=== PATIENT | female | born 1970 | race Caucasian/White ===

== ENCOUNTER 2017-08-27 13:00 | Outpatient (RCR) | payer OTHER, SELFPAY ==
--- NOTE | 2017-05-08 09:52 | HP.SP.ADRE_ITS ---
Previous/Current Goals - Goals 1-5 Previous Goal #1: aNtali will recall details of short information (2-5 sentences ) with 80% accuracy on 4 consecutive sessions. Goal 1 Status: Previously: Details of 2-5 length sentences was recalled with 20 % accuraacy when information was provided verbally to her. Currently: Natali has declined to continue to address this goal. Previous Goal #2: Natali will correctly identify kay/change and accurately handle kay on 4/5 trials on 4 consecutive sessions. Goal 2 Status: Previously, Natali was able to identify a five dollar bill out of 5 bills. She needed maximal cues to count a 5 dollar bill and 4 ones as she stopped at 7 when counting. she is not able to see the one dollar bills per the patient. When given the correct change she had difficulty in telling if it was correct or not. Currently: She was able to count ones and fives up to 20 dollars. She was able to correctly identify between the two 100% of the time. Previous Goal #3: Natali will demonstrate perseveration less than 10 times in a 10 minute conversation. Goal 3 Status: Previously: Natali perseverated on 15 times in a 10 minutes conversation. Currently, Natali only perseverated when she was trying to think something through.Such as 35, 35, 35, for 358 for her house number when she wasn't able to think of the 8. perseverations in general conversation today. Previous Goal #4: Natali will answer problem solving questions with 80% accuracy for safety awareness. Goal 4 Status: Previosly, 50% She usually had the second step but not the first ( call 911 in case of a fire but didn't say leave the house first). Recently, she problem solving [employer] within [employer] for a variety of options of per month club orders. She was not able to recall amounts and determine which is the best option for her amount of money to spend. Noted deficits continue for higher level problem solving. History - History Date of Eval: 10/04/16 Medical Diagnosis (from RX): PRES Previous speech therapy: Yes Other Relevant Medical History/Diagnoses/Surgery: Seizures Smoking Status: Never smoker Hx Smoking: Yes - no meds currently Hx Tobacco Use: No - Pain Is pain an issue with your current prescribed condition?: No - Personal Education History: Masters degree Occupation: Disability, previous was [employer] of [employer] Right Hearing Abillity: Normal Left Hearing Abillity: Normal Visual Assistive Devices: Glasses Patients Living Arrangements: With Significant Other Patient Allergies - Allergies Allergies allopurinol Allergy (Verified 10/07/16 10:33) Diarrhea lactose Adverse Reaction (Verified 10/07/16 10:33) Diarrhea CLQT - CLQT CLQT Administered: Yes CLQT: Cognitive Linguistic Quick Test (CLQT) is a criterion - referenced assessment designed for adults between the ages of 18 and 89 with known or suspected neurological dysfuntions. The CLQT is to assess strength and weaknesses in five cognitive domains. Severity ratings are within normal limits , mild, moderate, severe deficits. The subtests are as follows: Date: 05/08/17 - Attention Attention: Severe - Memory Memory: Moderate - Executive Functions Executive Functions: Severe - Language Language: Mild - Visuospatial Skills Visuospatial Skills: Severe - Composite Severity Rating Composite Severity Rating: Moderate - CLQT Comments Analysis Natali was able to give personal information except her house number. Symbol cancellation was very difficult due to vision deficits. Confrontational naming was 100%. She was able to recall 11 details of a short paragraph when previously she only was able to name 6. Symbol trails subtest was very difficult in that it took planning as well as visual discrimination. Overall her ability to plan is increasing but continues to lack in overall ability to think ahead to plan steps. Vision Natali is already in vision therapy, therefore, several of the tasks were difficult due to this. Her eyes do not work together and she sees two images imposed over each other per her . Plan - Plan Plan: Speech therapy is warranted to continue for moderate cognitive deficits. She has a language component to her deficits as well as problem sovling deficits. - Recommendations MBS: No Treatment Warranted: Yes - Frequency Duration: 1 Week - Prognosis Prognosis: Good - Goals that are Established: Determination:: Goals will be added/modified as deemed necessary and appropriate. Therapy will be discontinued when results of re-evaluation indicate therapy is no longer needed or lack of progress has been documented. - Goal #1-5 Goal #1: Natali will correctly identify kay/change and accurately handle kay on 4/5 trials on 4 consecutive sessions. Goal #2: Natali will answer problem solving questions with 80% accuracy for safety awareness, reasoning and judgement. Goal #3: Natali will follow steps to access phone to make a phone call, text, and take pictures/videos on 3/5 trials. Goal #4: Natali will answer problem solving questions with 80% accuracy for safety awareness.
--- NOTE | 2017-06-24 15:33 | HP.OTREVAL ---
Aiden Car, It has been my pleasure to treat ARIELLA ABDULLAHI over the last 41 visits for . Please see the progress note below for an update on the occupational therapy plan of care! Subjective: Pt. arrived to session. Notes that everything is going well and that she went to auction with this weekend. Notes she is struggling with STM. She notes it has been biggest struggle since accident and as writing and typing are coming along she would like to start making more memory and cue cards (ST to address for social as pects and OT for ADLs/IADls) for people names and OT for ADl/IADls cues. Notes increased difficulty with remebering to transfer laundry over to dryer etc. Notes the sorting and compeltion of laundry tasks is going well. Further explained year anniversary of getting 'sick' is on July 14 and she would like to work on tryign to type letter to to thank. Objective/Function: Reassessment completed on this date. Ariella is progressing with therapy at this time. Mo[facility] cognitive screen attempted on this date but due to low vision she was unable to see things clearly enough for completion. She was able to correctly identify camel and worked on writing word camel from LTM. Correctly sequenced and formed 4/5 letters with SBA. Increased difficulty with e. Worked on visuospatial awareness through drawing of clock. Molly was previously unable to number clock. She has progressed to correctly forming and labeling 12, 6, 3, and needs 2x cues to correctly label 9 as she verbalized 9 but wrote 3. She was able to self-correct with 2x cues. Less that .5 cm gap at end point of [place]. However, [place] still indicative of increased visospatial deficits. Vision therapy has been discontinued at this time. She is progressing with typing and low vision tasks with use of increased font. Ariella has increased ability to read on microsoft word document while working on typing on computer with size 72 and zoom at 150%. The paragraph symbols are used at times to help recognize spacing between words and to decreased perseveration between words when typing. LTM is helpping Ariella promote typing of short words and name. She needs cues and physical prompts for R hand placement. She is able to correctly and accuratly type Ariella Abdullahi with verbal direction, no cues, and no errors. Progress from previous ability. She has increased difficulty with correctly typing full [place] in order and needs assistance with sequencing letters. She was SUP for 15/26 letters but when getting to type 'P' needed 4x cues before compelting rest of [place]et and was TD to recall order of [place]et after 'P'. She is able to recognize letters when visual prompts are presents with SBA. Working on increasing accuracy with [place] to promote increased knowledge of keyboard and sequencing skills for typing tasks. Increased perseveration of words and tasks are typically present with increased frustration of tasks or increased fatigue. Typically 1x 2 min break helps Pt. self-correct and self correct with cues as needed. Pt. is increasing ability to complete IADls t/o home. She notes continues decreasd ability for STM to complete laundry tasks. She notes increased STM for time management and transferring from washer to dryer. WIll progress with auditory and visual prompts as Pt. is able to read large fonts. Plan Plan: Ariella to continue OT for 1x weekly for 8 weeks to continue to address maximizing ADLs and help reintegrate and participate in IADls. WIll continue to work on STM and low vision compensations to promote (I). Working on increased performance and ability to type as this is a visual perceptual and very meaningful task for Ariella to relearn and complete at this time. Start address STM to help faciliate further safety and (I) while at home. Anticipated Interventions Anticipated Interventions: Strengthening, Sensory Retraining, Neuro Reeducation, Visual/Perceptual Skills, Cognitive Skills, ADL Training, Caregiver Training, Home Program Other Interventions: Working on Low Vision compensations and increasing sequencing and STM needed to complete ADL/IADls to promote increased (i) within home to help increase QOL and return to PLOF. Please do not hesitate to contact me at [phone] by phone or if you have questions or concerns regarding this new plan of care! Sincerely, Clari Farias
--- NOTE | 2017-06-25 09:03 | HP.OTREVAL ---
Aiden Car, It has been my pleasure to treat ARIELLA ABDULLAHI over the last 41 visits for . Please see the progress note below for an update on the occupational therapy plan of care! Subjective: Pt. arrived to session. Notes that everything is going well and that she went to auction with this weekend. Notes she is struggling with STM. She notes it has been biggest struggle since accident and as writing and typing are coming along she would like to start making more memory and cue cards (ST to address for social aspects and OT for ADLs/IADls) for people names and OT for ADl/IADls cues. Notes increased difficulty with remebering to transfer laundry over to dryer etc. Notes the sorting and completion of laundry tasks is going well. Further explained year anniversary of getting 'sick' is on July 14 and she would like to work on trying to type letter to to thank him. Verbalized understanding that re-eval needed to take place today. Objective/Function: Reassessment completed on this date. Ariella has progressed and meant some goals. Ariella is progressing with therapy at this time. MoCA cognitive screen attempted on this date but due to low vision she was unable to see things accurated for completion. She was able to correctly idenify camel and worked on writing word camel from LTM. Correctly sequenced and formed 3/5 letters with SBA. Worked on visuospatial awareness through drawing of clock. Molly was previously unable to number clock. She has progressed to correctly forming and labeling 12, 6, 3, and needs 2x cues to correctly label 9 as she verbalized 9 but wrote 3. Able to self-correct with 2x cues. Less that .5 cm gap at end point of [place]. However, [place] still indicative of increased visospatial deficits. Vision therapy has been discontinued at this time. She is progressing with typing and low vision tasks with us of increased font. Ariella has icnreased ability to read on [employer] working on typing on computer with size 72 and zoom at 150%. The paragrap sybols are used at times to also help recognize spacing between words and to decreased perseveration between words when typing. LTM is helpping Ariella promote typing of short words and name. She needs cues and physical prompts for R hand placement. She is anle to correctly and accuratly type Ariella Abdullahi with verbal direction, no cues, and no errors. Progress from previous ability. She has increased difficulty with coreectly typing full [place] in order and needs assisatnce with remembering sequence of letters. She was SUP for 15/26 letters but when getting to P needed 4x cues before compelting rest of akphabet and was TD to recall order of [place]. She is able to recognize letters when visual prompts are presents with SBA. Working on increasing accuracy with [place]ap[place]et to promote increased knowledge of keybaord and sequencing skills for typing tasks. Increased perseveration of words and tasks are typically present with increased frustration of tasks or increased fatigue. Typically 1x 2 min break help Pt. self-correct and self correct with cues as needed. Pt. is increased ability to complete IADls t/o home. She notes continues decreasd ability for STM to complete laundry tasks. She notes increased STM for time management and transferring from washer to dryer. WIll progressing with auditory and visual prompts as Pt. is able to read large fonts. Plan Frequency: 1x/Week Duration: 8 weeks Plan: Ariella to continue OT for 1x weekly for 8 weeks to continue to address maximizing ADLs and help reintegrate and participate in IADls. WIll continue to work on STM and low vision compensations to promote (I). Working on increased performance and ability to type as this is a visual perceptual and very meaningful task for Ariella to relearn and complete at this time. Start address STM to help faciliate further safety and (I) while at home. Goals - Goals Goal:: Pt. to be (I) to print and sign first and last name with 1xcue 4/5 trials 80% of the time to promote increased ability to complete IALDs by d/c. Goal:: Ariella will be mod I to type three consecutive sentences from visual and verbal prompts as needed 4/5 trials to improve Pt. ability to communicate through emails and complete IADLs by d/c. Goal:: Ariella will be mod I to complete laundry with layout and memory aids as needed 4/5 trials 80% of the time with good safety awareness and decreased need for assistance to improve QOL by d/c. Goal:: Ariella and caregiver to implement low vision compensations into daily routine to promote safety awarness and decreased risk of further injury 4/5 [id number]% of the time to prote QOL and improve (I) by d/c. Goal:: Ariella to correctly type [place] with 1x cue to promote increase seqeuncing, VMI, and perceptual cues to promote increased (I) and ability to localte letters on keybaord to promote (i) with meaningful tasks by d/c . Goal:: Ariella to be mod I to read digital clock to promote increased ability to complete home time management ability to promote (i) with ADL/IADls 4/5 trials 80% of the time by d/c. Goal:: Ariella to be SBA to complete 5-6 step simple meals with good safety awareness 4/5 trials 80% of the time to promote (I) and QOL by time of d/c. Goal:: Ariella to be SBA to complete all IADLS with good safety awareness 4/5 trials 80% of the time to promote QOL and decrease need to for spv by time of d/c. Goal:: Ariella to be SBA to write 1-2x word sentences with no cues and good legibility to promote ability to create memory aid 4/5 trials 80% o the time to promote increased (i) and QOL by d/c. Anticipated Interventions Anticipated Interventions: Strengthening, Sensory Retraining, Neuro Reeducation, Visual/Perceptual Skills, Cognitive Skills, ADL Training, Caregiver Training, Home Program Other Interventions: Working on Low Vision compensations and increasing sequencing and STM needed to complete ADL/IADls to promote increased (i) within home to help increase QOL and return to PLOF. Please do not hesitate to contact me at [phone] by phone or if you have questions or concerns regarding this new plan of care! Sincerely, Clari Farias
--- NOTE | 2017-08-27 13:08 | OTREVAL_ITS ---
Aiden Car, It has been my pleasure to treat ARIELLA ABDULLAHI over the last 49 visits for . Please see the progress note below for an update on the occupational therapy plan of care! Subjective: Arrived a little late. Noted able to complete making pasta salad and did some baking with help this weekend. Objective/Function: Ariella has progressed from initial evaluation. Functional performance is improving but remains significantly limited and vision and visual processing appears to be improving but deficits remain. She is now (I) to write ?Ariella Sanford? in cursive on unlined basic printer paper. Her remains to need mod A for ?Remy?. She becomes emotional when learning process is changed or challenged. She has been working on providing directed feedback and completing chunking methods to further promote learning. She has been starting to complete low vision space and line divider for new printing tasks for increased low vision compensations and proprioceptive input. Starting to progress with address. Performance is variable. Previous session able to re cite address (I) when asked, today she needed 1x cue and had a few perseverations. She remains able to complete reciting address with (i) ? CGA. She has started with use of low vision compensations writing first three numbers of address with low vision compensations. She can write numbers 1-9 with min A. At times reversals are noted and she works on correcting. With increased number complications of two numbers she has increased difficulty, processing, and increased perseveration. Slowly progressing with writing tasks. She is working to increased ability to complete writing tasks with vision compensations, blocking, and learning techniques to promote increased ability to relearn writing tasks. The focus of most sessions has been on typing as Ariella was very eager to get back to typing. She is able to type name with ability to self-correct errors on regular keyboard and use of size 72 font with screen at 100% zoom. With 1x verbal cues she is able to type alphabet from c-r without error 1/ time. Errors noted for a, b, and x. Needs cues for hands placement but recognizing when fingers are off. She is progressing with typing tasks at this time. When trying to restart task increased number of errors are made which appears to be due to increase thinking of task and worrying about order etc. However, when previously tested on typing tasks she was unable to complete typing alphabet. Ariella is able to complete making pot of coffee, pure glass (i). She is progressing with baking and simple meal prep. Ariella noted that she is working on dishes and laundry. She is completing sorting and laundry tasks but having increased difficulty with remembering if clothes in basket are clean or dirty. She is progressing towards self-care goals at this time. Further clinic and home - based intervention needed to increase (I). She is cooking simple meals with SUP. She will continue OT for 1x weekly treatment for the next 12 weeks. Plan Frequency: 1x/Week Duration: 8 weeks Plan: continue POC for 1x weekly sessions for 12 weeks. WSill complete at least 1x home session if needed to promote increased (I) with ADls/IADLs. Goals - Goals Goal:: Pt. to be (I) to print and sign first and last name with 1xcue 4/5 trials 80% of the time to promote increased ability to complete IALDs by d/c. Goal:: Ariella will be mod I to type three consecutive sentences from visual and verbal prompts as needed 4/5 trials to improve Pt. ability to communicate through emails and complete IADLs by d/c. Goal:: Ariella will be mod I to complete laundry with layout and memory aids as needed 4/5 trials 80% of the time with good safety awareness and decreased need for assistance to improve QOL by d/c. Goal:: Ariella and caregiver to implement low vision compensations into daily routine to promote safety awarness and decreased risk of further injury 4/5 [id number]% of the time to prote QOL and improve (I) by d/c. Goal:: Ariella to correctly type [place] with 1x cue to promote increase seqeuncing, VMI, and perceptual cues to promote increased (I) and ability to localte letters on keybaord to promote (i) with meaningful tasks by d/c . Goal:: Ariella to be mod I to read digital clock to promote increased ability to complete home time management ability to promote (i) with ADL/IADls 4/5 trials 80% of the time by d/c. Goal:: Ariella to be SBA to complete 5-6 step simple meals with good safety awareness 4/5 trials 80% of the time to promote (I) and QOL by time of d/c. Goal:: Ariella to be SBA to complete all IADLS with good safety awareness 4/5 trials 80% of the time to promote QOL and decrease need to for spv by time of d/ c. Goal:: Ariella to be SBA to write 1-2x word sentences with no cues and good legibility to promote ability to create memory aid 4/5 trials 80% o the time to promote increased (i) and QOL by d/c. Anticipated Interventions Anticipated Interventions: Strengthening, Sensory Retraining, Neuro Reeducation , Visual/Perceptual Skills, Cognitive Skills, ADL Training, Caregiver Training, Home Program Other Interventions: Working on Low Vision compensations and increasing sequencing and STM needed to complete ADL/IADls to promote increased (i) within home to help increase QOL and return to PLOF. Please do not hesitate to contact me at [phone] by phone or Fax: if you have questions or concerns regarding this new plan of care! Sincerely, Clari Farias
--- NOTE | 2017-08-28 08:08 | HP.SP.ADRE ---
Previous/Current Goals - Goals 1-5 Previous Goal #1: Natali will correctly identify kay/change and accurately handle kay on 4/5 trials on 4 consecutive sessions. Goal 1 Status: Previously, She was able to count ones and fives up to 20 dollars. She was able to correctly identify between the two 100% of the time. Currently, Natali can identify between 1,5,10 and 20 dollar bills. She can count bills with 50% accuracy. She was able to count coins 3 times slowly. OT is addressing visual deficits. Goal continues. Previous Goal #2: Natali will answer problem solving questions with 80% accuracy for safety awareness, reasoning and judgement. Goal 2 Status: Previously, she problem solved cliff gifts within [place] ranges for a variety of options of per month club orders. She was not able to recall amounts and determine which is the best option for her amount of money to spend. Currently, she is able to problem solve simple and moderate problems verbally but lacks carry over into daily life. When presented with a problem she often is unable to tell how to progress to solve it. She can answer problems such as if you see a car accident, what do you do? with 80% accuracy. Complex problems remain difficult for Natali as she relies on others to provide her with solutions. Previous Goal #3: Natali will follow steps to access phone to make a phone call, text, and take pictures/videos on 3/5 trials. Goal 3 Status: Previously, Natali was able to take a picture with no cues. She also showed a video that she had taken at home. She needed maximal cues to open the text box, choose the picture and send the text. She can use Radha to text through speech to text. She has only brought her phone 1-2 times, therefore, goal has not been addressed often. Previous Goal #4: Natali will use recall strategies on 3/5 trials with moderate cues. Goal 4 Status: Natali reports using association and reptition as she can not read or write effectively. She reports that her has a calendar at home but he does all the scheduling. Natali does not effectively use her strategies. She is unable to write/type information due to visual deficits and unable to read well also due to these deficits. Natali has requested to continue this goal. 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 [employer] Right Hearing Abillity: Normal Left Hearing Abillity: Normal Visual Assistive Devices: Glasses Patients Living Arrangements: With Significant Other Patient Allergies - Allergies Allergies allopurinol Allergy (Verified 10/07/16 10:33) Diarrhea lactose Adverse Reaction (Verified 10/07/16 10:33) Diarrhea Objective Cog/Ling/Com - Test Administered Ghhrgkpxa-Begsfgetlk-Igjrnnnyxgvhq Assessment Administered: Yes Nhbttwjjf-Srwxdynekd-Omwkxtchzphtd Assessment: Cognitive Linguistic skills were evaluated using patient/family interview, skilled observation and informal evaluation through tasks completed by the patient. - Answer Yes/No Questions Simple: WFL Complex: Mild - Medication Completing medications independently: Severe Cognitive Linguistic Comments - Comments Medication Natali's has been completing her medication. They have requested that she be able to independently be able to complete medication tasks. CLQT - CLQT CLQT Administered: Yes CLQT: Cognitive Linguistic Quick Test (CLQT) is a criterion - referenced assessment designed for adults between the ages of 18 and 89 with known or suspected neurological dysfuntions. The CLQT is to assess strength and weaknesses in five cognitive domains. Severity ratings are within normal limits, mild, moderate, severe deficits. The subtests are as follows: Date: 08/28/17 - Attention Attention: Severe - Memory Memory: Moderate - Executive Functions Executive Functions: Severe - Language Language: Moderate - Visuospatial Skills Visuospatial Skills: Severe - Composite Severity Rating Composite Severity Rating: Moderate - CLQT Comments Analysis Natali has increased her raw score on memory from 112 to 124 but still places in the moderate range. Overall she is able to complete personal facts 100% when previously it was 7/8. Symbol cancellation had more correctly identified symbols but she also marked ones that were visually similar therefore she had the same poor score. Confrontational naming was 100% this time when previously it was 80%. For story retelling she was able to get the overall information but lacked some details. She was unable to do symbol trails due to visual deficits in telling size of shapes. Generative naming had 6 animals listed but she then repeated those animals 7 times. She was only able to tell one word that started with m. She got one more item for raw score on design memory ( the most visually complex was missed) which is an increase from 2 perviously. Mazes were not able to be completed but she was able to generate one design at the end. Overall her scores are similiar to previous testing composite score was 1.6 and currently it is 1.4. Vision Natali's visual deficits overall effect her ability to complete some subtests. Plan - Plan Plan: Speech therapy is recommended to continue for 12 more weeks to focus on functional tasks for Natali to be as independent as possible. - Recommendations MBS: No Treatment Warranted: Yes - Frequency Visits in this POC: 24 - Prognosis Prognosis: Fair - Goals that are Established: Determination:: Goals will be added/modified as deemed necessary and appropriate. Therapy will be discontinued when results of re-evaluation indicate therapy is no longer needed or lack of progress has been documented. - Goal #1-5 Goal #1: Natali will correctly identify kay/change and accurately handle kay on 4/5 trials on 4 consecutive sessions. Goal #2: Natali will complete medication tasks including but not limited to showing appropriate day to take medications, medication set up and recall of information about her medications with 90% with minimal cues. Goal #3: Natali will follow steps to access phone to make a phone call, text, and take pictures/videos on 3/5 trials. Goal #4: Natali will use recall strategies on 3/5 trials with moderate cues.
--- NOTE | 2017-08-29 08:36 | HP.OTREVAL ---
Aiden Car, It has been my pleasure to treat ARIELLA ABDULLAHI over the last 49 visits for . Please see the progress note below for an update on the occupational therapy plan of care! Subjective: Arrived a little late. Noted able to complete making pasta salad and did some baking with help this weekend. Objective/Function: Ariella has progressed from initial evaluation. Functional performance is improving but remains significantly limited and vision and visual processing appears to be improving but deficits remain. She is now (I) to write Ariella Sanford in cursive on unlined basic printer paper. Her remains to need mod A for Remy. She becomes emotional when learning process is changed or challenged. She has been working on providing directed feedback and completing chunking methods to further promote learning. She has been starting to complete low vision space and line divider for new printing tasks for increased low vision compensations and proprioceptive input. Starting to progress with address. Performance is variable. Previous session able to re cite address (I) when asked, today she needed 1x cue and had a few perseverations. She remains able to complete reciting address with (i) CGA. She has started with use of low vision compensations writing first three numbers of address with low vision compensations. She can write numbers 1-9 with min A. At times reversals are noted and she works on correcting. With increased number complications of two numbers she has increased difficulty, processing, and increased perseveration. Slowly progressing with writing tasks. She is working to increased ability to complete writing tasks with vision compensations, blocking, and learning techniques to promote increased ability to relearn writing tasks. The focus of most sessions has been on typing as Ariella was very eager to get back to typing. She is able to type name with ability to self-correct errors on regular keyboard and use of size 72 font with screen at 100% zoom. With 1x verbal cues she is able to type alphabet from c-r without error 1/1 time. Errors noted for a, b, and x. Needs cues for hands placement but recognizing when fingers are off. She is progressing with typing tasks at this time. When trying to restart task increased number of errors are made which appears to be due to increase thinking of task and worrying about order etc. However, when previously tested on typing tasks she was unable to complete typing alphabet. Ariella is able to complete making pot of coffee, pure glass (i). Attempted completion of MVPT to further determine how vision is progressing. She remains unable to complete at this time. She is progressing with baking and simple meal prep. Ariella noted that she is working on dishes and laundry. She is completing sorting and laundry tasks but having increased difficulty with remembering if clothes in basket are clean or dirty. She is progressing towards self-care goals at this time. Further clinic and home - based intervention needed to increase (I). She is cooking simple meals with SUP. She remains unsafe with stove top cooking tasks and safety continues to be concern for therapy when Pt. is hoem alone. She will continue OT for 1x weekly treatment for the next 12 weeks. Plan Frequency: 1x/Week Duration: 12 weeks Plan: continue POC for 1x weekly sessions for 12 weeks. Will complete at least 1x home session if needed to promote increased (I) with ADls/IADLs. She has progress and completing simple IADls but still having difficulty with activity such as laundry in telling what is clean vs. dirty. Ot has consistently educated and Ariella on low vision tools. Due to injury vision deficits, cognitive deficits, and safety remain most crucial issues that need to continue to be addressed and increase Molly (I) for IADls. Some low vision compensations have been put in place at home. She has recently started counseling due to injury to help with coping. She remains motivated to complete all therapy tasks but due to injury is seeking additional services to promote coping and adjustment to new abilities and life roles. Goals - Goals Goal:: Pt. to be (I) to print and sign first and last name with 1xcue 4/5 trials 80% of the time to promote increased ability to complete IALDs by d/c. Goal:: Ariella will be mod I to type three consecutive sentences from visual and verbal prompts as needed 4/5 trials to improve Pt. ability to communicate through emails and complete IADLs by d/c. Goal:: Ariella will be mod I to complete laundry with layout and memory aids as needed 4/5 trials 80% of the time with good safety awareness and decreased need for assistance to improve QOL by d/c. Goal:: Ariella and caregiver to implement low vision compensations into daily routine to promote safety awarness and decreased risk of further injury 4/5 % of the time to prote QOL and improve (I) by d/c. Goal:: Ariella to correctly type alaphabet with 1x cue to promote increase seqeuncing, VMI, and perceptual cues to promote increased (I) and ability to localte letters on keybaord to promote (i) with meaningful tasks by d/c . Goal:: Ariella to be mod I to read digital clock to promote increased ability to complete home time management ability to promote (i) with ADL/IADls 4/5 trials 80% of the time by d/c. Goal:: Ariella to be SBA to complete 5-6 step simple meals with good safety awareness 4/5 trials 80% of the time to promote (I) and QOL by time of d/c. Goal:: Ariella to be SBA to complete all IADLS with good safety awareness 4/5 trials 80% of the time to promote QOL and decrease need to for spv by time of d/c. Goal:: Ariella to be SBA to write 1-2x word sentences with no cues and good legibility to promote ability to create memory aid 4/5 trials 80% of the time to promote increased (i) and QOL by d/c. Goal:: Ariella to be mod I to write address with low vision compensations as needed 2/3 trials 75% of the time to promote safety, VMI, and ability to increase QOL by d/c. Anticipated Interventions Anticipated Interventions: Strengthening, Sensory Retraining, Neuro Reeducation, Visual/Perceptual Skills, Cognitive Skills, ADL Training, Caregiver Training, Home Program Other Interventions: Working on Low Vision compensations and increasing sequencing and STM needed to complete ADL/IADls to promote increased (i) within home to help increase QOL and return to PLOF. Please do not hesitate to contact me at [phone] by phone or if you have questions or concerns regarding this new plan of care! Sincerely, Clari Farias
--- NOTE | 2017-08-29 08:39 | OTREVAL_ITS ---
Aiden Car, It has been my pleasure to treat ARIELLA ABDULLAHI over the last 49 visits for . Please see the progress note below for an update on the occupational therapy plan of care! Subjective: Arrived a little late. Noted able to complete making pasta salad and did some baking with help this weekend. Objective/Function: Ariella has progressed from initial evaluation. Functional performance is improving but remains significantly limited and vision and visual processing appears to be improving but deficits remain. She is now (I) to write ?Ariella Sanford? in cursive on unlined basic printer paper. Her remains to need mod A for ?Remy?. She becomes emotional when learning process is changed or challenged. She has been working on providing directed feedback and completing chunking methods to further promote learning. She has been starting to complete low vision space and line divider for new printing tasks for increased low vision compensations and proprioceptive input. Starting to progress with address. Performance is variable. Previous session able to re cite address (I) when asked, today she needed 1x cue and had a few perseverations. She remains able to complete reciting address with (i) ? CGA. She has started with use of low vision compensations writing first three numbers of address with low vision compensations. She can write numbers 1-9 with min A. At times reversals are noted and she works on correcting. With increased number complications of two numbers she has increased difficulty, processing, and increased perseveration. Slowly progressing with writing tasks. She is working to increased ability to complete writing tasks with vision compensations, blocking, and learning techniques to promote increased ability to relearn writing tasks. The focus of most sessions has been on typing as Ariella was very eager to get back to typing. She is able to type name with ability to self-correct errors on regular keyboard and use of size 72 font with screen at 100% zoom. With 1x verbal cues she is able to type alphabet from c-r without error 1/ time. Errors noted for a, b, and x. Needs cues for hands placement but recognizing when fingers are off. She is progressing with typing tasks at this time. When trying to restart task increased number of errors are made which appears to be due to increase thinking of task and worrying about order etc. However, when previously tested on typing tasks she was unable to complete typing alphabet. Ariella is able to complete making pot of coffee, pure glass (i). Attempted completion of MVPT to further determine how vision is progressing. She remains unable to complete at this time. She is progressing with baking and simple meal prep. Ariella noted that she is working on dishes and laundry. She is completing sorting and laundry tasks but having increased difficulty with remembering if clothes in basket are clean or dirty. She is progressing towards self-care goals at this time. Further clinic and home - based intervention needed to increase (I). She is cooking simple meals with SUP. She remains unsafe with stove top cooking tasks and safety continues to be concern for therapy when Pt. is hoem alone. She will continue OT for 1x weekly treatment for the next 12 weeks. Plan Frequency: 1x/Week Duration: 12 weeks Plan: continue POC for 1x weekly sessions for 12 weeks. Will complete at least 1x home session if needed to promote increased (I) with ADls/IADLs. She has progress and completing simple IADls but still having difficulty with activity such as laundry in telling what is clean vs. dirty. Ot has consistently educated and Ariella on low vision tools. Due to injury vision deficits, cognitive deficits, and safety remain most crucial issues that need to continue to be addressed and increase Molly (I) for IADls. Some low vision compensations have been put in place at home. She has recently started counseling due to injury to help with coping. She remains motivated to complete all therapy tasks but due to injury is seeking additional services to promote coping and adjustment to new abilities and life roles. Goals - Goals Goal:: Pt. to be (I) to print and sign first and last name with 1xcue 4/5 trials 80% of the time to promote increased ability to complete IALDs by d/c. Goal:: Ariella will be mod I to type three consecutive sentences from visual and verbal prompts as needed 4/5 trials to improve Pt. ability to communicate through emails and complete IADLs by d/c. Goal:: Ariella will be mod I to complete laundry with layout and memory aids as needed 4/5 trials 80% of the time with good safety awareness and decreased need for assistance to improve QOL by d/c. Goal:: Ariella and caregiver to implement low vision compensations into daily routine to promote safety awarness and decreased risk of further injury 4/5 [id number]% of the time to prote QOL and improve (I) by d/c. Goal:: Ariella to correctly type alaphabet with 1x cue to promote increase seqeuncing, VMI, and perceptual cues to promote increased (I) and ability to localte letters on keybaord to promote (i) with meaningful tasks by d/c . Goal:: Ariella to be mod I to read digital clock to promote increased ability to complete home time management ability to promote (i) with ADL/IADls 4/5 trials 80% of the time by d/c. Goal:: Ariella to be SBA to complete 5-6 step simple meals with good safety awareness 4/5 trials 80% of the time to promote (I) and QOL by time of d/c. Goal:: Ariella to be SBA to complete all IADLS with good safety awareness 4/5 trials 80% of the time to promote QOL and decrease need to for spv by time of d/ c. Goal:: Ariella to be SBA to write 1-2x word sentences with no cues and good legibility to promote ability to create memory aid 4/5 trials 80% of the time to promote increased (i) and QOL by d/c. Goal:: Ariella to be mod I to write address with low vision compensations as needed 2/3 trials 75% of the time to promote safety, VMI, and ability to increase QOL by d/c. Anticipated Interventions Anticipated Interventions: Strengthening, Sensory Retraining, Neuro Reeducation , Visual/Perceptual Skills, Cognitive Skills, ADL Training, Caregiver Training, Home Program Other Interventions: Working on Low Vision compensations and increasing sequencing and STM needed to complete ADL/IADls to promote increased (i) within home to help increase QOL and return to PLOF. Please do not hesitate to contact me at [phone] by phone or Fax: if you have questions or concerns regarding this new plan of care! Sincerely, Clari Farias
== END 2017-08-27 19:00 | disposition home or self-care (01) ==
LOC: SP 13:00
PROVIDERS: Family Provider Family Medicine; PCP Family Medicine; Visit Provider Family Medicine
DX: I67.83 Posterior reversible encephalopathy syndrome (principal)
CPT/HCPCS: 92507; 97112; 97168; 97530

== ENCOUNTER 2018-04-08 20:25 | Emergency (ER) | payer OTHER, SELFPAY ==
[2018-04-08 20:27] VITALS: PULSE 109; RESP 16; TEMP 36.8; O2SAT 78; BMI 33.6
[2018-04-08 20:33] VITALS: O2SAT 95
--- NOTE | 2018-04-08 20:50 | CT_ITS ---
STUDY: CT BRAIN WITHOUT CONTRAST REASON FOR EXAM: Female, 47 years old. Headache, seizures RADIATION DOSAGE (If Supplied By Facility): CTDIvol = ( 44.99 ) mGy, DLP = ( 745.49 ) mGycm TECHNIQUE: Transaxial CT imaging of the brain was performed without administration of intravenous contrast material. Individualized dose optimization techniques were used for this CT. COMPARISON: 02/07/2017 FINDINGS: Normal soft tissue structures. Normal calvarium. Normal size ventricles and extra-axial spaces for the patient's age. Normal white matter tracts of the cerebral hemispheres. Normal basal ganglia and thalami. Normal brainstem. Normal cerebellum. There is no intracranial hemorrhage. There are no findings of an acute ischemic infarction. Normal visualized paranasal sinuses. CT/Brain/Head without Contrast IMPRESSION: Normal unenhanced CT scan of the brain. Electronically Signed: Cory Henning MD at 21:26 EST , Service support ,
[2018-04-08] MEDS: Morphine 4 MG/ML Syringe IV (20:56)
[2018-04-08] MEDS: DiphenhydrAMINE 50 MG/ML Syringe 25 MG IV (20:56)
[2018-04-08] MEDS: Metoclopramide 10 MG/2 ML Vial IV (20:56)
[2018-04-08 21:12] LABS: Absolute Lymphocyte Count 1.75 X10^3/ul (0.83-4.51); Absolute Neutrophil Count 14.4 X10^3/uL (2.0-7.7); Basophil# 0.04 X10^3/uL; Basophil% 0.2 % (0-1); Eosinophils% 0.6 % (0-5); Hematocrit 39.4 % (37-47); Hemoglobin 12.4 g/dl (12.0-15.0); Lymphocyte # 1.75 X10^3/ul (4.0); Lymphocyte % 10.7 % (19-41); Mean Corp Hgb Conc 31.5 g/gl (32-36); Mean Corpuscular Volume 95.2 fL (81-99); Mean Platelet Vol. 9.9 fl (6.2-12.0); Monocyte# 0.01 X10^3/uL; Monocyte% 0.1 % (0-10); Neutrophil # 14.44 X10^3/uL (2.7-7.7); Platelet Count 250 K/mm3 (150-450); RBC Distribution Width CV 14.6 % (11.6-14.6); RBC Distribution Width SD 49.8 fl (35.1-43.9); Red Blood Count 4.14 M/mm3 (4.2-5.4); White Blood Count 16.4 K/mm3 (4.4-11.0)
[2018-04-08 21:13] LABS: Anion Gap 7 (5-15); BUN 14 mg/dL (7-18); BUN/Creat Ratio 9.8 RATIO (10-20); Calcium,Total 8.2 mg/dL (8.5-10.1); Chloride 109 mmol/L (98-107); Creatinine, Serum 1.43 mg/dL (0.55-1.02); EST Glomerular Filtration Rate 41 mL/min (>60); Est Glom Filt Rate - Afr Amer 50 mL/min (>60); Estimated Creatinine Clearance 35.91 ml/min; Glucose 114 mg/dL (74-106); Potassium 4.3 mmol/L (3.5-5.1); Sodium Level 137 mmol/L (136-145)
[2018-04-08 21:14] LABS: POSITIVE COUNT NO; POSITIVE DIFFERENTIAL NO; POSITIVE MORPHOLOGY NO
[2018-04-08 22:11] VITALS: BP 161/91; PULSE 126; RESP 13; O2SAT 93
--- NOTE | 2018-04-08 22:15 | ED.RN ---
SBP >180, HEART RATE INCREASED TO 130'S. MD AWARE, MEDS ORDERED. BP RECHECKED, SBP 140'S, MED HELD, MD AWARE, WILL CONTINUE TO MONITOR.
[2018-04-08 22:17] VITALS: BP 147/88; PULSE 125; RESP 12; O2SAT 93
--- NOTE | 2018-04-08 22:30 | ED.RN ---
PT NOT RESPONDING TO VOICE OR TOUCH, OCCASIONAL WITHDRAWAL FROM PAINFUL STIMULI. MD AWARE AND AT BEDSIDE, NO NEW ORDERS, WILL CONTINUE TO MONITOR.
[2018-04-08 23:00] VITALS: BP 146/94; PULSE 125; RESP 14; O2SAT 94
[2018-04-08 23:26] LABS: AST(SGOT) 16 U/L (15-37); Alanine Aminotransfer ALT/SGPT 22 U/L (13-56); Albumin, Serum 3.9 g/dL (3.2-5.0); Alkaline Phosphatase 89 U/L (45-117); Bilirubin, Direct 0.11 mg/dL (0.00-0.30); Globulin 3.5 g/dL (2.2-4.2); Protein, Total 7.4 g/dL (6.4-8.2)
--- NOTE | 2018-04-08 23:31 | ED.RN ---
SPOUSE STATES PT HAS BEEN CONSUMING APPROX 1 BOTTLE OF WINE AND A FEW BEERS PER DAY UNTIL 3 DAYS AGO. AWARE.
[2018-04-08 23:47] LABS: Amphetamine Urine VISTA NEGATIVE (<1000 ng/mL); Barbiturate Urine VISTA NEGATIVE (< 200 ng/mL); Benzodiazepine Urine VISTA NEGATIVE (< 200 ng/mL); Cocaine Urine VISTA NEGATIVE (< 300 ng/mL); Ecstacy Urine VISTA NEGATIVE (< 500 ng/mL); Methadone Urine VISTA NEGATIVE (< 300 ng/mL); PCP Urine VISTA NEGATIVE (< 25 ng/mL); THC Urine VISTA NEGATIVE (< 50 ng/mL); Vista UDS pH Range 7
[2018-04-09 00:06] VITALS: BP 138/92; PULSE 112; RESP 18; O2SAT 97
--- NOTE | 2018-04-09 00:07 | ED.RN ---
OXYGEN TURNED DOWN TO 2L/MIN VIA NC
--- NOTE | 2018-04-09 00:25 | ED.DCSUM_ITS ---
- ER Visit Summary Date of Service: 04/09/18 Chief Complaint: Headache and visual field deficit History of Present Illness: The patient is a 47 F who presents with headache and decreased vision in the left visual field that began today. Patient has a history of posterior reversible encephalopathy syndrome and family states this is similar to prior episodes of that. Family states that the patient also gets confused with these episodes. Patient states she has headache over the top of her head. Patient describes it as throbbing. Patient admits to some nausea but denies any vomiting. Family states the patient does have some residual effects from prior episodes of posterior reversible encephalopathy syndrome. Patient states she did look down prior to the episode beginning today which is typical of prior episodes. EMS administered 4 mg of morphine and 4 mg of Zofran prior to arrival. Family also states the patient has a history of alcohol abuse and had been drinking up until 3 days ago. Physical Examination: Vital signs are stable except for mildly elevated blood pressure 161/91. Patient is afebrile. Patient does have a pulse oximeter reading of 78% on room air. Patient is 96% on oxygen here in the emergency department. Cranial nerves II through XII are grossly intact with the exception of decreased vision over the left lateral visual field. Family also states the patient has had problems with this part of her vision in the past. Patient was having difficulty following commands but was able to move all of her extremities and had good strength. Patient did not have any sensory deficits. Heart was regular and tachycardic. Lungs are clear and equal bilaterally. Abdomen is soft. Bowel sounds are normal. There is no tenderness. The remaining physical exam is within normal limits. Test Results: CBC shows a mild leukocytosis of 16.4. CT scan of the brain was obtained and does not show any acute intracranial abnormality. Basic metabolic profile showed a chronically elevated creatinine of 1.43. Urine tox was positive for opiates. Patient was given morphine by EMS prior to arrival as well as a dose of morphine here in the emergency. Serum alcohol level was 4. Emergency Department Course and Treatment: Patient was given morphine, Reglan, Benadryl here in the emergency department. Patient states her headache improved. Patient became more somnolent after this. Patient was observed in the emergency department became more awake and alert on reevaluation. Patient and family felt comfortable going home. Patient was instructed to avoid any further alcohol use. Patient was instructed to follow-up with her primary care physician and neurologist in 5-7 days. Patient and family understood and were agreeable with the plan. All questions were answered. Disposition: Discharge home Impression: 1. Headache 2. History of posterior reversible encephalopathy syndrome This note was generated with [employer] dictation software. It may contain incorrect words, spelling, and punctuation that were not noted in review of the chart prior to signing ED Disposition - Plan for ED Patient: Disposition: Home or Assisted Living Chief Complaint: Neuro S/Sx Diagnosis: Headache, PRES (posterior reversible encephalopathy syndrome) Instructions: ED Headache Migraine Referrals: Aiden Car MD [Primary Care Provider] -
[2018-04-09 00:55] VITALS: BP 124/72; PULSE 81; RESP 18; O2SAT 95
--- NOTE | 2018-04-09 00:56 | ED.RN ---
THIS NURSE REVIEWED D/C INSTRUCTIONS WITH PT AND . VERBALIZED UNDERSTANDING OF INSTRUCTIONS. IV D/C. IV CATHETER INTACT. PT TOLERATED WELL. PT ASSISTED IN GETTING DRESSED WITH THIS NURSE AND ASSISTANCE. PT ASSISTED INTO W/C WITH 2 STAFF ASSIST. PT ASSISTED INTO FAMILY VEHICLE WITH THIS NURSE AND ASSISTANCE. PT AND DENY FURTHER NEEDS OR QUESTIONS AT THIS TIME
== END 2018-04-09 00:57 | disposition home or self-care (01) ==
PROVIDERS: Emergency Provider Emergency Medicine; Family Provider Family Medicine; PCP Family Medicine
DX: R51 Headache (principal); I67.83 Posterior reversible encephalopathy syndrome; E66.9 Obesity, unspecified; F10.10 Alcohol abuse, uncomplicated; Y90.0 Blood alcohol level of less than 20 mg/100 ml; Z79.82 Long term (current) use of aspirin; Z79.899 Other long term (current) drug therapy
CPT/HCPCS: 70450; 80048; 80076; 80307; 80320; 85025; 96374; 96375; 99285; J7030; A4216; G0480; J2405

== ENCOUNTER 2018-04-22 17:20 | Inpatient (IN) | payer OTHER, SELFPAY ==
[2018-04-22] VITALS (7 sets, daily range): BP systolic 101–171; BP diastolic 61–98; PULSE 86–113; RESP 10–24; TEMP 36.8; O2SAT 74–99; BMI 30.2
--- NOTE | 2018-04-22 18:09 | CT_ITS ---
STUDY: CT BRAIN WITHOUT CONTRAST REASON FOR EXAM: Female, 47 years old. Altered mental status. RADIATION DOSAGE (If Supplied By Facility): CTDIvol = ( 44.99 ) mGy, DLP = ( 745.49 ) mGycm TECHNIQUE: Transaxial CT imaging of the brain was performed without administration of intravenous contrast material. Individualized dose optimization techniques were used for this CT. COMPARISON: April 08, 2018. FINDINGS: Normal soft tissue structures. Normal calvarium. Normal size ventricles and extra-axial spaces for the patient's age. Normal white matter tracts of the cerebral hemispheres. Normal basal ganglia and thalami. Normal brainstem. Normal cerebellum. There is no intracranial hemorrhage. There are no findings of an acute ischemic infarction. There is air-fluid level in the left sphenoid sinus. CT/Brain/Head without Contrast IMPRESSION: 1. No acute intracranial or calvarial abnormality. There is no interval change when compared to prior study. 2. Left sphenoid sinusitis. Electronically Signed: Gaurang Tom DO at 18:59 EST Tel [phone], Service support ,
[2018-04-22 18:39] LABS: Absolute Lymphocyte Count 2.17 X10^3/ul (0.83-4.51); Absolute Neutrophil Count 20.8 X10^3/uL (2.0-7.7); Basophil# 0.04 X10^3/uL; Basophil% 0.2 % (0-1); Eosinophil# 0.23 X10^3/uL; Hematocrit 41.2 % (37-47); Hemoglobin 13.6 g/dl (12.0-15.0); Lymphocyte # 2.17 X10^3/ul (4.0); Lymphocyte % 9.2 % (19-41); Mean Corpuscular Hgb 30.6 pg (27.0-32.0); Mean Corpuscular Volume 92.6 fL (81-99); Mean Platelet Vol. 9.6 fl (6.2-12.0); Monocyte# 0.14 X10^3/uL; Monocyte% 0.6 % (0-10); Neutrophil # 20.77 X10^3/uL (2.7-7.7); Neutrophil % 88.5 % (47-70); Platelet Count 318 K/mm3 (150-450); RBC Distribution Width CV 14.2 % (11.6-14.6); Red Blood Count 4.45 M/mm3 (4.2-5.4); White Blood Count 23.5 K/mm3 (4.4-11.0)
[2018-04-22 18:50] LABS: ALB/GLOB Ratio 1.1 RATIO (0.9-2.4); AST(SGOT) 23 U/L (15-37); Alanine Aminotransfer ALT/SGPT 32 U/L (13-56); Albumin, Serum 4.1 g/dL (3.2-5.0); Alkaline Phosphatase 91 U/L (45-117); Anion Gap 8 (5-15); BUN 10 mg/dL (7-18); BUN/Creat Ratio 7.8 RATIO (10-20); Calcium,Total 8.4 mg/dL (8.5-10.1); Chloride 103 mmol/L (98-107); Creatinine, Serum 1.28 mg/dL (0.55-1.02); EST Glomerular Filtration Rate 47 mL/min (>60); Est Glom Filt Rate - Afr Amer 57 mL/min (>60); Estimated Creatinine Clearance 40.12 ml/min; Globulin 3.7 g/dL (2.2-4.2); Glucose 120 mg/dL (74-106); Potassium 3.9 mmol/L (3.5-5.1); Protein, Total 7.8 g/dL (6.4-8.2); Sodium Level 134 mmol/L (136-145)
[2018-04-22 19:02] LABS: Differential Indicated SCAN CRITERIA MET; POSITIVE COUNT NO; POSITIVE DIFFERENTIAL YES; POSITIVE MORPHOLOGY NO
[2018-04-22 19:19] LABS: Anisocytosis RARE; Platelet Estimate ADEQUATE (ADEQ)
[2018-04-22 19:20] LABS: Macrocytosis RARE
[2018-04-22] MEDS: Morphine 4 MG/ML Syringe IV (20:06)
[2018-04-22] MEDS: Metoclopramide 10 MG/2 ML Vial IV (20:07)
--- NOTE | 2018-04-22 23:28 | PCM.HP.STD ---
Problem List (1) PRES (posterior reversible encephalopathy syndrome) Status: Chronic (2) Hypokalemia Status: Resolved (3) ARF (acute renal failure) Status: Acute (4) Gout Status: Chronic (5) HTN (hypertension) Status: Chronic (6) Altered mental status, unspecified Status: Acute (7) Sphenoid sinusitis Status: Acute History of Present Illness Date of Admission: 04/22/18 Chief Complaint: Spell of confusion and disorientation. The patient is a 47 year old F with history of PRES syndrome since June 2016, follows Dr. 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 This lasted for about few minutes then patient went into postictal state. As per the she gets seizure on looking down. But today, she closed her eyes and said she is not feeling good and sat down and after that she was confused, was laughing and talking to the person was not there inappropriately. Seems like she had hallucinations. When I saw the patient, she is not able to give any history mostly nonverbal. Looks confused and disoriented. [] Past Medical History Past Medical History (Chronic Problems): Chronic Problems PRES (posterior reversible encephalopathy syndrome) (Chronic) Gout (Chronic) HTN (hypertension) (Chronic) Allergies allopurinol Allergy (Verified 04/22/18 17:29) Diarrhea amoxicillin Adverse Reaction (Verified 04/22/18 17:29) Other lactose Adverse Reaction (Verified 04/22/18 17:29) Diarrhea Home Medications: Ambulatory Orders Medication Instructions Recorded Pantoprazole Sodium [Protonix] 20 mg PO BID 06/29/16 Febuxostat [Uloric] 40 mg PO DAILY 07/08/16 Aspirin 81 mg PO DAILY 09/20/16 Citalopram Hydrobromide [Celexa] 60 mg PO DAILY 09/20/16 Clonazepam [Klonopin] 0.25 mg PO BID PRN 09/20/16 Folic Acid 1 mg PO DAILY@0800 09/20/16 Lacosamide [Vimpat] 100 mg PO BID 09/20/16 Levetiracetam [Levetiracetam ER] 500 mg PO BID 09/20/16 [place]-3 Fatty Acids/Fish Oil [Fish 1 each PO DAILY 09/20/16 Oil 1,000 mg Capsule] Thiamine HCl [B-1] 100 mg PO DAILY 09/20/16 Zonisamide [Zonegran] 300 mg PO QHS 02/07/17 Surgical History: - - c sections Smoking Status: Never smoker - *Family History Maternal History Items: Diabetes Paternal History Items: Diabetes, - - cabg Review of Systems Unable to obtain accurate/complete ROS d/t: Patient is confused and disoriented. Eyes open but Nonverbal. VTE Information - Inpt Only VTE Present on Admission: No VTE Mechan Device Prophylaxis: None VTE Pharm Prophylaxis ordered?: Yes - Physical Exam General: Confused, Disoriented, - - Nonverbal, noncommunicative HEENT: Atraumatic, PERRLA, EOMI, Normocephalic, - - No sinus tenderness over maxillary or frontal sinuses. Oral: Dry Mucosa Neck: Supple, No JVD, Negative Carotid Bruits, - Lungs: Clear to auscultation, Normal air movement, No rhonchi, No wheeze, No rales, - Cardiovascular: Regular rate, No murmurs Abdomen: Bowel Sounds Present, Soft, Non Tender Extremities: No edema, Capillary Refill Less than 3 Seconds Skin: No rashes, No breakdown Musculoskeletal: No Tenderness to Palpation of Joints or Extremities Neurological: Cranial nerves II-XII grossly intact, - - Patient does not follow command. DTR 2/4. Noncommunicative. Psych/Mental Status: Normal Affect, Appropriate Vital Signs Temp Pulse Resp BP Pulse Ox 98.2 F 86 19 H 101/61 97 04/22/18 17:25 04/22/18 23:00 04/22/18 23:00 04/22/18 23:00 04/22/18 23:00 Oxygen Flow Rate (L/min) 2 Oxygen Delivery Method Nasal Cannula Weight: 160 lb Body Mass Index (BMI) 30.2 Finger Stick Blood Glucose 114 Laboratory Tests Past 24 Hrs 04/22/18 04/22/18 18:20 18:20 WBC 23.5 H RBC 4.45 Hgb 13.6 Hct 41.2 MCV 92.6 MCH 30.6 MCHC 33.0 RDW 14.2 RDW Differential 48.0 H Plt Count 318 MPV 9.6 Immature Gran % (Auto) 0.500 Neut % (Auto) 88.5 H Lymph % (Auto) 9.2 L [place] % (Auto) 0.6 Eos % (Auto) 1.0 Baso % (Auto) 0.2 Absolute Neuts (auto) 20.8 H Absolute Lymphs (auto) 2.17 Total Counted Not Reportable Differential Comment SEE COMMENT Diff Path Review May foll Platelet Estimate ADEQUATE Anisocytosis RARE Macrocytosis RARE Sodium 134 L Potassium 3.9 Chloride 103 Carbon Dioxide 23.0 Anion Gap 8 BUN 10 Creatinine 1.28 H Estim Creat Clear Calc 40.12 Est GFR (MDRD) Af Amer 57 L Est GFR (MDRD) Non-Af 47 L BUN/Creatinine Ratio 7.8 L Glucose 120 H Calcium 8.4 L Total Bilirubin 0.30 AST 23 ALT 32 Alkaline Phosphatase 91 Total Protein 7.8 Albumin 4.1 Globulin 3.7 Albumin/Globulin Ratio 1.1 Assessment/Plan All Active Problems Altered mental status, unspecified (Acute) Sphenoid sinusitis (Acute) Hypokalemia (Resolved) ARF (acute renal failure) (Acute) The patient is a 47 year old F with history of PRES syndrome since June 2016, follows Dr. 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 This lasted for about few minutes then patient went into postictal state. As per the she gets seizure on looking down. But today, she closed her eyes and said she is not feeling good and sat down and after that she was confused, was laughing and talking to the person was not there inappropriately. Seems like she had hallucinations. When I saw the patient, she is not able to give any history mostly nonverbal. Looks confused and disoriented. The patient is being admitted in PCU. 1. Altered mental status, etiology unclear, possible atypical seizure/alcohol withdrawal: As per the , she gets a spell of confusion and disorientation but this was different. Denies seizure-like movements. Neurology consult. IV fluid normal saline. Serum alcohol and U tox ordered. Continue her antiepileptic medications including Keppra, Vimpat, zonisamide and Klonopin. 2. Leukocytosis with left shift: Infectious or noninfectious unclear: CT head shows left sphenoid sinusitis but may be elevated from atypical seizure: IV ceftriaxone for sinusitis. 3. Chronic alcohol use: Patient did not had alcohol for last 3 weeks. Before that she was drinking 1 bottle of wine. Before the diagnosis of press syndrome she was drinking a gallon of vodka every 4 days. On CIWA protocol. Ativan as needed. Patient is on thiamine, folic acid. 4 Press syndrome: Exact etiology unclear. 5. CKD stage III: Her baseline creatinine about 1.2-1.5. BUN/creatinine 12/30. Other chronic comorbidities include gout, and hypertension: Home medication reconciliation done. Clinical Impression(s) from Imaging Studies Brain CT 04/22/18 18:09 IMPRESSION: 1. No acute intracranial or calvarial abnormality. There is no interval change when compared to prior study. 2. Left sphenoid sinusitis. Code Visit Inpatient E&M: 05455 Init Hosp L3
--- NOTE | 2018-04-22 23:36 | ED.VISSUMM ---
- ER Visit Summary Date of Service: 04/22/18 Chief Complaint: Seizure History of Present Illness: The patient is a 47 F who presents with seizure that occurred today. Patient has a history of posterior reversible encephalopathy syndrome and has a seizure when she looks down. Patient states she looked down today and felt like she was going to have a seizure. Patient sat down on the floor and then laid back. Patient did not have any tonic-clonic activity. Patient became confused after this. Patient is nonverbal and is a poor historian. Patient does not follow commands. denies any fevers or chills recently. states the patient was having some visual hallucinations. Physical Examination: Vital signs are stable except for mild tachycardia of 115. Patient is in no acute distress. Patient is nonverbal. Oral mucosa is pink and moist. Neck is supple. Trachea is midline. There is no JVD noted. Pupils are equal, round, reactive to light bilaterally. Heart was regular and tachycardic. Lungs are clear and equal bilaterally. Abdomen is soft and nontender. Patient is awake and alert but nonverbal. There are no focal motor or sensory deficits noted. Patient is moving all extremities. Patient does not respond to commands. Test Results: CT scan of the brain shows no acute abnormality. There is left sphenoid sinusitis. CBC shows a leukocytosis of 23.5. Creatinine was slightly elevated 1.28. This is chronic for the patient. Emergency Department Course and Treatment: Patient was given Reglan and morphine for her headache. Patient was given a dose of Rocephin here. Case was discussed with Dr. Babcock, hospitalist. He will admit the patient to his service. Disposition: Admit to hospital Impression: 1. Altered mental status 2. Left sphenoid sinusitis This note was generated with [employer] dictation software. It may contain incorrect words, spelling, and punctuation that were not noted in review of the chart prior to signing ED Disposition - Plan for ED Patient: Disposition: Acute Care Hospital [facility] Chief Complaint: Seizure Diagnosis: Altered mental status, unspecified, Sphenoid sinusitis Referrals: Aiden Car MD [Primary Care Provider] -
--- NOTE | 2018-04-22 23:41 | ED.DCSUM_ITS ---
- ER Visit Summary Date of Service: 04/22/18 Chief Complaint: Seizure History of Present Illness: The patient is a 47 F who presents with seizure that occurred today. Patient has a history of posterior reversible encephalopathy syndrome and has a seizure when she looks down. Patient states she looked down today and felt like she was going to have a seizure. Patient sat down on the floor and then laid back. Patient did not have any tonic-clonic activity. Patient became confused after this. Patient is nonverbal and is a poor historian. Patient does not follow commands. denies any fevers or chills recently. states the patient was having some visual hallucinations. Physical Examination: Vital signs are stable except for mild tachycardia of 115. Patient is in no acute distress. Patient is nonverbal. Oral mucosa is pink and moist. Neck is supple. Trachea is midline. There is no JVD noted. Pupils are equal, round, reactive to light bilaterally. Heart was regular and tachycardic. Lungs are clear and equal bilaterally. Abdomen is soft and nonte nder. Patient is awake and alert but nonverbal. There are no focal motor or sensory deficits noted. Patient is moving all extremities. Patient does not respond to commands. Test Results: CT scan of the brain shows no acute abnormality. There is left sphenoid sinusitis. CBC shows a leukocytosis of 23.5. Creatinine was slightly elevated 1.28. This is chronic for the patient. Emergency Department Course and Treatment: Patient was given Reglan and morphine for her headache. Patient was given a dose of Rocephin here. Case was discussed with Dr. Babcock, hospitalist. He will admit the patient to his service. Disposition: Admit to hospital Impression: 1. Altered mental status 2. Left sphenoid sinusitis This note was generated with [employer] dictation software. It may contain incorrect words, spelling, and punctuation that were not noted in review of the chart prior to signing ED Disposition - Plan for ED Patient: Disposition: Acute Care Hospital [facility] Chief Complaint: Seizure Diagnosis: Altered mental status, unspecified, Sphenoid sinusitis Referrals: Aiden Car MD [Primary Care Provider] -
[2018-04-22] MEDS: Ceftriaxone 1 GM/50 ML BAG IV (23:47)
[2018-04-23] VITALS (13 sets, daily range): BP systolic 122–150; BP diastolic 69–79; PULSE 66–86; RESP 16–18; TEMP 36.9–37.6; O2SAT 92–98; BMI 31.2
[2018-04-23 00:23] LABS: GGTP 68 U/L (5-55)
[2018-04-23] MEDS: Dextrose 5%/0.9% NaCl 1,000 ML 100 ML IV ×2 (00:45→14:31)
[2018-04-23] MEDS: Enoxaparin 40 MG/0.4 ML Syringe SC ×2 (00:46→09:08)
[2018-04-23] MEDS: 0.9% NaCl Peripheral Flush Adult/Peds IV ×3 (03:59→14:31)
[2018-04-23] MEDS: Haloperidol Lactate 5 MG/ML Vial 2 MG IM (04:23)
[2018-04-23] MEDS: proMETHazine 25 MG/ML Syringe IM (04:24)
--- NOTE | 2018-04-23 04:44 | NURSING ---
THE PATIENT SET OFF THE BED ALARM AND STAFF RESPONDED. SHE WAS VERY CONFUSED AND DISORIENTED. WHEN STAFF EXPLAINED TO HER WHERE SHE WAS AND WHY, THE PATIENT STILL DID NOT UNDERSTAND AND KEPT REPEATING WHERE AM I? AND WHAT HAPPENED?. THIS RN CALLED HER JADE SO SHE COULD SPEAK TO HIM. SHE SAID SHE WANTED TO SPEAK TO HER . WHILE ON THE PHONE WITH HER , THE PATIENT REMAINED VERY CONFUSED/DISORIENTED AND KEPT ASKING HIM WHO HE WAS. THE PATIENT THEN GOT VERY UPSET AND AGITATED, YELLING AT STAFF. PAGED.
--- NOTE | 2018-04-23 04:47 | NURSING ---
HALDOL AND PHENERGAN ADMINISTERED PER ORDERS FROM DR GOMEZ.
[2018-04-23 06:45] LABS: Absolute Neutrophil Count 14.6 X10^3/uL (2.0-7.7); Basophil# 0.01 X10^3/uL; Basophil% 0.1 % (0-1); Eosinophil# 0.01 X10^3/uL; Eosinophils% 0.1 % (0-5); Hematocrit 36.3 % (37-47); Hemoglobin 11.9 g/dl (12.0-15.0); Lymphocyte % 4.3 % (19-41); Mean Corp Hgb Conc 32.8 g/gl (32-36); Mean Corpuscular Hgb 29.8 pg (27.0-32.0); Mean Platelet Vol. 9.3 fl (6.2-12.0); Monocyte# 0.79 X10^3/uL; Monocyte% 4.9 % (0-10); Neutrophil # 14.56 X10^3/uL (2.7-7.7); Neutrophil % 90.4 % (47-70); Platelet Count 297 K/mm3 (150-450); RBC Distribution Width CV 14.1 % (11.6-14.6); RBC Distribution Width SD 46.8 fl (35.1-43.9); Red Blood Count 3.99 M/mm3 (4.2-5.4); White Blood Count 16.1 K/mm3 (4.4-11.0)
[2018-04-23 06:47] LABS: POSITIVE COUNT NO; POSITIVE DIFFERENTIAL NO; POSITIVE MORPHOLOGY NO
[2018-04-23 06:54] LABS: Anion Gap 11 (5-15); BUN 9 mg/dL (7-18); BUN/Creat Ratio 7.3 RATIO (10-20); Calcium,Total 8.3 mg/dL (8.5-10.1); Chloride 105 mmol/L (98-107); Creatinine, Serum 1.24 mg/dL (0.55-1.02); EST Glomerular Filtration Rate 49 mL/min (>60); Est Glom Filt Rate - Afr Amer 59 mL/min (>60); Estimated Creatinine Clearance 41.41 ml/min; Glucose 111 mg/dL (74-106); Potassium 3.9 mmol/L (3.5-5.1); Sodium Level 136 mmol/L (136-145)
--- NOTE | 2018-04-23 08:00 | RAD_ITS ---
STUDY: X-RAY CHEST REASON FOR EXAM: Female, 47 years old. Seizures. Leukocytosis. Confusion. TECHNIQUE: AP and lateral views of the chest. COMPARISON: Comparison is made with prior study dated February 07, 2017. FINDINGS: EKG electrodes are seen. Mild increased markings at the left lung base suggestive of a linear atelectasis. Limited respiratory effort. There is no demonstrated pleural abnormality. Normal size heart. Normal mediastinum and elle. Normal visualized pulmonary arteries. Normal visualized aortic arch and descending thoracic aorta. Normal visualized thoracic spine. Normal visualized ribs, clavicles, and shoulders. There is no demonstrated abnormality of the visualized soft tissue structures of the upper abdomen. RAD/Chest PA and Lateral IMPRESSION: Mild increased markings at the left lung base suggestive of atelectasis. Electronically Signed: Shawn Sheffield MD at 8:26 EST Tel [phone], Service support ,
[2018-04-23] MEDS: Thiamine Hydrochloride 100 MG Tablet PO (09:09)
[2018-04-23] MEDS: Aspirin 81 MG TAB.CHEW PO (09:09)
[2018-04-23] MEDS: Pantoprazole Sodium 20 MG Tablet PO ×2 (09:09→20:57)
[2018-04-23] MEDS: Febuxostat 40 MG TABLET PO (09:09)
[2018-04-23] MEDS: Folic Acid 1 MG Tablet PO (09:09)
[2018-04-23] MEDS: levETIRAcetam 500 MG Tablet PO ×2 (09:10→20:56)
[2018-04-23] MEDS: Lacosamide 100 MG Tablet PO ×2 (09:27→20:57)
--- NOTE | 2018-04-23 09:47 | PCM.CONS.GEN ---
Reason for Consult Date of Consultation: 04/23/18 Reason for Consultation: confusion History of Present Illness: The patient is a 47 year old F admitted with confusion, reports in june had pres induced by htn, subsequently had seizures. unclear cause of hypertension however she has had kidney failure, and alcohol withdrawal. unknown cause of kidney failure. now readmitted per Dr Bonilla has diagnosed scarring due to pres, and has spells, yesterday had a spell. apparenlty looked down, had flashing lights which she apparently usually has, as well as severe headache, causing her to come to the hospital, and reports she was laughing, giggling, hallucinating and talking to people who arent there. also incontinent of stool which is unusual for her. reports most recent mri at [facility] about 6-8 months ago showed resolution of PRES.apparently in the emu at [facility] for 5 days. denies use of alcohol but her blood alcohol level was slightly elevated. 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 reports cant tolerate higher doses of keppra or vimpat, so far no benefit from zonegran. not on other seizure meds. Per admit note: The patient is a 47 year old F with history of PRES syndrome since June 2016, follows Dr. 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 This lasted for about few minutes then patient went into postictal state. As per the she gets seizure on looking down. But today, she closed her eyes and said she is not feeling good and sat down and after that she was confused, was laughing and talking to the person was not there inappropriately. Seems like she had hallucinations. When I saw the patient, she is not able to give any history mostly nonverbal. Looks confused and disoriented. Past Medical History Past Medical History (Chronic Problems): Chronic Problems PRES (posterior reversible encephalopathy syndrome) (Chronic) Gout (Chronic) HTN (hypertension) (Chronic) Allergies allopurinol Allergy (Verified 04/22/18 17:29) Diarrhea amoxicillin Adverse Reaction (Verified 04/22/18 17:29) Other lactose Adverse Reaction (Verified 04/22/18 17:29) Diarrhea Home Medications: Ambulatory Orders Medication Instructions Recorded Pantoprazole Sodium [Protonix] 20 mg PO DAILY 06/29/16 Febuxostat [Uloric] 40 mg PO DAILY 07/08/16 Aspirin 81 mg PO DAILY 09/20/16 Citalopram Hydrobromide [Celexa] 60 mg PO DAILY 09/20/16 Clonazepam [Klonopin] 0.25 mg PO QHS 09/20/16 Folic Acid 1 mg PO DAILY@0800 09/20/16 Lacosamide [Vimpat] 100 mg PO BID 09/20/16 Levetiracetam [Levetiracetam ER] 500 mg PO BID 09/20/16 [place]-3 Fatty Acids/Fish Oil [Fish 1 each PO DAILY 09/20/16 Oil 1,000 mg Capsule] Thiamine HCl [B-1] 100 mg PO DAILY 09/20/16 Zonisamide [Zonegran] 300 mg PO QHS 02/07/17 Surgical History: - - c sections Smoking Status: Never smoker - *Family History Maternal History Items: Diabetes Paternal History Items: Diabetes, - - cabg Review of Systems Constitutional: Denies: Chills, Fever, Weight Change HEENT: Denies: Head Aches, Sinus Congestion, Sinus Drainage Cardiovascular: Denies: Chest Pain, Palpitations Respiratory: Denies: Cough, Shortness of breath at rest, Sputum production Gastrointestinal: Denies: Abdominal Pain, Nausea, Vomiting Genitourinary: Denies: Dysuria Musculoskeletal: Denies: Joint Pain, Joint Tenderness Skin: Denies: Rash, Wounds Neurological: Denies: Numbness, Tingling, Focal weakness Psychiatric: Denies: Anxiety, Depression, Homicidal Ideations, Suicidal Ideations Hematologic/ Lymphatic: Denies: Easy Bruising, Easy Bleeding Patient Problems: Active and Suspected Problems Altered mental status, unspecified (Acute) Sphenoid sinusitis (Acute) - Physical Exam General: Confused HEENT: PERRLA, EOMI Neurological: Cranial nerves II-XII grossly intact, Deep Tendon Reflexes 2+/4 and Symmetrical, Motor Exam 5/5 strength throughout, - - unable to follow simple commands or answer questions, speech appears fluent Vital Signs Temp Pulse Resp BP Pulse Ox 37.2 C 76 18 126/69 H 92 04/23/18 06:22 04/23/18 07:00 04/23/18 06:22 04/23/18 06:22 04/23/18 06:22 Oxygen Flow Rate (L/min) 2 Oxygen Delivery Method Nasal Cannula Weight: 75 kg Body Mass Index (BMI) 31.2 Finger Stick Blood Glucose 114 Intake and Output for Last 24 Hours 04/21/18 04/22/18 04/23/18 23:59 23:59 23:59 Intake Total 359 / 359 Balance 359 / 359 Laboratory Tests Past 24 Hrs 04/22/18 04/22/18 04/22/18 18:20 18:20 18:20 WBC 23.5 H RBC 4.45 Hgb 13.6 Hct 41.2 MCV 92.6 MCH 30.6 MCHC 33.0 RDW 14.2 RDW Differential 48.0 H Plt Count 318 MPV 9.6 Immature Gran % (Auto) 0.500 Neut % (Auto) 88.5 H Lymph % (Auto) 9.2 L [place] % (Auto) 0.6 Eos % (Auto) 1.0 Baso % (Auto) 0.2 Absolute Neuts (auto) 20.8 H Absolute Lymphs (auto) 2.17 Total Counted Not Reportable Differential Comment SEE COMMENT Diff Path Review May foll Platelet Estimate ADEQUATE Anisocytosis RARE Macrocytosis RARE Sodium 134 L Potassium 3.9 Chloride 103 Carbon Dioxide 23.0 Anion Gap 8 BUN 10 Creatinine 1.28 H Estim Creat Clear Calc 40.12 Est GFR (MDRD) Af Amer 57 L Est GFR (MDRD) Non-Af 47 L BUN/Creatinine Ratio 7.8 L Glucose 120 H Calcium 8.4 L Total Bilirubin 0.30 GGT 68 H AST 23 ALT 32 Alkaline Phosphatase 91 Total Protein 7.8 Albumin 4.1 Globulin 3.7 Albumin/Globulin Ratio 1.1 Ethyl Alcohol 04/22/18 04/23/18 04/23/18 18:20 06:20 06:20 WBC 16.1 H RBC 3.99 L Hgb 11.9 L Hct 36.3 L MCV 91.0 MCH 29.8 MCHC 32.8 RDW 14.1 RDW Differential 46.8 H Plt Count 297 MPV 9.3 Immature Gran % (Auto) 0.200 Neut % (Auto) 90.4 H Lymph % (Auto) 4.3 L [place] % (Auto) 4.9 Eos % (Auto) 0.1 Baso % (Auto) 0.1 Absolute Neuts (auto) 14.6 H Absolute Lymphs (auto) 0.70 L Total Counted Not Reportable Differential Comment Diff Path Review Platelet Estimate Anisocytosis Macrocytosis Sodium 136 Potassium 3.9 Chloride 105 Carbon Dioxide 20.0 L Anion Gap 11 BUN 9 Creatinine 1.24 H Estim Creat Clear Calc 41.41 Est GFR (MDRD) Af Amer 59 L Est GFR (MDRD) Non-Af 49 L BUN/Creatinine Ratio 7.3 L Glucose 111 H Calcium 8.3 L Total Bilirubin GGT AST ALT Alkaline Phosphatase Total Protein Albumin Globulin Albumin/Globulin Ratio Ethyl Alcohol 12.0 Current Home Med List Medication Instructions Recorded Confirmed Type Pantoprazole Sodium [Protonix] 20 mg PO DAILY 06/29/16 04/23/18 History Febuxostat [Uloric] 40 mg PO DAILY 07/08/16 04/23/18 History Aspirin 81 mg PO DAILY 09/20/16 04/23/18 History Citalopram Hydrobromide [Celexa] 60 mg PO DAILY 09/20/16 04/23/18 History Clonazepam [Klonopin] 0.25 mg PO QHS 09/20/16 04/23/18 History Folic Acid 1 mg PO DAILY@0800 09/20/16 04/23/18 History Lacosamide [Vimpat] 100 mg PO BID 09/20/16 04/23/18 History Levetiracetam [Levetiracetam ER] 500 mg PO BID 09/20/16 04/23/18 History [place]-3 Fatty Acids/Fish Oil [Fish 1 each PO DAILY 09/20/16 04/23/18 History Oil 1,000 mg Capsule] Thiamine HCl [B-1] 100 mg PO DAILY 09/20/16 04/23/18 History Zonisamide [Zonegran] 300 mg PO QHS 02/07/17 04/23/18 History Current Medications Generic Name Dose Route Start Last Admin Trade Name Freq PRN Reason Stop Dose Admin Aspirin 81 mg 04/23/18 08:00 04/23/18 09:09 Aspirin, Baby PO 81 mg DAILYCM AMANDEEP Administration Enoxaparin Sodium 40 mg 04/23/18 00:07 04/23/18 09:08 Lovenox SC 40 mg DAILY@1000 AMANDEEP Administration Folic Acid 1 mg 04/23/18 08:00 04/23/18 09:09 Folic Acid PO 1 mg DAILY@0800 AMANDEEP Administration Ceftriaxone Sodium 1 gm in 50 mls @ 100 mls/hr 04/23/18 22:00 Rocephin IV Q24H AMANDEEP Dextrose/Sodium Chloride 1,000 mls @ 100 mls/hr 04/23/18 00:07 04/23/18 00:45 Dextrose 5%/0.9% Nacl IV 100 mls/hr .Q10H AMANDEEP Administration Lacosamide 100 mg 04/23/18 10:00 04/23/18 09:27 Vimpat PO 100 mg BID AMANDEEP Administration Levetiracetam 500 mg 04/23/18 10:00 04/23/18 09:10 Keppra Tablet PO 500 mg BID AMANDEEP Administration Lorazepam 2 mg 04/22/18 23:40 Ativan IV Q2H PRN seizure Lorazepam 2 mg 04/23/18 00:07 Ativan IV Q2H PRN PRN CIWA score > 8 but <15 Protocol Lorazepam 2 mg 04/23/18 00:07 Ativan PO UD PRN CIWA score >/=15. Protocol Lorazepam 2 mg 04/23/18 00:07 Ativan IV UD PRN CIWA score >/=15. Protocol Magnesium Hydroxide 30 ml 04/23/18 00:07 Milk Of Magnesia PO DAILY PRN Constipation Non-Formulary Medication 300 mg 04/23/18 22:00 Zonisamide [Zonegran] PO QHS [facility] Ondansetron HCl 4 mg 04/23/18 00:07 Zofran IV Q8H PRN PRN NAUSEA Pantoprazole Sodium 20 mg 04/23/18 10:00 04/23/18 09:09 Protonix PO 20 mg BID [facility] Administration Senna/Docusate Sodium 2 tablet 04/23/18 00:07 Senokot-S, Lexi-Colace PO BID PRN PRN constipation Sodium Chloride 5 - 15 ml 04/23/18 03:25 04/23/18 06:59 IV 10 ml UD PRN Administration SALINE FLUSH Thiamine HCl 100 mg 04/23/18 10:00 04/23/18 09:09 Vitamin B1 PO 100 mg DAILY AMANDEEP Administration Assessment/Plan All Active Problems Altered mental status, unspecified (Acute) Sphenoid sinusitis (Acute) Hypokalemia (Resolved) ARF (acute renal failure) (Acute) seizure, history of pres, history of etoh use and withdrawal mri eeg to verify etoh use, reports last two weeks ago use ua/cs
--- NOTE | 2018-04-23 09:50 | CON.PCM_ITS ---
Reason for Consult Date of Consultation: 04/23/18 Reason for Consultation: confusion History of Present Illness: The patient is a 47 year old F admitted with confusion, reports in june had pres induced by htn, subsequently had seizures. unclear cause of hypertension however she has had kidney failure, and alcohol withdrawal. unknown cause of kidney failure. now readmitted per Dr Bonilla has diagnosed scarring due to pres, and has spells, yesterday had a spell. apparenlty looked down, had flashing lights which she apparently usually has, as well as severe headache, causing her to come to the hospital, and reports she was laughing, giggling, hallucinating and talking to people who arent there. also incontinent of stool which is unusual for her. reports most recent mri at [facility] about 6-8 months ago showed resolution of PRES.apparently in the emu at [facility] for 5 days. denies use of alcohol but her blood alcohol level was slightly elevated. 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 reports cant tolerate higher doses of keppra or vimpat, so far no benefit from zonegran. not on other seizure meds. Per admit note: The patient is a 47 year old F with history of PRES syndrome since June 2016, follows Dr. 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 This lasted for about few minutes then patient went into postictal state. As per the she gets seizure on looking down. But today, she closed her eyes and said she is not feeling good and sat down and after that she was confused, was laughing and talking to the person was not there inappropriately. Seems like she had hallucinations. When I saw the patient, she is not able to give any history mostly nonverbal. Looks confused and disoriented. Past Medical History Past Medical History (Chronic Problems): Chronic Problems PRES (posterior reversible encephalopathy syndrome) (Chronic) Gout (Chronic) HTN (hypertension) (Chronic) Allergies allopurinol Allergy (Verified 04/22/18 17:29) Diarrhea amoxicillin Adverse Reaction (Verified 04/22/18 17:29) Other lactose Adverse Reaction (Verified 04/22/18 17:29) Diarrhea Home Medications: Ambulatory Orders Medication Instructions Recorded Pantoprazole Sodium [Protonix] 20 mg PO DAILY 06/29/16 Febuxostat [Uloric] 40 mg PO DAILY 07/08/16 Aspirin 81 mg PO DAILY 09/20/16 Citalopram Hydrobromide [Celexa] 60 mg PO DAILY 09/20/16 Clonazepam [Klonopin] 0.25 mg PO QHS 09/20/16 Folic Acid 1 mg PO DAILY@0800 09/20/16 Lacosamide [Vimpat] 100 mg PO BID 09/20/16 Levetiracetam [Levetiracetam ER] 500 mg PO BID 09/20/16 Cecilia-3 Fatty Acids/Fish Oil [Fish 1 each PO DAILY 09/20/16 Oil 1,000 mg Capsule] Thiamine HCl [B-1] 100 mg PO DAILY 09/20/16 Zonisamide [Zonegran] 300 mg PO QHS 02/07/17 Surgical History: - - c sections Smoking Status: Never smoker - *Family History Maternal History Items: Diabetes Paternal History Items: Diabetes, - - cabg Review of Systems Constitutional: Denies: Chills, Fever, Weight Change HEENT: Denies: Head Aches, Sinus Congestion, Sinus Drainage Cardiovascular: Denies: Chest Pain, Palpitations Respiratory: Denies: Cough, Shortness of breath at rest, Sputum production Gastrointestinal: Denies: Abdominal Pain, Nausea, Vomiting Genitourinary: Denies: Dysuria Musculoskeletal: Denies: Joint Pain, Joint Tenderness Skin: Denies: Rash, Wounds Neurological: Denies: Numbness, Tingling, Focal weakness Psychiatric: Denies: Anxiety, Depression, Homicidal Ideations, Suicidal Ideations Hematologic/ Lymphatic: Denies: Easy Bruising, Easy Bleeding Patient Problems: Active and Suspected Problems Altered mental status, unspecified (Acute) Sphenoid sinusitis (Acute) - Physical Exam General: Confused HEENT: PERRLA, EOMI Neurological: Cranial nerves II-XII grossly intact, Deep Tendon Reflexes 2+/4 and Symmetrical, Motor Exam 5/5 strength throughout, - - unable to follow simple commands or answer questions, speech appears fluent Vital Signs Temp Pulse Resp BP Pulse Ox 37.2 C 76 18 126/69 H 92 04/23/18 06:22 04/23/18 07:00 04/23/18 06:22 04/23/18 06:22 04/23/18 06:22 Oxygen Flow Rate (L/min) 2 Oxygen Delivery Method Nasal Cannula Weight: 75 kg Body Mass Index (BMI) 31.2 Finger Stick Blood Glucose 114 Intake and Output for Last 24 Hours 04/21/18 04/22/18 04/23/18 23:59 23:59 23:59 Intake Total 359 / 359 Balance 359 / 359 Laboratory Tests Past 24 Hrs 04/22/18 04/22/18 04/22/18 18:20 18:20 18:20 WBC 23.5 H RBC 4.45 Hgb 13.6 Hct 41.2 MCV 92.6 MCH 30.6 MCHC 33.0 RDW 14.2 RDW Differential 48.0 H Plt Count 318 MPV 9.6 Immature Gran % (Auto) 0.500 Neut % (Auto) 88.5 H Lymph % (Auto) 9.2 L [place] % (Auto) 0.6 Eos % (Auto) 1.0 Baso % (Auto) 0.2 Absolute Neuts (auto) 20.8 H Absolute Lymphs (auto) 2.17 Total Counted Not Reportable Differential Comment SEE COMMENT Diff Path Review May foll Platelet Estimate ADEQUATE Anisocytosis RARE Macrocytosis RARE Sodium 134 L Potassium 3.9 Chloride 103 Carbon Dioxide 23.0 Anion Gap 8 BUN 10 Creatinine 1.28 H Estim Creat Clear Calc 40.12 Est GFR (MDRD) Af Amer 57 L Est GFR (MDRD) Non-Af 47 L BUN/Creatinine Ratio 7.8 L Glucose 120 H Calcium 8.4 L Total Bilirubin 0.30 GGT 68 H AST 23 ALT 32 Alkaline Phosphatase 91 Total Protein 7.8 Albumin 4.1 Globulin 3.7 Albumin/Globulin Ratio 1.1 Ethyl Alcohol 04/22/18 04/23/18 04/23/18 18:20 06:20 06:20 WBC 16.1 H RBC 3.99 L Hgb 11.9 L Hct 36.3 L MCV 91.0 MCH 29.8 MCHC 32.8 RDW 14.1 RDW Differential 46.8 H Plt Count 297 MPV 9.3 Immature Gran % (Auto) 0.200 Neut % (Auto) 90.4 H Lymph % (Auto) 4.3 L [place] % (Auto) 4.9 Eos % (Auto) 0.1 Baso % (Auto) 0.1 Absolute Neuts (auto) 14.6 H Absolute Lymphs (auto) 0.70 L Total Counted Not Reportable Differential Comment Diff Path Review Platelet Estimate Anisocytosis Macrocytosis Sodium 136 Potassium 3.9 Chloride 105 Carbon Dioxide 20.0 L Anion Gap 11 BUN 9 Creatinine 1.24 H Estim Creat Clear Calc 41.41 Est GFR (MDRD) Af Amer 59 L Est GFR (MDRD) Non-Af 49 L BUN/Creatinine Ratio 7.3 L Glucose 111 H Calcium 8.3 L Total Bilirubin GGT AST ALT Alkaline Phosphatase Total Protein Albumin Globulin Albumin/Globulin Ratio Ethyl Alcohol 12.0 Current Home Med List Medication Instructions Recorded Confirmed Type Pantoprazole Sodium [Protonix] 20 mg PO DAILY 06/29/16 04/23/18 History Febuxostat [Uloric] 40 mg PO DAILY 07/08/16 04/23/18 History Aspirin 81 mg PO DAILY 09/20/16 04/23/18 History Citalopram Hydrobromide [Celexa] 60 mg PO DAILY 09/20/16 04/23/18 History Clonazepam [Klonopin] 0.25 mg PO QHS 09/20/16 04/23/18 History Folic Acid 1 mg PO DAILY@0800 09/20/16 04/23/18 History Lacosamide [Vimpat] 100 mg PO BID 09/20/16 04/23/18 History Levetiracetam [Levetiracetam ER] 500 mg PO BID 09/20/16 04/23/18 History Cecilia-3 Fatty Acids/Fish Oil [Fish 1 each PO DAILY 09/20/16 04/23/18 History Oil 1,000 mg Capsule] Thiamine HCl [B-1] 100 mg PO DAILY 09/20/16 04/23/18 History Zonisamide [Zonegran] 300 mg PO QHS 02/07/17 04/23/18 History Current Medications Generic Name Dose Route Start Last Admin Trade Name Freq PRN Reason Stop Dose Admin Aspirin 81 mg 04/23/18 08:00 04/23/18 09:09 Aspirin, Baby PO 81 mg DAILYCM AMANDEEP Administration Enoxaparin Sodium 40 mg 04/23/18 00:07 04/23/18 09:08 Lovenox SC 40 mg DAILY@1000 AMANDEEP Administration Folic Acid 1 mg 04/23/18 08:00 04/23/18 09:09 Folic Acid PO 1 mg DAILY@0800 AMANDEEP Administration Ceftriaxone Sodium 1 gm in 50 mls @ 100 mls/hr 04/23/18 22:00 Rocephin IV Q24H AMANDEEP Dextrose/Sodium Chloride 1,000 mls @ 100 mls/hr 04/23/18 00:07 04/23/18 00:45 Dextrose 5%/0.9% Nacl IV 100 mls/hr .Q10H AMANDEEP Administration Lacosamide 100 mg 04/23/18 10:00 04/23/18 09:27 Vimpat PO 100 mg BID AMANDEEP Administration Levetiracetam 500 mg 04/23/18 10:00 04/23/18 09:10 Keppra Tablet PO 500 mg BID AMANDEEP Administration Lorazepam 2 mg 04/22/18 23:40 Ativan IV Q2H PRN seizure Lorazepam 2 mg 04/23/18 00:07 Ativan IV Q2H PRN PRN CIWA score > 8 but <15 Protocol Lorazepam 2 mg 04/23/18 00:07 Ativan PO UD PRN CIWA score >/=15. Protocol Lorazepam 2 mg 04/23/18 00:07 Ativan IV UD PRN CIWA score >/=15. Protocol Magnesium Hydroxide 30 ml 04/23/18 00:07 Milk Of Magnesia PO DAILY PRN Constipation Non-Formulary Medication 300 mg 04/23/18 22:00 Zonisamide [Zonegran] PO QHS [facility] Ondansetron HCl 4 mg 04/23/18 00:07 Zofran IV Q8H PRN PRN NAUSEA Pantoprazole Sodium 20 mg 04/23/18 10:00 04/23/18 09:09 Protonix PO 20 mg BID [facility] Administration Senna/Docusate Sodium 2 tablet 04/23/18 00:07 Senokot-S, Lexi-Colace PO BID PRN PRN constipation Sodium Chloride 5 - 15 ml 04/23/18 03:25 04/23/18 06:59 IV 10 ml UD PRN Administration SALINE FLUSH Thiamine HCl 100 mg 04/23/18 10:00 04/23/18 09:09 Vitamin B1 PO 100 mg DAILY AMANDEEP Administration Assessment/Plan All Active Problems Altered mental status, unspecified (Acute) Sphenoid sinusitis (Acute) Hypokalemia (Resolved) ARF (acute renal failure) (Acute) seizure, history of pres, history of etoh use and withdrawal mri eeg to verify etoh use, reports last two weeks ago use ua/cs
--- NOTE | 2018-04-23 10:41 | MRI_ITS ---
STUDY: MRI BRAIN WITHOUT CONTRAST REASON FOR EXAM: Female, 47 years old. Confusion. Patient has history of posterior reversible encephalopathy syndrome (PRES). TECHNIQUE: Standardized multiplanar fat and water weighted pulse sequences were obtained. Multiple images are limited by patient motion. COMPARISON: CT of the head dated April 22, 2018. FINDINGS: There is mild cerebral atrophy with widening of the extra-axial spaces and ventricular dilatation. Normal white matter tracts of the supratentorial brain. There is abnormal signal within bilateral medial temporal lobes and hippocampi.. This suggests the possibility of an acute herpes infection. Additionally there is abnormal signal within the posterior occipital lobes consistent with history of previous PRES. There is no evidence for recent intracranial ischemia or other cause of cytotoxic edema on diffusion weighted imaging (DWI). Normal bilateral basal ganglia. Normal thalami. There is no extra-axial fluid accumulation. Normal flow voids within the major intracranial circulation suggesting patency by spin echo criteria. Normal sella turcica, pituitary gland, infundibular stalk, optic chiasm and hypothalamus. Normal tectal plate and pineal gland. Normal midbrain, garima and medulla. Normal cerebellum. Normal basal cisterns. Normal bilateral temporal bones. Normal bilateral internal auditory canals. No demonstrated orbital abnormality, within the constraints of a routine brain study. Normal visualized paranasal sinuses. Normal calvarium and skull base. Normal visualized soft tissue structures. Normal visualized upper cervical spine. MRI/Brain without Contrast IMPRESSION: 1. Involutional changes of the brain, as described above. 2. Symmetrical abnormal signal within bilateral medial temporal lobes. Differential considerations include sequela of herpes infection. 3. Abnormal signal in the posterior occipital lobes may be the result of previous PRES. 4. No MR evidence for acute infarct. Electronically Signed: Felicia Moore MD at 0:01 EST , Service support ,
--- NOTE | 2018-04-23 12:54 | PCM.PN.HOSP ---
Patient Problems: Active and Suspected Problems Altered mental status, unspecified (Acute) Sphenoid sinusitis (Acute) Subjective: Patient seen and examined. She was admitted with a complaint of abnormal behavior and spells on the afternoon of admission. Her stated that he thought she had a seizure and also had confusion and inappropriate laughter and was some hallucinations apparently. She was admitted to be managed for acute metabolic encephalopathy of unknown etiology. She does have a history of MA ES syndrome since June 2016 which was thought to be due to scar tissue and optic brain region and has diminished peripheral vision in left eye. CT of the head done was negative. Neurology has been consulted. Patient seen and examined. She was very confused and was kept on saying was can someone please tell me what's going on? She wouldnt/couldnt answer any questions otherwise. Unable to do review of systems on account of confusion. Vitals/I&O's: Vital Signs Temp Pulse Resp BP Pulse Ox 99.7 F H 77 16 141/76 H 95 04/23/18 11:39 04/23/18 11:39 04/23/18 11:39 04/23/18 11:39 04/23/18 11:39 Oxygen Flow Rate (L/min) 2 Oxygen Delivery Method Room Air Weight: 165 lb 5.547 oz Body Mass Index (BMI) 31.2 Finger Stick Blood Glucose 114 Intake and Output for Last 24 Hours 04/21/18 04/22/18 04/23/18 23:59 23:59 23:59 Intake Total 1080 / 1080 Balance 1080 / 1080 General: Alert, No apparent distress, Confused HEENT: Atraumatic, PERRLA, EOMI, Normocephalic Oral: Moist Mucosa Neck: Supple, No JVD, Negative Carotid Bruits Lungs: Clear to auscultation, Normal air movement, No rhonchi, No wheeze, No rales Cardiovascular: Regular rate, Regular Rhythm, Normal S1, Normal S2, No murmurs Abdomen: Bowel Sounds Present, Soft, Non Tender, Non-Distended, No Hepato-splenomegaly Extremities: No clubbing, No cyanosis, No edema, Capillary Refill Less than 3 Seconds Skin: No rashes, No breakdown Musculoskeletal: No Tenderness to Palpation of Joints or Extremities Lymphatic: No Cervical, Supraclavicular, or Inguinal Adenopathy Neurological: Neuro grossly intact Psych/Mental Status: Anxious, - - confused Laboratory Results 04/22/18 18:20: WBC 23.5 H, RBC 4.45, Hgb 13.6, Hct 41.2, MCV 92.6, MCH 30.6, MCHC 33.0, RDW 14.2, RDW Differential 48.0 H, Plt Count 318, MPV 9.6, Immature Gran % (Auto) 0.500, Neut % (Auto) 88.5 H, Lymph % (Auto) 9.2 L, [place] % (Auto) 0.6, Eos % (Auto) 1.0, Baso % (Auto) 0.2, Absolute Neuts (auto) 20.8 H, Absolute Lymphs (auto) 2.17, Total Counted Not Reportable, Differential Comment SEE COMMENT, Diff Path Review May foll, Platelet Estimate ADEQUATE, Anisocytosis RARE, Macrocytosis RARE 04/22/18 18:20: Sodium 134 L, Potassium 3.9, Chloride 103, Carbon Dioxide 23.0, Anion Gap 8, BUN 10, Creatinine 1.28 H, Estim Creat Clear Calc 40.12, Est GFR (MDRD) Af Amer 57 L, Est GFR (MDRD) Non-Af 47 L, BUN/Creatinine Ratio 7.8 L, Glucose 120 H, Calcium 8.4 L, Total Bilirubin 0.30, AST 23, ALT 32, Alkaline Phosphatase 91, Total Protein 7.8, Albumin 4.1, Globulin 3.7, Albumin/Globulin Ratio 1.1 04/22/18 18:20: GGT 68 H 04/22/18 18:20: Ethyl Alcohol 12.0 04/23/18 06:20: WBC 16.1 H, RBC 3.99 L, Hgb 11.9 L, Hct 36.3 L, MCV 91.0, MCH 29.8, MCHC 32.8, RDW 14.1, RDW Differential 46.8 H, Plt Count 297, MPV 9.3, Immature Gran % (Auto) 0.200, Neut % (Auto) 90.4 H, Lymph % (Auto) 4.3 L, [place] % (Auto) 4.9, Eos % (Auto) 0.1, Baso % (Auto) 0.1, Absolute Neuts (auto) 14.6 H, Absolute Lymphs (auto) 0.70 L, Total Counted Not Reportable 04/23/18 06:20: Sodium 136, Potassium 3.9, Chloride 105, Carbon Dioxide 20.0 L, Anion Gap 11, BUN 9, Creatinine 1.24 H, Estim Creat Clear Calc 41.41, Est GFR (MDRD) Af Amer 59 L, Est GFR (MDRD) Non-Af 49 L, BUN/Creatinine Ratio 7.3 L, Glucose 111 H, Calcium 8.3 L Diagnostic Data Brain CT 04/22/18 18:09 IMPRESSION: 1. No acute intracranial or calvarial abnormality. There is no interval change when compared to prior study. 2. Left sphenoid sinusitis. Electronically Signed: Gaurang Tom DO at 18:59 EST Tel [phone], Service support , Chest X-Ray 04/23/18 08:00 IMPRESSION: Mild increased markings at the left lung base suggestive of atelectasis. Electronically Signed: Shawn Sheffield MD at 8:26 EST Tel [phone], Service support , Current Medications Aspirin (Aspirin, Baby) 81 mg PO DAILYCM REPLACED BY [facility] Last Admin: 04/23/18 09:09 Dose: 81 mg Enoxaparin Sodium (Lovenox) 40 mg SC DAILY@1000 REPLACED BY [facility] Last Admin: 04/23/18 09:08 Dose: 40 mg Folic Acid (Folic Acid) 1 mg PO DAILY@0800 REPLACED BY [facility] Last Admin: 04/23/18 09:09 Dose: 1 mg Ceftriaxone Sodium (Rocephin) 1 gm in 50 mls @ 100 mls/hr IV Q24H REPLACED BY [facility] Dextrose/Sodium Chloride (Dextrose 5%/0.9% Nacl) 1,000 mls @ 100 mls/hr IV .Q10H REPLACED BY [facility] Last Admin: 04/23/18 00:45 Dose: 100 mls/hr Lacosamide (Vimpat) 100 mg PO BID REPLACED BY [facility] Last Admin: 04/23/18 09:27 Dose: 100 mg Levetiracetam (Keppra Tablet) 500 mg PO BID REPLACED BY [facility] Last Admin: 04/23/18 09:10 Dose: 500 mg Lorazepam (Ativan) 2 mg IV Q2H PRN PRN Reason: seizure Lorazepam (Ativan) 2 mg IV Q2H PRN PRN; Protocol PRN Reason: CIWA score > 8 but <15 Lorazepam (Ativan) 2 mg PO UD PRN; Protocol PRN Reason: CIWA score >/=15. Lorazepam (Ativan) 2 mg IV UD PRN; Protocol PRN Reason: CIWA score >/=15. Magnesium Hydroxide (Milk Of Magnesia) 30 ml PO DAILY PRN PRN Reason: Constipation Non-Formulary Medication (Zonisamide [Zonegran]) 300 mg PO QHS REPLACED BY [facility] Ondansetron HCl (Zofran) 4 mg IV Q8H PRN PRN PRN Reason: NAUSEA Pantoprazole Sodium (Protonix) 20 mg PO BID REPLACED BY [facility] Last Admin: 04/23/18 09:09 Dose: 20 mg Senna/Docusate Sodium (Senokot-S, Lexi-Colace) 2 tablet PO BID PRN PRN PRN Reason: constipation Sodium Chloride () 5 - 15 ml IV UD PRN PRN Reason: SALINE FLUSH Last Admin: 04/23/18 06:59 Dose: 10 ml Thiamine HCl (Vitamin B1) 100 mg PO DAILY REPLACED BY [facility] Last Admin: 04/23/18 09:09 Dose: 100 mg Medical Necessity - Tobacco Use Smoking Status: Never smoker Assessment/Plan All Active Problems Altered mental status, unspecified (Acute) Sphenoid sinusitis (Acute) Hypokalemia (Resolved) ARF (acute renal failure) (Acute) 1. Acute metabolic encephalopathy, due to possible seizure patient remains confused and anxious. Unable to give any history. CT of the head done was negative for any acute intracranial process. Neurology consulted- MRI ordered Alcohol level was 12. Urine toxicology ordered and is pending. On Keppra, Vimpat, zonisamide. seizure precautions 2. Chronic alcohol abuse usually drinks a bottle of wine daily. Hadnt had a drink for ~ 3 weeks prior to admission. alcohol level was 12 on [facility] protocol with ativan on thiamine and folic acid 3. History of PRES syndrome: stable 4. CKD 3: Creatinine is 1.24 today. Baseline is around 1.1-1.2. 5. Seizure disorder: On Keppra 6. Leukocytosis: Likely reactive. No evidence of infection. Was started on IV ceftriaxone for left sphenoid sinusitis though it is likely to be chronic. Patient has no facial pain is evidence of sinusitis and has no fever. Was 23.5 on admission and has trended down to 16.1. Will DC antibiotics. 7. Hypertension: Fairly controlled for age. Not on any medication. Will monitor. 8. Gout: On febuxostat. DVT prophylaxis: Lovenox Code Visit Inpatient E&M: 94321 Subs Hosp L3
--- NOTE | 2018-04-23 12:59 | PN_ITS ---
Patient Problems: Active and Suspected Problems Altered mental status, unspecified (Acute) Sphenoid sinusitis (Acute) Subjective: Patient seen and examined. She was admitted with a complaint of abnormal behavior and spells on the afternoon of admission. Her stated that he thought she had a seizure and also had confusion and inappropriate laughter and was some hallucinations apparently. She was admitted to be managed for acute metabolic encephalopathy of unknown etiology. 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 CT of the head done was negative. Neurology has been consulted. Patient seen and examined. She was very confused and was kept on saying was can someone please tell me what's going on? She wouldnt/couldnt answer any questions otherwise. Unable to do review of systems on account of confusion. Vitals/I&O's: Vital Signs Temp Pulse Resp BP Pulse Ox 99.7 F H 77 16 141/76 H 95 04/23/18 11:39 04/23/18 11:39 04/23/18 11:39 04/23/18 11:39 04/23/18 11:39 Oxygen Flow Rate (L/min) 2 Oxygen Delivery Method Room Air Weight: 165 lb 5.547 oz Body Mass Index (BMI) 31.2 Finger Stick Blood Glucose 114 Intake and Output for Last 24 Hours 04/21/18 04/22/18 04/23/18 23:59 23:59 23:59 Intake Total 1080 / 1080 Balance 1080 / 1080 General: Alert, No apparent distress, Confused HEENT: Atraumatic, PERRLA, EOMI, Normocephalic Oral: Moist Mucosa Neck: Supple, No JVD, Negative Carotid Bruits Lungs: Clear to auscultation, Normal air movement, No rhonchi, No wheeze, No rales Cardiovascular: Regular rate, Regular Rhythm, Normal S1, Normal S2, No murmurs Abdomen: Bowel Sounds Present, Soft, Non Tender, Non-Distended, No Hepato- splenomegaly Extremities: No clubbing, No cyanosis, No edema, Capillary Refill Less than 3 Seconds Skin: No rashes, No breakdown Musculoskeletal: No Tenderness to Palpation of Joints or Extremities Lymphatic: No Cervical, Supraclavicular, or Inguinal Adenopathy Neurological: Neuro grossly intact Psych/Mental Status: Anxious, - - confused Laboratory Results 04/22/18 18:20: WBC 23.5 H, RBC 4.45, Hgb 13.6, Hct 41.2, MCV 92.6, MCH 30.6, MCHC 33.0, RDW 14.2, RDW Differential 48.0 H, Plt Count 318, MPV 9.6, Immature Gran % (Auto) 0.500, Neut % (Auto) 88.5 H, Lymph % (Auto) 9.2 L, [place] % (Auto) 0.6, Eos % (Auto) 1.0, Baso % (Auto) 0.2, Absolute Neuts (auto) 20.8 H, Absolute Lymphs (auto) 2.17, Total Counted Not Reportable, Differential Comment SEE COMMENT, Diff Path Review May foll, Platelet Estimate ADEQUATE, Anisocytosis RARE, Macrocytosis RARE 04/22/18 18:20: Sodium 134 L, Potassium 3.9, Chloride 103, Carbon Dioxide 23.0, Anion Gap 8, BUN 10, Creatinine 1.28 H, Estim Creat Clear Calc 40.12, Est GFR (MDRD) Af Amer 57 L, Est GFR (MDRD) Non-Af 47 L, BUN/Creatinine Ratio 7.8 L, Glucose 120 H, Calcium 8.4 L, Total Bilirubin 0.30, AST 23, ALT 32, Alkaline Phosphatase 91, Total Protein 7.8, Albumin 4.1, Globulin 3.7, Albumin/Globulin Ratio 1.1 04/22/18 18:20: GGT 68 H 04/22/18 18:20: Ethyl Alcohol 12.0 04/23/18 06:20: WBC 16.1 H, RBC 3.99 L, Hgb 11.9 L, Hct 36.3 L, MCV 91.0, MCH 29.8, MCHC 32.8, RDW 14.1, RDW Differential 46.8 H, Plt Count 297, MPV 9.3, Immature Gran % (Auto) 0.200, Neut % (Auto) 90.4 H, Lymph % (Auto) 4.3 L, [place] % (Auto) 4.9, Eos % (Auto) 0.1, Baso % (Auto) 0.1, Absolute Neuts (auto) 14.6 H, Absolute Lymphs (auto) 0.70 L, Total Counted Not Reportable 04/23/18 06:20: Sodium 136, Potassium 3.9, Chloride 105, Carbon Dioxide 20.0 L, Anion Gap 11, BUN 9, Creatinine 1.24 H, Estim Creat Clear Calc 41.41, Est GFR (MDRD) Af Amer 59 L, Est GFR (MDRD) Non-Af 49 L, BUN/Creatinine Ratio 7.3 L, Glucose 111 H, Calcium 8.3 L Diagnostic Data Brain CT 04/22/18 18:09 IMPRESSION: 1. No acute intracranial or calvarial abnormality. There is no interval change when compared to prior study. 2. Left sphenoid sinusitis. Electronically Signed: Gaurang Tom DO at 18:59 EST Tel [phone], Service support , Chest X-Ray 04/23/18 08:00 IMPRESSION: Mild increased markings at the left lung base suggestive of atelectasis. Electronically Signed: Shawn Sheffield MD at 8:26 EST Tel [phone], Service support , Current Medications Aspirin (Aspirin, Baby) 81 mg PO DAILYCM [facility] Last Admin: 04/23/18 09:09 Dose: 81 mg Enoxaparin Sodium (Lovenox) 40 mg SC DAILY@1000 [facility] Last Admin: 04/23/18 09:08 Dose: 40 mg Folic Acid (Folic Acid) 1 mg PO DAILY@0800 [facility] Last Admin: 04/23/18 09:09 Dose: 1 mg Ceftriaxone Sodium (Rocephin) 1 gm in 50 mls @ 100 mls/hr IV Q24H [facility] Dextrose/Sodium Chloride (Dextrose 5%/0.9% Nacl) 1,000 mls @ 100 mls/hr IV .Q10H [facility] Last Admin: 04/23/18 00:45 Dose: 100 mls/hr Lacosamide (Vimpat) 100 mg PO BID [facility] Last Admin: 04/23/18 09:27 Dose: 100 mg Levetiracetam (Keppra Tablet) 500 mg PO BID [facility] Last Admin: 04/23/18 09:10 Dose: 500 mg Lorazepam (Ativan) 2 mg IV Q2H PRN PRN Reason: seizure Lorazepam (Ativan) 2 mg IV Q2H PRN PRN; Protocol PRN Reason: CIWA score > 8 but <15 Lorazepam (Ativan) 2 mg PO UD PRN; Protocol PRN Reason: CIWA score >/=15. Lorazepam (Ativan) 2 mg IV UD PRN; Protocol PRN Reason: CIWA score >/=15. Magnesium Hydroxide (Milk Of Magnesia) 30 ml PO DAILY PRN PRN Reason: Constipation Non-Formulary Medication (Zonisamide [Zonegran]) 300 mg PO QHS [facility] Ondansetron HCl (Zofran) 4 mg IV Q8H PRN PRN PRN Reason: NAUSEA Pantoprazole Sodium (Protonix) 20 mg PO BID [facility] Last Admin: 04/23/18 09:09 Dose: 20 mg Senna/Docusate Sodium (Senokot-S, Lexi-Colace) 2 tablet PO BID PRN PRN PRN Reason: constipation Sodium Chloride () 5 - 15 ml IV UD PRN PRN Reason: SALINE FLUSH Last Admin: 04/23/18 06:59 Dose: 10 ml Thiamine HCl (Vitamin B1) 100 mg PO DAILY [facility] Last Admin: 04/23/18 09:09 Dose: 100 mg Medical Necessity - Tobacco Use Smoking Status: Never smoker Assessment/Plan All Active Problems Altered mental status, unspecified (Acute) Sphenoid sinusitis (Acute) Hypokalemia (Resolved) ARF (acute renal failure) (Acute) 1. Acute metabolic encephalopathy, due to possible seizure * patient remains confused and anxious. Unable to give any history. * CT of the head done was negative for any acute intracranial process. * Neurology consulted- MRI ordered * Alcohol level was 12. * Urine toxicology ordered and is pending. * On Keppra, Vimpat, zonisamide. * seizure precautions * 2. Chronic alcohol abuse * usually drinks a bottle of wine daily. Hadnt had a drink for ~ 3 weeks prior to admission. * alcohol level was 12 * on CIWA protocol with ativan * on thiamine and folic acid * 3. History of PRES syndrome: stable 4. CKD 3: Creatinine is 1.24 today. Baseline is around 1.1-1.2. 5. Seizure disorder: On Keppra 6. Leukocytosis: * Likely reactive. * No evidence of infection. Was started on IV ceftriaxone for left sphenoid sinusitis though it is likely to be chronic. Patient has no facial pain is evidence of sinusitis and has no fever. * Was 23.5 on admission and has trended down to 16.1. * Will DC antibiotics. * 7. Hypertension: Fairly controlled for age. Not on any medication. Will monitor. 8. Gout: On febuxostat. DVT prophylaxis: Lovenox Code Visit Inpatient E&M: 04706 Subs Hosp L3
--- NOTE | 2018-04-23 14:25 | CASEMGMT ---
This RN CM to room to complete CM assessment and pt is currently getting an EEG and per Yanely SENIOR, pt's left and will not be back until after 1600. Pt is still confused at this time per RN. Myles SENIOR CM
[2018-04-23 14:27] LABS: Pathologist Review Reviewed
[2018-04-23] MEDS: LORazepam 2 MG/ML Syringe IV (14:31)
[2018-04-23 17:50] LABS: Bacteria 0 SEEN /hpf (None Seen); Mucous, Urine 0 SEEN /hpf (<or=2+); Red Blood Cells-Urine 0 SEEN /hpf (0-5); Squamous Epithelial Cells - UA 0 SEEN /hpf (5-10); White Blood Cells 0 SEEN /hpf (0-5)
[2018-04-23 18:07] LABS: Color, Urine Yellow (Yellow); Glucose, Dipstick Normal (Normal); Ketone-Dipstick Negative (Negative); Leukocyte Esterase-Dipstick Negative /ul (Negative); Nitrite-Dipstick Negative (Negative); Occult Blood-Urine Negative /ul (Negative); Protein-Dipstick Negative (Negative); Urine Bilirubin Dipstick Negative (Negative); Urine Clarity Clear (Clear); Urine Urobilinogen Normal (Normal)
[2018-04-23 18:49] LABS: Amphetamine Urine VISTA NEGATIVE (<1000 ng/mL); Barbiturate Urine VISTA NEGATIVE (< 200 ng/mL); Benzodiazepine Urine VISTA NEGATIVE (< 200 ng/mL); Cocaine Urine VISTA NEGATIVE (< 300 ng/mL); Ecstacy Urine VISTA NEGATIVE (< 500 ng/mL); Methadone Urine VISTA NEGATIVE (< 300 ng/mL); PCP Urine VISTA NEGATIVE (< 25 ng/mL); THC Urine VISTA NEGATIVE (< 50 ng/mL); Vista UDS pH Range 6
[2018-04-23] MEDS: Ibuprofen 400 MG Tablet PO (20:57)
[2018-04-23] MEDS: ZONISAMIDE 100 MG CAPSULE 300 MG PO (20:59)
[2018-04-23] MEDS: Ceftriaxone 1 GM/50 ML BAG IV (21:02)
[2018-04-24] VITALS (13 sets, daily range): BP systolic 111–160; BP diastolic 64–86; PULSE 66–90; RESP 14–18; TEMP 36.6–37.3; O2SAT 95–99
[2018-04-24] MEDS: Dextrose 5%/0.9% NaCl 1,000 ML 100 ML IV ×2 (01:28→15:16)
[2018-04-24 06:50] LABS: Absolute Lymphocyte Count 0.97 X10^3/ul (0.83-4.51); Absolute Neutrophil Count 5.8 X10^3/uL (2.0-7.7); Basophil# 0.02 X10^3/uL; Basophil% 0.3 % (0-1); Eosinophil# 0.14 X10^3/uL; Eosinophils% 1.8 % (0-5); Hematocrit 33.7 % (37-47); Hemoglobin 10.9 g/dl (12.0-15.0); Lymphocyte # 0.97 X10^3/ul (4.0); Lymphocyte % 12.5 % (19-41); Mean Corp Hgb Conc 32.3 g/gl (32-36); Mean Corpuscular Hgb 29.6 pg (27.0-32.0); Mean Corpuscular Volume 91.6 fL (81-99); Mean Platelet Vol. 9.2 fl (6.2-12.0); Monocyte# 0.75 X10^3/uL; Monocyte% 9.7 % (0-10); Neutrophil # 5.83 X10^3/uL (2.7-7.7); Neutrophil % 75.4 % (47-70); Platelet Count 250 K/mm3 (150-450); RBC Distribution Width CV 14.2 % (11.6-14.6); RBC Distribution Width SD 46.3 fl (35.1-43.9); Red Blood Count 3.68 M/mm3 (4.2-5.4); White Blood Count 7.7 K/mm3 (4.4-11.0)
[2018-04-24 06:58] LABS: Anion Gap 8 (5-15); BUN 8 mg/dL (7-18); Calcium,Total 8.4 mg/dL (8.5-10.1); Chloride 114 mmol/L (98-107); Creatinine, Serum 1.34 mg/dL (0.55-1.02); EST Glomerular Filtration Rate 45 mL/min (>60); Est Glom Filt Rate - Afr Amer 54 mL/min (>60); Estimated Creatinine Clearance 38.32 ml/min; Glucose 115 mg/dL (74-106); Potassium 3.9 mmol/L (3.5-5.1); Sodium Level 143 mmol/L (136-145)
[2018-04-24 07:03] LABS: POSITIVE COUNT NO; POSITIVE DIFFERENTIAL NO; POSITIVE MORPHOLOGY NO
--- NOTE | 2018-04-24 08:22 | RAD_ITS ---
PROCEDURE: Fluoroscopic guided Lumbar Puncture. DATE: April 24, 2018. CLINICAL INDICATION: Confusion. Possible infection. PHYSICIAN: Shawn Sheffield M.D. MEDICATIONS: 1% lidocaine administered subcutaneously for local anesthesia. ACCESS SITE: Lower posterior back. NEEDLE: 22-gauge spinal needle. SPECIMEN: Approximately 5 mL clear]CSF fluid. FLUOROSCOPY TIME (if supplied): (3:05) minutes/seconds COMPLICATIONS: None immediate. The risks, benefits, and alternatives to the procedure were explained to the patient. The specific risks of bleeding, infection, and neurovascular injury were detailed and accepted. Witnessed informed consent was obtained. The patient was placed on the fluoroscopic table in the prone position. The level for needle entry was determined and marked. The overlying skin was cleaned and prepped in the usual sterile fashion. 2% lidocaine was administered subcutaneously for local anesthesia. Under fluoroscopic guidance a 22-gauge spinal needle was advanced. The thecal sac was entered at the L3- L4 vertebral level. The inner stylet was removed. There was spontaneous flow of clear CSF fluid. The patient was placed in a reversed Trendelenburg position. Approximately 5 mL of cerebrospinal fluid was collected using gravity. The specimen was collected and submitted to the laboratory for further evaluation. The needle was withdrawn,. Hemostasis was achieved and a sterile dressing placed. The patient tolerated the procedure well without any immediate complications. The patient was placed supine with head elevated and returned to the floor in stable condition. RAD/Fluoro Guided Lumbar Puncture IMPRESSION: Successful fluoroscopic-guided lumbar puncture. Electronically Signed: Shawn Sheffield MD at 13:03 EST , Service support ,
--- NOTE | 2018-04-24 09:43 | CASEMGMT ---
Pt is still confused this am. is not here at this time but is supposed to be arriving around 1000 because pt is scheduled for LP at that time. This RN CM will attempt to speak to on his arrival. Myles SENIOR CM
[2018-04-24 09:50] LABS: Partial Thromboplast Time 28.5 Seconds (24.1-36.2); Prothrombin Time (Protime)PT. 13.6 SECONDS (11.7-14.9)
[2018-04-24] MEDS: LORazepam 2 MG/ML Syringe IV ×2 (10:11→11:13)
--- NOTE | 2018-04-24 10:34 | PCM.PN.HOSP ---
Patient Problems: Active and Suspected Problems Altered mental status, unspecified (Acute) Sphenoid sinusitis (Acute) Subjective: Patient seen and examined. She still remains confused. All she kept on saying was I dont know whats going on. MRI done showed abnormal signal in bilateral medial temporal lobes and hippocampi suggesting possibility of acute herpes infection as well as abnormal signal within the posterior occipital lobes consistent with history of previous MO ES. Neurology on board. EEG done showed no evidence of seizure. She is to have a lumbar puncture done today. Labs and vitals reviewed. Vitals/I&O's: Vital Signs Temp Pulse Resp BP Pulse Ox 97.8 F 66 16 137/77 H 99 04/24/18 08:46 04/24/18 08:46 04/24/18 08:46 04/24/18 08:46 04/24/18 08:46 Oxygen Flow Rate (L/min) 2 Oxygen Delivery Method Room Air Weight: 165 lb 5.547 oz Body Mass Index (BMI) 31.2 Finger Stick Blood Glucose 114 Intake and Output for Last 24 Hours 04/22/18 04/23/18 04/24/18 23:59 23:59 23:59 Intake Total 1757 / 1757 1197 / 1197 Output Total 200 / 200 200 / 200 Balance 1557 / 1557 997 / 997 General: Alert, No apparent distress, Confused HEENT: Atraumatic, PERRLA, EOMI, Normocephalic Oral: Moist Mucosa Neck: Supple, No JVD, Negative Carotid Bruits Lungs: Clear to auscultation, Normal air movement, No rhonchi, No wheeze, No rales Cardiovascular: Regular rate, Regular Rhythm, Normal S1, Normal S2, No murmurs Abdomen: Bowel Sounds Present, Soft, Non Tender, Non-Distended, No Hepato-splenomegaly Extremities: No clubbing, No cyanosis, No edema, Capillary Refill Less than 3 Seconds Skin: No rashes, No breakdown Musculoskeletal: No Tenderness to Palpation of Joints or Extremities Lymphatic: No Cervical, Supraclavicular, or Inguinal Adenopathy Neurological: Neuro grossly intact Psych/Mental Status: Anxious, - - still confused Laboratory Results 04/22/18 18:20: Diff Path Review Reviewed 04/23/18 17:43: Urine Opiates Screen NEGATIVE, Urine Methadone Screen NEGATIVE, Ur Barbiturates Screen NEGATIVE, Ur Phencyclidine Scrn NEGATIVE, Ur Amphetamines Screen NEGATIVE, U Methamphetamin-MDMA NEGATIVE, U Benzodiazepines Scrn NEGATIVE, Urine Cocaine Screen NEGATIVE, U Cannabinoids Screen NEGATIVE, Ur Drug Screen Comment 04/23/18 17:43: Urine Color Yellow, Urine Clarity Clear, Urine pH 7.0, Ur Specific [place] 1.010, Urine Protein Negative, Urine Glucose (UA) Normal, Urine Ketones Negative, Urine Occult Blood Negative, Urine Nitrite Negative, Urine Bilirubin Negative, Urine Urobilinogen Normal, Ur Leukocyte Esterase Negative, Urine RBC 0 SEEN, Urine WBC 0 SEEN, Ur Squamous Epith Cells 0 SEEN, Urine Bacteria 0 SEEN, Urine Mucus 0 SEEN 04/24/18 06:25: WBC 7.7, RBC 3.68 L, Hgb 10.9 L, Hct 33.7 L, MCV 91.6, MCH 29.6, MCHC 32.3, RDW 14.2, RDW Differential 46.3 H, Plt Count 250, MPV 9.2, Immature Gran % (Auto) 0.300, Neut % (Auto) 75.4 H, Lymph % (Auto) 12.5 L, [place] % (Auto) 9.7, Eos % (Auto) 1.8, Baso % (Auto) 0.3, Absolute Neuts (auto) 5.8, Absolute Lymphs (auto) 0.97, Total Counted Not Reportable 04/24/18 06:25: Sodium 143, Potassium 3.9, Chloride 114 H, Carbon Dioxide 21.0, Anion Gap 8, BUN 8, Creatinine 1.34 H, Estim Creat Clear Calc 38.32, Est GFR (MDRD) Af Amer 54 L, Est GFR (MDRD) Non-Af 45 L, BUN/Creatinine Ratio 6.0 L, Glucose 115 H, Calcium 8.4 L 04/24/18 09:20: PT 13.6, INR 1.0, APTT 28.[address] 04/22/18 18:09 IMPRESSION: 1. No acute intracranial or calvarial abnormality. There is no interval change when compared to prior study. 2. Left sphenoid sinusitis. Electronically Signed: Gaurang Tom DO at 18:59 EST Tel [phone], Service support , Chest X-Ray 04/23/18 08:00 IMPRESSION: Mild increased markings at the left lung base suggestive of atelectasis. Electronically Signed: Shawn Sheffield MD at 8:26 EST Tel [phone], Service support , Brain MRI 04/23/18 10:41 IMPRESSION: 1. Involutional changes of the brain, as described above. 2. Symmetrical abnormal signal within bilateral medial temporal lobes. Differential considerations include sequela of herpes infection. 3. Abnormal signal in the posterior occipital lobes may be the result of previous PRES. 4. No MR evidence for acute infarct. Electronically Signed: Felicia Moore MD at 0:01 EST , Service support , Current Medications Acetaminophen (Tylenol) 650 mg PO Q4H PRN PRN PRN Reason: mild pain/fever Aspirin (Aspirin, Baby) 81 mg PO DAILYCM [facility] Last Admin: 04/23/18 09:09 Dose: 81 mg Enoxaparin Sodium (Lovenox) 40 mg SC DAILY@1000 [facility] Last Admin: 04/23/18 09:08 Dose: 40 mg Folic Acid (Folic Acid) 1 mg PO DAILY@0800 [facility] Last Admin: 04/23/18 09:09 Dose: 1 mg Haloperidol Lactate (Haldol) 1 mg IV Q4H PRN PRN PRN Reason: AGITATION Hydroxyzine Pamoate (Vistaril Pamoate Capsule) 25 mg PO 4X/DAY PRN PRN PRN Reason: agitation/alcohol withdrawal Ceftriaxone Sodium (Rocephin) 1 gm in 50 mls @ 100 mls/hr IV Q24H [facility] Last Admin: 04/23/18 21:02 Dose: 100 mls/hr Dextrose/Sodium Chloride (Dextrose 5%/0.9% Nacl) 1,000 mls @ 100 mls/hr IV .Q10H [facility] Last Admin: 04/24/18 01:28 Dose: 100 mls/hr Acyclovir Sodium 480 mg/ (Dextrose) 259.6 mls @ 259.6 mls/hr IV Q8 [facility] Ibuprofen (Motrin) 400 mg PO Q6H PRN PRN PRN Reason: MILD PAIN (1-3/10) Last Admin: 04/23/18 20:57 Dose: 400 mg Lacosamide (Vimpat) 100 mg PO BID [facility] Last Admin: 04/23/18 20:57 Dose: 100 mg Levetiracetam (Keppra Tablet) 500 mg PO BID [facility] Last Admin: 04/23/18 20:56 Dose: 500 mg Lorazepam (Ativan) 2 mg IV Q2H PRN PRN Reason: seizure Last Admin: 04/23/18 14:31 Dose: 2 mg Lorazepam (Ativan) 2 mg IV Q2H PRN PRN; Protocol PRN Reason: CIWA score > 8 but <15 Lorazepam (Ativan) 2 mg PO UD PRN; Protocol PRN Reason: CIWA score >/=15. Lorazepam (Ativan) 2 mg IV UD PRN; Protocol PRN Reason: CIWA score >/=15. Magnesium Hydroxide (Milk Of Magnesia) 30 ml PO DAILY PRN PRN Reason: Constipation Ondansetron HCl (Zofran) 4 mg IV Q8H PRN PRN PRN Reason: NAUSEA Pantoprazole Sodium (Protonix) 20 mg PO BID [facility] Last Admin: 04/23/18 20:57 Dose: 20 mg Promethazine HCl (Phenergan) 12.5 mg IV Q4H PRN PRN PRN Reason: AGITATION Senna/Docusate Sodium (Senokot-S, Lexi-Colace) 2 tablet PO BID PRN PRN PRN Reason: constipation Sodium Chloride () 5 - 15 ml IV UD PRN PRN Reason: SALINE FLUSH Last Admin: 04/23/18 14:31 Dose: 10 ml Thiamine HCl (Vitamin B1) 100 mg PO DAILY [facility] Last Admin: 04/23/18 09:09 Dose: 100 mg Zonisamide (Zonisamide) 300 mg PO QHS [facility] Last Admin: 04/23/18 20:59 Dose: 300 mg Medical Necessity - Tobacco Use Smoking Status: Never smoker Assessment/Plan All Active Problems Altered mental status, unspecified (Acute) Sphenoid sinusitis (Acute) Hypokalemia (Resolved) ARF (acute renal failure) (Acute) 1. Acute metabolic encephalopathy, due to probable seizure and possible Herpes infection patient still confused and anxious. CT of the head done was negative for any acute intracranial process. MRI showed symmetrical abnormal signal within bilateral medial temporal lobes and abnormal signal in the posterior occipital lobe likely a result of previous MO ES EEG done and showed no seizures. Official report not in EMR LP ordered. Discussed with neurology, will start IV acyclovir 10 mg/kg every 8 hours for possible Herpes infection until LP rules it out. Urine toxicology was negative On Keppra, Vimpat, zonisamide. Per discussion with neurology, will give loading dose of Dilantin seizure precautions 2. ?Herpes viral infection: as under 1. 2. Chronic alcohol abuse usually drinks a bottle of wine daily. alcohol level was 12 on CIWA protocol with ativan on thiamine and folic acid 3. History of PRES syndrome: stable 4. CKD 3: Creatinine is 1.34 today. Baseline is around 1.1-1.2. 5. Seizure disorder: On Keppra 6. Leukocytosis: Likely reactive. resolved will monitor 7. Hypertension: Fairly controlled for age. Not on any medication. Will monitor. 8. Gout: On febuxostat. DVT prophylaxis: Lovenox Code Visit Inpatient E&M: 68088 Subs Hosp L3
--- NOTE | 2018-04-24 10:35 | PCM.PN.NEU ---
Patient Problems: Active and Suspected Problems Altered mental status, unspecified (Acute) Sphenoid sinusitis (Acute) Subjective: Patient seen briefly on her way to lumbar puncture. Discussed test results with . Brief examination is performed. Objective: Today she is able to tell me her name and follow simple commands. She is still not able to tell me where she is. Today when I asked her to show me her thumb she instead shows me some fingers which is improved from yesterday when she was not able to do anything. - Physical Exam General: Alert Vital Signs Temp Pulse Resp BP Pulse Ox 36.6 C 66 16 137/77 H 99 04/24/18 08:46 04/24/18 08:46 04/24/18 08:46 04/24/18 08:46 04/24/18 08:46 Oxygen Flow Rate (L/min) 2 Oxygen Delivery Method Room Air Weight: 75 kg Body Mass Index (BMI) 31.2 Finger Stick Blood Glucose 114 Intake and Output for Last 24 Hours 04/22/18 04/23/18 04/24/18 23:59 23:59 23:59 Intake Total 1757 / 1757 1197 / 1197 Output Total 200 / 200 200 / 200 Balance 1557 / 1557 997 / 997 Laboratory Tests Past 24 Hrs 04/22/18 04/23/18 04/23/18 18:20 17:43 17:43 WBC RBC Hgb Hct MCV MCH MCHC RDW RDW Differential Plt Count MPV Immature Gran % (Auto) Neut % (Auto) Lymph % (Auto) [place] % (Auto) Eos % (Auto) Baso % (Auto) Absolute Neuts (auto) Absolute Lymphs (auto) Total Counted Diff Path Review Reviewed PT INR APTT Sodium Potassium Chloride Carbon Dioxide Anion Gap BUN Creatinine Estim Creat Clear Calc Est GFR (MDRD) Af Amer Est GFR (MDRD) Non-Af BUN/Creatinine Ratio Glucose Calcium Urine Color Yellow Urine Clarity Clear Urine pH 7.0 Ur Specific [place] 1.010 Urine Protein Negative Urine Glucose (UA) Normal Urine Ketones Negative Urine Occult Blood Negative Urine Nitrite Negative Urine Bilirubin Negative Urine Urobilinogen Normal Ur Leukocyte Esterase Negative Urine RBC 0 SEEN Urine WBC 0 SEEN Ur Squamous Epith Cells 0 SEEN Urine Bacteria 0 SEEN Urine Mucus 0 SEEN Urine Opiates Screen NEGATIVE Urine Methadone Screen NEGATIVE Ur Barbiturates Screen NEGATIVE Ur Phencyclidine Scrn NEGATIVE Ur Amphetamines Screen NEGATIVE U Methamphetamin-MDMA NEGATIVE U Benzodiazepines Scrn NEGATIVE Urine Cocaine Screen NEGATIVE U Cannabinoids Screen NEGATIVE Ur Drug Screen Comment 04/24/18 04/24/18 04/24/18 06:25 06:25 09:20 WBC 7.7 RBC 3.68 L Hgb 10.9 L Hct 33.7 L MCV 91.6 MCH 29.6 MCHC 32.3 RDW 14.2 RDW Differential 46.3 H Plt Count 250 MPV 9.2 Immature Gran % (Auto) 0.300 Neut % (Auto) 75.4 H Lymph % (Auto) 12.5 L [place] % (Auto) 9.7 Eos % (Auto) 1.8 Baso % (Auto) 0.3 Absolute Neuts (auto) 5.8 Absolute Lymphs (auto) 0.97 Total Counted Not Reportable Diff Path Review PT 13.6 INR 1.0 APTT 28.5 Sodium 143 Potassium 3.9 Chloride 114 H Carbon Dioxide 21.0 Anion Gap 8 BUN 8 Creatinine 1.34 H Estim Creat Clear Calc 38.32 Est GFR (MDRD) Af Amer 54 L Est GFR (MDRD) Non-Af 45 L BUN/Creatinine Ratio 6.0 L Glucose 115 H Calcium 8.4 L Urine Color Urine Clarity Urine pH Ur Specific [place] Urine Protein Urine Glucose (UA) Urine Ketones Urine Occult Blood Urine Nitrite Urine Bilirubin Urine Urobilinogen Ur Leukocyte Esterase Urine RBC Urine WBC Ur Squamous Epith Cells Urine Bacteria Urine Mucus Urine Opiates Screen Urine Methadone Screen Ur Barbiturates Screen Ur Phencyclidine Scrn Ur Amphetamines Screen U Methamphetamin-MDMA U Benzodiazepines Scrn Urine Cocaine Screen U Cannabinoids Screen Ur Drug Screen Comment Review the MRI. She has bilateral vague increased signal intensity in her mesial temporal lobes. The abnormalities in her occipital lobes previously seen consistent with press syndrome are essentially resolved. There is one very small area of increased signal on flair in her right occipital pole. EEG just shows mild slowing. There is motion artifact throughout the recording however the underlying rhythm does not demonstrate any epileptiform abnormalities. Medical Necessity - Tobacco Use Smoking Status: Never smoker Assessment/Plan All Active Problems Altered mental status, unspecified (Acute) Sphenoid sinusitis (Acute) Hypokalemia (Resolved) ARF (acute renal failure) (Acute) seizure, history of pres, history of etoh use and withdrawal She is somewhat improved today cognitively but still remains severely encephalopathic. Her MRI shows changes consistent with status epilepticus which I think has resolved at this point. Her elevated white count which has improved as well as the clinical scenario is all consistent, regardless I think it is reasonable to place her on acyclovir, obtain a lumbar puncture and discontinue the acyclovir when LP results are known. I will add 1 dose of IV Dilantin and adjustment of her anticonvulsants needs to be considered. It does not appear that Zonegran has been helping. She cannot tolerate higher doses of Keppra or Vimpat. There is likely ongoing alcohol use which is a confounding factor though I do not think she is experiencing acute withdrawal now.
--- NOTE | 2018-04-24 10:40 | PN.NEURO_ITS ---
Patient Problems: Active and Suspected Problems Altered mental status, unspecified (Acute) Sphenoid sinusitis (Acute) Subjective: Patient seen briefly on her way to lumbar puncture. Discussed test results with . Brief examination is performed. Objective: Today she is able to tell me her name and follow simple commands. She is still not able to tell me where she is. Today when I asked her to show me her thumb she instead shows me some fingers which is improved from yesterday when she was not able to do anything. - Physical Exam General: Alert Vital Signs Temp Pulse Resp BP Pulse Ox 36.6 C 66 16 137/77 H 99 04/24/18 08:46 04/24/18 08:46 04/24/18 08:46 04/24/18 08:46 04/24/18 08:46 Oxygen Flow Rate (L/min) 2 Oxygen Delivery Method Room Air Weight: 75 kg Body Mass Index (BMI) 31.2 Finger Stick Blood Glucose 114 Intake and Output for Last 24 Hours 04/22/18 04/23/18 04/24/18 23:59 23:59 23:59 Intake Total 1757 / 1757 1197 / 1197 Output Total 200 / 200 200 / 200 Balance 1557 / 1557 997 / 997 Laboratory Tests Past 24 Hrs 04/22/18 04/23/18 04/23/18 18:20 17:43 17:43 WBC RBC Hgb Hct MCV MCH MCHC RDW RDW Differential Plt Count MPV Immature Gran % (Auto) Neut % (Auto) Lymph % (Auto) [place] % (Auto) Eos % (Auto) Baso % (Auto) Absolute Neuts (auto) Absolute Lymphs (auto) Total Counted Diff Path Review Reviewed PT INR APTT Sodium Potassium Chloride Carbon Dioxide Anion Gap BUN Creatinine Estim Creat Clear Calc Est GFR (MDRD) Af Amer Est GFR (MDRD) Non-Af BUN/Creatinine Ratio Glucose Calcium Urine Color Yellow Urine Clarity Clear Urine pH 7.0 Ur Specific [place] 1.010 Urine Protein Negative Urine Glucose (UA) Normal Urine Ketones Negative Urine Occult Blood Negative Urine Nitrite Negative Urine Bilirubin Negative Urine Urobilinogen Normal Ur Leukocyte Esterase Negative Urine RBC 0 SEEN Urine WBC 0 SEEN Ur Squamous Epith Cells 0 SEEN Urine Bacteria 0 SEEN Urine Mucus 0 SEEN Urine Opiates Screen NEGATIVE Urine Methadone Screen NEGATIVE Ur Barbiturates Screen NEGATIVE Ur Phencyclidine Scrn NEGATIVE Ur Amphetamines Screen NEGATIVE U Methamphetamin-MDMA NEGATIVE U Benzodiazepines Scrn NEGATIVE Urine Cocaine Screen NEGATIVE U Cannabinoids Screen NEGATIVE Ur Drug Screen Comment 04/24/18 04/24/18 04/24/18 06:25 06:25 09:20 WBC 7.7 RBC 3.68 L Hgb 10.9 L Hct 33.7 L MCV 91.6 MCH 29.6 MCHC 32.3 RDW 14.2 RDW Differential 46.3 H Plt Count 250 MPV 9.2 Immature Gran % (Auto) 0.300 Neut % (Auto) 75.4 H Lymph % (Auto) 12.5 L [place] % (Auto) 9.7 Eos % (Auto) 1.8 Baso % (Auto) 0.3 Absolute Neuts (auto) 5.8 Absolute Lymphs (auto) 0.97 Total Counted Not Reportable Diff Path Review PT 13.6 INR 1.0 APTT 28.5 Sodium 143 Potassium 3.9 Chloride 114 H Carbon Dioxide 21.0 Anion Gap 8 BUN 8 Creatinine 1.34 H Estim Creat Clear Calc 38.32 Est GFR (MDRD) Af Amer 54 L Est GFR (MDRD) Non-Af 45 L BUN/Creatinine Ratio 6.0 L Glucose 115 H Calcium 8.4 L Urine Color Urine Clarity Urine pH Ur Specific [place] Urine Protein Urine Glucose (UA) Urine Ketones Urine Occult Blood Urine Nitrite Urine Bilirubin Urine Urobilinogen Ur Leukocyte Esterase Urine RBC Urine WBC Ur Squamous Epith Cells Urine Bacteria Urine Mucus Urine Opiates Screen Urine Methadone Screen Ur Barbiturates Screen Ur Phencyclidine Scrn Ur Amphetamines Screen U Methamphetamin-MDMA U Benzodiazepines Scrn Urine Cocaine Screen U Cannabinoids Screen Ur Drug Screen Comment Review the MRI. She has bilateral vague increased signal intensity in her mesial temporal lobes. The abnormalities in her occipital lobes previously seen consistent with press syndrome are essentially resolved. There is one very small area of increased signal on flair in her right occipital pole. EEG just shows mild slowing. There is motion artifact throughout the recording however the underlying rhythm does not demonstrate any epileptiform abnormalities. Medical Necessity - Tobacco Use Smoking Status: Never smoker Assessment/Plan All Active Problems Altered mental status, unspecified (Acute) Sphenoid sinusitis (Acute) Hypokalemia (Resolved) ARF (acute renal failure) (Acute) seizure, history of pres, history of etoh use and withdrawal * She is somewhat improved today cognitively but still remains severely encephalopathic. * Her MRI shows changes consistent with status epilepticus which I think has resolved at this point. Her elevated white count which has improved as well as the clinical scenario is all consistent, regardless I think it is reasonable to place her on acyclovir, obtain a lumbar puncture and discontinue the acyclovir when LP results are known. * I will add 1 dose of IV Dilantin and adjustment of her anticonvulsants needs to be considered. It does not appear that Zonegran has been helping. She cannot tolerate higher doses of Keppra or Vimpat. * There is likely ongoing alcohol use which is a confounding factor though I do not think she is experiencing acute withdrawal now.
--- NOTE | 2018-04-24 10:41 | PN_ITS ---
Patient Problems: Active and Suspected Problems Altered mental status, unspecified (Acute) Sphenoid sinusitis (Acute) Subjective: Patient seen and examined. She still remains confused. All she kept on saying was I dont know whats going on. MRI done showed abnormal signal in bilateral medial temporal lobes and hippocampi suggesting possibility of acute herpes infection as well as abnormal signal within the posterior occipital lobes consistent with history of previous LA ES. Neurology on board. EEG done showed no evidence of seizure. She is to have a lumbar puncture done today. Labs and vitals reviewed. Vitals/I&O's: Vital Signs Temp Pulse Resp BP Pulse Ox 97.8 F 66 16 137/77 H 99 04/24/18 08:46 04/24/18 08:46 04/24/18 08:46 04/24/18 08:46 04/24/18 08:46 Oxygen Flow Rate (L/min) 2 Oxygen Delivery Method Room Air Weight: 165 lb 5.547 oz Body Mass Index (BMI) 31.2 Finger Stick Blood Glucose 114 Intake and Output for Last 24 Hours 04/22/18 04/23/18 04/24/18 23:59 23:59 23:59 Intake Total 1757 / 1757 1197 / 1197 Output Total 200 / 200 200 / 200 Balance 1557 / 1557 997 / 997 General: Alert, No apparent distress, Confused HEENT: Atraumatic, PERRLA, EOMI, Normocephalic Oral: Moist Mucosa Neck: Supple, No JVD, Negative Carotid Bruits Lungs: Clear to auscultation, Normal air movement, No rhonchi, No wheeze, No rales Cardiovascular: Regular rate, Regular Rhythm, Normal S1, Normal S2, No murmurs Abdomen: Bowel Sounds Present, Soft, Non Tender, Non-Distended, No Hepato- splenomegaly Extremities: No clubbing, No cyanosis, No edema, Capillary Refill Less than 3 Seconds Skin: No rashes, No breakdown Musculoskeletal: No Tenderness to Palpation of Joints or Extremities Lymphatic: No Cervical, Supraclavicular, or Inguinal Adenopathy Neurological: Neuro grossly intact Psych/Mental Status: Anxious, - - still confused Laboratory Results 04/22/18 18:20: Diff Path Review Reviewed 04/23/18 17:43: Urine Opiates Screen NEGATIVE, Urine Methadone Screen NEGATIVE, Ur Barbiturates Screen NEGATIVE, Ur Phencyclidine Scrn NEGATIVE, Ur Amphetamines Screen NEGATIVE, U Methamphetamin-MDMA NEGATIVE, U Benzodiazepines Scrn NEGATIVE, Urine Cocaine Screen NEGATIVE, U Cannabinoids Screen NEGATIVE, Ur Drug Screen Comment 04/23/18 17:43: Urine Color Yellow, Urine Clarity Clear, Urine pH 7.0, Ur Specific [place] 1.010, Urine Protein Negative, Urine Glucose (UA) Normal, Urine Ketones Negative, Urine Occult Blood Negative, Urine Nitrite Negative, Urine Bilirubin Negative, Urine Urobilinogen Normal, Ur Leukocyte Esterase Negative, Urine RBC 0 SEEN, Urine WBC 0 SEEN, Ur Squamous Epith Cells 0 SEEN, Urine Bacteria 0 SEEN, Urine Mucus 0 SEEN 04/24/18 06:25: WBC 7.7, RBC 3.68 L, Hgb 10.9 L, Hct 33.7 L, MCV 91.6, MCH 29.6, MCHC 32.3, RDW 14.2, RDW Differential 46.3 H, Plt Count 250, MPV 9.2, Immature Gran % (Auto) 0.300, Neut % (Auto) 75.4 H, Lymph % (Auto) 12.5 L, [place] % (Auto) 9.7, Eos % (Auto) 1.8, Baso % (Auto) 0.3, Absolute Neuts (auto) 5.8, Absolute Lymphs (auto) 0.97, Total Counted Not Reportable 04/24/18 06:25: Sodium 143, Potassium 3.9, Chloride 114 H, Carbon Dioxide 21.0, Anion Gap 8, BUN 8, Creatinine 1.34 H, Estim Creat Clear Calc 38.32, Est GFR (MDRD) Af Amer 54 L, Est GFR (MDRD) Non-Af 45 L, BUN/Creatinine Ratio 6.0 L, Glucose 115 H, Calcium 8.4 L 04/24/18 09:20: PT 13.6, INR 1.0, APTT 28.[address] 04/22/18 18:09 IMPRESSION: 1. No acute intracranial or calvarial abnormality. There is no interval change when compared to prior study. 2. Left sphenoid sinusitis. Electronically Signed: Gaurang Tom DO at 18:59 EST Tel [phone], Service support , Chest X-Ray 04/23/18 08:00 IMPRESSION: Mild increased markings at the left lung base suggestive of atelectasis. Electronically Signed: Shawn Sheffield MD at 8:26 EST Tel [phone], Service support , Brain MRI 04/23/18 10:41 IMPRESSION: 1. Involutional changes of the brain, as described above. 2. Symmetrical abnormal signal within bilateral medial temporal lobes. Differential considerations include sequela of herpes infection. 3. Abnormal signal in the posterior occipital lobes may be the result of previous PRES. 4. No MR evidence for acute infarct. Electronically Signed: Felicia Moore MD at 0:01 EST , Service support , Current Medications Acetaminophen (Tylenol) 650 mg PO Q4H PRN PRN PRN Reason: mild pain/fever Aspirin (Aspirin, Baby) 81 mg PO DAILYCM [facility] Last Admin: 04/23/18 09:09 Dose: 81 mg Enoxaparin Sodium (Lovenox) 40 mg SC DAILY@1000 [facility] Last Admin: 04/23/18 09:08 Dose: 40 mg Folic Acid (Folic Acid) 1 mg PO DAILY@0800 [facility] Last Admin: 04/23/18 09:09 Dose: 1 mg Haloperidol Lactate (Haldol) 1 mg IV Q4H PRN PRN PRN Reason: AGITATION Hydroxyzine Pamoate (Vistaril Pamoate Capsule) 25 mg PO 4X/DAY PRN PRN PRN Reason: agitation/alcohol withdrawal Ceftriaxone Sodium (Rocephin) 1 gm in 50 mls @ 100 mls/hr IV Q24H [facility] Last Admin: 04/23/18 21:02 Dose: 100 mls/hr Dextrose/Sodium Chloride (Dextrose 5%/0.9% Nacl) 1,000 mls @ 100 mls/hr IV .Q10H [facility] Last Admin: 04/24/18 01:28 Dose: 100 mls/hr Acyclovir Sodium 480 mg/ (Dextrose) 259.6 mls @ 259.6 mls/hr IV Q8 [facility] Ibuprofen (Motrin) 400 mg PO Q6H PRN PRN PRN Reason: MILD PAIN (1-3/10) Last Admin: 04/23/18 20:57 Dose: 400 mg Lacosamide (Vimpat) 100 mg PO BID [facility] Last Admin: 04/23/18 20:57 Dose: 100 mg Levetiracetam (Keppra Tablet) 500 mg PO BID [facility] Last Admin: 04/23/18 20:56 Dose: 500 mg Lorazepam (Ativan) 2 mg IV Q2H PRN PRN Reason: seizure Last Admin: 04/23/18 14:31 Dose: 2 mg Lorazepam (Ativan) 2 mg IV Q2H PRN PRN; Protocol PRN Reason: CIWA score > 8 but <15 Lorazepam (Ativan) 2 mg PO UD PRN; Protocol PRN Reason: CIWA score >/=15. Lorazepam (Ativan) 2 mg IV UD PRN; Protocol PRN Reason: CIWA score >/=15. Magnesium Hydroxide (Milk Of Magnesia) 30 ml PO DAILY PRN PRN Reason: Constipation Ondansetron HCl (Zofran) 4 mg IV Q8H PRN PRN PRN Reason: NAUSEA Pantoprazole Sodium (Protonix) 20 mg PO BID [facility] Last Admin: 04/23/18 20:57 Dose: 20 mg Promethazine HCl (Phenergan) 12.5 mg IV Q4H PRN PRN PRN Reason: AGITATION Senna/Docusate Sodium (Senokot-S, Lexi-Colace) 2 tablet PO BID PRN PRN PRN Reason: constipation Sodium Chloride () 5 - 15 ml IV UD PRN PRN Reason: SALINE FLUSH Last Admin: 04/23/18 14:31 Dose: 10 ml Thiamine HCl (Vitamin B1) 100 mg PO DAILY [facility] Last Admin: 04/23/18 09:09 Dose: 100 mg Zonisamide (Zonisamide) 300 mg PO QHS [facility] Last Admin: 04/23/18 20:59 Dose: 300 mg Medical Necessity - Tobacco Use Smoking Status: Never smoker Assessment/Plan All Active Problems Altered mental status, unspecified (Acute) Sphenoid sinusitis (Acute) Hypokalemia (Resolved) ARF (acute renal failure) (Acute) 1. Acute metabolic encephalopathy, due to probable seizure and possible Herpes infection * patient still confused and anxious. * CT of the head done was negative for any acute intracranial process. * MRI showed symmetrical abnormal signal within bilateral medial temporal lobes and abnormal signal in the posterior occipital lobe likely a result of previous LA ES * EEG done and showed no seizures. Official report not in EMR * LP ordered. * Discussed with neurology, will start IV acyclovir 10 mg/kg every 8 hours for possible Herpes infection until LP rules it out. * Urine toxicology was negative * On Keppra, Vimpat, zonisamide. Per discussion with neurology, will give loading dose of Dilantin * seizure precautions * 2. ?Herpes viral infection: as under 1. 2. Chronic alcohol abuse * usually drinks a bottle of wine daily. * alcohol level was 12 * on CIWA protocol with ativan * on thiamine and folic acid * 3. History of PRES syndrome: stable 4. CKD 3: Creatinine is 1.34 today. Baseline is around 1.1-1.2. 5. Seizure disorder: On Keppra 6. Leukocytosis: * Likely reactive. * resolved * will monitor * 7. Hypertension: Fairly controlled for age. Not on any medication. Will monitor. 8. Gout: On febuxostat. DVT prophylaxis: Lovenox Code Visit Inpatient E&M: 64169 Subs Hosp L3
--- NOTE | 2018-04-24 11:03 | EEG_ITS ---
- Electroencephalogram This is an 18 channel echoencephalogram performed utilizing the International 10-20 electrode placement protocol as well as EKG reference leads and photic stimulation on this 47-year-old female with a history of seizures, pres syndrome, and alcohol withdrawal. Background activity is slow at 5-6 Hz symmetrically in the posterior leads. There is muscle artifact throughout the recording which does obscure significant portions of the recording however the under lying rhythm appears to be slow with no lateralizing Repliform changes. H yperventilation was not performed. EKG is normal sinus rhythm throughout the recording. There appears to be driving response to photic stimuli in the posterior leads symmetrically. Impression: There is no evidence of epileptiform discharges. This is an abnormal electroencephalogram due to the presence of diffuse slowing which is nonspecific. There is muscle artifact throughout the recording which obscures a majority of the recording however.
--- NOTE | 2018-04-24 11:24 | CYSPIN_PTH ---
PATIENT: ARIELLA BASURTO LOC: PCU U#:[id number] AGE/SX: 47/F ROOM: [facility] RE04/22/[address]: Dr. Isis Cleveland, DO : 1970 BED: 1 DIS: 05/01/2018 SPEC #: [id number] RECD: 04/24/18 13:00 STATUS: PARVIN AZAEL #: [id number] CORNEL: 04/24/18 11:[address]: Judy Amador DEPT: CYTOLOGY RECD BY: Titus Wilkes ENTERED: 04/25/18 07:45 SP TYPE: CYSPIN FL OTHR DR: MD Dr. Kishor Manzano MD Dr. William Lago, MD Tissues: Cerebrospinal Fluid Procedures: Pap Stain (control) Special Stain Group II Cytospin Fluid HEADER OPERATION: Lumbar puncture PRE-OP DIAGNOSIS: Confusion; possible infection TISSUE SUBMITTED: Cerebrospinal fluid for cytology DIAGNOSIS CYTOLOGY Cerebrospinal fluid for cytology (cytospin): Negative for malignant cells. AM:luis 04/28/18 CYTOLOGY STUDY Slides are reviewed. CYTOLOGY GROSS Received is 1 ml of clear colorless fluid labeled with the patient's name and and designated per the requisition as CSF. Submitted for cytology preparation. / 04/25/18 TC:5 CPT: 78306
--- NOTE | 2018-04-24 11:32 | NURSING ---
PT TOLERATED LP FAIRLY WITH GREAT ASSISTANCE OF THE AND RAD TECHS X2. REPORT CALLED TO PARRISH REYNOLDS. AWARE ADDITIONAL ATIVAN PRN GIVEN. 5 ML SPECIMEN COLLECTED AND SENT TO LAB. RODOLFO SENIOR AND AWARE BEDREST WITH HOB NO MORE THAN 30 DEGREES FOR THE AFTERNOON WITH BATHROOM PRIVILEGES.
[2018-04-24 11:38] LABS: Cytology, Body Fluid / CSF SEE PATHOLOGY REPORT
--- NOTE | 2018-04-24 11:48 | CASEMGMT ---
PARRISH FONG assessment: Face to Face with patient for initial transition planning/care coordination assessment. PARRISH FONG introduced self and role at [facility], pt voices understanding and consents to assessment at this time. Pt is lying in bed in no distress at this time but is confused and unable to answer any questions appropriately at this time. Pt is only alert to self at this time. Pt's is at bedside and answers all questions for pt at this time. Care providers, pharmacy, and demographics verified at this time. PCP: Josep Specialists: VANESSA Orellana neuro; Pt is also currently getting OT at [facility] Preferred Pharmacy: [facility] Insurance: [employer] Prescription Benefit: [employer] Living Will/HPOA: Pt does not have LW/HPOA and declines info at this time. LNOK: Edward Alberto, Living Arrangements: Pt lives in 2 story home with and states no concerns at home at this time. states pt is normally independent with ADL's. Transportation: states that he drives pt and states no transportation concerns at this time. does state that pt does drive a golf cart around their home/land without concern. DME/HHC: states no DME at home at this time and denies need for any at this time. states no hx HHC or SNF in the past. Pt is current with OP OT at [facility]. states no concerns with pt going home at time of discharge. Pt is currently on disability. Per , pt does not smoke but did drink daily quitting on 04/05/18. He states that pt drank a bottle of wine or 10-12 beers daily. states no further questions/concerns/needs at this time. CM to follow for any further discharge planning/needs. Advised pt/ to ask for CM if any further questions/concerns/needs arise, voices understanding. Plan: TBD [place] PARRISH FONG
[2018-04-24 11:55] LABS: Body Fluid Mononuclear WBC # 0.026 10^3/uL; Body Fluid Mononuclear WBC % 96.3 %; Body Fluid Polynuclear WBC # 0.001 10^3/uL; Body Fluid Polynuclear WBC % 3.7 %; Total Cell Count CSF 0.036 10^3/uL (0.000-0.000); White Count, CSF 0.027 10^3/uL (0.000-0.000)
[2018-04-24] MEDS: Folic Acid 1 MG Tablet PO (11:59)
[2018-04-24] MEDS: levETIRAcetam 500 MG Tablet PO ×2 (12:00→22:18)
[2018-04-24] MEDS: Pantoprazole Sodium 20 MG Tablet PO ×2 (12:00→22:18)
[2018-04-24] MEDS: Febuxostat 40 MG TABLET PO (12:01)
[2018-04-24] MEDS: Thiamine Hydrochloride 100 MG Tablet PO (12:02)
[2018-04-24] MEDS: Topiramate 25 MG Tablet PO ×2 (12:11→22:18)
[2018-04-24 12:24] LABS: Glucose Spinal Fluid 64 mg/dL (40-75)
[2018-04-24 13:24] LABS: Lymphocytes,CSF 41 % (40 - 80); Monocytes,CSF 54 % (15 - 45); Neutrophils,CSF 5 % (0 - 6)
[2018-04-24 13:25] LABS: Appearance CSF (character) CLEAR (Clear); Auto B Fluid Analyzer BKGD Ct COUNTS W/IN LIMITS (W/IN LIMITS); CSF Color COLORLESS (Colorless); RBC Count, Spinal Fluid 265 /mm-3 (None seen); Tested Tube # 2
[2018-04-24 13:26] LABS: Body Fluid QC Type(s) BF1Q
[2018-04-24] MEDS: Aspirin 81 MG TAB.CHEW PO (15:11)
[2018-04-24] MEDS: Enoxaparin 40 MG/0.4 ML Syringe SC (18:44)
[2018-04-24] MEDS: Lacosamide 100 MG Tablet PO (22:18)
[2018-04-24] MEDS: Haloperidol Lactate 5 MG/ML Vial 1 MG IV (23:22)
[2018-04-24] MEDS: 0.9% NaCl Peripheral Flush Adult/Peds IV (23:23)
[2018-04-25] VITALS (11 sets, daily range): BP systolic 128–143; BP diastolic 67–80; PULSE 69–78; RESP 14–18; TEMP 36.6–36.8; O2SAT 94–100
[2018-04-25] MEDS: Dextrose 5%/0.9% NaCl 1,000 ML 100 ML IV ×2 (02:51→14:35)
[2018-04-25 06:32] LABS: Absolute Neutrophil Count 5.4 X10^3/uL (2.0-7.7); Basophil# 0.05 X10^3/uL; Basophil% 0.6 % (0-1); Eosinophil# 0.28 X10^3/uL; Eosinophils% 3.5 % (0-5); Hematocrit 33.5 % (37-47); Lymphocyte % 18.5 % (19-41); Mean Corp Hgb Conc 32.8 g/gl (32-36); Mean Corpuscular Hgb 29.8 pg (27.0-32.0); Mean Corpuscular Volume 90.8 fL (81-99); Mean Platelet Vol. 9.3 fl (6.2-12.0); Monocyte# 0.83 X10^3/uL; Monocyte% 10.2 % (0-10); Neutrophil # 5.42 X10^3/uL (2.7-7.7); Platelet Count 267 K/mm3 (150-450); RBC Distribution Width CV 14.3 % (11.6-14.6); RBC Distribution Width SD 46.9 fl (35.1-43.9); Red Blood Count 3.69 M/mm3 (4.2-5.4); White Blood Count 8.1 K/mm3 (4.4-11.0)
[2018-04-25 06:35] LABS: POSITIVE COUNT NO; POSITIVE DIFFERENTIAL NO; POSITIVE MORPHOLOGY NO
[2018-04-25 06:52] LABS: Anion Gap 10 (5-15); BUN 6 mg/dL (7-18); BUN/Creat Ratio 4.9 RATIO (10-20); Calcium,Total 8.2 mg/dL (8.5-10.1); Chloride 112 mmol/L (98-107); Creatinine, Serum 1.22 mg/dL (0.55-1.02); EST Glomerular Filtration Rate 50 mL/min (>60); Est Glom Filt Rate - Afr Amer 60 mL/min (>60); Estimated Creatinine Clearance 42.09 ml/min; Glucose 117 mg/dL (74-106); Potassium 3.1 mmol/L (3.5-5.1); Sodium Level 141 mmol/L (136-145)
[2018-04-25] MEDS: Febuxostat 40 MG TABLET PO (08:58)
[2018-04-25] MEDS: Pantoprazole Sodium 20 MG Tablet PO ×2 (08:58→20:22)
[2018-04-25] MEDS: levETIRAcetam 500 MG Tablet PO ×2 (08:58→20:22)
[2018-04-25] MEDS: Thiamine Hydrochloride 100 MG Tablet PO (08:58)
[2018-04-25] MEDS: Folic Acid 1 MG Tablet PO (08:58)
[2018-04-25] MEDS: Aspirin 81 MG TAB.CHEW PO (08:58)
[2018-04-25] MEDS: Topiramate 25 MG Tablet PO ×2 (08:58→20:22)
[2018-04-25] MEDS: Enoxaparin 40 MG/0.4 ML Syringe SC (08:58)
[2018-04-25] MEDS: Lacosamide 100 MG Tablet PO ×2 (09:21→21:11)
[2018-04-25 10:23] LABS: Pathologist Review Reviewed
--- NOTE | 2018-04-25 11:33 | PCM.PN.HOSP ---
Patient Problems: Active and Suspected Problems Altered mental status, unspecified (Acute) Sphenoid sinusitis (Acute) Subjective: Patient seen and examined. She remains confused. She still not really answering questions and just talks randomly. Unable to do review of systems on account of confusion. Vitals/I&O's: Vital Signs Temp Pulse Resp BP Pulse Ox 98.2 F 77 18 139/78 H 99 04/25/18 09:06 04/25/18 09:06 04/25/18 09:06 04/25/18 09:06 04/25/18 09:06 Oxygen Flow Rate (L/min) 2 Oxygen Delivery Method Room Air Weight: 165 lb 5.547 oz Body Mass Index (BMI) 31.2 Finger Stick Blood Glucose 114 Intake and Output for Last 24 Hours 04/23/18 04/24/18 04/25/18 23:59 23:59 23:59 Intake Total 1757 / 1757 4423 / 4423 784 / 784 Output Total 200 / 200 1500 / 1500 Balance 1557 / 1557 2923 / 2923 784 / 784 General: Alert, Oriented x3, Cooperative, No apparent distress HEENT: Atraumatic, PERRLA, EOMI, Normocephalic Oral: Moist Mucosa, No Gingival or Mucosal Lesions/ Ulcerations Neck: Supple, No JVD, Negative Carotid Bruits, Trachea Midline, Thyroid Normal Size and Texture Lungs: Clear to auscultation, Normal air movement, No rhonchi, No wheeze, No rales Cardiovascular: Regular rate, Regular Rhythm, Normal S1, Normal S2, PMI Normal Abdomen: Bowel Sounds Present, Soft, Non Tender, Non-Distended, No Hepato-splenomegaly Extremities: No clubbing, No cyanosis, No edema Skin: No rashes, No breakdown Lymphatic: No Cervical, Supraclavicular, or Inguinal Adenopathy Neurological: Cranial nerves II-XII grossly intact, Motor Exam 5/5 strength throughout Psych/Mental Status: Normal Affect, Appropriate, Alert and oriented to time, place, person, mood and affect Microbiology Past 72 Hours 04/24/18 11:20 Csf, Spinal Fluid Gram Stain - Final 04/24/18 11:20 Csf, Spinal Fluid CSF Culture - Preliminary No growth in 24 hours. Final to follow. Laboratory Results 04/24/18 11:20: CSF Glucose 64, CSF Total Protein 52.0 H 04/24/18 11:20: CSF VZV DNA (PCR) Pending, HSV I DNA PCR Pending, HSV II DNA PCR Pending 04/24/18 11:20: Miscellaneous Cytology Pending 04/24/18 11:20: Fld Polynuclear WBCs # 0.001, Fld Polynuclear WBCs % 3.7, Fluid Mononuclear WBCs 0.026, Fld Mononuclear WBCs % 96.3, CSF Appearance CLEAR, CSF Color COLORLESS, CSF WBC 0.027 H, CSF RBC 265 H, CSF Cell Count Tube # 2, CSF Total Cell Counted 0.036 H, CSF Neutrophils 5, CSF Lymphocytes 41, CSF Monocytes 54 H, CSF Comment Reviewed 04/25/18 06:00: WBC 8.1, RBC 3.69 L, Hgb 11.0 L, Hct 33.5 L, MCV 90.8, MCH 29.8, MCHC 32.8, RDW 14.3, RDW Differential 46.9 H, Plt Count 267, MPV 9.3, Immature Gran % (Auto) 0.200, Neut % (Auto) 67.0, Lymph % (Auto) 18.5 L, [place] % (Auto) 10.2 H, Eos % (Auto) 3.5, Baso % (Auto) 0.6, Absolute Neuts (auto) 5.4, Absolute Lymphs (auto) 1.50, Total Counted Not Reportable 04/25/18 06:00: Sodium 141, Potassium 3.1 L, Chloride 112 H, Carbon Dioxide 19.0 L, Anion Gap 10, BUN 6 L, Creatinine 1.22 H, Estim Creat Clear Calc 42.09, Est GFR (MDRD) Af Amer 60, Est GFR (MDRD) Non-Af 50 L, BUN/Creatinine Ratio 4.9 L, Glucose 117 H, Calcium 8.2 L Current Medications Acetaminophen (Tylenol) 650 mg PO Q4H PRN PRN PRN Reason: mild pain/fever [facility] Last Admin: 04/25/18 08:58 Dose: 81 mg Enoxaparin Sodium (Lovenox) 40 mg SC DAILY@1000 [facility] Last Admin: 04/25/18 08:58 Dose: 40 mg Folic Acid (Folic Acid) 1 mg PO DAILY@0800 [facility] Last Admin: 04/25/18 08:58 Dose: 1 mg Haloperidol Lactate (Haldol) 1 mg IV Q4H PRN PRN PRN Reason: AGITATION Last Admin: 04/24/18 23:22 Dose: 1 mg Hydroxyzine Pamoate (Vistaril Pamoate Capsule) 25 mg PO 4X/DAY PRN PRN PRN Reason: agitation/alcohol withdrawal Dextrose/Sodium Chloride (Dextrose 5%/0.9% Nacl) 1,000 mls @ 100 mls/hr IV .Q10H [facility] Last Admin: 04/25/18 02:51 Dose: 100 mls/hr Acyclovir Sodium 480 mg/ (Dextrose) 259.6 mls @ 259.6 mls/hr IV Q8 [facility] Last Admin: 04/25/18 05:05 Dose: 259.6 mls/hr Ibuprofen (Motrin) 400 mg PO Q6H PRN PRN PRN Reason: MILD PAIN (1-3/10) Last Admin: 04/23/18 20:57 Dose: 400 mg Lacosamide (Vimpat) 100 mg PO BID [facility] Last Admin: 04/25/18 09:21 Dose: 100 mg Levetiracetam (Keppra Tablet) 500 mg PO BID [facility] Last Admin: 04/25/18 08:58 Dose: 500 mg Lorazepam (Ativan) 2 mg IV Q2H PRN PRN Reason: seizure Last Admin: 04/23/18 14:31 Dose: 2 mg Lorazepam (Ativan) 2 mg IV Q2H PRN PRN; Protocol PRN Reason: CIWA score > 8 but <15 Lorazepam (Ativan) 2 mg PO UD PRN; Protocol PRN Reason: CIWA score >/=15. Lorazepam (Ativan) 2 mg IV UD PRN; Protocol PRN Reason: CIWA score >/=15. Magnesium Hydroxide (Milk Of Magnesia) 30 ml PO DAILY PRN PRN Reason: Constipation Ondansetron HCl (Zofran) 4 mg IV Q8H PRN PRN PRN Reason: NAUSEA Pantoprazole Sodium (Protonix) 20 mg PO BID [facility] Last Admin: 04/25/18 08:58 Dose: 20 mg Promethazine HCl (Phenergan) 12.5 mg IV Q4H PRN PRN PRN Reason: AGITATION Senna/Docusate Sodium (Senokot-S, Lexi-Colace) 2 tablet PO BID PRN PRN PRN Reason: constipation Sodium Chloride () 5 - 15 ml IV UD PRN PRN Reason: SALINE FLUSH Last Admin: 04/24/18 23:23 Dose: 10 ml Thiamine HCl (Vitamin B1) 100 mg PO DAILY [facility] Last Admin: 04/25/18 08:58 Dose: 100 mg Topiramate (Topamax) 25 mg PO BID [facility] Last Admin: 04/25/18 08:58 Dose: 25 mg Medical Necessity - Tobacco Use Smoking Status: Never smoker Assessment/Plan All Active Problems Altered mental status, unspecified (Acute) Sphenoid sinusitis (Acute) Hypokalemia (Resolved) ARF (acute renal failure) (Acute) 1. Acute metabolic encephalopathy, due to HSV encephalitis and probable seizuredue to probable seizure and probable HSV encephalitis patient still confused and anxious. CT of the head done was negative for any acute intracranial process. MRI showed symmetrical abnormal signal within bilateral medial temporal lobes and abnormal signal in the posterior occipital lobe likely a result of previous [place] ES EEG done and showed no seizures. LP showed wbc of 0.027,a nd total cell count of 0.036. Lymphocytes was 41 and monocytes elevated at 54, wth total protein of 52. CSF HSV culture pending. LP not very indicative of HSV encephalitis due to normal lymphocyte levels on IV acyclovir On Keppra, Vimpat, zonisamide. seizure precautions if patient doesnt show significant improvement with HSV encephalitis, another differential could be anti NMDA encephalitis. will continue to monitor 2. ?HSV encephalitis: as under 1. 3. Chronic alcohol abuse usually drinks a bottle of wine daily. on CIWA protocol with ativan 4, Hypokalemia: K is 3.1. will replace and monitor 5. History of PRES syndrome: stable 6. CKD 3: Creatinine is 1.34 today. Baseline is around 1.1-1.2. 7. Seizure disorder: On Keppra 8. Leukocytosis: resolved will monitor 9. Hypertension: Fairly controlled for age. Not on any medication. BP has been in 130s and 140s systolic. To follow up with PCP for medication to be started if ambulatory BP remains elevated. 10. Gout: On febuxostat. DVT prophylaxis: Lovenox Code Visit Inpatient E&M: 26311 Subs Hosp L3
--- NOTE | 2018-04-25 11:40 | PN_ITS ---
Patient Problems: Active and Suspected Problems Altered mental status, unspecified (Acute) Sphenoid sinusitis (Acute) Subjective: Patient seen and examined. She remains confused. She still not really answering questions and just talks randomly. Unable to do review of systems on account of confusion. Vitals/I&O's: Vital Signs Temp Pulse Resp BP Pulse Ox 98.2 F 77 18 139/78 H 99 04/25/18 09:06 04/25/18 09:06 04/25/18 09:06 04/25/18 09:06 04/25/18 09:06 Oxygen Flow Rate (L/min) 2 Oxygen Delivery Method Room Air Weight: 165 lb 5.547 oz Body Mass Index (BMI) 31.2 Finger Stick Blood Glucose 114 Intake and Output for Last 24 Hours 04/23/18 04/24/18 04/25/18 23:59 23:59 23:59 Intake Total 1757 / 1757 4423 / 4423 784 / 784 Output Total 200 / 200 1500 / 1500 Balance 1557 / 1557 2923 / 2923 784 / 784 General: Alert, Oriented x3, Cooperative, No apparent distress HEENT: Atraumatic, PERRLA, EOMI, Normocephalic Oral: Moist Mucosa, No Gingival or Mucosal Lesions/ Ulcerations Neck: Supple, No JVD, Negative Carotid Bruits, Trachea Midline, Thyroid Normal Size and Texture Lungs: Clear to auscultation, Normal air movement, No rhonchi, No wheeze, No rales Cardiovascular: Regular rate, Regular Rhythm, Normal S1, Normal S2, PMI Normal Abdomen: Bowel Sounds Present, Soft, Non Tender, Non-Distended, No Hepato- splenomegaly Extremities: No clubbing, No cyanosis, No edema Skin: No rashes, No breakdown Lymphatic: No Cervical, Supraclavicular, or Inguinal Adenopathy Neurological: Cranial nerves II-XII grossly intact, Motor Exam 5/5 strength throughout Psych/Mental Status: Normal Affect, Appropriate, Alert and oriented to time, place, person, mood and affect Microbiology Past 72 Hours 04/24/18 11:20 Csf, Spinal Fluid Gram Stain - Final 04/24/18 11:20 Csf, Spinal Fluid CSF Culture - Preliminary No growth in 24 hours. Final to follow. Laboratory Results 04/24/18 11:20: CSF Glucose 64, CSF Total Protein 52.0 H 04/24/18 11:20: CSF VZV DNA (PCR) Pending, HSV I DNA PCR Pending, HSV II DNA PCR Pending 04/24/18 11:20: Miscellaneous Cytology Pending 04/24/18 11:20: Fld Polynuclear WBCs # 0.001, Fld Polynuclear WBCs % 3.7, Fluid Mononuclear WBCs 0.026, Fld Mononuclear WBCs % 96.3, CSF Appearance CLEAR, CSF Color COLORLESS, CSF WBC 0.027 H, CSF RBC 265 H, CSF Cell Count Tube # 2, CSF Total Cell Counted 0.036 H, CSF Neutrophils 5, CSF Lymphocytes 41, CSF Monocytes 54 H, CSF Comment Reviewed 04/25/18 06:00: WBC 8.1, RBC 3.69 L, Hgb 11.0 L, Hct 33.5 L, MCV 90.8, MCH 29.8, MCHC 32.8, RDW 14.3, RDW Differential 46.9 H, Plt Count 267, MPV 9.3, Immature Gran % (Auto) 0.200, Neut % (Auto) 67.0, Lymph % (Auto) 18.5 L, [place] % (Auto) 10.2 H, Eos % (Auto) 3.5, Baso % (Auto) 0.6, Absolute Neuts (auto) 5.4, Absolute Lymphs (auto) 1.50, Total Counted Not Reportable 04/25/18 06:00: Sodium 141, Potassium 3.1 L, Chloride 112 H, Carbon Dioxide 19.0 L, Anion Gap 10, BUN 6 L, Creatinine 1.22 H, Estim Creat Clear Calc 42.09, Est GFR (MDRD) Af Amer 60, Est GFR (MDRD) Non-Af 50 L, BUN/Creatinine Ratio 4.9 L, Glucose 117 H, Calcium 8.2 L Current Medications Acetaminophen (Tylenol) 650 mg PO Q4H PRN PRN PRN Reason: mild pain/fever [facility], [facility]) [facility] Last Admin: 04/25/18 08:58 Dose: 81 mg Enoxaparin Sodium (Lovenox) 40 mg SC DAILY@1000 [facility] Last Admin: 04/25/18 08:58 Dose: 40 mg Folic Acid (Folic Acid) 1 mg PO DAILY@0800 [facility] Last Admin: 04/25/18 08:58 Dose: 1 mg Haloperidol Lactate (Haldol) 1 mg IV Q4H PRN PRN PRN Reason: AGITATION Last Admin: 04/24/18 23:22 Dose: 1 mg Hydroxyzine Pamoate (Vistaril Pamoate Capsule) 25 mg PO 4X/DAY PRN PRN PRN Reason: agitation/alcohol withdrawal Dextrose/Sodium Chloride (Dextrose 5%/0.9% Nacl) 1,000 mls @ 100 mls/hr IV .Q10H [facility] Last Admin: 04/25/18 02:51 Dose: 100 mls/hr Acyclovir Sodium 480 mg/ (Dextrose) 259.6 mls @ 259.6 mls/hr IV Q8 [facility] Last Admin: 04/25/18 05:05 Dose: 259.6 mls/hr Ibuprofen (Motrin) 400 mg PO Q6H PRN PRN PRN Reason: MILD PAIN (1-3/10) Last Admin: 04/23/18 20:57 Dose: 400 mg Lacosamide (Vimpat) 100 mg PO BID [facility] Last Admin: 04/25/18 09:21 Dose: 100 mg Levetiracetam (Keppra Tablet) 500 mg PO BID [facility] Last Admin: 04/25/18 08:58 Dose: 500 mg Lorazepam (Ativan) 2 mg IV Q2H PRN PRN Reason: seizure Last Admin: 04/23/18 14:31 Dose: 2 mg Lorazepam (Ativan) 2 mg IV Q2H PRN PRN; Protocol PRN Reason: CIWA score > 8 but <15 Lorazepam (Ativan) 2 mg PO UD PRN; Protocol PRN Reason: CIWA score >/=15. Lorazepam (Ativan) 2 mg IV UD PRN; Protocol PRN Reason: CIWA score >/=15. Magnesium Hydroxide (Milk Of Magnesia) 30 ml PO DAILY PRN PRN Reason: Constipation Ondansetron HCl (Zofran) 4 mg IV Q8H PRN PRN PRN Reason: NAUSEA Pantoprazole Sodium (Protonix) 20 mg PO BID [facility] Last Admin: 04/25/18 08:58 Dose: 20 mg Promethazine HCl (Phenergan) 12.5 mg IV Q4H PRN PRN PRN Reason: AGITATION Senna/Docusate Sodium (Senokot-S, Lexi-Colace) 2 tablet PO BID PRN PRN PRN Reason: constipation Sodium Chloride () 5 - 15 ml IV UD PRN PRN Reason: SALINE FLUSH Last Admin: 04/24/18 23:23 Dose: 10 ml Thiamine HCl (Vitamin B1) 100 mg PO DAILY [facility] Last Admin: 04/25/18 08:58 Dose: 100 mg Topiramate (Topamax) 25 mg PO BID [facility] Last Admin: 04/25/18 08:58 Dose: 25 mg Medical Necessity - Tobacco Use Smoking Status: Never smoker Assessment/Plan All Active Problems Altered mental status, unspecified (Acute) Sphenoid sinusitis (Acute) Hypokalemia (Resolved) ARF (acute renal failure) (Acute) 1. Acute metabolic encephalopathy, due to HSV encephalitis and probable seizuredue to probable seizure and probable HSV encephalitis * patient still confused and anxious. * CT of the head done was negative for any acute intracranial process. * MRI showed symmetrical abnormal signal within bilateral medial temporal lobes and abnormal signal in the posterior occipital lobe likely a result of previous [place] ES * EEG done and showed no seizures. * LP showed wbc of 0.027,a nd total cell count of 0.036. Lymphocytes was 41 and monocytes elevated at 54, wth total protein of 52. CSF HSV culture pending. LP not very indicative of HSV encephalitis due to normal lymphocyte levels * on IV acyclovir * On Keppra, Vimpat, zonisamide. * seizure precautions * if patient doesnt show significant improvement with HSV encephalitis, another differential could be anti NMDA encephalitis. * will continue to monitor * 2. ?HSV encephalitis: as under 1. 3. Chronic alcohol abuse * usually drinks a bottle of wine daily. * on CIWA protocol with ativan * 4, Hypokalemia: K is 3.1. will replace and monitor * 5. History of PRES syndrome: stable 6. CKD 3: Creatinine is 1.34 today. Baseline is around 1.1-1.2. 7. Seizure disorder: On Keppra 8. Leukocytosis: * resolved * will monitor * 9. Hypertension: * Fairly controlled for age. * Not on any medication. * BP has been in 130s and 140s systolic. * To follow up with PCP for medication to be started if ambulatory BP remains elevated. 10. Gout: On febuxostat. DVT prophylaxis: Lovenox Code Visit Inpatient E&M: 89474 Subs Hosp L3
[2018-04-25] MEDS: hydrOXYzine PAM 25 MG Capsule PO (19:54)
--- NOTE | 2018-04-25 19:54 | NURSING ---
PT KEEPS GETTING OUT OF BED. PT OX1. PT PLACED BACK IN BED AND THEN ATTEMPTS TO GET BACK OUT. VISTARIL GIVEN
[2018-04-25] MEDS: Haloperidol Lactate 5 MG/ML Vial 1 MG IV (20:21)
--- NOTE | 2018-04-25 20:27 | NURSING ---
PT SETTING OFF BED EXIT. PT KEEPS GETTING OUT OF BED WITHOUT ASST. PT INSTRUCTED TO CALL FOR HELP. HALDOL GIVEN. PT REORIENTED BACK TO HOSPITAL. PT THEN TALKING TO THE TV SAYING I KNOW HER.
[2018-04-26] VITALS (10 sets, daily range): BP systolic 142–160; BP diastolic 79–88; PULSE 63–89; RESP 16; TEMP 36.7–37.4; O2SAT 98–100
[2018-04-26] MEDS: Dextrose 5%/0.9% NaCl 1,000 ML 100 ML IV ×2 (02:32→14:02)
[2018-04-26] MEDS: levETIRAcetam 500 MG Tablet PO ×2 (09:22→21:05)
[2018-04-26] MEDS: Folic Acid 1 MG Tablet PO (09:22)
[2018-04-26] MEDS: Aspirin 81 MG TAB.CHEW PO (09:22)
[2018-04-26] MEDS: Enoxaparin 40 MG/0.4 ML Syringe SC (09:23)
[2018-04-26] MEDS: Topiramate 25 MG Tablet PO (09:23)
[2018-04-26] MEDS: Pantoprazole Sodium 20 MG Tablet PO ×2 (09:23→21:05)
[2018-04-26] MEDS: Thiamine Hydrochloride 100 MG Tablet PO (09:24)
[2018-04-26] MEDS: Febuxostat 40 MG TABLET PO (09:24)
[2018-04-26] MEDS: Lacosamide 100 MG Tablet PO ×2 (09:26→21:05)
--- NOTE | 2018-04-26 15:26 | PN_ITS ---
Patient Problems: Active and Suspected Problems Altered mental status, unspecified (Acute) Sphenoid sinusitis (Acute) Subjective: Patient was seen and examined. Still confused. Denies chest pain, dizziness, palpitations. is at the bedside. Objective: Physical exam: General: Alert, Oriented x3, Cooperative, No apparent distress HEENT: Atraumatic, PERRLA, EOMI, Normocephalic Oral: Moist Mucosa, No Gingival or Mucosal Lesions/ Ulcerations Neck: Supple, No JVD, Negative Carotid Bruits, Trachea Midline, Thyroid Normal Size and Texture Lungs: Clear to auscultation, Normal air movement, No rhonchi, No wheeze, No rales Cardiovascular: Regular rate, Regular Rhythm, Normal S1, Normal S2, PMI Normal Abdomen: Bowel Sounds Present, Soft, Non Tender, Non-Distended, No Hepato- splenomegaly Extremities: No clubbing, No cyanosis, No edema Skin: No rashes, No breakdown Lymphatic: No Cervical, Supraclavicular, or Inguinal Adenopathy Neurological: Cranial nerves II-XII grossly intact, Motor Exam 5/5 strength throughout Psych/Mental Status: Normal Affect, Appropriate, Alert and oriented to time, place, person, mood and affect Vitals/I&O's: Vital Signs Temp Pulse Resp BP Pulse Ox 98.1 F 89 16 142/85 H 100 04/26/18 09:09 04/26/18 11:02 04/26/18 09:09 04/26/18 09:09 04/26/18 09:09 Oxygen Flow Rate (L/min) 2 Oxygen Delivery Method Room Air Weight: 75 kg Body Mass Index (BMI) 31.2 Finger Stick Blood Glucose 114 Intake and Output for Last 24 Hours 04/24/18 04/25/18 04/26/18 23:59 23:59 23:59 Intake Total 4423 / 4423 3258 / 3258 2055 / 2056 Output Total 1500 / 1500 1350 / 1350 Balance 2923 / 2923 3258 / 3258 706 / 706 Microbiology Past 72 Hours 04/24/18 11:20 Csf, Spinal Fluid Gram Stain - Final 04/24/18 11:20 Csf, Spinal Fluid CSF Culture - Preliminary No growth in 48 hours. 04/23/18 17:43 Urine, Catheterized Urine Culture - Final Culture exhibits no growth. Current Medications Acetaminophen (Tylenol) 650 mg PO Q4H PRN PRN PRN Reason: mild pain/fever Aspirin (Aspirin, Baby) 81 [facility] Last Admin: 04/26/18 09:22 Dose: 81 mg Enoxaparin Sodium (Lovenox) 40 mg SC DAILY@1000 [facility] Last Admin: 04/26/18 09:23 Dose: 40 mg Folic Acid (Folic Acid) 1 mg PO DAILY@0800 [facility] Last Admin: 04/26/18 09:22 Dose: 1 mg Haloperidol Lactate (Haldol) 1 mg IV Q4H PRN PRN PRN Reason: AGITATION Last Admin: 04/25/18 20:21 Dose: 1 mg Hydroxyzine Pamoate (Vistaril Pamoate Capsule) 25 mg PO 4X/DAY PRN PRN PRN Reason: agitation/alcohol withdrawal Last Admin: 04/25/18 19:54 Dose: 25 mg Dextrose/Sodium Chloride (Dextrose 5%/0.9% Nacl) 1,000 mls @ 100 mls/hr IV .Q10H [facility] Last Admin: 04/26/18 14:02 Dose: 100 mls/hr Acyclovir Sodium 480 mg/ (Dextrose) 259.6 mls @ 259.6 mls/hr IV Q8 [facility] Last Admin: 04/26/18 14:02 Dose: 259.6 mls/hr Ibuprofen (Motrin) 400 mg PO Q6H PRN PRN PRN Reason: MILD PAIN (1-3/10) Last Admin: 04/23/18 20:57 Dose: 400 mg Lacosamide (Vimpat) 100 mg PO BID [facility] Last Admin: 04/26/18 09:26 Dose: 100 mg Levetiracetam (Keppra Tablet) 500 mg PO BID [facility] Last Admin: 04/26/18 09:22 Dose: 500 mg Lorazepam (Ativan) 2 mg IV Q2H PRN PRN Reason: seizure Last Admin: 04/23/18 14:31 Dose: 2 mg Lorazepam (Ativan) 2 mg IV Q2H PRN PRN; Protocol PRN Reason: CIWA score > 8 but <15 Lorazepam (Ativan) 2 mg PO UD PRN; Protocol PRN Reason: CIWA score >/=15. Lorazepam (Ativan) 2 mg IV UD PRN; Protocol PRN Reason: CIWA score >/=15. Magnesium Hydroxide (Milk Of Magnesia) 30 ml PO DAILY PRN PRN Reason: Constipation Ondansetron HCl (Zofran) 4 mg IV Q8H PRN PRN PRN Reason: NAUSEA Pantoprazole Sodium (Protonix) 20 mg PO BID [facility] Last Admin: 04/26/18 09:23 Dose: 20 mg Promethazine HCl (Phenergan) 12.5 mg IV Q4H PRN PRN PRN Reason: AGITATION Senna/Docusate Sodium (Senokot-S, Lexi-Colace) 2 tablet PO BID PRN PRN PRN Reason: constipation Sodium Chloride () 5 - 15 ml IV UD PRN PRN Reason: SALINE FLUSH Last Admin: 04/24/18 23:23 Dose: 10 ml Thiamine HCl (Vitamin B1) 100 mg PO DAILY [facility] Last Admin: 04/26/18 09:24 Dose: 100 mg Topiramate (Topamax) 50 mg PO BID [facility] Medical Necessity - Tobacco Use Smoking Status: Never smoker Assessment/Plan All Active Problems Altered mental status, unspecified (Acute) Sphenoid sinusitis (Acute) Hypokalemia (Resolved) ARF (acute renal failure) (Acute) 1. 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 MRI showed no new abnormalities, previous sequelae of press syndrome seen. EEG showed no seizures. LP was done, showed RBC count of 0.027, total cell count of 0.036, lympho-cytosis as well as monocytosis with total protein of 52. CSF culture is negative. HSV PCR is pending Remains on IV acyclovir, Keppra, Vimpat, started on Topamax yesterday Discussed with neurologist, increase Topamax to 50 mg p.o. twice daily We will continue to monitor patient. 2. Suspected HSV encephalitis, treatment as above 3. Chronic alcohol abuse, on CIWA monitoring 4. Hypokalemia, replaced, labs in am 5. H/o PRES syndrome 6. CKD stage 3, remains about the same 7. Seizure disorder, on Keppra, Vimpat and Topamax 8. Hypertension, fluctuating, 9. DVT PPx- Lovenox SC Code Visit Inpatient E&M: 06163 Subs Hosp L2
[2018-04-26] MEDS: Topiramate 25 MG Tablet 50 MG PO (21:06)
[2018-04-27] VITALS (8 sets, daily range): BP systolic 123–147; BP diastolic 78–86; PULSE 55–78; RESP 16; TEMP 36.5–37; O2SAT 97–100
[2018-04-27] MEDS: Dextrose 5%/0.9% NaCl 1,000 ML 100 ML IV (02:53)
[2018-04-27 06:35] LABS: Absolute Lymphocyte Count 1.49 X10^3/ul (0.83-4.51); Absolute Neutrophil Count 4.1 X10^3/uL (2.0-7.7); Basophil# 0.04 X10^3/uL; Basophil% 0.6 % (0-1); Eosinophils% 8.8 % (0-5); Hematocrit 34.8 % (37-47); Hemoglobin 11.6 g/dl (12.0-15.0); Lymphocyte # 1.49 X10^3/ul (4.0); Mean Corp Hgb Conc 33.3 g/gl (32-36); Mean Corpuscular Hgb 30.9 pg (27.0-32.0); Mean Corpuscular Volume 92.6 fL (81-99); Mean Platelet Vol. 9.9 fl (6.2-12.0); Monocyte# 0.59 X10^3/uL; Monocyte% 8.7 % (0-10); Neutrophil # 4.05 X10^3/uL (2.7-7.7); Neutrophil % 59.8 % (47-70); Platelet Count 276 K/mm3 (150-450); RBC Distribution Width CV 14.4 % (11.6-14.6); RBC Distribution Width SD 46.6 fl (35.1-43.9); Red Blood Count 3.76 M/mm3 (4.2-5.4); White Blood Count 6.8 K/mm3 (4.4-11.0)
[2018-04-27 06:36] LABS: POSITIVE COUNT NO; POSITIVE DIFFERENTIAL NO; POSITIVE MORPHOLOGY NO
[2018-04-27 06:51] LABS: Anion Gap 11 (5-15); BUN 7 mg/dL (7-18); BUN/Creat Ratio 5.3 RATIO (10-20); Calcium,Total 8.2 mg/dL (8.5-10.1); Chloride 117 mmol/L (98-107); Creatinine, Serum 1.32 mg/dL (0.55-1.02); EST Glomerular Filtration Rate 45 mL/min (>60); Est Glom Filt Rate - Afr Amer 55 mL/min (>60); Glucose 107 mg/dL (74-106); Potassium 3.3 mmol/L (3.5-5.1); Sodium Level 145 mmol/L (136-145)
[2018-04-27 07:56] LABS: Magnesium 1.8 mg/dL (1.6-2.6)
[2018-04-27] MEDS: Folic Acid 1 MG Tablet PO (08:27)
[2018-04-27] MEDS: Aspirin 81 MG TAB.CHEW PO (08:27)
[2018-04-27] MEDS: levETIRAcetam 500 MG Tablet PO ×2 (09:55→21:52)
[2018-04-27] MEDS: Lacosamide 100 MG Tablet PO ×2 (09:55→21:59)
[2018-04-27] MEDS: Enoxaparin 40 MG/0.4 ML Syringe SC (09:55)
[2018-04-27] MEDS: Pantoprazole Sodium 20 MG Tablet PO ×2 (09:55→21:53)
[2018-04-27] MEDS: Thiamine Hydrochloride 100 MG Tablet PO (09:55)
[2018-04-27] MEDS: Topiramate 25 MG Tablet 50 MG PO ×2 (09:55→21:52)
[2018-04-27] MEDS: Febuxostat 40 MG TABLET PO (09:55)
--- NOTE | 2018-04-27 13:07 | PCM.PN.HOSP ---
Patient Problems: Active and Suspected Problems Altered mental status, unspecified (Acute) Sphenoid sinusitis (Acute) Subjective: Patient was seen and examined. Denies any new complains. Remains confused, oriented to self only. No acute events overnight. not at bedside. Objective: Physical exam: General: Alert, Oriented x3, Cooperative, No apparent distress HEENT: Atraumatic, PERRLA, EOMI, Normocephalic Oral: Moist Mucosa, No Gingival or Mucosal Lesions/ Ulcerations Neck: Supple, No JVD, Negative Carotid Bruits, Trachea Midline, Thyroid Normal Size and Texture Lungs: Clear to auscultation, Normal air movement, No rhonchi, No wheeze, No rales Cardiovascular: Regular rate, Regular Rhythm, Normal S1, Normal S2, PMI Normal Abdomen: Bowel Sounds Present, Soft, Non Tender, Non-Distended, No Hepato-splenomegaly Extremities: No clubbing, No cyanosis, No edema Skin: No rashes, No breakdown Lymphatic: No Cervical, Supraclavicular, or Inguinal Adenopathy Neurological: Cranial nerves II-XII grossly intact, Motor Exam 5/5 strength throughout Psych/Mental Status: Normal Affect, Appropriate, Alert and oriented to time, place, person, mood and affect Vitals/I&O's: Vital Signs Temp Pulse Resp BP Pulse Ox 97.7 F L 65 16 123/83 H 100 04/27/18 08:41 04/27/18 11:01 04/27/18 08:41 04/27/18 08:41 04/27/18 08:41 Oxygen Flow Rate (L/min) 2 Oxygen Delivery Method Room Air Weight: 75 kg Body Mass Index (BMI) 31.2 Finger Stick Blood Glucose 114 Intake and Output for Last 24 Hours 04/25/18 04/26/18 04/27/18 23:59 23:59 23:59 Intake Total 3258 / 3258 3903 / 3903 1650 / 1650 Output Total 1750 / 1750 Balance 3258 / 3258 2153 / 2153 1650 / 1650 Microbiology Past 72 Hours 04/24/18 11:20 Csf, Spinal Fluid Gram Stain - Final 04/24/18 11:20 Csf, Spinal Fluid CSF Culture - Final No growth in 72 hours. 04/23/18 17:43 Urine, Catheterized Urine Culture - Final Culture exhibits no growth. Laboratory Results 04/27/18 05:46: WBC 6.8, RBC 3.76 L, Hgb 11.6 L, Hct 34.8 L, MCV 92.6, MCH 30.9, MCHC 33.3, RDW 14.4, RDW Differential 46.6 H, Plt Count 276, MPV 9.9, Immature Gran % (Auto) 0.100, Neut % (Auto) 59.8, Lymph % (Auto) 22.0, [place] % (Auto) 8.7, Eos % (Auto) 8.8 H, Baso % (Auto) 0.6, Absolute Neuts (auto) 4.1, Absolute Lymphs (auto) 1.49, Total Counted Not Reportable 04/27/18 05:46: Sodium 145, Potassium 3.3 L, Chloride 117 H, Carbon Dioxide 17.0 L, Anion Gap 11, BUN 7, Creatinine 1.32 H, Estim Creat Clear Calc 38.90, Est GFR (MDRD) Af Amer 55 L, Est GFR (MDRD) Non-Af 45 L, BUN/Creatinine Ratio 5.3 L, Glucose 107 H, Calcium 8.2 L 04/27/18 05:46: Magnesium 1.8 Current Medications Acetaminophen (Tylenol) 650 mg PO Q4H PRN PRN PRN Reason: mild pain/fever Aspirin (Aspirin, Baby) 81 mg PO DAILYCM [facility] Last Admin: 04/27/18 08:27 Dose: 81 mg Enoxaparin Sodium (Lovenox) 40 mg SC DAILY@1000 [facility] Last Admin: 04/27/18 09:55 Dose: 40 mg Folic Acid (Folic Acid) 1 mg PO DAILY@0800 [facility] Last Admin: 04/27/18 08:27 Dose: 1 mg Haloperidol Lactate (Haldol) 1 mg IV Q4H PRN PRN PRN Reason: AGITATION Last Admin: 04/25/18 20:21 Dose: 1 mg Hydroxyzine Pamoate (Vistaril Pamoate Capsule) 25 mg PO 4X/DAY PRN PRN PRN Reason: agitation/alcohol withdrawal Last Admin: 04/25/18 19:54 Dose: 25 mg Acyclovir Sodium 480 mg/ (Dextrose) 259.6 mls @ 259.6 mls/hr IV Q8 [facility] Last Admin: 04/27/18 05:25 Dose: 259.6 mls/hr Magnesium Sulfate 2 gm/ Sodium (Chloride) 104 mls @ 52 mls/hr IV X1 ONE Stop: 04/27/18 13:08 Last Admin: 04/27/18 12:41 Dose: 52 mls/hr Ibuprofen (Motrin) 400 mg PO Q6H PRN PRN PRN Reason: MILD PAIN (1-3/10) Last Admin: 04/23/18 20:57 Dose: 400 mg Lacosamide (Vimpat) 100 mg PO BID [facility] Last Admin: 04/27/18 09:55 Dose: 100 mg Levetiracetam (Keppra Tablet) 500 mg PO BID [facility] Last Admin: 04/27/18 09:55 Dose: 500 mg Lorazepam (Ativan) 2 mg IV Q2H PRN PRN Reason: seizure Last Admin: 04/23/18 14:31 Dose: 2 mg Lorazepam (Ativan) 2 mg IV Q2H PRN PRN; Protocol PRN Reason: CIWA score > 8 but <15 Lorazepam (Ativan) 2 mg PO UD PRN; Protocol PRN Reason: CIWA score >/=15. Lorazepam (Ativan) 2 mg IV UD PRN; Protocol PRN Reason: CIWA score >/=15. Magnesium Hydroxide (Milk Of Magnesia) 30 ml PO DAILY PRN PRN Reason: Constipation Ondansetron HCl (Zofran) 4 mg IV Q8H PRN PRN PRN Reason: NAUSEA Pantoprazole Sodium (Protonix) 20 mg PO BID [facility] Last Admin: 04/27/18 09:55 Dose: 20 mg Potassium Chloride (K-Dur) [facility] Promethazine HCl (Phenergan) 12.5 mg IV Q4H PRN PRN PRN Reason: AGITATION Senna/Docusate Sodium (Senokot-S, Lexi-Colace) 2 tablet PO BID PRN PRN PRN Reason: constipation Sodium Chloride () 5 - 15 ml IV UD PRN PRN Reason: SALINE FLUSH Last Admin: 04/24/18 23:23 Dose: 10 ml Thiamine HCl (Vitamin B1) 100 mg PO DAILY [facility] Last Admin: 04/27/18 09:55 Dose: 100 mg Topiramate (Topamax) 50 mg PO BID [facility] Last Admin: 04/27/18 09:55 Dose: 50 mg Medical Necessity - Tobacco Use Smoking Status: Never smoker Assessment/Plan All Active Problems Altered mental status, unspecified (Acute) Sphenoid sinusitis (Acute) Hypokalemia (Resolved) ARF (acute renal failure) (Acute) 1. 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 MRI showed no new abnormalities, previous sequelae of press syndrome seen. EEG showed no seizures. LP was done, showed WBC count of 0.027, total cell count of 0.036, lympho-cytosis as well as monocytosis with total protein of 52. CSF culture is negative. HSV PCR is pending on IV acyclovir, Keppra, Vimpat, and Topamax. 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 Chronic alcohol abuse, on CIWA monitoring 4. Hypokalemia, hypomagnesemia replaced, labs in am 5. H/o PRES syndrome 6. CKD stage 3, remains about the same 7. Seizure disorder, on Keppra, Vimpat and Topamax 8. Hypertension, fluctuating, 9. DVT PPx- Lovenox SC Code Visit Inpatient E&M: 62460 Subs Hosp L2
--- NOTE | 2018-04-27 13:10 | PN_ITS ---
Patient Problems: Active and Suspected Problems Altered mental status, unspecified (Acute) Sphenoid sinusitis (Acute) Subjective: Patient was seen and examined. Denies any new complains. Remains confused, oriented to self only. No acute events overnight. not at bedside. Objective: Physical exam: General: Alert, Oriented x3, Cooperative, No apparent distress HEENT: Atraumatic, PERRLA, EOMI, Normocephalic Oral: Moist Mucosa, No Gingival or Mucosal Lesions/ Ulcerations Neck: Supple, No JVD, Negative Carotid Bruits, Trachea Midline, Thyroid Normal Size and Texture Lungs: Clear to auscultation, Normal air movement, No rhonchi, No wheeze, No rales Cardiovascular: Regular rate, Regular Rhythm, Normal S1, Normal S2, PMI Normal Abdomen: Bowel Sounds Present, Soft, Non Tender, Non-Distended, No Hepato- splenomegaly Extremities: No clubbing, No cyanosis, No edema Skin: No rashes, No breakdown Lymphatic: No Cervical, Supraclavicular, or Inguinal Adenopathy Neurological: Cranial nerves II-XII grossly intact, Motor Exam 5/5 strength throughout Psych/Mental Status: Normal Affect, Appropriate, Alert and oriented to time, place, person, mood and affect Vitals/I&O's: Vital Signs Temp Pulse Resp BP Pulse Ox 97.7 F L 65 16 123/83 H 100 04/27/18 08:41 04/27/18 11:01 04/27/18 08:41 04/27/18 08:41 04/27/18 08:41 Oxygen Flow Rate (L/min) 2 Oxygen Delivery Method Room Air Weight: 75 kg Body Mass Index (BMI) 31.2 Finger Stick Blood Glucose 114 Intake and Output for Last 24 Hours 04/25/18 04/26/18 04/27/18 23:59 23:59 23:59 Intake Total 3258 / 3258 3903 / 3903 1650 / 1650 Output Total 1750 / 1750 Balance 3258 / 3258 2153 / 2153 1650 / 1650 Microbiology Past 72 Hours 04/24/18 11:20 Csf, Spinal Fluid Gram Stain - Final 04/24/18 11:20 Csf, Spinal Fluid CSF Culture - Final No growth in 72 hours. 04/23/18 17:43 Urine, Catheterized Urine Culture - Final Culture exhibits no growth. Laboratory Results 04/27/18 05:46: WBC 6.8, RBC 3.76 L, Hgb 11.6 L, Hct 34.8 L, MCV 92.6, MCH 30.9, MCHC 33.3, RDW 14.4, RDW Differential 46.6 H, Plt Count 276, MPV 9.9, Immature Gran % (Auto) 0.100, Neut % (Auto) 59.8, Lymph % (Auto) 22.0, [place] % (Auto) 8.7, Eos % (Auto) 8.8 H, Baso % (Auto) 0.6, Absolute Neuts (auto) 4.1, Absolute Lymphs (auto) 1.49, Total Counted Not Reportable 04/27/18 05:46: Sodium 145, Potassium 3.3 L, Chloride 117 H, Carbon Dioxide 17.0 L, Anion Gap 11, BUN 7, Creatinine 1.32 H, Estim Creat Clear Calc 38.90, Est GFR (MDRD) Af Amer 55 L, Est GFR (MDRD) Non-Af 45 L, BUN/Creatinine Ratio 5.3 L, Glucose 107 H, Calcium 8.2 L 04/27/18 05:46: Magnesium 1.8 Current Medications Acetaminophen (Tylenol) 650 mg PO Q4H PRN PRN PRN Reason: mild pain/fever Aspirin (Aspirin, Baby) 81 mg PO DAILYCM [facility] Last Admin: 04/27/18 08:27 Dose: 81 mg Enoxaparin Sodium (Lovenox) 40 mg SC DAILY@1000 [facility] Last Admin: 04/27/18 09:55 Dose: 40 mg Folic Acid (Folic Acid) 1 mg PO DAILY@0800 [facility] Last Admin: 04/27/18 08:27 Dose: 1 mg Haloperidol Lactate (Haldol) 1 mg IV Q4H PRN PRN PRN Reason: AGITATION Last Admin: 04/25/18 20:21 Dose: 1 mg Hydroxyzine Pamoate (Vistaril Pamoate Capsule) 25 mg PO 4X/DAY PRN PRN PRN Reason: agitation/alcohol withdrawal Last Admin: 04/25/18 19:54 Dose: 25 mg Acyclovir Sodium 480 mg/ (Dextrose) 259.6 mls @ 259.6 mls/hr IV Q8 [facility] Last Admin: 04/27/18 05:25 Dose: 259.6 mls/hr Magnesium Sulfate 2 gm/ Sodium (Chloride) 104 mls @ 52 mls/hr IV X1 ONE Stop: 04/27/18 13:08 Last Admin: 04/27/18 12:41 Dose: 52 mls/hr Ibuprofen (Motrin) 400 mg PO Q6H PRN PRN PRN Reason: MILD PAIN (1-3/10) Last Admin: 04/23/18 20:57 Dose: 400 mg Lacosamide (Vimpat) 100 mg PO BID [facility] Last Admin: 04/27/18 09:55 Dose: 100 mg Levetiracetam (Keppra Tablet) 500 mg PO BID [facility] Last Admin: 04/27/18 09:55 Dose: 500 mg Lorazepam (Ativan) 2 mg IV Q2H PRN PRN Reason: seizure Last Admin: 04/23/18 14:31 Dose: 2 mg Lorazepam (Ativan) 2 mg IV Q2H PRN PRN; Protocol PRN Reason: CIWA score > 8 but <15 Lorazepam (Ativan) 2 mg PO UD PRN; Protocol PRN Reason: CIWA score >/=15. Lorazepam (Ativan) 2 mg IV UD PRN; Protocol PRN Reason: CIWA score >/=15. Magnesium Hydroxide (Milk Of Magnesia) 30 ml PO DAILY PRN PRN Reason: Constipation Ondansetron HCl (Zofran) 4 mg IV Q8H PRN PRN PRN Reason: NAUSEA Pantoprazole Sodium (Protonix) 20 mg PO BID [facility] Last Admin: 04/27/18 09:55 Dose: 20 mg Potassium Chloride (K-Dur) [facility] Promethazine HCl (Phenergan) 12.5 mg IV Q4H PRN PRN PRN Reason: AGITATION Senna/Docusate Sodium (Senokot-S, Lexi-Colace) 2 tablet PO BID PRN PRN PRN Reason: constipation Sodium Chloride () 5 - 15 ml IV UD PRN PRN Reason: SALINE FLUSH Last Admin: 04/24/18 23:23 Dose: 10 ml Thiamine HCl (Vitamin B1) 100 mg PO DAILY [facility] Last Admin: 04/27/18 09:55 Dose: 100 mg Topiramate (Topamax) 50 mg PO BID [facility] Last Admin: 04/27/18 09:55 Dose: 50 mg Medical Necessity - Tobacco Use Smoking Status: Never smoker Assessment/Plan All Active Problems Altered mental status, unspecified (Acute) Sphenoid sinusitis (Acute) Hypokalemia (Resolved) ARF (acute renal failure) (Acute) 1. 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 MRI showed no new abnormalities, previous sequelae of press syndrome seen. EEG showed no seizures. LP was done, showed WBC count of 0.027, total cell count of 0.036, lympho-cytosis as well as monocytosis with total protein of 52. CSF culture is negative. HSV PCR is pending on IV acyclovir, Keppra, Vimpat, and Topamax. 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 Chronic alcohol abuse, on CIWA monitoring 4. Hypokalemia, hypomagnesemia replaced, labs in am 5. H/o PRES syndrome 6. CKD stage 3, remains about the same 7. Seizure disorder, on Keppra, Vimpat and Topamax 8. Hypertension, fluctuating, 9. DVT PPx- Lovenox SC Code Visit Inpatient E&M: 81669 Subs Hosp L2
--- NOTE | 2018-04-27 13:23 | PN.NEURO_ITS ---
Patient Problems: Active and Suspected Problems Altered mental status, unspecified (Acute) Sphenoid sinusitis (Acute) Subjective: awake alert, denies pain. notes incremental improvement - Physical Exam General: Alert, Cooperative, No apparent distress HEENT: JOSSE MAYS Neurological: Cranial nerves II-XII grossly intact, Deep Tendon Reflexes 2+/4 and Symmetrical, Motor Exam 5/5 strength throughout, Sensory exam intact to light touch and pain, - - follows one step commands, unable to follow two step commands unable to tell me where she is Vital Signs Temp Pulse Resp BP Pulse Ox 36.5 C L 65 16 123/83 H 100 04/27/18 08:41 04/27/18 11:01 04/27/18 08:41 04/27/18 08:41 04/27/18 08:41 Oxygen Flow Rate (L/min) 2 Oxygen Delivery Method Room Air Weight: 75 kg Body Mass Index (BMI) 31.2 Finger Stick Blood Glucose 114 Intake and Output for Last 24 Hours 04/25/18 04/26/18 04/27/18 23:59 23:59 23:59 Intake Total 3258 / 3258 3903 / 3903 1650 / 1650 Output Total 1750 / 1750 Balance 3258 / 3258 2153 / 2153 1650 / 1650 Microbiology Past 72 Hours 04/24/18 11:20 Gram Stain - Final Csf, Spinal Fluid CSF Culture - Final No growth in 72 hours. 04/23/18 17:43 Urine Culture - Final Urine, Catheterized Culture exhibits no growth. Laboratory Tests Past 24 Hrs 04/27/18 04/27/18 04/27/18 05:46 05:46 05:46 WBC 6.8 RBC 3.76 L Hgb 11.6 L Hct 34.8 L MCV 92.6 MCH 30.9 MCHC 33.3 RDW 14.4 RDW Differential 46.6 H Plt Count 276 MPV 9.9 Immature Gran % (Auto) 0.100 Neut % (Auto) 59.8 Lymph % (Auto) 22.0 [place] % (Auto) 8.7 Eos % (Auto) 8.8 H Baso % (Auto) 0.6 Absolute Neuts (auto) 4.1 Absolute Lymphs (auto) 1.49 Total Counted Not Reportable Sodium 145 Potassium 3.3 L Chloride 117 H Carbon Dioxide 17.0 L Anion Gap 11 BUN 7 Creatinine 1.32 H Estim Creat Clear Calc 38.90 Est GFR (MDRD) Af Amer 55 L Est GFR (MDRD) Non-Af 45 L BUN/Creatinine Ratio 5.3 L Glucose 107 H Calcium 8.2 L Magnesium 1.8 Medical Necessity - Tobacco Use Smoking Status: Never smoker Assessment/Plan All Active Problems Altered mental status, unspecified (Acute) Sphenoid sinusitis (Acute) Hypokalemia (Resolved) ARF (acute renal failure) (Acute) seizure, history of pres, history of etoh use and withdrawal * She is somewhat improved today * Her MRI shows changes consistent with status epilepticus which I think has resolved at this point. Her elevated white count which has improved as well as the clinical scenario is all consistent, regardless I think it is reasonable to place her on acyclovir, obtain a lumbar puncture and discontinue the acyclovir when LP results are known. * I will add 1 dose of IV Dilantin and adjustment of her anticonvulsants needs to be considered. It does not appear that Zonegran has been helping. She cannot tolerate higher doses of Keppra or Vimpat. topamax 50mg bid well tolerated. * There is likely ongoing alcohol use which is a confounding factor though I do not think she is experiencing acute withdrawal now.
[2018-04-27] MEDS: Acetaminophen 325 MG Tablet 650 MG PO (18:05)
[2018-04-28] VITALS (12 sets, daily range): BP systolic 115–140; BP diastolic 57–86; PULSE 58–94; RESP 16–20; TEMP 36.5–37.3; O2SAT 96–99
[2018-04-28] MEDS: Ibuprofen 400 MG Tablet PO (06:21)
[2018-04-28] MEDS: levETIRAcetam 500 MG Tablet PO ×2 (07:58→21:24)
[2018-04-28] MEDS: Aspirin 81 MG TAB.CHEW PO (07:58)
[2018-04-28] MEDS: Folic Acid 1 MG Tablet PO (07:58)
[2018-04-28] MEDS: Enoxaparin 40 MG/0.4 ML Syringe SC (07:58)
[2018-04-28] MEDS: Pantoprazole Sodium 20 MG Tablet PO ×2 (07:59→21:24)
[2018-04-28] MEDS: Topiramate 25 MG Tablet 50 MG PO ×2 (07:59→21:24)
[2018-04-28] MEDS: Febuxostat 40 MG TABLET PO (07:59)
[2018-04-28] MEDS: Thiamine Hydrochloride 100 MG Tablet PO (08:00)
[2018-04-28] MEDS: 0.9% NaCl Peripheral Flush Adult/Peds IV (08:02)
[2018-04-28] MEDS: Acetaminophen 325 MG Tablet 650 MG PO ×2 (08:09→17:22)
[2018-04-28] MEDS: Lacosamide 100 MG Tablet PO ×2 (08:09→21:29)
[2018-04-28 10:51] LABS: Anion Gap 8 (5-15); BUN 10 mg/dL (7-18); BUN/Creat Ratio 7.4 RATIO (10-20); Calcium,Total 8.7 mg/dL (8.5-10.1); Chloride 114 mmol/L (98-107); Creatinine, Serum 1.36 mg/dL (0.55-1.02); EST Glomerular Filtration Rate 44 mL/min (>60); Est Glom Filt Rate - Afr Amer 53 mL/min (>60); Estimated Creatinine Clearance 37.76 ml/min; Glucose 87 mg/dL (74-106); Magnesium 2.2 mg/dL (1.6-2.6); Potassium 4.2 mmol/L (3.5-5.1); Sodium Level 141 mmol/L (136-145)
--- NOTE | 2018-04-28 12:26 | PCM.PN.HOSP ---
Patient Problems: Active and Suspected Problems Altered mental status, unspecified (Acute) Sphenoid sinusitis (Acute) Subjective: Patient was seen and examined. Remains confused, knows name, place, but not year or month. Denies chest pain, SOB. Been walking in laps in the nursing floor. Objective: Physical exam: General: Alert, Oriented x3, Cooperative, No apparent distress HEENT: Atraumatic, PERRLA, EOMI, Normocephalic Oral: Moist Mucosa, No Gingival or Mucosal Lesions/ Ulcerations Neck: Supple, No JVD, Negative Carotid Bruits, Trachea Midline, Thyroid Normal Size and Texture Lungs: Clear to auscultation, Normal air movement, No rhonchi, No wheeze, No rales Cardiovascular: Regular rate, Regular Rhythm, Normal S1, Normal S2, PMI Normal Abdomen: Bowel Sounds Present, Soft, Non Tender, Non-Distended, No Hepato-splenomegaly Extremities: No clubbing, No cyanosis, No edema Skin: No rashes, No breakdown Lymphatic: No Cervical, Supraclavicular, or Inguinal Adenopathy Neurological: Cranial nerves II-XII grossly intact, Motor Exam 5/5 strength throughout Psych/Mental Status: Normal Affect, Appropriate, Alert and oriented to time, place, person, mood and affect Vitals/I&O's: Vital Signs Temp Pulse Resp BP Pulse Ox 97.7 F L 71 18 131/75 H 96 04/28/18 07:55 04/28/18 07:55 04/28/18 07:55 04/28/18 07:55 04/28/18 07:55 Oxygen Flow Rate (L/min) 2 Oxygen Delivery Method Room Air Weight: 75 kg Body Mass Index (BMI) 31.2 Finger Stick Blood Glucose 114 Intake and Output for Last 24 Hours 04/26/18 04/27/18 04/28/18 23:59 23:59 23:59 Intake Total 3903 / 3903 2548 / 2548 300 / 300 Output Total 1750 / 1750 Balance 2153 / 2153 2548 / 2548 300 / 300 Microbiology Past 72 Hours 04/24/18 11:20 Csf, Spinal Fluid Gram Stain - Final 04/24/18 11:20 Csf, Spinal Fluid CSF Culture - Final No growth in 72 hours. 04/23/18 17:43 Urine, Catheterized Urine Culture - Final Culture exhibits no growth. Laboratory Results 04/28/18 10:10: Sodium 141, Potassium 4.2, Chloride 114 H, Carbon Dioxide 19.0 L, Anion Gap 8, BUN 10, Creatinine 1.36 H, Estim Creat Clear Calc 37.76, Est GFR (MDRD) Af Amer 53 L, Est GFR (MDRD) Non-Af 44 L, BUN/Creatinine Ratio 7.4 L, Glucose 87, Calcium 8.7, Magnesium 2.2 Current Medications Acetaminophen (Tylenol) 650 mg PO Q4H PRN PRN PRN Reason: mild pain/fever Last Admin: 04/28/18 08:09 Dose: 650 mg Aspirin (Aspirin, Baby) 81 mg PO DAILYCM [facility] Last Admin: 04/28/18 07:58 Dose: 81 mg Enoxaparin Sodium (Lovenox) 40 mg SC DAILY@1000 [facility] Last Admin: 04/28/18 07:58 Dose: 40 mg Folic Acid (Folic Acid) 1 mg PO DAILY@0800 [facility] Last Admin: 04/28/18 07:58 Dose: 1 mg Haloperidol Lactate (Haldol) 1 mg IV Q4H PRN PRN PRN Reason: AGITATION Last Admin: 04/25/18 20:21 Dose: 1 mg Hydroxyzine Pamoate (Vistaril Pamoate Capsule) 25 mg PO 4X/DAY PRN PRN PRN Reason: agitation/alcohol withdrawal Last Admin: 04/25/18 19:54 Dose: 25 mg Acyclovir Sodium 480 mg/ (Dextrose) 259.6 mls @ 259.6 mls/hr IV Q8 [facility] Last Admin: 04/28/18 06:16 Dose: 259.6 mls/hr Ibuprofen (Motrin) 400 mg PO Q6H PRN PRN PRN Reason: MILD PAIN (1-3/10) Last Admin: 04/28/18 06:21 Dose: 400 mg Lacosamide (Vimpat) 100 mg PO BID [facility] Last Admin: 04/28/18 08:09 Dose: 100 mg Levetiracetam (Keppra Tablet) 500 mg PO BID [facility] Last Admin: 04/28/18 07:58 Dose: 500 mg Lorazepam (Ativan) 2 mg IV Q2H PRN PRN Reason: seizure Last Admin: 04/23/18 14:31 Dose: 2 mg Lorazepam (Ativan) 2 mg IV Q2H PRN PRN; Protocol PRN Reason: CIWA score > 8 but <15 Lorazepam (Ativan) 2 mg PO UD PRN; Protocol PRN Reason: CIWA score >/=15. Lorazepam (Ativan) 2 mg IV UD PRN; Protocol PRN Reason: CIWA score >/=15. Magnesium Hydroxide (Milk Of Magnesia) 30 ml PO DAILY PRN PRN Reason: Constipation Ondansetron HCl (Zofran) 4 mg IV Q8H PRN PRN PRN Reason: NAUSEA Pantoprazole Sodium (Protonix) 20 mg PO BID [facility] Last Admin: 04/28/18 07:59 Dose: 20 mg Potassium Chloride (K-Dur) 20 meq PO DAILYCM [facility] Last Admin: 04/28/18 08:08 Dose: 20 meq Promethazine HCl (Phenergan) 12.5 mg IV Q4H PRN PRN PRN Reason: AGITATION Senna/Docusate Sodium (Senokot-S, Lexi-Colace) 2 tablet PO BID PRN PRN PRN Reason: constipation Sodium Chloride () 5 - 15 ml IV UD PRN PRN Reason: SALINE FLUSH Last Admin: 04/28/18 08:02 Dose: 10 ml Thiamine HCl (Vitamin B1) 100 mg PO DAILY [facility] Last Admin: 04/28/18 08:00 Dose: 100 mg Topiramate (Topamax) 50 mg PO BID [facility] Last Admin: 04/28/18 07:59 Dose: 50 mg Medical Necessity - Tobacco Use Smoking Status: Never smoker Assessment/Plan All Active Problems Altered mental status, unspecified (Acute) Sphenoid sinusitis (Acute) Hypokalemia (Resolved) ARF (acute renal failure) (Acute) 1. Acute metabolic encephalopathy, due to HSV encephalitis and probable seizure disorder, remains intermittently confused, CT of the head was negative for any acute intracranial process. MRI showed no new abnormalities, previous sequelae of press syndrome seen. EEG showed no seizures. LP was done, showed WBC count of 0.027, total cell count of 0.036, lympho-cytosis as well as monocytosis with total protein of 52. CSF culture is negative. HSV PCR is pending on IV acyclovir, Keppra, Vimpat, and Topamax. 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 Chronic alcohol abuse, on CIWA monitoring 4. Hypokalemia, hypomagnesemia, replaced 5. H/o PRES syndrome 6. CKD stage 3, remains about the same 7. Seizure disorder, on Keppra, Vimpat and Topamax 8. Hypertension, fluctuating, 9. DVT PPx- Lovenox SC Code Visit Inpatient E&M: 87611 Subs Hosp L2
--- NOTE | 2018-04-28 12:34 | PN_ITS ---
Patient Problems: Active and Suspected Problems Altered mental status, unspecified (Acute) Sphenoid sinusitis (Acute) Subjective: Patient was seen and examined. Remains confused, knows name, place, but not year or month. Denies chest pain, SOB. Been walking in laps in the nursing floor. Objective: Physical exam: General: Alert, Oriented x3, Cooperative, No apparent distress HEENT: Atraumatic, PERRLA, EOMI, Normocephalic Oral: Moist Mucosa, No Gingival or Mucosal Lesions/ Ulcerations Neck: Supple, No JVD, Negative Carotid Bruits, Trachea Midline, Thyroid Normal Size and Texture Lungs: Clear to auscultation, Normal air movement, No rhonchi, No wheeze, No rales Cardiovascular: Regular rate, Regular Rhythm, Normal S1, Normal S2, PMI Normal Abdomen: Bowel Sounds Present, Soft, Non Tender, Non-Distended, No Hepato- splenomegaly Extremities: No clubbing, No cyanosis, No edema Skin: No rashes, No breakdown Lymphatic: No Cervical, Supraclavicular, or Inguinal Adenopathy Neurological: Cranial nerves II-XII grossly intact, Motor Exam 5/5 strength throughout Psych/Mental Status: Normal Affect, Appropriate, Alert and oriented to time, place, person, mood and affect Vitals/I&O's: Vital Signs Temp Pulse Resp BP Pulse Ox 97.7 F L 71 18 131/75 H 96 04/28/18 07:55 04/28/18 07:55 04/28/18 07:55 04/28/18 07:55 04/28/18 07:55 Oxygen Flow Rate (L/min) 2 Oxygen Delivery Method Room Air Weight: 75 kg Body Mass Index (BMI) 31.2 Finger Stick Blood Glucose 114 Intake and Output for Last 24 Hours 04/26/18 04/27/18 04/28/18 23:59 23:59 23:59 Intake Total 3903 / 3903 2548 / 2548 300 / 300 Output Total 1750 / 1750 Balance 2153 / 2153 2548 / 2548 300 / 300 Microbiology Past 72 Hours 04/24/18 11:20 Csf, Spinal Fluid Gram Stain - Final 04/24/18 11:20 Csf, Spinal Fluid CSF Culture - Final No growth in 72 hours. 04/23/18 17:43 Urine, Catheterized Urine Culture - Final Culture exhibits no growth. Laboratory Results 04/28/18 10:10: Sodium 141, Potassium 4.2, Chloride 114 H, Carbon Dioxide 19.0 L , Anion Gap 8, BUN 10, Creatinine 1.36 H, Estim Creat Clear Calc 37.76, Est GFR (MDRD) Af Amer 53 L, Est GFR (MDRD) Non-Af 44 L, BUN/Creatinine Ratio 7.4 L, Glucose 87, Calcium 8.7, Magnesium 2.2 Current Medications Acetaminophen (Tylenol) 650 mg PO Q4H PRN PRN PRN Reason: mild pain/fever Last Admin: 04/28/18 08:09 Dose: 650 mg Aspirin (Aspirin, Baby) 81 mg PO DAILYCM [facility] Last Admin: 04/28/18 07:58 Dose: 81 mg Enoxaparin Sodium (Lovenox) 40 mg SC DAILY@1000 [facility] Last Admin: 04/28/18 07:58 Dose: 40 mg Folic Acid (Folic Acid) 1 mg PO DAILY@0800 [facility] Last Admin: 04/28/18 07:58 Dose: 1 mg Haloperidol Lactate (Haldol) 1 mg IV Q4H PRN PRN PRN Reason: AGITATION Last Admin: 04/25/18 20:21 Dose: 1 mg Hydroxyzine Pamoate (Vistaril Pamoate Capsule) 25 mg PO 4X/DAY PRN PRN PRN Reason: agitation/alcohol withdrawal Last Admin: 04/25/18 19:54 Dose: 25 mg Acyclovir Sodium 480 mg/ (Dextrose) 259.6 mls @ 259.6 mls/hr IV Q8 [facility] Last Admin: 04/28/18 06:16 Dose: 259.6 mls/hr Ibuprofen (Motrin) 400 mg PO Q6H PRN PRN PRN Reason: MILD PAIN (1-3/10) Last Admin: 04/28/18 06:21 Dose: 400 mg Lacosamide (Vimpat) 100 mg PO BID [facility] Last Admin: 04/28/18 08:09 Dose: 100 mg Levetiracetam (Keppra Tablet) 500 mg PO BID [facility] Last Admin: 04/28/18 07:58 Dose: 500 mg Lorazepam (Ativan) 2 mg IV Q2H PRN PRN Reason: seizure Last Admin: 04/23/18 14:31 Dose: 2 mg Lorazepam (Ativan) 2 mg IV Q2H PRN PRN; Protocol PRN Reason: CIWA score > 8 but <15 Lorazepam (Ativan) 2 mg PO UD PRN; Protocol PRN Reason: CIWA score >/=15. Lorazepam (Ativan) 2 mg IV UD PRN; Protocol PRN Reason: CIWA score >/=15. Magnesium Hydroxide (Milk Of Magnesia) 30 ml PO DAILY PRN PRN Reason: Constipation Ondansetron HCl (Zofran) 4 mg IV Q8H PRN PRN PRN Reason: NAUSEA Pantoprazole Sodium (Protonix) 20 mg PO BID [facility] Last Admin: 04/28/18 07:59 Dose: 20 mg Potassium Chloride (K-Dur) 20 meq PO DAILYCM [facility] Last Admin: 04/28/18 08:08 Dose: 20 meq Promethazine HCl (Phenergan) 12.5 mg IV Q4H PRN PRN PRN Reason: AGITATION Senna/Docusate Sodium (Senokot-S, Lexi-Colace) 2 tablet PO BID PRN PRN PRN Reason: constipation Sodium Chloride () 5 - 15 ml IV UD PRN PRN Reason: SALINE FLUSH Last Admin: 04/28/18 08:02 Dose: 10 ml Thiamine HCl (Vitamin B1) 100 mg PO DAILY [facility] Last Admin: 04/28/18 08:00 Dose: 100 mg Topiramate (Topamax) 50 mg PO BID [facility] Last Admin: 04/28/18 07:59 Dose: 50 mg Medical Necessity - Tobacco Use Smoking Status: Never smoker Assessment/Plan All Active Problems Altered mental status, unspecified (Acute) Sphenoid sinusitis (Acute) Hypokalemia (Resolved) ARF (acute renal failure) (Acute) 1. Acute metabolic encephalopathy, due to HSV encephalitis and probable seizure disorder, remains intermittently confused, CT of the head was negative for any acute intracranial process. MRI showed no new abnormalities, previous sequelae of press syndrome seen. EEG showed no seizures. LP was done, showed WBC count of 0.027, total cell count of 0.036, lympho-cytosis as well as monocytosis with total protein of 52. CSF culture is negative. HSV PCR is pending on IV acyclovir, Keppra, Vimpat, and Topamax. 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 Chronic alcohol abuse, on CIWA monitoring 4. Hypokalemia, hypomagnesemia, replaced 5. H/o PRES syndrome 6. CKD stage 3, remains about the same 7. Seizure disorder, on Keppra, Vimpat and Topamax 8. Hypertension, fluctuating, 9. DVT PPx- Lovenox SC Code Visit Inpatient E&M: 54480 Subs Hosp L2
[2018-04-29] VITALS (8 sets, daily range): BP systolic 109–121; BP diastolic 64–84; PULSE 63–107; RESP 12–18; TEMP 36.6–36.8; O2SAT 96–99
[2018-04-29 06:34] LABS: Anion Gap 10 (5-15); BUN 12 mg/dL (7-18); BUN/Creat Ratio 8.2 RATIO (10-20); Calcium,Total 8.8 mg/dL (8.5-10.1); Chloride 113 mmol/L (98-107); Creatinine, Serum 1.46 mg/dL (0.55-1.02); EST Glomerular Filtration Rate 40 mL/min (>60); Est Glom Filt Rate - Afr Amer 49 mL/min (>60); Estimated Creatinine Clearance 35.17 ml/min; Glucose 136 mg/dL (74-106); Potassium 3.6 mmol/L (3.5-5.1); Sodium Level 141 mmol/L (136-145)
[2018-04-29] MEDS: Aspirin 81 MG TAB.CHEW PO (08:17)
[2018-04-29] MEDS: levETIRAcetam 500 MG Tablet PO (08:18)
[2018-04-29] MEDS: Enoxaparin 40 MG/0.4 ML Syringe SC (08:18)
[2018-04-29] MEDS: Topiramate 25 MG Tablet 50 MG PO ×2 (08:18→21:04)
[2018-04-29] MEDS: Folic Acid 1 MG Tablet PO (08:18)
[2018-04-29] MEDS: Pantoprazole Sodium 20 MG Tablet PO ×2 (08:18→21:03)
[2018-04-29] MEDS: Febuxostat 40 MG TABLET PO (08:19)
[2018-04-29] MEDS: Thiamine Hydrochloride 100 MG Tablet PO (08:22)
[2018-04-29] MEDS: Lacosamide 100 MG Tablet PO ×2 (09:13→21:04)
--- NOTE | 2018-04-29 09:45 | CASEMGMT ---
TANISHA spoke with Kimberly in rehab. She said patient must have need for intensive therapy otherwise rehab will not be approved by insurance. SW looked at patient's PT/OT and she walked 1,200 feet with PT and 400' with OT. Insurance will not approve rehab or SNF for patient. She requires penitentiary level of care which is not covered by insurance. Lissette DO [employer]
--- NOTE | 2018-04-29 11:21 | PN.NEURO_ITS ---
Patient Problems: Active and Suspected Problems Altered mental status, unspecified (Acute) Sphenoid sinusitis (Acute) Subjective: Patient examined at bedside, present in the room. No overnight issues. Discussed with nursing staff 47 yr F with PMH HTN, H/O PRES and seizures, CKD, ETOH abuse admitted with AMS, worsening confusion, ENRIQUEZ and visual hallucinations. MRI brain reported to show Symmetrical abnormal signal within bilateral medial temporal lobes. Differential considerations include sequela of herpes infection. Abnormal signal in the posterior occipital lobes may be the result of previous PRES. Per patient had PRES in June 2016, since then has been having spells where she would look down and see floaters in the eyes, may stiffen, bit no GTCS,tongue bite or post ictal state. She has been having some baseline cognitive issues and memory issues since she was diagnosed with PRES. Per at baseline she drinks excess alcohol, may drink about 8 beers daily, or drink whole bottle of wine, would go to the bar and get hefty alcohol related bills, but has stopped drinking since April 05 [address]90. Patient sees Dr. Bonilla from [facility], has been on Keppra, Vimpat and Zonegran from Dr. Bonilla, could not tolerate increase in Keppra and Vimpat due to underlying CKD per and where she would get very agitated and hence the dose of Keppra was decreased to 500 mg PO BID from 750 mg BID and Vimpat was decreased to 100 mg BID from [address] Bonilla in the past per . Since admission she was seen by Dr. Ritchie and Zonegran was changed to Topamax since per she continued to have spells on Zonegran, she was also loaded with Dilantin following this admission. EEG showed general ized slowing this admission. Per , Dr. Bonilla had her admitted in the EMU in the past but it did not show any seizure activity then but I do not have any records with me at present. LP done during this admission showed CSF WBCs- 27, RBCs-265, protein 52, glucose 64 CSF HSV PCR and VZV PCR pending, patient on Acyclovir since admission, Creatinine 1-46. - Physical Exam General: - - awake, confused HEENT: Normocephalic Neck: Supple Lungs: Normal air movement Cardiovascular: Normal S1, Normal S2 Abdomen: Bowel Sounds Present Extremities: No cyanosis Neurological: - - awake, confused, AoA x 2, CN 2-12 grossly intact, power 5/5 all 4 extremities, no sensory loss, no cerebellar signs, Reflexes + B/L B/S/T/K/A, gait deferred, No NR. Vital Signs Temp Pulse Resp BP Pulse Ox 97.9 F 78 12 116/71 96 04/29/18 09:00 04/29/18 09:00 04/29/18 09:00 04/29/18 09:00 04/29/18 09:00 Oxygen Flow Rate (L/min) 2 Oxygen Delivery Method Room Air Weight: 75 kg Body Mass Index (BMI) 31.2 Finger Stick Blood Glucose 114 Intake and Output for Last 24 Hours 04/27/18 04/28/18 04/29/18 23:59 23:59 23:59 Intake Total 2548 / 2548 1332 / 1332 Balance 2548 / 2548 1332 / 1332 Microbiology Past 72 Hours 04/24/18 11:20 Gram Stain - Final Csf, Spinal Fluid CSF Culture - Final No growth in 72 hours. 04/23/18 17:43 Urine Culture - Final Urine, Catheterized Culture exhibits no growth. Laboratory Tests Past 24 Hrs 04/29/18 05:45 Sodium 141 Potassium 3.6 Chloride 113 H Carbon Dioxide 18.0 L Anion Gap 10 BUN 12 Creatinine 1.46 H Estim Creat Clear Calc 35.17 Est GFR (MDRD) Af Amer 49 L Est GFR (MDRD) Non-Af 40 L BUN/Creatinine Ratio 8.2 L Glucose 136 H Calcium 8.8 Medical Necessity - Tobacco Use Smoking Status: Never smoker Assessment/Plan All Active Problems Altered mental status, unspecified (Acute) Sphenoid sinusitis (Acute) Hypokalemia (Resolved) ARF (acute renal failure) (Acute) 47 yr F with PMH HTN, H/O PRES and seizures, CKD, ETOH abuse admitted with AMS, worsening confusion, ENRIQUEZ and visual hallucinations Impression R/O HSV encephalitis R/O Korsakoff's psychosis-ETOH abuse H/O seizures Plan -MRI brain reviewed- hyperintense lesion bilateral medial temporal lobes -On Acyclovir -Await CSF HSV PCR results -ID consult -Nephrology consult -Per Keppra is not helping, had agitation when Keppra dose was increased to 750 mg BID in the past, also has worsening renal function, discussed with , will wean off Keppra to 250 mg PO BID for 2 days, then stop. -Will start Dilantin 100 mg PO TID. S/E discussed in detail. LFTs- AST/ALT- , and per she has stopped drinking alcohol since April 05, 2018 -Thiamine 100 mg PO once daily -On Topamax 50 mg PO BID and Vimpat 100 mg PO BID. -Check paraneoplastic antibodies, anti NMDA receptor antibodies, anti Ma antibodies and AMPA receptor antibodies and vitamin B1 level. -Seizure precautions -Patient does not drive -Patient counseled not to drink alcohol, may benefit from addiction consult. -Fall precautions -GI/DVT prophylaxis -Follow up with her Neurologist Dr. Bonilla as outpatient. -Please call with questions if any -Thank you for allowing us to participate in patient's care and management
[2018-04-29 12:21] LABS: Vitamin B12 405 pg/mL (211-911)
--- NOTE | 2018-04-29 14:50 | PN_ITS ---
Patient Problems: Active and Suspected Problems Altered mental status, unspecified (Acute) Sphenoid sinusitis (Acute) Subjective: The patient is a 47-year-old female with a past medical history of hypertension, PRES syndrome in 2017(due to uncontrolled HTN), seizure disorder ( Dr. Bonilla at [facility] has diagnosed her with scarring due to PRESS), chronic renal failure stage III, gout and ETOH abuse who presented to the ED at [facility] on 04/22/2018 with complaint of abnormal behavior breakthrough seizure? She was confused, incontinent and hallucinating. verified that she had not had any ETOH since 04/05/18. She was afebrile. Significant lab in the ED included white blood cell count of 23.5 with left shift, sodium of 134 and creatinine of 1.28 with a BUN of 10. CT brain showed no acute findings when compared to a prior study. There was left sphenoid sinusitis with an air-fluid level. She was admitted to a monitored bed on PCU and consultation was ordered with Dr. Ritchie. Dr. Ritchie recommended EEG, MRI and UA. The EEG showed diffuse slowing but no epileptiform discharges. MRI of the brain showed involutional changes with symmetrical abnormal signal within bilateral medial temporal lobes which can be seen with a herpes infection. There was abnormal signal in the posterior occipital lobes that is likely result of previous PRES. There was no evidence of acute infarct. Lumbar puncture on 04/24/2018 showed 27 WBCs and 265 RBCs. Total protein was mildly elevated at 52 and glucose was within normal limits. She was started on Acyclovir IV. VZV DNA and cytology are pending. HSV DNA is also pending. Culture of the CSF had no growth at 72 hours. Afebrile since admission. Vital signs stable. All events of the past 24 hours of been reviewed. White blood cell count has been within normal limits since 04/24/2018 with no treatment. Creatinine has increased to 1.46 from 1.28 at admission. There is a + FH of alcoholism. She has never been to rehab. Has never had any counselling for anxiety or depression. Admits to feeling depressed. Prior to PRES she was employed in a high level job and quite successful. Now she is on disability and sits home by herself all day while her is at work.......she gets bored and she drinks. She was drinking daily up until April 05 when she promised her that she would stop drinking. She was unaware of the working diagnosis and even forgot that she had an LP. Unaware she is on Acyclovir for possible Herpes encephalitis. She is complaining of a ENRIQUEZ behind her eyes. No purulent nasal DC. Denies sore throat and has no cough. No N/V/abd pain. Objective: PHYSICAL EXAM: GENERAL: alert, oriented X 3, Cooperative, NAD, forgetful, does not know what the working diagnosis is or why she is still here in the hospital. Did not know that she is on Acyclovir ORAL: moist mucosa, no mucosal lesions NECK: No JVD, supple, trachea midline, no nuchal rigidity, no cervical or supraclavicular adenopathy LUNGS: CTA, symmetric chest expansion HEART: RRR, Normal S1 and S2, no rub, no gallop ABDOMEN: soft, NT, ND, BS present, no guarding with palpation EXTREMITIES: no edema, no cyanosis, no calf tenderness SKIN: No rashes, no breakdown NEUROLOGIC: no focal neurologic deficits PSYCH: appropriate, normal affect, pleasant - Physical Exam Vital Signs Temp Pulse Resp BP Pulse Ox 97.9 F 78 12 116/71 96 04/29/18 09:00 04/29/18 11:02 04/29/18 09:00 04/29/18 09:00 04/29/18 09:00 Oxygen Flow Rate (L/min) 2 Oxygen Delivery Method Room Air Weight: 165 lb 5.547 oz Body Mass Index (BMI) 31.2 Finger Stick Blood Glucose 114 Intake and Output for Last 24 Hours 04/27/18 04/28/18 04/29/18 23:59 23:59 23:59 Intake Total 2548 / 2548 1332 / 1332 480 / 480 Balance 2548 / 2548 1332 / 1332 480 / 480 Microbiology Past 72 Hours 04/24/18 11:20 Gram Stain - Final Csf, Spinal Fluid CSF Culture - Final No growth in 72 hours. Laboratory Tests Past 24 Hrs 04/29/18 04/29/18 04/29/18 05:45 05:46 12:55 Sodium 141 Potassium 3.6 Chloride 113 H Carbon Dioxide 18.0 L Anion Gap 10 BUN 12 Creatinine 1.46 H Estim Creat Clear Calc 35.17 Est GFR (MDRD) Af Amer 49 L Est GFR (MDRD) Non-Af 40 L BUN/Creatinine Ratio 8.2 L Glucose 136 H Calcium 8.8 Whole Bld Vitamin B1 Pending Vitamin B12 405 Medical Necessity - Tobacco Use Smoking Status: Never smoker Assessment/Plan All Active Problems Altered mental status, unspecified (Acute) Sphenoid sinusitis (Acute) Hypokalemia (Resolved) ARF (acute renal failure) (Acute) Impressions 1. Acute encephalopathy-possibly secondary to herpes encephalitis +/- seizure disorder 2. suspected Herpes encephalitis - on Acyclovir since 04/24 due to abnormal MRI and abnormal LP 3. Hx of PRES in 2017 with persistent mental staus changes - now on disability and with seizure disorder liekly due to scarring from PRES - follows with neuro at [facility] 4. HTN 5. hx of alcoholism - there is also a strong FH 6. suspected depression - due to dramatic change in her life since having PRES in 2017 7. Hypokalemia 8. Hypomagnesemia 9. Chronic renal failure stage III - creat is increasing 10. Metabolic acidosis-possibly secondary to chronic renal failure D/W Dr. Pink who requests we consult ID for possible Herpes encephalitis and also Nephrology for the increase in the Creat. Because of the Renal failure he is going to wean off the Keppra and start Dilantin. Consult Dr. Duarte and Dr. Martin. Consult behavioral Health and also [facility].......I think she would benefit from OP tx for alcohol dependence and for depression........180 when we get closer to DC? Continue the Acyclovir until seen by Dr. Duarte. Try a decongestant for sinus pain for sphenoid sinusitis - Atrovent Nasal spray Check an ESR and a CRP in the AM Recheck lab in the AM DC the NSAID US of the kidneys - per Dr. Martin Hydrate gently Code Visit Inpatient E&M: 79916 Subs Hosp L3
[2018-04-29] MEDS: Phenytoin Na 100 MG Capsule PO (18:07)
--- NOTE | 2018-04-29 18:11 | PCM.CONS.R ---
Consultation - Renal 04/29/18 PCP/ Referring MD: Requesting physician: Dr Cleveland Primary care physician: Aiden Car MD Reason for Consultation:: Acute on CKD stage 3 - History of Present Illness History of Present Illness: 47 yo F with PMH for HTN, PRES diagnosed in June 2016, seizure disorder, CKD stage3, ETOH abuse last drink about 6 months ago, admitted with AMS, worsening confusion, ENRIQUEZ and visual hallucinations. MRI brain reported symmetrical abnormal signal within bilateral medial temporal lobes. She was started on acyclovir for possible herpes encephalitis. Abnormal signal in the posterior occipital lobes may be the result of previous PRES. Her states she has been experiencing flashing lights with fogginess of her thought process following a seizure episode. Pt complains of expressive aphasia. She has been having some baseline cognitive issues and memory issues since she was diagnosed with PRES. She expressed frustration from these issues. She has a history of uncontrolled hypertension in the past. According to her , she was on a BP medication back in June 2016 that caused worsening renal function and was seen by a professor of sociology back then. He is unclear on the name of the medication. Creatinine was 1.22 increased to 1.46 today. She had mild renal dysfunction back in January 2018 ordered by her PCP from [facility]. She has been trying to increase her fluid intake. She has headaches with chronic sinus symptoms. She has frontal and temporal headaches. She has been on sudafed in the past and ibuprofen prn. She had personality changes where she becomes agitated, angry at times noted by her spouse. Denied fever, chills, neck pain. - Allergies Allergies: Allergies allopurinol Allergy (Verified 04/22/18 17:29) Diarrhea amoxicillin Adverse Reaction (Verified 04/22/18 17:29) Other lactose Adverse Reaction (Verified 04/22/18 17:29) Diarrhea - Current Medications Current Medications: Current Medications Acetaminophen (Tylenol) 650 mg PO Q4H PRN PRN PRN Reason: mild pain/fever Last Admin: 04/28/18 17:22 Dose: 650 mg Aspirin (Aspirin, Baby) 81 mg PO DAILYCM [facility] Last Admin: 04/29/18 08:17 Dose: 81 mg Enoxaparin Sodium (Lovenox) 40 mg SC DAILY@1000 [facility] Last Admin: 04/29/18 08:18 Dose: 40 mg Folic Acid (Folic Acid) 1 mg PO DAILY@0800 [facility] Last Admin: 04/29/18 08:18 Dose: 1 mg Haloperidol Lactate (Haldol) 1 mg IV Q4H PRN PRN PRN Reason: AGITATION Last Admin: 04/25/18 20:21 Dose: 1 mg Hydroxyzine Pamoate (Vistaril Pamoate Capsule) 25 mg PO 4X/DAY PRN PRN PRN Reason: agitation/alcohol withdrawal Last Admin: 04/25/18 19:54 Dose: 25 mg Acyclovir Sodium 480 mg/ (Dextrose) 259.6 mls @ 259.6 mls/hr IV Q8 [facility] Last Admin: 04/29/18 15:02 Dose: 259.6 mls/hr Sodium Chloride () 1,000 mls @ 75 mls/hr IV .[id number] [facility] Ipratropium [place] (Atrovent Nasal [place] (G)) 2 spray NASAL TID [facility] Lacosamide (Vimpat) 100 mg PO BID [facility] Last Admin: 04/29/18 09:13 Dose: 100 mg Levetiracetam (Keppra Tablet) 250 mg PO BID [facility] Stop: 05/01/18 10:01 Magnesium Hydroxide (Milk Of Magnesia) 30 ml PO DAILY PRN PRN Reason: Constipation Ondansetron HCl (Zofran) 4 mg IV Q8H PRN PRN PRN Reason: NAUSEA Pantoprazole Sodium (Protonix) 20 mg PO BID [facility] Last Admin: 04/29/18 08:18 Dose: 20 mg Phenytoin Sodium (Dilantin) 100 mg PO TIDCM [facility] Last Admin: 04/29/18 18:07 Dose: 100 mg Potassium Ch[facility] ([facility]) [facility] Last Admin: 04/29/18 08:18 Dose: 20 meq Promethazine HCl (Phenergan) 12.5 mg IV Q4H PRN PRN PRN Reason: AGITATION Senna/Docusate Sodium (Senokot-S, Lexi-Colace) 2 tablet PO BID PRN PRN PRN Reason: constipation Sodium Chloride () 5 - 15 ml IV UD PRN PRN Reason: SALINE FLUSH Last Admin: 04/28/18 08:02 Dose: 10 ml Thiamine HCl (Vitamin B1) 100 mg PO DAILY [facility] Last Admin: 04/29/18 08:22 Dose: 100 mg Topiramate (Topamax) 50 mg PO BID [facility] Last Admin: 04/29/18 08:18 Dose: 50 mg - Past Medical History Past Medical History (Chronic Problems): Chronic Problems PRES (posterior reversible encephalopathy syndrome) (Chronic) Gout (Chronic) HTN (hypertension) (Chronic) - Past Surgical History Surgical History: - - c sections - Social History Marital Status: Smoking Status: Never smoker - Family History Maternal History Items: Diabetes Paternal History Items: Diabetes, - - cabg Review of Systems Constitutional: Denies: Anorexia, Chills, Fever, Weakness, Fatigue Eyes: Denies: Blurred vision, Vision Change HEENT: Reports: Head Aches - frontal, temporal Cardiovascular: Denies: Chest Pain, Edema Patient Problems: Active and Suspected Problems Altered mental status, unspecified (Acute) Sphenoid sinusitis (Acute) - Physical Exam General: Alert, Oriented x3, Cooperative, No apparent distress HEENT: PERRLA, EOMI Oral: Dry Mucosa Neck: Supple Lungs: Clear to auscultation Cardiovascular: Regular rate Abdomen: Bowel Sounds Present, Soft, Non Tender, Non-Distended Extremities: No edema Skin: No rashes Neurological: Cranial nerves II-XII grossly intact Psych/Mental Status: Normal Affect, Appropriate, Alert and oriented to time, place, person, mood and affect Vital Signs Temp Pulse Resp BP Pulse Ox 98.3 F 107 H 14 121/84 H 97 04/29/18 15:00 04/29/18 15:00 04/29/18 15:00 04/29/18 15:00 04/29/18 15:00 Oxygen Flow Rate (L/min) 2 Oxygen Delivery Method Room Air Weight: 75 kg Body Mass Index (BMI) 31.2 Finger Stick Blood Glucose 114 Intake and Output for Last 24 Hours 04/27/18 04/28/18 04/29/18 23:59 23:59 23:59 Intake Total 2548 / 2548 1332 / 1332 1550 / 1550 Balance 2548 / 2548 1332 / 1332 1550 / 1550 Microbiology Past 72 Hours 04/24/18 11:20 Gram Stain - Final Csf, Spinal Fluid CSF Culture - Final No growth in 72 hours. Laboratory Tests Past 24 Hrs 04/24/18 04/29/18 04/29/18 11:20 05:45 05:46 Sodium 141 Potassium 3.6 Chloride 113 H Carbon Dioxide 18.0 L Anion Gap 10 BUN 12 Creatinine 1.46 H Estim Creat Clear Calc 35.17 Est GFR (MDRD) Af Amer 49 L Est GFR (MDRD) Non-Af 40 L BUN/Creatinine Ratio 8.2 L Glucose 136 H Calcium 8.8 Whole Bld Vitamin B1 Vitamin B12 405 Miscellaneous Cytology SEE PATHOLOGY REPORT 04/29/18 12:55 Sodium Potassium Chloride Carbon Dioxide Anion Gap BUN Creatinine Estim Creat Clear Calc Est GFR (MDRD) Af Amer Est GFR (MDRD) Non-Af BUN/Creatinine Ratio Glucose Calcium Whole Bld Vitamin B1 Pending Vitamin B12 Miscellaneous Cytology Clinical Impression(s) from Imaging Studies Brain CT 04/22/18 18:09 IMPRESSION: 1. No acute intracranial or calvarial abnormality. There is no interval change when compared to prior study. 2. Left sphenoid sinusitis. Electronically Signed: Gaurang Tom DO at 18:59 EST Tel [phone], Service support , Chest X-Ray 04/23/18 08:00 IMPRESSION: Mild increased markings at the left lung base suggestive of atelectasis. Electronically Signed: Shawn Sheffield MD at 8:26 EST Tel [phone], Service support , Brain MRI 04/23/18 10:41 IMPRESSION: 1. Involutional changes of the brain, as described above. 2. Symmetrical abnormal signal within bilateral medial temporal lobes. Differential considerations include sequela of herpes infection. 3. Abnormal signal in the posterior occipital lobes may be the result of previous PRES. 4. No MR evidence for acute infarct. Electronically Signed: Felicia Moore MD at 0:01 EST , Service support , Lumbar Puncture Fluoroscopy 04/24/18 08:22 IMPRESSION: Successful fluoroscopic-guided lumbar puncture. Electronically Signed: Shawn Sheffield MD at 13:03 EST , Service support , Assessment/Plan All Active Problems Altered mental status, unspecified (Acute) Sphenoid sinusitis (Acute) Hypokalemia (Resolved) ARF (acute renal failure) (Acute) 1. Acute on CKD stage 3 with creatinine 1.22 to 1.46 during current hospitalization. Will hold on NSAIDs, start gentle hydration. Watch for crystal induced nephropathy from acyclovir. Maintain hydration. Check renal US. UA without protein or blood suspect nephrosclerosis. Avoid NSAIDS. Check renal US. 2. Hx HTN stable BP off medications. Hx adverse rxn from antihypertensive in 2017. Will obtain [facility] records. 3. PRES, AMS with possible herpetic encephalopathy, possible seizures on antisz meds managed by neurology. Currently on acyclovir. May need to renal dose acyclovir or discontinue if renal fxn worsens. ID consulted 4. Sphenoid sinusitis, frontal and temporal headaches. Started on topamax 5. Hx alcohol use, states quit 6 months ago. 6. hx gout 7. Hypokalemia replaced. DW hospitalist
--- NOTE | 2018-04-29 18:19 | CON.PCM_ITS ---
Consultation - Renal 04/29/18 PCP/ Referring MD: Requesting physician: Dr Cleveland Primary care physician: Aiden Car MD Reason for Consultation:: Acute on CKD stage 3 - History of Present Illness History of Present Illness: 47 yo F with PMH for HTN, PRES diagnosed in June 2016, seizure disorder, CKD stage3, ETOH abuse last drink about 6 months ago, admitted with AMS, worsening confusion, ENRIQUEZ and visual hallucinations. MRI brain reported symmetrical abnormal signal within bilateral medial temporal lobes. She was started on acyclovir for possible herpes encephalitis. Abnormal signal in the posterior occipital lobes may be the result of previous PRES. Her states she has been experiencing flashing lights with fogginess of her thought process following a seizure episode. Pt complains of expressive aphasia. She has been having some baseline cognitive issues and memory issues since she was diagnosed with PRES. She expressed frustration from these issues. She has a history of uncontrolled hypertension in the past. According to her , she was on a BP medication back in June 2016 that caused worsening renal function and was seen by a software engineer sales back then. He is unclear on the name of the medication. Creatinine was 1.22 increased to 1.46 today. She had mild renal dysfunction back in January 2018 ordered by her PCP from [facility]. She has been trying to increase her fluid intake. She has headaches with chronic sinus symptoms. She has frontal and temporal headaches. She has been on sudafed in the past and ibuprofen prn. She had personality changes where she becomes a gitated, angry at times noted by her spouse. Denied fever, chills, neck pain. - Allergies Allergies: Allergies allopurinol Allergy (Verified 04/22/18 17:29) Diarrhea amoxicillin Adverse Reaction (Verified 04/22/18 17:29) Other lactose Adverse Reaction (Verified 04/22/18 17:29) Diarrhea - Current Medications Current Medications: Current Medications Acetaminophen (Tylenol) 650 mg PO Q4H PRN PRN PRN Reason: mild pain/fever Last Admin: 04/28/18 17:22 Dose: 650 mg Aspirin (Aspirin, Baby) 81 mg PO DAILYCM [facility] Last Admin: 04/29/18 08:17 Dose: 81 mg Enoxaparin Sodium (Lovenox) 40 mg SC DAILY@1000 [facility] Last Admin: 04/29/18 08:18 Dose: 40 mg Folic Acid (Folic Acid) 1 mg PO DAILY@0800 [facility] Last Admin: 04/29/18 08:18 Dose: 1 mg Haloperidol Lactate (Haldol) 1 mg IV Q4H PRN PRN PRN Reason: AGITATION Last Admin: 04/25/18 20:21 Dose: 1 mg Hydroxyzine Pamoate (Vistaril Pamoate Capsule) 25 mg PO 4X/DAY PRN PRN PRN Reason: agitation/alcohol withdrawal Last Admin: 04/25/18 19:54 Dose: 25 mg Acyclovir Sodium 480 mg/ (Dextrose) 259.6 mls @ 259.6 mls/hr IV Q8 [facility] Last Admin: 04/29/18 15:02 Dose: 259.6 mls/hr Sodium Chloride () 1,000 mls @ 75 mls/hr IV .[id number] [facility] Ipratropium [place] (Atrovent Nasal [place] (G)) 2 spray NASAL TID [facility] Lacosamide (Vimpat) 100 mg PO BID [facility] Last Admin: 04/29/18 09:13 Dose: 100 mg Levetiracetam (Keppra Tablet) 250 mg PO BID [facility] Stop: 05/01/18 10:01 Magnesium Hydroxide (Milk Of Magnesia) 30 ml PO DAILY PRN PRN Reason: Constipation Ondansetron HCl (Zofran) 4 mg IV Q8H PRN PRN PRN Reason: NAUSEA Pantoprazole Sodium (Protonix) 20 mg PO BID [facility] Last Admin: 04/29/18 08:18 Dose: 20 mg Phenytoin Sodium (Dilantin) 100 mg PO TIDCM [facility] Last Admin: 04/29/18 18:07 Dose: 100 mg Potassium Chloride (K-Dur) [facility] Last Admin: 04/29/18 08:18 Dose: 20 meq Promethazine HCl (Phenergan) 12.5 mg IV Q4H PRN PRN PRN Reason: AGITATION Senna/Docusate Sodium (Senokot-S, Lexi-Colace) 2 tablet PO BID PRN PRN PRN Reason: constipation Sodium Chloride () 5 - 15 ml IV UD PRN PRN Reason: SALINE FLUSH Last Admin: 04/28/18 08:02 Dose: 10 ml Thiamine HCl (Vitamin B1) 100 mg PO DAILY [facility] Last Admin: 04/29/18 08:22 Dose: 100 mg Topiramate (Topamax) 50 mg PO BID [facility] Last Admin: 04/29/18 08:18 Dose: 50 mg - Past Medical History Past Medical History (Chronic Problems): Chronic Problems PRES (posterior reversible encephalopathy syndrome) (Chronic) Gout (Chronic) HTN (hypertension) (Chronic) - Past Surgical History Surgical History: - - c sections - Social History Marital Status: Smoking Status: Never smoker - Family History Maternal History Items: Diabetes Paternal History Items: Diabetes, - - cabg Review of Systems Constitutional: Denies: Anorexia, Chills, Fever, Weakness, Fatigue Eyes: Denies: Blurred vision, Vision Change HEENT: Reports: Head Aches - frontal, temporal Cardiovascular: Denies: Chest Pain, Edema Patient Problems: Active and Suspected Problems Altered mental status, unspecified (Acute) Sphenoid sinusitis (Acute) - Physical Exam General: Alert, Oriented x3, Cooperative, No apparent distress HEENT: PERRLA, EOMI Oral: Dry Mucosa Neck: Supple Lungs: Clear to auscultation Cardiovascular: Regular rate Abdomen: Bowel Sounds Present, Soft, Non Tender, Non-Distended Extremities: No edema Skin: No rashes Neurological: Cranial nerves II-XII grossly intact Psych/Mental Status: Normal Affect, Appropriate, Alert and oriented to time, place, person, mood and affect Vital Signs Temp Pulse Resp BP Pulse Ox 98.3 F 107 H 14 121/84 H 97 04/29/18 15:00 04/29/18 15:00 04/29/18 15:00 04/29/18 15:00 04/29/18 15:00 Oxygen Flow Rate (L/min) 2 Oxygen Delivery Method Room Air Weight: 75 kg Body Mass Index (BMI) 31.2 Finger Stick Blood Glucose 114 Intake and Output for Last 24 Hours 04/27/18 04/28/18 04/29/18 23:59 23:59 23:59 Intake Total 2548 / 2548 1332 / 1332 1550 / 1550 Balance 2548 / 2548 1332 / 1332 1550 / 1550 Microbiology Past 72 Hours 04/24/18 11:20 Gram Stain - Final Csf, Spinal Fluid CSF Culture - Final No growth in 72 hours. Laboratory Tests Past 24 Hrs 04/24/18 04/29/18 04/29/18 11:20 05:45 05:46 Sodium 141 Potassium 3.6 Chloride 113 H Carbon Dioxide 18.0 L Anion Gap 10 BUN 12 Creatinine 1.46 H Estim Creat Clear Calc 35.17 Est GFR (MDRD) Af Amer 49 L Est GFR (MDRD) Non-Af 40 L BUN/Creatinine Ratio 8.2 L Glucose 136 H Calcium 8.8 Whole Bld Vitamin B1 Vitamin B12 405 Miscellaneous Cytology SEE PATHOLOGY REPORT 04/29/18 12:55 Sodium Potassium Chloride Carbon Dioxide Anion Gap BUN Creatinine Estim Creat Clear Calc Est GFR (MDRD) Af Amer Est GFR (MDRD) Non-Af BUN/Creatinine Ratio Glucose Calcium Whole Bld Vitamin B1 Pending Vitamin B12 Miscellaneous Cytology Clinical Impression(s) from Imaging Studies Brain CT 04/22/18 18:09 IMPRESSION: 1. No acute intracranial or calvarial abnormality. There is no interval change when compared to prior study. 2. Left sphenoid sinusitis. Electronically Signed: Gaurang Tom DO at 18:59 EST Tel [phone], Service support , Chest X-Ray 04/23/18 08:00 IMPRESSION: Mild increased markings at the left lung base suggestive of atelectasis. Electronically Signed: Shawn Sheffield MD at 8:26 EST Tel [phone], Service support , Brain MRI 04/23/18 10:41 IMPRESSION: 1. Involutional changes of the brain, as described above. 2. Symmetrical abnormal signal within bilateral medial temporal lobes. Differential considerations include sequela of herpes infection. 3. Abnormal signal in the posterior occipital lobes may be the result of previous PRES. 4. No MR evidence for acute infarct. Electronically Signed: Felicia Moore MD at 0:01 EST , Service support , Lumbar Puncture Fluoroscopy 04/24/18 08:22 IMPRESSION: Successful fluoroscopic-guided lumbar puncture. Electronically Signed: Shawn Sheffield MD at 13:03 EST , Service support , Assessment/Plan All Active Problems Altered mental status, unspecified (Acute) Sphenoid sinusitis (Acute) Hypokalemia (Resolved) ARF (acute renal failure) (Acute) 1. Acute on CKD stage 3 with creatinine 1.22 to 1.46 during current hospitalization. Will hold on NSAIDs, start gentle hydration. Watch for crystal induced nephropathy from acyclovir. Maintain hydration. Check renal US. UA without protein or blood suspect nephrosclerosis. Avoid NSAIDS. Check renal US. 2. Hx HTN stable BP off medications. Hx adverse rxn from antihypertensive in 2017. Will obtain [facility] records. 3. PRES, AMS with possible herpetic encephalopathy, possible seizures on antisz meds managed by neurology. Currently on acyclovir. May need to renal dose acyclovir or discontinue if renal fxn worsens. ID consulted 4. Sphenoid sinusitis, frontal and temporal headaches. Started on topamax 5. Hx alcohol use, states quit 6 months ago. 6. hx gout 7. Hypokalemia replaced. DW hospitalist
[2018-04-29] MEDS: 0.9% Normal Saline 1,000 ML 75 ML IV (18:30)
[2018-04-29] MEDS: Ipratropium Bromide 0.06% NASAL SPRAY 2 SPRAY NASAL (21:01)
[2018-04-29] MEDS: Acetaminophen 325 MG Tablet 650 MG PO (21:02)
[2018-04-29] MEDS: Ondansetron 4 MG/2 ML Vial IV (21:03)
[2018-04-29] MEDS: levETIRAcetam 250 MG Tablet PO (21:06)
[2018-04-30] VITALS (7 sets, daily range): BP systolic 95–130; BP diastolic 60–81; PULSE 69–90; RESP 16–18; TEMP 36.6–36.8; O2SAT 99–100
[2018-04-30] MEDS: Ipratropium Bromide 0.06% NASAL SPRAY 2 SPRAY NASAL ×2 (05:00→22:27)
--- NOTE | 2018-04-30 05:55 | US_ITS ---
STUDY: RENAL ULTRASOUND - COMPLETE REASON FOR EXAM: Female, 47 years old. Chronic kidney disease. TECHNIQUE: Ultrasound evaluation of the kidneys was performed with real-time and static joshi-scale imaging. COMPARISON: None. FINDINGS: RIGHT KIDNEY: Normal location of the right kidney, which is normal in size. The right kidney measures 9.7 cm x 4.6 cm x 4.3 cm. There is a normal cortex of the right kidney. The renal cortex measures 1.1 cm. There is no right renal mass or cyst. There are no right renal calculi. There is no right hydronephrosis. DISTAL RIGHT URETER: There is non-visualization of the distal right ureter. There is no demonstrated right ureterovesical junction calculus. There is a visualized right ureteral jet. LEFT KIDNEY: Normal location of the left kidney, which is normal in size. The left kidney measures 9.4 cm x 4.8 x 4.9 cm. There is a normal cortex of the left kidney. The renal cortex measures 1.6 cm. There is no left renal mass or cyst. There are no left renal calculi. There is no left hydronephrosis. DISTAL LEFT URETER: There is non-visualization of the distal left ureter. There is no demonstrated left ureterovesical junction calculus. There is a visualized left ureteral jet. BLADDER: The distended urinary bladder has a volume of 48.5 ml. There is a normal wall thickness of the distended urinary bladder. There is no demonstrated mass within the urinary bladder. There are no demonstrated bladder calculi. US/Kidney and Bladder IMPRESSION: Normal ultrasound of the kidneys and urinary bladder. Electronically Signed: Shawn Sheffield MD at 12:15 EST , Service support ,
--- NOTE | 2018-04-30 06:22 | NURSING ---
HSV I & II RESULTS DISCUSSED W/LAB. PER LILA HUANG'S SYSTEM SHOWS PRELIMINARY RESULTS ARE NEGATIVE.
[2018-04-30 06:32] LABS: Anion Gap 12 (5-15); BUN 17 mg/dL (7-18); CRP < 2.90 mg/L (0.0-3.0); Calcium,Total 8.5 mg/dL (8.5-10.1); Chloride 112 mmol/L (98-107); Creatinine, Serum 1.55 mg/dL (0.55-1.02); EST Glomerular Filtration Rate 38 mL/min (>60); Est Glom Filt Rate - Afr Amer 46 mL/min (>60); Estimated Creatinine Clearance 33.13 ml/min; Glucose 118 mg/dL (74-106); Magnesium 2.4 mg/dL (1.6-2.6); Phosphorus 3.6 mg/dL (2.5-4.9); Potassium 3.7 mmol/L (3.5-5.1); Sodium Level 143 mmol/L (136-145)
[2018-04-30 06:41] LABS: Erythrocyte Sedimentation Rate 15 mm/hr (0-20)
--- NOTE | 2018-04-30 06:59 | PCM.PROGNOTE ---
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 Afebrile since admission Vital signs are stable. Pulse ox is 97-99% on room air. All lab was personally reviewed. Creatinine is increased to 1.55 today with a BUN of 17. She continues to have a mild metabolic acidosis with a serum bicarb of 19. CRP is less than 2.9 and the ESR is 15. HSV serology is still pending. CSF VZV DNA is still pending. Consult has been ordered with Dr. Duarte for today regarding possibility of herpes encephalitis and continued need for acyclovir. Discussed discharge plan with the director social service and the patient was able to ambulate 1200 feet with physical therapy and 400 feet with occupational therapy. She does not meet need for SNF for rehab. She requires intermediate care. Will be seen by behavioral health today regarding depression and alcohol dependence. No seizure activity noted. No complaints today. remains confused and disoriented........does not know why she is here at the hospital enough we discussed this at length yesterday. I do not think she is hallucinating any longer and she is pleasant and cooperative. Objective: GENERAL: alert, disoriented, Cooperative, NAD, forgetful, can not tell me why she is in the hospital ORAL: moist mucosa, no mucosal lesions NECK: No JVD, supple, trachea midline, no nuchal rigidity, no cervical or supraclavicular adenopathy LUNGS: CTA, symmetric chest expansion HEART: RRR, Normal S1 and S2, no rub, no gallop ABDOMEN: soft, NT, ND, BS present, no guarding with palpation EXTREMITIES: no edema, no cyanosis, no calf tenderness SKIN: No rashes, no breakdown NEUROLOGIC: no focal neurologic deficits PSYCH: appropriate, normal affect, pleasant - Physical Exam Vital Signs Temp Pulse Resp BP Pulse Ox 98 F 82 18 95/60 99 04/30/18 02:54 04/30/18 03:00 04/30/18 02:54 04/30/18 02:54 04/30/18 02:54 Oxygen Flow Rate (L/min) 2 Oxygen Delivery Method Room Air Weight: 165 lb 5.547 oz Body Mass Index (BMI) 31.2 Finger Stick Blood Glucose 114 Intake and Output for Last 24 Hours 04/28/18 04/29/18 04/30/18 23:59 23:59 23:59 Intake Total 1332 / 1332 1550 / 1550 1095 / 1095 Balance 1332 / 1332 1550 / 1550 1095 / 1095 Microbiology Past 72 Hours 04/24/18 11:20 Gram Stain - Final Csf, Spinal Fluid CSF Culture - Final No growth in 72 hours. Laboratory Tests Past 24 Hrs 04/24/18 04/29/18 04/29/18 11:20 05:46 12:55 ESR Sodium Potassium Chloride Carbon Dioxide Anion Gap BUN Creatinine Estim Creat Clear Calc Est GFR (MDRD) Af Amer Est GFR (MDRD) Non-Af BUN/Creatinine Ratio Glucose Calcium Phosphorus Magnesium C-React Prot Ext Range Whole Bld Vitamin B1 Pending Vitamin B12 405 Miscellaneous Cytology SEE PATHOLOGY REPORT 04/30/18 04/30/18 05:35 05:35 ESR 15 Sodium 143 Potassium 3.7 Chloride 112 H Carbon Dioxide 19.0 L Anion Gap 12 BUN 17 Creatinine 1.55 H Estim Creat Clear Calc 33.13 Est GFR (MDRD) Af Amer 46 L Est GFR (MDRD) Non-Af 38 L BUN/Creatinine Ratio 11.0 Glucose 118 H Calcium 8.5 Phosphorus 3.6 Magnesium 2.4 C-React Prot Ext Range < 2.90 Whole Bld Vitamin B1 Vitamin B12 Miscellaneous Cytology Medical Necessity - Tobacco Use Smoking Status: Never smoker Assessment/Plan All Active Problems Altered mental status, unspecified (Acute) Sphenoid sinusitis (Acute) Hypokalemia (Resolved) ARF (acute renal failure) (Acute) Impressions 1. Acute encephalopathy-possibly secondary to herpes encephalitis +/- seizure disorder 2. 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 She has improved since admission. She was seen by Dr. Duarte today and he recommends continuing the acyclovir until the serology is back. Dose was decreased today due to the increasing creat 3. Hx of PRES in 2017 with persistent mental staus changes - now on disability and with seizure disorder likely due to scarring from PRES - follows with neuro at [facility] 4. HTN 5. hx of alcoholism - there is also a strong FH 6. suspected depression - due to dramatic change in her life since having PRES in 2017 7. Hypokalemia 8. Hypomagnesemia 9. Chronic renal failure stage III - creat is increasing. US of the kidneys and bladder is normal 10. Metabolic acidosis-possibly secondary to chronic renal failure Continue the Acyclovir Discussed with Dr. Martin and also with Dr. Duarte CSF cytology is negative for malignant cells No seizures UA unremarkable today IV increased to 100 cc/hr Recheck the lab in the AM Code Visit Inpatient E&M: [id number] Subs Hosp L2
--- NOTE | 2018-04-30 07:03 | PN_ITS ---
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 Afebrile since admission Vital signs are stable. Pulse ox is 97-99% on room air. All lab was personally reviewed. Creatinine is increased to 1.55 today with a BUN of 17. She continues to have a mild metabolic acidosis with a serum bicarb of 19. CRP is less than 2.9 and the ESR is 15. HSV serology is still pending. CSF VZV DNA is still pending. Consult has been ordered with Dr. Duarte for today regarding possibility of herpes encephalitis and continued need for acyclovir. Discussed discharge plan with the social worker psychiatric and the patient was able to ambulate 1200 feet with physical therapy and 400 feet with occupational therapy. She does not meet need for SNF for rehab. She requires senior living care. Will be seen by behavioral health today regarding depression and alcohol dependence. No seizure activity noted. No complaints today. remains confused and disoriented........does not know why she is here at the hospital enough we discussed this at length yesterday. I do not think she is hallucinating any longer and she is pleasant and cooperative. Objective: GENERAL: alert, disoriented, Cooperative, NAD, forgetful, can not tell me why she is in the hospital ORAL: moist mucosa, no mucosal lesions NECK: No JVD, supple, trachea midline, no nuchal rigidity, no cervical or supraclavicular adenopathy LUNGS: CTA, symmetric chest expansion HEART: RRR, Normal S1 and S2, no rub, no gallop ABDOMEN: soft, NT, ND, BS present, no guarding with palpation EXTREMITIES: no edema, no cyanosis, no calf tenderness SKIN: No rashes, no breakdown NEUROLOGIC: no focal neurologic deficits PSYCH: appropriate, normal affect, pleasant - Physical Exam Vital Signs Temp Pulse Resp BP Pulse Ox 98 F 82 18 95/60 99 04/30/18 02:54 04/30/18 03:00 04/30/18 02:54 04/30/18 02:54 04/30/18 02:54 Oxygen Flow Rate (L/min) 2 Oxygen Delivery Method Room Air Weight: 165 lb 5.547 oz Body Mass Index (BMI) 31.2 Finger Stick Blood Glucose 114 Intake and Output for Last 24 Hours 04/28/18 04/29/18 04/30/18 23:59 23:59 23:59 Intake Total 1332 / 1332 1550 / 1550 1095 / 1095 Balance 1332 / 1332 1550 / 1550 1095 / 1095 Microbiology Past 72 Hours 04/24/18 11:20 Gram Stain - Final Csf, Spinal Fluid CSF Culture - Final No growth in 72 hours. Laboratory Tests Past 24 Hrs 04/24/18 04/29/18 04/29/18 11:20 05:46 12:55 ESR Sodium Potassium Chloride Carbon Dioxide Anion Gap BUN Creatinine Estim Creat Clear Calc Est GFR (MDRD) Af Amer Est GFR (MDRD) Non-Af BUN/Creatinine Ratio Glucose Calcium Phosphorus Magnesium C-React Prot Ext Range Whole Bld Vitamin B1 Pending Vitamin B12 405 Miscellaneous Cytology SEE PATHOLOGY REPORT 04/30/18 04/30/18 05:35 05:35 ESR 15 Sodium 143 Potassium 3.7 Chloride 112 H Carbon Dioxide 19.0 L Anion Gap 12 BUN 17 Creatinine 1.55 H Estim Creat Clear Calc 33.13 Est GFR (MDRD) Af Amer 46 L Est GFR (MDRD) Non-Af 38 L BUN/Creatinine Ratio 11.0 Glucose 118 H Calcium 8.5 Phosphorus 3.6 Magnesium 2.4 C-React Prot Ext Range < 2.90 Whole Bld Vitamin B1 Vitamin B12 Miscellaneous Cytology Medical Necessity - Tobacco Use Smoking Status: Never smoker Assessment/Plan All Active Problems Altered mental status, unspecified (Acute) Sphenoid sinusitis (Acute) Hypokalemia (Resolved) ARF (acute renal failure) (Acute) Impressions 1. Acute encephalopathy-possibly secondary to herpes encephalitis +/- seizure disorder 2. 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 She has improved since admission. She was seen by Dr. Duarte today and he recommends continuing the acyclovir until the serology is back. Dose was decreased today due to the increasing creat 3. Hx of PRES in 2017 with persistent mental staus changes - now on disability and with seizure disorder likely due to scarring from PRES - follows with neuro at [facility] 4. HTN 5. hx of alcoholism - there is also a strong FH 6. suspected depression - due to dramatic change in her life since having PRES in 2017 7. Hypokalemia 8. Hypomagnesemia 9. Chronic renal failure stage III - creat is increasing. US of the kidneys and bladder is normal 10. Metabolic acidosis-possibly secondary to chronic renal failure Continue the Acyclovir Discussed with Dr. Martin and also with Dr. Duarte CSF cytology is negative for malignant cells No seizures UA unremarkable today IV increased to 100 cc/hr Recheck the lab in the AM Code Visit Inpatient E&M: [id number] Subs Hosp L2
--- NOTE | 2018-04-30 07:16 | PCM.PN.REN ---
Patient Problems: Active and Suspected Problems Altered mental status, unspecified (Acute) Sphenoid sinusitis (Acute) Subjective: reviewed old records from [facility] and [facility]. Has been on lisinopril switched to losartan due to ACEI cough and was on HCTZ in 2017 for hypertension. All antihypertensive meds discontinued now. Creatinine increased to 1.55 today. Creatinine has been at 1.6 in January 2018 at [facility]. Pt spouse at bedside. States stopped drinking Apr 06 2018, not 6 months ago as pt stated earlier. Confusion state chronic, back to baseline mental status. IV fluids on hold. Discussed with nursing to resume. Poor oral intake. - Physical Exam General: Alert, Confused, Disoriented Oral: Dry Mucosa Vital Signs Temp Pulse Resp BP Pulse Ox 98 F 82 18 95/60 99 04/30/18 02:54 04/30/18 03:00 04/30/18 02:54 04/30/18 02:54 04/30/18 02:54 Oxygen Flow Rate (L/min) 2 Oxygen Delivery Method Room Air Weight: 75 kg Body Mass Index (BMI) 31.2 Finger Stick Blood Glucose 114 Intake and Output for Last 24 Hours 04/28/18 04/29/18 04/30/18 23:59 23:59 23:59 Intake Total 1332 / 1332 1550 / 1550 1095 / 1095 Balance 1332 / 1332 1550 / 1550 1095 / 1095 Microbiology Past 72 Hours 04/24/18 11:20 Gram Stain - Final Csf, Spinal Fluid CSF Culture - Final No growth in 72 hours. Laboratory Tests Past 24 Hrs 04/24/18 04/29/18 04/29/18 11:20 05:46 12:55 ESR Sodium Potassium Chloride Carbon Dioxide Anion Gap BUN Creatinine Estim Creat Clear Calc Est GFR (MDRD) Af Amer Est GFR (MDRD) Non-Af BUN/Creatinine Ratio Glucose Calcium Phosphorus Magnesium C-React Prot Ext Range Whole Bld Vitamin B1 Pending Vitamin B12 405 Miscellaneous Cytology SEE PATHOLOGY REPORT 04/30/18 04/30/18 05:35 05:35 ESR 15 Sodium 143 Potassium 3.7 Chloride 112 H Carbon Dioxide 19.0 L Anion Gap 12 BUN 17 Creatinine 1.55 H Estim Creat Clear Calc 33.13 Est GFR (MDRD) Af Amer 46 L Est GFR (MDRD) Non-Af 38 L BUN/Creatinine Ratio 11.0 Glucose 118 H Calcium 8.5 Phosphorus 3.6 Magnesium 2.4 C-React Prot Ext Range < 2.90 Whole Bld Vitamin B1 Vitamin B12 Miscellaneous Cytology Medical Necessity - Tobacco Use Smoking Status: Never smoker Assessment/Plan All Active Problems Altered mental status, unspecified (Acute) Sphenoid sinusitis (Acute) Hypokalemia (Resolved) ARF (acute renal failure) (Acute) 1. Acute on CKD stage 3 with creatinine rising to 1.55 today. Increase iv fluid rate. Decrease acyclovir. NSAID discontinued. Await renal US. Repeat UA to evaluate for crystal induced nephropathy 2. Hx HTN low BP off medications. Hx adverse rxn from antihypertensive in 2017 with lisinopril, losartan, hctz upon review of old records. Fluid resuscitate as needed 3. PRES, AMS with possible herpetic encephalopathy, possible seizures on antisz meds managed by neurology. Currently on acyclovir. May need to discontinue. renal dose acyclovir for now. ID consulted 4. Sphenoid sinusitis, frontal and temporal headaches. Started on topamax 5. Hx alcohol use, states quit Apr 06 2018 per pt spouse. Hx DT's with tachycardia, hypertension. 6. hx gout check uric acid level 7. Hypokalemia replaced. DW hospitalist
--- NOTE | 2018-04-30 07:19 | PN.RENAL_ITS ---
Patient Problems: Active and Suspected Problems Altered mental status, unspecified (Acute) Sphenoid sinusitis (Acute) Subjective: reviewed old records from [facility] and [facility]. Has been on lisinopril switched to losartan due to ACEI cough and was on HCTZ in 2017 for hypertension. All antihypertensive meds discontinued now. Creatinine increased to 1.55 today. Creatinine has been at 1.6 in January 2018 at [facility]. Pt spouse at bedside. States stopped drinking Apr 06 2018, not 6 months ago as pt stated earlier. Confusion state chronic, back to baseline mental status. IV fluids on hold. Discussed with nursing to resume. Poor oral intake. - Physical Exam General: Alert, Confused, Disoriented Oral: Dry Mucosa Vital Signs Temp Pulse Resp BP Pulse Ox 98 F 82 18 95/60 99 04/30/18 02:54 04/30/18 03:00 04/30/18 02:54 04/30/18 02:54 04/30/18 02:54 Oxygen Flow Rate (L/min) 2 Oxygen Delivery Method Room Air Weight: 75 kg Body Mass Index (BMI) 31.2 Finger Stick Blood Glucose 114 Intake and Output for Last 24 Hours 04/28/18 04/29/18 04/30/18 23:59 23:59 23:59 Intake Total 1332 / 1332 1550 / 1550 1095 / 1095 Balance 1332 / 1332 1550 / 1550 1095 / 1095 Microbiology Past 72 Hours 04/24/18 11:20 Gram Stain - Final Csf, Spinal Fluid CSF Culture - Final No growth in 72 hours. Laboratory Tests Past 24 Hrs 04/24/18 04/29/18 04/29/18 11:20 05:46 12:55 ESR Sodium Potassium Chloride Carbon Dioxide Anion Gap BUN Creatinine Estim Creat Clear Calc Est GFR (MDRD) Af Amer Est GFR (MDRD) Non-Af BUN/Creatinine Ratio Glucose Calcium Phosphorus Magnesium C-React Prot Ext Range Whole Bld Vitamin B1 Pending Vitamin B12 405 Miscellaneous Cytology SEE PATHOLOGY REPORT 04/30/18 04/30/18 05:35 05:35 ESR 15 Sodium 143 Potassium 3.7 Chloride 112 H Carbon Dioxide 19.0 L Anion Gap 12 BUN 17 Creatinine 1.55 H Estim Creat Clear Calc 33.13 Est GFR (MDRD) Af Amer 46 L Est GFR (MDRD) Non-Af 38 L BUN/Creatinine Ratio 11.0 Glucose 118 H Calcium 8.5 Phosphorus 3.6 Magnesium 2.4 C-React Prot Ext Range < 2.90 Whole Bld Vitamin B1 Vitamin B12 Miscellaneous Cytology Medical Necessity - Tobacco Use Smoking Status: Never smoker Assessment/Plan All Active Problems Altered mental status, unspecified (Acute) Sphenoid sinusitis (Acute) Hypokalemia (Resolved) ARF (acute renal failure) (Acute) 1. Acute on CKD stage 3 with creatinine rising to 1.55 today. Increase iv fluid rate. Decrease acyclovir. NSAID discontinued. Await renal US. Repeat UA to evaluate for crystal induced nephropathy 2. Hx HTN low BP off medications. Hx adverse rxn from antihypertensive in 2017 with lisinopril, losartan, hctz upon review of old records. Fluid resuscitate as needed 3. PRES, AMS with possible herpetic encephalopathy, possible seizures on antisz meds managed by neurology. Currently on acyclovir. May need to discontinue. renal dose acyclovir for now. ID consulted 4. Sphenoid sinusitis, frontal and temporal headaches. Started on topamax 5. Hx alcohol use, states quit Apr 06 2018 per pt spouse. Hx DT's with tachycardia, hypertension. 6. hx gout check uric acid level 7. Hypokalemia replaced. DW hospitalist
--- NOTE | 2018-04-30 08:02 | CASEMGMT ---
Call to [facility] per Dr. Cleveland's referral and message left for both at this time. Myles SENIOR CM
[2018-04-30] MEDS: 0.9% Normal Saline 1,000 ML 100 ML IV ×2 (09:48→18:20)
[2018-04-30] MEDS: Aspirin 81 MG TAB.CHEW PO (09:48)
[2018-04-30] MEDS: Folic Acid 1 MG Tablet PO (09:48)
[2018-04-30] MEDS: Phenytoin Na 100 MG Capsule PO ×3 (09:48→16:12)
[2018-04-30] MEDS: levETIRAcetam 250 MG Tablet PO ×2 (09:49→22:27)
[2018-04-30] MEDS: Enoxaparin 40 MG/0.4 ML Syringe SC (09:49)
[2018-04-30] MEDS: Topiramate 25 MG Tablet 50 MG PO ×2 (09:49→22:27)
[2018-04-30] MEDS: Pantoprazole Sodium 20 MG Tablet PO ×2 (09:49→22:27)
[2018-04-30] MEDS: Lacosamide 100 MG Tablet PO ×2 (09:50→22:36)
[2018-04-30] MEDS: Febuxostat 40 MG TABLET PO (09:50)
[2018-04-30] MEDS: Thiamine Hydrochloride 100 MG Tablet PO (09:50)
--- NOTE | 2018-04-30 11:06 | BH.NOTE ---
: Inpatient Note - Notes Behavioral Health Inpatient Note: 04/30/18 11:06 Referral to [facility] due to depression and hx of trauma impacting daily functioning. Met with pt and her . provided a majority of information regarding pt's history as currently pt reports being confused and foggy. She does not recall the events leading to her admission or a majority of events previous to admission. When asked about her daily routine pt became tearful stating I don't know. Alert to person and place however could not recall the date or year. reports that previous to admission and memory issues he had encouraged pt to seek counseling for depression however she refused. Due to pt's current mental state it was difficult to gain much insight into the effects of depressive symptoms. Discussed case with [facility] social media sr strategy manager Kirti. Will call if pt's mental status improves.
--- NOTE | 2018-04-30 12:52 | NEWVISION ---
I met with this patient per request by Kirti, Billing And Quality Technician. I provided patient with local alcoholics anonymous meetings as well as local resources for inpatient and outpatient services. Patient was not interested in hospital facilitating referral at this time. I let the patient know to contact me if she would like more information or if she has any questions.
--- NOTE | 2018-04-30 14:09 | CON.PCM_ITS ---
Problem List (1) Altered mental status, unspecified Status: Acute Reason for Consult: abnormal csf Consulted by: Dr. Cleveland History of Present Illness: The patient is a 47 year old F with h/o PRES and seizure who presented with a sudden onset of another spell while at the grocery store, associated with staring down at the floor, conversation with people who weren't there. Stopped drinking earlier in the month with prior heavy daily use. No fever, no oral ulcers, no h/o cold sores/herpes/shingles. Had some associated headache, ongoing confusion. Came to ED, LP done, started on acyclovir. Per , mental status has been steadily/slowly improving. Full ROS performed and neg except as noted above. - Medical History Past Medical History (Chronic Problems): Chronic Problems PRES (posterior reversible encephalopathy syndrome) (Chronic) Gout (Chronic) HTN (hypertension) (Chronic) Allergies/Adverse Reactions: Allergies allopurinol Allergy (Verified 04/22/18 17:29) Diarrhea amoxicillin Adverse Reaction (Verified 04/22/18 17:29) Other lactose Adverse Reaction (Verified 04/22/18 17:29) Diarrhea Home Medications: Ambulatory Orders Medication Instructions Recorded Pantoprazole Sodium [Protonix] 20 mg PO DAILY 06/29/16 Febuxostat [Uloric] 40 mg PO DAILY 07/08/16 Aspirin 81 mg PO DAILY 09/20/16 Citalopram Hydrobromide [Celexa] 60 mg PO DAILY 09/20/16 Clonazepam [Klonopin] 0.25 mg PO QHS 09/20/16 Folic Acid 1 mg PO DAILY@0800 09/20/16 Lacosamide [Vimpat] 100 mg PO BID 09/20/16 Levetiracetam [Levetiracetam ER] 500 mg PO BID 09/20/16 [place]-3 Fatty Acids/Fish Oil [Fish 1 each PO DAILY 09/20/16 Oil 1,000 mg Capsule] Thiamine HCl [B-1] 100 mg PO DAILY 09/20/16 Zonisamide [Zonegran] 300 mg PO QHS 02/07/17 - Social History Tobacco Use: non-smoker Vital Signs Temp Pulse Resp BP Pulse Ox 98.0 F 77 16 126/81 H 100 04/30/18 10:00 04/30/18 11:00 04/30/18 10:00 04/30/18 10:00 04/30/18 10:00 Oxygen Flow Rate (L/min) 2 Oxygen Delivery Method Room Air Weight: 75 kg Body Mass Index (BMI) 31.2 Finger Stick Blood Glucose 114 Laboratory Tests Past 24 Hrs 04/24/18 04/29/18 04/30/18 11:20 12:55 05:35 ESR Sodium 143 Potassium 3.7 Chloride 112 H Carbon Dioxide 19.0 L Anion Gap 12 BUN 17 Creatinine 1.55 H Estim Creat Clear Calc 33.13 Est GFR (MDRD) Af Amer 46 L Est GFR (MDRD) Non-Af 38 L BUN/Creatinine Ratio 11.0 Glucose 118 H Calcium 8.5 Phosphorus 3.6 Magnesium 2.4 C-React Prot Ext Range < 2.90 Miscellaneous Cytology SEE PATHOLOGY REPORT Miscellaneous Test Pending 04/30/18 05:35 ESR 15 Sodium Potassium Chloride Carbon Dioxide Anion Gap BUN Creatinine Estim Creat Clear Calc Est GFR (MDRD) Af Amer Est GFR (MDRD) Non-Af BUN/Creatinine Ratio Glucose Calcium Phosphorus Magnesium C-React Prot Ext Range Miscellaneous Cytology Miscellaneous Test - Other Studies Radiology: [] Other Studies: [] Route of nutrition/ use of supplements: [] Nutritional Intake: [] IV Site: [] Shelby Catheter: [] - Assessment/Plan Antibiotics: [] Assessment/Plan: [] Active and Suspected Problems Altered mental status, unspecified (Acute) Sphenoid sinusitis (Acute) aseptic meningitis - csf with 27 wbc. MRI with bitemporal enhancement co ncerning for hsv. HSV and VZV pcr pending. Continue acyclovir; dose was reduced due to RYAN on CKD. Typically try to give at q8h if GFR is over 25. Mental status improving. Neuro and renal following. D/w primary team, will follow, thank you.
[2018-04-30 14:36] LABS: Bacteria 0 SEEN /hpf (None Seen); Mucous, Urine 0 SEEN /hpf (<or=2+); White Blood Cells 0 SEEN /hpf (0-5)
[2018-04-30 14:37] LABS: Color, Urine Straw (Yellow); Glucose, Dipstick Normal (Normal); Ketone-Dipstick Negative (Negative); Leukocyte Esterase-Dipstick Negative /ul (Negative); Nitrite-Dipstick Negative (Negative); Occult Blood-Urine 25 /ul (Negative); Protein-Dipstick Negative (Negative); Specific Gravity, Urine 1.005 (1.002-1.030); Urine Bilirubin Dipstick Negative (Negative); Urine Clarity Clear (Clear); Urine Urobilinogen Normal (Normal)
[2018-04-30 14:44] LABS: Red Blood Cells-Urine 0-5 SEEN /hpf (0-5); Squamous Epithelial Cells - UA 0-5 SEEN /hpf (5-10)
[2018-04-30 20:07] LABS: HSV 1 By PCR Negative (Negative)
[2018-05-01 03:20] VITALS: BP 112/66; PULSE 72; RESP 16; TEMP 37.1; O2SAT 98
[2018-05-01] MEDS: 0.9% Normal Saline 1,000 ML 100 ML IV (04:54)
[2018-05-01 06:50] LABS: Albumin, Serum 3.6 g/dL (3.2-5.0); BUN 12 mg/dL (7-18); BUN/Creat Ratio 8.7 RATIO (10-20); Calcium,Total 8.4 mg/dL (8.5-10.1); Chloride 116 mmol/L (98-107); Creatinine, Serum 1.38 mg/dL (0.55-1.02); EST Glomerular Filtration Rate 43 mL/min (>60); Est Glom Filt Rate - Afr Amer 52 mL/min (>60); Estimated Creatinine Clearance 37.21 ml/min; Glucose 88 mg/dL (74-106); Phosphorus 3.5 mg/dL (2.5-4.9); Potassium 4.5 mmol/L (3.5-5.1); Sodium Level 143 mmol/L (136-145)
[2018-05-01 09:05] VITALS: BP 109/69; PULSE 74; RESP 16; TEMP 36.7; O2SAT 98
[2018-05-01] MEDS: Febuxostat 40 MG TABLET PO (09:15)
[2018-05-01] MEDS: Thiamine Hydrochloride 100 MG Tablet PO (09:21)
[2018-05-01] MEDS: levETIRAcetam 250 MG Tablet PO (09:21)
[2018-05-01] MEDS: Lacosamide 100 MG Tablet PO (09:21)
[2018-05-01] MEDS: Phenytoin Na 100 MG Capsule PO ×2 (09:21→11:32)
[2018-05-01] MEDS: Folic Acid 1 MG Tablet PO (09:21)
[2018-05-01] MEDS: Aspirin 81 MG TAB.CHEW PO (09:21)
[2018-05-01] MEDS: Topiramate 25 MG Tablet 50 MG PO (09:21)
[2018-05-01] MEDS: Pantoprazole Sodium 20 MG Tablet PO (09:21)
[2018-05-01] MEDS: Enoxaparin 40 MG/0.4 ML Syringe SC (09:22)
[2018-05-01 10:14] LABS: HSV 2 By PCR Negative (Negative)
--- NOTE | 2018-05-01 10:52 | PCM.PN.ID ---
Patient Problems: Active and Suspected Problems Altered mental status, unspecified (Acute) Sphenoid sinusitis (Acute) Subjective: Feeling better, more alert, no fever. - Physical Exam General: Alert, - - oriented x2 Neck: Supple Lungs: Clear to auscultation, Normal air movement Cardiovascular: Regular rate, Regular Rhythm Abdomen: Soft, Non Tender, Non-Distended Skin: No rashes Vital Signs Temp Pulse Resp BP Pulse Ox 98.1 F 74 16 109/69 98 05/01/18 09:05 05/01/18 09:05 05/01/18 09:05 05/01/18 09:05 05/01/18 09:05 Oxygen Flow Rate (L/min) 2 Oxygen Delivery Method Room Air Weight: 75 kg Body Mass Index (BMI) 31.2 Finger Stick Blood Glucose 114 Intake and Output for Last 24 Hours 04/29/18 04/30/18 05/01/18 23:59 23:59 23:59 Intake Total 1550 / 1550 4404 / 4404 515 / 515 Output Total 2500 / 2500 Balance 1550 / 1550 1904 / 1904 515 / 515 Laboratory Tests Past 24 Hrs 04/24/18 04/30/18 05/01/18 11:20 11:30 05:50 Sodium 143 Potassium 4.5 Chloride 116 H Carbon Dioxide 20.0 L BUN 12 Creatinine 1.38 H Estim Creat Clear Calc 37.21 Est GFR (MDRD) Af Amer 52 L Est GFR (MDRD) Non-Af 43 L BUN/Creatinine Ratio 8.7 L Glucose 88 Calcium 8.4 L Phosphorus 3.5 Albumin 3.6 Urine Color Straw Urine Clarity Clear Urine pH 7.0 Ur Specific [place] 1.005 Urine Protein Negative Urine Glucose (UA) Normal Urine Ketones Negative Urine Occult Blood 25 H Urine Nitrite Negative Urine Bilirubin Negative Urine Urobilinogen Normal Ur Leukocyte Esterase Negative Urine RBC 0-5 SEEN Urine WBC 0 SEEN Ur Squamous Epith Cells 0-5 SEEN Urine Bacteria 0 SEEN Urine Mucus 0 SEEN CSF VZV DNA (PCR) HSV I DNA PCR Negative HSV II DNA PCR Negative Medical Necessity - Tobacco Use Smoking Status: Never smoker Route of nutrition/ use of supplements: [] Nutritional Intake: [] IV Site: [] Shelby Catheter: [] - Assessment/Plan Antibiotics: [] Assessment/Plan: [] Active and Suspected Problems Altered mental status, unspecified (Acute) Sphenoid sinusitis (Acute) aseptic meningitis - csf with 27 wbc. MRI with bitemporal enhancement concerning for hsv. HSV and VZV pcr pending. Continue acyclovir; Cr improved, so increase dose to q8h. Currently day 8 of antiviral therapy. Ok for her to go home on po valtrex 1gm bid for 4 more days. will follow
--- NOTE | 2018-05-01 13:26 | CASEMGMT ---
Per Marie RN, pt is more oriented today. This RN CM to room to speak with pt/ and answers all questions for this RN CM at this time. states no concerns with taking pt home at this time. states 'After her PRES, she was sent home way worse than this.' states no need for any resources at this time. aware that Dr. Cleveland will be in to discuss discharge/etc., voices understanding. Message left with Miguel at behavioral health that pt is more oriented and to be discharged today. Myles RN CM
--- NOTE | 2018-05-01 13:37 | PCM.DC ---
- Discharge Diagnoses Current Active Problems: Current Active and Chronic Problems Altered mental status, unspecified (Acute) Sphenoid sinusitis (Acute) You will use the following diet at home:: Other - Diet as tolerated Your food should be the consistency of: Regular Your liquids should be the consistency of: Regular/Thin Discharge Activity: May Not Drive, - - Gradually return to normal activity May resume sexual activity in: No Restrictions Call your doctor if you observe: Fever of 101 or Higher, Shortness of breath, Fainting spells, Chest pain, Calf discomfort, Uncontrolled pain, - - hallucinations Additional Instructions: 1. I think you had a viral infection infecting the brain and the covering of the brain calling the meninges. It is not due to herpes Simplex virus or Varicella Zoster Virus. There are so many viruses out there that we are unable to test for everything. You received a anti-viral medication in the hospital called acyclovir. This was started on April 24. You will be discharged on a different antiviral agent called Valtrex and you will take this twice a day until gone. 2. I think it would be an excellent idea to follow-up with counseling after he recovered from the acute illness to address depression and alcohol dependence. I would suggest following up at [facility]. Your life has been permanently changed due to the PRES syndrom in 2017 and the developement of a seizure disorder. You can not do the things you used to be able to do easily without thinking about it. You must relearn how to do some of the activities you enjoy and learn hhow to accept the disbilities you have now and move forward and enjoy the happy life you can still have. A therapist can help you wth this. 3. The seizure medications have changed in the hospital. I think it would be a good idea to follow up with Dr. Thakur in 4-6 weeks so that if you ever get readmitted to [facility] in the future we will have continuity with a neurologist at [place] who knows your history and can communicate with Dr. Dickens when you are in the hospital in [place]. 4. you will follow up with Dr. Martin in the office in 1 week to recheck the Kidney function.5. 5. Dr. Car will need to draw a phenytoin. (Dilantin) level in 1 week.......to check the level of the Dilantin Pending Tests on Discharge: Paraneoplastic Panel...sent to [place] Allergies/Adverse Reactions: Allergies allopurinol Allergy (Verified 04/22/18 17:29) Diarrhea amoxicillin Adverse Reaction (Verified 04/22/18 17:29) Other lactose Adverse Reaction (Verified 04/22/18 17:29) Diarrhea Medications to take at Discharge Pantoprazole Sodium [Protonix] 20 mg PO DAILY 06/29/16 Febuxostat [Uloric] 40 mg PO DAILY 07/08/16 Aspirin 81 mg PO DAILY 09/20/16 Citalopram Hydrobromide [Celexa] 60 mg PO DAILY 09/20/16 Clonazepam [Klonopin] 0.25 mg PO QHS 09/20/16 Folic Acid 1 mg PO DAILY@0800 09/20/16 Lacosamide [Vimpat] 100 mg PO BID 09/20/16 [place]-3 Fatty Acids/Fish Oil [Fish Oil 1,000 mg Capsule] 1 each PO DAILY 09/20/16 Thiamine HCl [B-1] 100 mg PO DAILY 09/20/16 Zonisamide [Zonegran] 300 mg PO QHS 02/07/17 Phenytoin Na [Dilantin] 100 mg PO TIDCM #90 capsule 05/01/18 Topiramate [Topamax] 50 mg PO BID #60 tablet 05/01/18 Valacyclovir HCl [Valtrex] 1,000 mg PO BID #9 tablet 05/01/18 The following prescriptions were given: Topiramate [Topamax] 50 mg PO BID #60 tablet Valacyclovir HCl [Valtrex] 1,000 mg PO BID #9 tablet Phenytoin Na [Dilantin] 100 mg PO TIDCM #90 capsule Primary Care Physician: Aiden Car MD [Primary Care Provider] - Please follow up with your Primary Care Physician in: 1 week Test Results: Test results from this visit will be discussed in further detail at your follow-up appointment, if applicable. Please Follow Up With: Mavis Martin DO When: 1 week Please Follow Up With: Dr. Dickens - [facility] When: has an appt in June scheduled Proposed Discharge Date: 05/01/18
--- NOTE | 2018-05-01 13:42 | DCINST_ITS ---
- Discharge Diagnoses Current Active Problems: Current Active and Chronic Problems Altered mental status, unspecified (Acute) Sphenoid sinusitis (Acute) You will use the following diet at home:: Other - Diet as tolerated Your food should be the consistency of: Regular Your liquids should be the consistency of: Regular/Thin Discharge Activity: May Not Drive, - - Gradually return to normal activity May resume sexual activity in: No Restrictions Call your doctor if you observe: Fever of 101 or Higher, Shortness of breath, Fainting spells, Chest pain, Calf discomfort, Uncontrolled pain, - - hallucinations Additional Instructions: 1. I think you had a viral infection infecting the brain and the covering of the brain calling the meninges. It is not due to herpes Simplex virus or Varicella Zoster Virus. There are so many viruses out there that we are unable to test for everything. You received a anti-viral medication in the hospital called acyclovir. This was started on April 24. You will be discharged on a different antiviral agent called Valtrex and you will take this twice a day until gone. 2. I think it would be an excellent idea to follow-up with counseling after he recovered from the acute illness to address depression and alcohol dependence. I would suggest following up at [facility]. Your life has been permanently changed due to the PRES syndrom in 2017 and the developement of a seizure disorder. You can not do the things you used to be able to do easily without thinking about it. You must relearn how to do some of the activities you enjoy and learn hhow to accept the disbilities you have now and move forward and enjoy the happy life you can still have. A therapist can help you wth this. 3. The seizure medications have changed in the hospital. I think it would be a good idea to follow up with Dr. Thakur in 4-6 weeks so that if you ever get readmitted to [facility] in the future we will have continuity with a neurologist at [place] who knows your history and can communicate with Dr. Dickens when you are in the hospital in [place]. 4. you will follow up with Dr. Martin in the office in 1 week to recheck the Kidney function.5. 5. Dr. Car will need to draw a phenytoin. (Dilantin) level in 1 week.......to check the level of the Dilantin Pending Tests on Discharge: Paraneoplastic Panel...sent to [place] Allergies/Adverse Reactions: Allergies allopurinol Allergy (Verified 04/22/18 17:29) Diarrhea amoxicillin Adverse Reaction (Verified 04/22/18 17:29) Other lactose Adverse Reaction (Verified 04/22/18 17:29) Diarrhea Medications to take at Discharge Pantoprazole Sodium [Protonix] 20 mg PO DAILY 06/29/16 Febuxostat [Uloric] 40 mg PO DAILY 07/08/16 Aspirin 81 mg PO DAILY 09/20/16 Citalopram Hydrobromide [Celexa] 60 mg PO DAILY 09/20/16 Clonazepam [Klonopin] 0.25 mg PO QHS 09/20/16 Folic Acid 1 mg PO DAILY@0800 09/20/16 Lacosamide [Vimpat] 100 mg PO BID 09/20/16 [place]-3 Fatty Acids/Fish Oil [Fish Oil 1,000 mg Capsule] 1 each PO DAILY 09/20/16 Thiamine HCl [B-1] 100 mg PO DAILY 09/20/16 Zonisamide [Zonegran] 300 mg PO QHS 02/07/17 Phenytoin Na [Dilantin] 100 mg PO TIDCM #90 capsule 05/01/18 Topiramate [Topamax] 50 mg PO BID #60 tablet 05/01/18 Valacyclovir HCl [Valtrex] 1,000 mg PO BID #9 tablet 05/01/18 The following prescriptions were given: Topiramate [Topamax] 50 mg PO BID #60 tablet Valacyclovir HCl [Valtrex] 1,000 mg PO BID #9 tablet Phenytoin Na [Dilantin] 100 mg PO TIDCM #90 capsule Primary Care Physician: Aiden Car MD [Primary Care Provider] - Please follow up with your Primary Care Physician in: 1 week Test Results: Test results from this visit will be discussed in further detail at your follow- up appointment, if applicable. Please Follow Up With: Mavis Martin DO When: 1 week Please Follow Up With: Dr. Dickens - [facility] When: has an appt in June scheduled Proposed Discharge Date: 05/01/18
[2018-05-01] MEDS: Ipratropium Bromide 0.06% NASAL SPRAY 2 SPRAY NASAL (13:49)
--- NOTE | 2018-05-01 13:49 | PCM.PN.BLA ---
Progress Note BP stable, renal fxn improving. No complaints other than her memory deficits. clinically stable. Follow up in office with me in 1-2 wks. Discussed with hospitalist.
--- NOTE | 2018-05-01 14:11 | DS.PCM_ITS ---
Discharge Date and Diagnosis Date of Admission: 04/22/18 Date of Discharge: 05/01/18 - Primary Discharge Diagnosis Active and Suspected Problems Delirium (Acute) Aseptic meningitis (Acute) ARF (acute renal failure) (Acute) Metabolic acidosis (Acute) due to acute on CRF Hypokalemia Hypomagnesemia - Secondary Discharge Diagnosis Chronic Problems Seizure disorder (Chronic) Chronic renal failure, stage 3 (moderate) (Chronic) Sphenoid sinusitis (Chronic) PRES (posterior reversible encephalopathy syndrome) (Chronic) - 2017 Gout (Chronic) HTN (hypertension) (Chronic) Alcohol dependence Hospital Course and Treatment Imaging Results: Clinical Impression(s) from Imaging Studies Brain CT 04/22/18 18:09 IMPRESSION: 1. No acute intracranial or calvarial abnormality. There is no interval change when compared to prior study. 2. Left sphenoid sinusitis. Electronically Signed: Gaurang Tom DO at 18:59 EST Tel [phone], Service support , Chest X-Ray 04/23/18 08:00 IMPRESSION: Mild increased markings at the left lung base suggestive of atelectasis. Electronically Signed: Shawn Sheffield MD at 8:26 EST Tel [phone], Service support , Brain MRI 04/23/18 10:41 IMPRESSION: 1. Involutional changes of the brain, as described above. 2. Symmetrical abnormal signal within bilateral medial temporal lobes. Differential considerations include sequela of herpes infection. 3. Abnormal signal in the posterior occipital lobes may be the result of previous PRES. 4. No MR evidence for acute infarct. Electronically Signed: Felicia Moore MD at 0:01 EST , Service support , Lumbar Puncture Fluoroscopy 04/24/18 08:22 IMPRESSION: Successful fluoroscopic-guided lumbar puncture. Electronically Signed: Shawn Sheffield MD at 13:03 EST , Service support , Renal Ultrasound 04/30/18 05:55 IMPRESSION: Normal ultrasound of the kidneys and urinary bladder. Electronically Signed: Shawn Sheffield MD at 12:15 EST , Service support , Laboratory Results - last 24 hr 04/29/18 12:55 Whole Bld Vitamin B1 223.8 H Microbiology 04/24/18 11:20 Csf, Spinal Fluid Gram Stain - Final 04/24/18 11:20 Csf, Spinal Fluid CSF Culture - Final No growth in 72 hours. 04/23/18 17:43 Urine, Catheterized Urine Culture - Final Culture exhibits no growth. Dr. Pink-neurology Dr. Alex Duarte-infectious disease Operations: None Procedures: Electroencephalogram - Impression: There is no evidence of e pileptiform discharges. This is an abnormal electroencephalogram due to the presence of diffuse slowing which is nonspecific. There is muscle artifact throughout the recording which obscures a majority of the recording however., - - Lumbar puncture Summary of Care Provided: The patient is a 47-year-old female with a past medical history of h ypertension, PRES syndrome in 2017(due to uncontrolled HTN), seizure disorder ( Dr. Dickens at [facility] has diagnosed her with scarring due to PRES), chronic renal failure stage III, gout and ETOH abuse who presented to the ED at [facility] on 04/22/2018 with complaint of abnormal behavior breakthrough seizure? She was confused, incontinent and hallucinating. verified that she had not had any ETOH since 04/05/18. She was afebrile. Significant lab in the ED included white blood cell count of 23.5 with left shift, sodium of 134 and creatinine of 1.28 with a BUN of 10. CT brain showed no acute findings when compared to a prior study. There was left sphenoid sinusitis with an air-fluid level. She was admitted to a monitored bed on PCU and consultation was ordered with Dr. Ritchie. Dr. Ritchie recommended EEG, MRI and UA. The EEG showed diffuse slowing but no epileptiform discharges. MRI of the brain showed involutional changes with symmetrical abnormal signal within bilateral medial temporal lobes which was concerning for possible herpes encephalitis infection. There was abnormal signal in the posterior occipital lobes that is likely the result of previous PRES. There was no evidence of acute infarct. Lumbar puncture on 04/24/2018 showed 27 WBCs and 265 RBCs. Total protein was mildly elevated at 52 and glucose was within normal limits. She was started on Acyclovir IV. VZV DNA was negative and cytology revealed no malignant cells. HSV DNA was negative for HSV 1 and HSV 2. Culture of the CSF had no growth at 72 hours. A paraneoplastic panel was sent by Dr. Pink but, the results were not back at the time of DC. Consult was obtained with Dr. Duarte from [place] and he concurred with Acyclovir administration. He recommeded Valtrex 1 GM BID for 4 days post DC to complete 12 days of treatment for aseptic meningitis. Creat increased from 1.28 at admission to 1.55 on 04/[address] Mavis Martin from nephrology was consulted and felt the pt was dehydrated. A renal US was obtained and revealed normal kidneys and a normal urinary bladder. Intravenous fluids were started and the creatinine improved to 1.38 on the date of discharge. She has a mild metabolic acidosis and the serum bicarb has ranged from 18-20 during her admission. This is likely secondary to chronic renal failure stage III. Mental status improved with Acyclovir however she was still not back to baseline at [place]. Hallucinations resolved and she was calm and not agitated but she remained confused. She is going to follow up with Dr. Dickens at [facility] for management of seizures. The pt and her would also like to follow up with Dr. Pink at [facility] so that he stays abreast of her condition in the event that she is ever readmitted to [facility]......for continuity. She will follow up with Dr. Car in 12 week and he can review the results of the paraneoplastic panel with her as it should be back by then. she will follow up with Dr. Martin for CRF stage 3. We suggested she follow up at 180 when she is back at baseline for counselling for alcohol abuse and also get counselling to learn how to cope with her new disabilities so that she can move forward. GENERAL: alert, disoriented, Cooperative, NAD, forgetful, can not tell me why she is in the hospital ORAL: moist mucosa, no mucosal lesions NECK: No JVD, supple, trachea midline, no nuchal rigidity, no cervical or supraclavicular adenopathy LUNGS: CTA, symmetric chest expansion HEART: RRR, Normal S1 and S2, no rub, no gallop ABDOMEN: soft, NT, ND, BS present, no guarding with palpation EXTREMITIES: no edema, no cyanosis, no calf tenderness SKIN: No rashes, no breakdown NEUROLOGIC: no focal neurologic deficits PSYCH: appropriate, normal affect, pleasant This note was generated with [employer] dictation software. It may contain incorrect words, spelling, and punctuation that were not noted in checking the note before signing. - Physical Exam Vital Signs Temp Pulse Resp BP Pulse Ox 98.1 F 74 16 109/69 98 05/01/18 09:05 05/01/18 09:05 05/01/18 09:05 05/01/18 09:05 05/01/18 09:05 Oxygen Flow Rate (L/min) 2 Oxygen Delivery Method Room Air Weight: 165 lb 5.547 oz Body Mass Index (BMI) 31.2 Finger Stick Blood Glucose 114 Intake and Output for Last 24 Hours 04/29/18 04/30/18 05/01/18 23:59 23:59 23:59 Intake Total 1550 / 1550 4404 / 4404 1939 / 1939 Output Total 2500 / 2500 400 / 400 Balance 1550 / 1550 1904 / 1904 1539 / 1539 Laboratory Tests Past 24 Hrs 04/24/18 04/30/18 05/01/18 11:20 11:30 05:50 Sodium 143 Potassium 4.5 Chloride 116 H Carbon Dioxide 20.0 L BUN 12 Creatinine 1.38 H Estim Creat Clear Calc 37.21 Est GFR (MDRD) Af Amer 52 L Est GFR (MDRD) Non-Af 43 L BUN/Creatinine Ratio 8.7 L Glucose 88 Calcium 8.4 L Phosphorus 3.5 Albumin 3.6 Urine Color Straw Urine Clarity Clear Urine pH 7.0 Ur Specific [place] 1.005 Urine Protein Negative Urine Glucose (UA) Normal Urine Ketones Negative Urine Occult Blood 25 H Urine Nitrite Negative Urine Bilirubin Negative Urine Urobilinogen Normal Ur Leukocyte Esterase Negative Urine RBC 0-5 SEEN Urine WBC 0 SEEN Ur Squamous Epith Cells 0-5 SEEN Urine Bacteria 0 SEEN Urine Mucus 0 SEEN CSF VZV DNA (PCR) HSV I DNA PCR Negative HSV II DNA PCR Negative Discharge Activity: May Not Drive, - - Gradually return to normal activity May resume sexual activity in: No Restrictions Call your doctor if you observe: Fever of 101 or Higher, Shortness of breath, Fainting spells, Chest pain, Calf discomfort, Uncontrolled pain, - - hallucinations Home Medications: Medications to take at Discharge Pantoprazole Sodium [Protonix] 20 mg PO DAILY 06/29/16 Febuxostat [Uloric] 40 mg PO DAILY 07/08/16 Aspirin 81 mg PO DAILY 09/20/16 Citalopram Hydrobromide [Celexa] 60 mg PO DAILY 09/20/16 Clonazepam [Klonopin] 0.25 mg PO QHS 09/20/16 Folic Acid 1 mg PO DAILY@0800 09/20/16 Lacosamide [Vimpat] 100 mg PO BID 09/20/16 [place]-3 Fatty Acids/Fish Oil [Fish Oil 1,000 mg Capsule] 1 each PO DAILY 09/20/16 Thiamine HCl [B-1] 100 mg PO DAILY 09/20/16 Zonisamide [Zonegran] 300 mg PO QHS 02/07/17 Phenytoin Na [Dilantin] 100 mg PO TIDCM #90 capsule 05/01/18 Topiramate [Topamax] 50 mg PO BID #60 tablet 05/01/18 Valacyclovir HCl [Valtrex] 1,000 mg PO BID #9 tablet 05/01/18 Following Prescrptions Were Given to Patient: Topiramate [Topamax] 50 mg PO BID #60 tablet Valacyclovir HCl [Valtrex] 1,000 mg PO BID #9 tablet Phenytoin Na [Dilantin] 100 mg PO TIDCM #90 capsule Primary Care Physician: Aiden Car MD [Primary Care Provider] - Please follow up with your Primary Care Physician in: 1 week Please Follow Up With: Mavis Martin DO When: 1 week Please Follow Up With: Dr. Dickens - [facility] When: has an appt in June scheduled Disposition: Home Minutes spent on discharge:: 40 Patient Condition:: Stable Medical Necessity - Tobacco Use Smoking Status: Never smoker Tobacco Use: Non-smoker Meaningful Use Info Meaningful Use Diagnoses (Choose all that apply): None applicable Code Visit Inpatient E&M: 11654 Disch Hosp
--- NOTE | 2018-05-01 14:26 | PCM.PN.NEU ---
Patient Problems: Active and Suspected Problems Metabolic acidosis (Acute) Delirium (Acute) Aseptic meningitis (Acute) ARF (acute renal failure) (Acute) Subjective: No issues overnight. Care discussed with the hospitalist taking care of the patient. Per ID Dr. Duarte, patient probably has aseptic meningitis. Patient is being discharged home today with oral valacyclovir to complete the course. Paraneoplastic panel has been sent and the results are pending. - Physical Exam General: - - awake, confused, AoAx 2 HEENT: Normocephalic Neck: Supple Lungs: Normal air movement Cardiovascular: Normal S1, Normal S2 Abdomen: Bowel Sounds Present Extremities: No cyanosis Neurological: - - awake, confused, AoA x 2, CN 2-12 grossly intact, power 5/5 all 4 extremities, no sensory loss, no cerebellar signs, Reflexes + B/L B/S/T/K/A, gait deferred, No NR. Psych/Mental Status: Normal Affect Vital Signs Temp Pulse Resp BP Pulse Ox 98.1 F 74 16 109/69 98 05/01/18 09:05 05/01/18 09:05 05/01/18 09:05 05/01/18 09:05 05/01/18 09:05 Oxygen Flow Rate (L/min) 2 Oxygen Delivery Method Room Air Weight: 75 kg Body Mass Index (BMI) 31.2 Finger Stick Blood Glucose 114 Intake and Output for Last 24 Hours 04/29/18 04/30/18 05/01/18 23:59 23:59 23:59 Intake Total 1550 / 1550 4404 / 4404 1939 / 1939 Output Total 2500 / 2500 400 / 400 Balance 1550 / 1550 1904 / 1904 1539 / 1539 Laboratory Tests Past 24 Hrs 04/24/18 04/30/18 05/01/18 11:20 11:30 05:50 Sodium 143 Potassium 4.5 Chloride 116 H Carbon Dioxide 20.0 L BUN 12 Creatinine 1.38 H Estim Creat Clear Calc 37.21 Est GFR (MDRD) Af Amer 52 L Est GFR (MDRD) Non-Af 43 L BUN/Creatinine Ratio 8.7 L Glucose 88 Calcium 8.4 L Phosphorus 3.5 Albumin 3.6 Urine Color Straw Urine Clarity Clear Urine pH 7.0 Ur Specific [place] 1.005 Urine Protein Negative Urine Glucose (UA) Normal Urine Ketones Negative Urine Occult Blood 25 H Urine Nitrite Negative Urine Bilirubin Negative Urine Urobilinogen Normal Ur Leukocyte Esterase Negative Urine RBC 0-5 SEEN Urine WBC 0 SEEN Ur Squamous Epith Cells 0-5 SEEN Urine Bacteria 0 SEEN Urine Mucus 0 SEEN CSF VZV DNA (PCR) HSV I DNA PCR Negative HSV II DNA PCR Negative Medical Necessity - Tobacco Use Smoking Status: Never smoker Assessment/Plan All Active Problems Metabolic acidosis (Acute) Hypomagnesemia (Resolved) Delirium (Acute) Aseptic meningitis (Acute) Hypokalemia (Resolved) ARF (acute renal failure) (Acute) 47 yr F with PMH HTN, H/O PRES and seizures, CKD, ETOH abuse admitted with AMS, worsening confusion, ENRIQUEZ and visual hallucinations Impression Possible Aseptic meningitis per ID R/O Korsakoff's psychosis-ETOH abuse H/O seizures Plan -MRI brain reviewed- hyperintense lesion bilateral medial temporal lobes -On Acyclovir. Being discharged on Valtrex -CSF HSV PCR results-negative -ID consult and Nephrology consult reviewed. -Keppra weaned off as per it was not helping and had agitation when Keppra dose was increased to 750 mg p.o. twice daily in the past associated with worsening renal function. -Dilantin 100 mg PO TID. S/E discussed in detail. LFTs- AST/ALT-, and per she has stopped drinking alcohol since April 05, 2018. Tolerating medication well -Thiamine 100 mg PO once daily -On Topamax 50 mg PO BID and Vimpat 100 mg PO BID. -Await paraneoplastic antibodies, anti NMDA receptor antibodies, anti Ma antibodies and AMPA receptor antibodies and vitamin B1 level. -Seizure precautions -Patient does not drive -Patient counseled not to drink alcohol, may benefit from addiction consult. -Fall precautions -GI/DVT prophylaxis -Follow up with her Neurologist Dr. Bonilla as outpatient. -Please call with questions if any -Thank you for allowing us to participate in patient's care and management
[2018-05-01 15:20] VITALS: BP 139/77; PULSE 70; RESP 16; TEMP 36.6; O2SAT 100
[2018-05-03 13:06] LABS: Vitamin B1, Thiamine 223.8 nmol/L (66.5-200.0)
--- OUTSIDE RECORDS SUMMARY | 2018-06-24 23:19 | XMS RPT_ITS ---
:1970 Author Organization OHIP Care Team Providers Name Role Phone [facility] Primary Care Unavailable Sadiq, Kishor Admitting Unavailable Da Ritchie Consulting Unavailable Paintsil, Allen Attending Unavailable RAMA GARSIA Attending Unavailable RAMA GARSIA Referring Unavailable [facility] Unavailable RAMA GARSIA Consulting Unavailable Sadiq, Kishor Admitting Unavailable Koram, Judy Leigha Attending Unavailable [facility] Unavailable Da Ritchie Consulting Unavailable Eusebiaam, Judy Leigha Consulting Unavailable Sadiq, Kishor Admitting Unavailable Koram, Judy Leigha Attending Unavailable [facility] Unavailable Ritchie, Da Consulting Unavailable Koram, Judy Leigha Consulting Unavailable Sadiq, Kishor Admitting Unavailable Paintsil, Allen Attending Unavailable [place], Aiden Primary Care Unavailable Ritchie, Da Consulting Unavailable Paintsil, Allen Consulting Unavailable Sadiq, Kishor Admitting Unavailable Koram, Judy Leigha Attending Unavailable Josep, Aiden Primary Care Unavailable Ritchie, Da Consulting Unavailable Koralexander, Judy Leigha Consulting Unavailable Aiden Daugherty Attending Unavailable JosepAiden Referring Unavailable Josep, Aiden Primary Care Unavailable Sadiq, Kishor Admitting Unavailable Sadiq, Kishor Attending Unavailable [place], Aiden Primary Care Unavailable Ritchie, Da Consulting Unavailable Sadiq, Kishor Consulting Unavailable Josep, Aiden Primary Care Unavailable Raul Felipe Attending Unavailable Ck Eid Admitting Unavailable Ck Eid Attending Unavailable JosepAiden mandel Primary Care Unavailable JosepAiden Primary Care Unavailable Kota, Isabel A Admitting Unavailable Kota, Isabel A Attending Unavailable SUNDAY HOGUE II Attending Unavailable PUNIA, JOHNNY Attending Unavailable PUNIA, JOHNNY Referring Unavailable AIDEN DAUGHERTY Attending Unavailable MOHSEN JORDAN Attending Unavailable AIDEN DAUGHERTY Referring Unavailable KANG JASON (PA-C) Attending Unavailable PUNIA, JOHNNY Referring Unavailable KANG JASON (PA-C) Referring Unavailable PUNIA, JOHNNY Attending Unavailable PUNIA, JOHNNY Referring Unavailable IMELDA GARCIAS ([facility]) Referring Unavailable AMANDA GODFREY Referring Unavailable Fantasma CORDERO (PA-C) Attending Unavailable Fantasma CORDERO (PA-C) Referring Unavailable Fantasma CORDERO (PA-C) Referring Unavailable Fantasma CORDERO (PA-C) Referring Unavailable PUNIA, JOHNNY Referring Unavailable Dr. Aiden Kelsey Attending Unavailable Dr. 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 / Repository I67.83(ICD-10) 02/11/2017 Active Epilepsy, NA Active [place] unspecified, Clinic Main intractable, without [place] status epilepticus / Repository G40.919(ICD-10) 03/19/2018 Active Other abnormal and NA Active [place] inconclusive Clinic Main findings on [place] diagnostic imaging Repository of breast / R92.8(ICD-10) 02/24/2018 Active Essential (primary) NA Active [place] hypertension / Clinic Main I10(ICD-10) [place] Repository 02/24/2018 Active Other mcfp NA Active [place] (current) drug Clinic Main therapy / [place] Z79.899(ICD-10) Repository 02/24/2018 Active Other specified NA Active [place] abnormal findings of Clinic Main blood chemistry / [place] R79.89(ICD-10) Repository 02/07/2018 Active Unknown / NA Active [place] UNK(Unknown) Clinic Main [place] Repository 01/29/2018 Active Encounter for NA Active [place] examination for Clinic Main normal comparison [place] and control in Repository clinical research program / Z00.6(ICD-10) 01/29/2018 Active Epilepsy, PUNIA, JOHNNY Active [place] unspecified, not Clinic Main intractable, without [place] status epilepticus / Repository G40.909(ICD-10) 06/04/2017 Active 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 REPOSITORY TYPE CODE TESTS RESULT OUT OF RANGE REFERENCE UNITS LAB L100.1000 4.4-11.0 K/mm3 Normal WBC 6.8 LAB L100.1200 4.2-5.4 M/mm3 Low RBC 3.76 LAB L100.1300 12.0-15.0 g/dl Low HGB 11.6 LAB L100.1400 37-47 % Low HCT 34.8 LAB L100.1500 81-99 fL Normal MCV 92.6 LAB L100.1600 27.0-32.0 pg Normal MCH 30.9 LAB L100.1700 32-36 g/gl Normal MCHC 33.3 LAB L100.1810 11.6-14.6 % Normal RDW CV 14.4 LAB L100.1820 35.1-43.9 fl High RDW SD 46.6 LAB L100.1900 150-450 K/mm3 Normal PLT 276 LAB L100.2000 6.2-12.0 fl Normal MPV 9.9 LAB L100.2100 47-70 % Normal NEUT% 59.8 LAB L100.2200 19-41 % Normal LY% 22.0 LAB L100.2300 0-10 % Normal MONO% 8.7 LAB L100.2400 0-5 % High EO% 8.8 LAB L100.2500 0-1 % Normal BASO% 0.6 LAB L100.2550 0.0-0.9 % Normal IM GRAN % 0.100 Result Comment: IG% - Immature Granulocytes (promyelocytes, myelocytes and metamyelocytes) > 1% indicates that a LEFT SHIFT is Present. LAB L100.2620 2.0-7.7 X10 3/uL Normal Absolute Neut 4.1 LAB L100.2720 0.83-4.51 X10 3/ul Normal Absolute Lymph 1.49 Performed By: #### L100.0100 #### [facility] [address] [place], [place], [address] BASIC METABOLIC Collected: 04/27/2018 Status: F Source: [facility] PROFILE ([facility]) 5:[address] [facility] REPOSITORY TYPE CODE TESTS RESULT OUT OF RANGE REFERENCE UNITS LAB L501.0100 74-106 mg/dL High GLU 107 Result Comment: Fasting Glucose result from 100 to 125 mg/dL suggests IMPAIRED HOMEOSTASIS per A.D.A. criteria. Please note revised GLUCOSE reference range effective 2017. LAB L501.1000 7-18 mg/dL Normal BUN 7 LAB L501.1100 0.55-1.02 mg/dL High CREAT,SERUM 1.32 Result Comment: The validity of the calculated GFR AND GFRAA in patients over 70 years has not been determined. Clinical correlation is essential. LAB L501.1110 >60 mL/min Low EST GFR 45 Result Comment: Non- GFR Calc LAB L501.1115 >60 mL/min Low EST GFR - AA 55 Result Comment: GFR Calc LAB L501.1255 ml/min Normal Estimated CRCL 38.90 LAB L501.1300 10-20 RATIO Low BUN/CRE 5.3 LAB L501.2200 8.5-10 mg/dL Low .1 CA 8.2 LAB L501.5300 136-14 mmol/L Normal 5 NA 145 LAB L501.5600 3.5-5. mmol/L Low 1 K 3.3 LAB L501.5900 98-107 mmol/L High CL 117 LAB L501.6100 21.0-3 mmol/L Low 2.0 CO2 17.0 LAB L501.6200 5-15 Normal GAP 11 Performed By: #### L500.2500 #### [facility] [address] [place], [address] MAGNESIUM Collected: 04/27/2018 Status: F Source: [place] 5:[address] [facility] REPOSITORY Order Comment: Comments: as add on test TYPE CODE TESTS RESULT OUT OF RANGE REFERENCE UNITS LAB L501.5200 1.6-2.6 mg/dL Normal MG 1.8 Performed By: #### L501.5200 #### [facility] [address] [place], [address] CBC W/DIFF, AUTOMATED Collected: 04/25/2018 Status: F Source: [place] 6:[address] [facility] REPOSITORY TYPE CODE TESTS RESULT OUT OF RANGE REFERENCE UNITS LAB L100.1000 4.4-11.0 K/mm3 Normal WBC 8.1 LAB L100.1200 4.2-5.4 M/mm3 Low RBC 3.69 LAB L100.1300 12.0-15.0 g/dl Low HGB 11.0 LAB L100.1400 37-47 % Low HCT 33.5 LAB L100.1500 81-99 fL Normal MCV 90.8 LAB L100.1600 27.0-32.0 pg Normal MCH 29.8 LAB L100.1700 32-36 g/gl Normal MCHC 32.8 LAB L100.1810 11.6-14.6 % Normal RDW CV 14.3 LAB L100.1820 35.1-43.9 fl High RDW SD 46.9 LAB L100.1900 150-450 K/mm3 Normal PLT 267 LAB L100.2000 6.2-12.0 fl Normal MPV 9.3 LAB L100.2100 47-70 % Normal NEUT% 67.0 LAB L100.2200 19-41 % Low LY% 18.5 LAB L100.2300 0-10 % High MONO% 10.2 LAB L100.2400 0-5 % Normal EO% 3.5 LAB L100.2500 0-1 % Normal BASO% 0.6 LAB L100.2550 0.0-0.9 % Normal IM GRAN % 0.200 Result Comment: IG% - Immature Granulocytes (promyelocytes, myelocytes and metamyelocytes) > 1% indicates that a LEFT SHIFT is Present. LAB L100.2620 2.0-7.7 X10 3/uL Normal Absolute Neut 5.4 LAB L100.2720 0.83-4.51 X10 3/ul Normal Absolute Lymph 1.50 Performed By: #### L100.0100 #### [facility] [address] [place], [address] BASIC METABOLIC Collected: 04/25/2018 Status: F Source: [facility] PROFILE ([facility]) 6:[address] [facility] REPOSITORY TYPE CODE TESTS RESULT OUT OF RANGE REFERENCE UNITS LAB L501.0100 74-106 mg/dL High GLU 117 Result Comment: Fasting Glucose result from 100 to 125 mg/dL suggests IMPAIRED HOMEOSTASIS per A.D.A. criteria. Please note revised GLUCOSE reference range effective 2017. LAB L501.1000 7-18 mg/dL Low BUN 6 LAB L501.1100 0.55-1.02 mg/dL High CREAT,SERUM 1.22 Result Comment: The validity of the calculated GFR AND GFRAA in patients over 70 years has not been determined. Clinical correlation is essential. LAB L501.1110 >60 mL/min Low EST GFR 50 Result Comment: Non- GFR Calc LAB L501.1115 >60 mL/min Normal EST GFR - AA 60 Result Comment: GFR Calc LAB L501.1255 ml/min Normal Estimated CRCL 42.09 LAB L501.1300 10-20 RATIO Low BUN/CRE 4.9 LAB L501.2200 8.5-10 mg/dL Low .1 CA 8.2 LAB L501.5300 136-14 mmol/L Normal 5 NA 141 LAB L501.5600 3.5-5. mmol/L Low 1 K 3.1 LAB L501.5900 98-107 mmol/L High CL 112 LAB L501.6100 21.0-3 mmol/L Low 2.0 CO2 19.0 LAB L501.6200 5-15 Normal GAP 10 Performed By: #### L500.2500 #### [facility] [address] [place], [address] SPINAL FLUID CELL Collected: 04/24/2018 Status: C Source: [facility] COUNT+DIFF 11:[address] [facility] REPOSITORY TYPE CODE TESTS RESULT OUT OF RANGE REFERENCE UNITS LAB L200.2695 0.000-0.000 10 3/uL High TC CSF 0.036 Result Comment: This is the Total Number of Nucleated Cell Types in the Body Fluid. LAB L200.2750 0.000-0.000 10 3/uL High WBC,CSF 0.027 LAB L200.3000 Normal PATH REV Reviewed Result Comment: Negative for malignant cells. Chance Reeder D.O. 04/25/18 AMENDED REPORT 04/25/18 1023 PATH REV previously reported as: May follow LAB L200.3510 % BF Normal PMN WBC% 3.7 LAB L200.3515 % BF MN Normal WBC% 96.3 LAB L200.3520 10 3/uL BF MN Normal WBC# 0.026 LAB L200.3525 10 3/uL BF Normal PMN WBC# 0.001 LAB L200.2790 0 - 6 % 5 Normal NEUTROPHIL,CSF LAB L200.2800 40 - 80 % 41 Normal LYMPH,CSF LAB L200.2840 15 - 45 % 54 High MONO,CSF LAB L200.2500 2 Normal TESTED TUBE # LAB L200.2600 Colorless CSF Normal Color COLORLESS LAB L200.2650 Clear Normal APPEARANCE CSF CLEAR LAB L200.2700 None seen /mm-3 High RBC,CSF 265 Performed By: #### L200.0100 #### [facility] [address] [place], [address] Observed: 04/24/2018 Status: F Source: [place] CULTURE, CSF 11:[address] [facility] REPOSITORY Gram Stain Centrifuged Specimen? Culture performed on centrifuged specimen Gram Stain 3+ Red Blood Cells 2+ White Blood Cells No organisms seen CSF Culture No growth in 72 hours. Performed By: #### M100.0700 #### [facility] [address], [address] GLUCOSE SPINAL FLUID Collected: 04/24/2018 Status: F Source: [place] 11:[address] [facility] REPOSITORY TYPE CODE TESTS RESULT OUT OF RANGE REFERENCE UNITS LAB L501.0400 40-75 mg/dL Normal GLU SPINAL 64 FLD Performed By: #### L501.0400, L501.1600 #### [facility] [address] [place], [address] PROTEIN SPINAL FLUID Collected: 04/24/2018 Status: F Source: [place] 11:[address] [facility] REPOSITORY TYPE CODE TESTS RESULT OUT OF REFERENCE UNITS RANGE LAB L501.1600 15.0-45.0 mg/dL High PROTEIN CSF 52.0 Performed By: #### L501.0400, L501.1600 #### [facility] [address] [place], [address] ELECTROENCEPHALOGRAM Observed: 04/24/2018 Status: F Source: [place] 11:[address] [facility] REPOSITORY [facility] Pulmonary Services/Neurology [address] [place] [address] MR#: [id number] Acct: [id number] Name: REJI ALBERTOARIELLA Cecily Rep #: [id number] : 1970 47 From: Da Ritchie MD Referring Dr: Judy Amador MD Status: ADM IN Ordering Dr: Date: Location: [place] [id number] Sex: F C - Electroencephalogram This is an 18 channel echoencephalogram performed utilizing the International 10-20 electrode placement protocol as well as EKG reference leads and photic stimulation on this 47-year-old female with a history of seizures, pres syndrome, and alcohol withdrawal. Background activity is slow at 5-6 Hz symmetrically in the posterior leads. There is muscle artifact throughout the recording which does obscure significant portions of the recording however the under lying rhythm appears to be slow with no lateralizing Repliform changes. Hyperventilation was not performed. EKG is normal sinus rhythm throughout the recording. There appears to be driving response to photic stimuli in the posterior leads symmetrically. Impression: There is no evidence of epileptiform discharges. This is an abnormal electroencephalogram due to the presence of diffuse slowing which is nonspecific. There is muscle artifact throughout the recording which obscures a majority of the recording however. 04/24/181103 <Electronically signed by Da Ritchie MD> Date Da Ritchie MD CC: Judy Amador MD; Da Ritchie MD; Aiden Daugherty MD Date Dictated: 04/24/181101 Date Transcribed: 04/24/181101 Community Health Nurse: NF Signed PROTHROMBIN TIME W/INR Collected: 04/24/2018 Status: F Source: [place] 9:[address] [facility] REPOSITORY TYPE CODE TESTS RESULT OUT OF RANGE REFERENCE UNITS LAB L300.4150 11.7-14.9 SECONDS Normal PROTIME 13.6 LAB L300.4200 Normal INR 1.0 Performed By: #### L300.3900, L300.4310 #### [facility] [address] [place], [place], [address] PARTIAL THROMBOPLAST Collected: 04/24/2018 Status: F Source: [place] TIME 9:[address] [facility] REPOSITORY TYPE CODE TESTS RESULT OUT OF RANGE REFERENCE UNITS LAB L300.4310 24.1-36.2 Seconds Normal PTT 28.5 Performed By: #### L300.3900, L300.4310 #### [facility] [address] [place], [address] FLUORO GUIDED LUMBAR Observed: 04/24/2018 Status: F Source: [place] PUNCTURE 8:[address] [facility] REPOSITORY [facility] Imaging Services [address] [place] [address] Fluoro Guided Lumbar Puncture MR#: [id number] Acct: [id number] Name: ARIELLA BASURTO Rep #: [id number] : 1970 F 47 From: Shawn Sheffield MD PCP: Aiden Daugherty MD Status: ADM IN Study: Fluoro Guided Lumbar Puncture Date of Exam: 04/24/18 Exam# [id number] Ordering Dr: Judy Amador MD PROCEDURE: Fluoroscopic guided Lumbar Puncture. DATE: April 24, 2018. CLINICAL INDICATION: Confusion. Possible infection. PHYSICIAN: Shawn Sheffield M.D. MEDICATIONS: 1% lidocaine administered subcutaneously for local anesthesia. ACCESS SITE: Lower posterior back. NEEDLE: 22-gauge spinal needle. SPECIMEN: Approximately 5 mL clear]CSF fluid. FLUOROSCOPY TIME (if supplied): (3:05) minutes/seconds COMPLICATIONS: None immediate. The risks, benefits, and alternatives to the procedure were explained to the patient. The specific risks of bleeding, infection, and neurovascular injury were detailed and accepted. Witnessed informed consent was obtained. The patient was placed on the fluoroscopic table in the prone position. The level for needle entry was determined and marked. The overlying skin was cleaned and prepped in the usual sterile fashion. 2% lidocaine was administered subcutaneously for local anesthesia. Under fluoroscopic guidance a 22-gauge spinal needle was advanced. The thecal sac was entered at the L3- L4 vertebral level. The inner stylet was removed. There was spontaneous flow of clear CSF fluid. The patient was placed in a reversed Trendelenburg position. Approximately 5 mL of cerebrospinal fluid was collected using gravity. The specimen was collected and submitted to the laboratory for further evaluation. The needle was withdrawn,. Hemostasis was achieved and a sterile dressing placed. The patient tolerated the procedure well without any immediate complications. The patient was placed supine with head elevated and returned to the floor in stable condition. RAD/Fluoro Guided Lumbar Puncture IMPRESSION: Successful fluoroscopic-guided lumbar puncture. Electronically Signed: Shawn Sheffield MD at 13:03 EST , Service support , CC: Judy Amador MD; Aiden Daugherty MD Community Health Nurse: Signed BASIC METABOLIC Collected: 04/24/2018 Status: F Source: [facility] PROFILE ([facility]) 6:[address] [facility] REPOSITORY TYPE CODE TESTS RESULT OUT OF RANGE REFERENCE UNITS LAB L501.0100 74-106 mg/dL High GLU 115 Result Comment: Fasting Glucose result from 100 to 125 mg/dL suggests IMPAIRED HOMEOSTASIS per A.D.A. criteria. Please note revised GLUCOSE reference range effective 2017. LAB L501.1000 7-18 mg/dL Normal BUN 8 LAB L501.1100 0.55-1.02 mg/dL High CREAT,SERUM 1.34 Result Comment: The validity of the calculated GFR AND GFRAA in patients over 70 years has not been determined. Clinical correlation is essential. LAB L501.1110 >60 mL/min Low EST GFR 45 Result Comment: Non- GFR Calc LAB L501.1115 >60 mL/min Low EST GFR - AA 54 Result Comment: GFR Calc LAB L501.1255 ml/min Normal Estimated CRCL 38.32 LAB L501.1300 10-20 RATIO Low BUN/CRE 6.0 LAB L501.2200 8.5-10 mg/dL Low .1 CA 8.4 LAB L501.5300 136-14 mmol/L Normal 5 NA 143 LAB L501.5600 3.5-5. mmol/L Normal 1 K 3.9 LAB L501.5900 98-107 mmol/L High CL 114 LAB L501.6100 21.0-3 mmol/L Normal 2.0 CO2 21.0 LAB L501.6200 5-15 Normal GAP 8 Performed By: #### L500.2500 #### [facility] [address] [place], [address] CBC W/DIFF, AUTOMATED Collected: 04/24/2018 Status: F Source: [place] 6:[address] [facility] REPOSITORY TYPE CODE TESTS RESULT OUT OF RANGE REFERENCE UNITS LAB L100.1000 4.4-11.0 K/mm3 Normal WBC 7.7 LAB L100.1200 4.2-5.4 M/mm3 Low RBC 3.68 LAB L100.1300 12.0-15.0 g/dl Low HGB 10.9 LAB L100.1400 37-47 % Low HCT 33.7 LAB L100.1500 81-99 fL Normal MCV 91.6 LAB L100.1600 27.0-32.0 pg Normal MCH 29.6 LAB L100.1700 32-36 g/gl Normal MCHC 32.3 LAB L100.1810 11.6-14.6 % Normal RDW CV 14.2 LAB L100.1820 35.1-43.9 fl High RDW SD 46.3 LAB L100.1900 150-450 K/mm3 Normal PLT 250 LAB L100.2000 6.2-12.0 fl Normal MPV 9.2 LAB L100.2100 47-70 % High NEUT% 75.4 LAB L100.2200 19-41 % Low LY% 12.5 LAB L100.2300 0-10 % Normal MONO% 9.7 LAB L100.2400 0-5 % Normal EO% 1.8 LAB L100.2500 0-1 % Normal BASO% 0.3 LAB L100.2550 0.0-0.9 % Normal IM GRAN % 0.300 Result Comment: IG% - Immature Granulocytes (promyelocytes, myelocytes and metamyelocytes) > 1% indicates that a LEFT SHIFT is Present. LAB L100.2620 2.0-7.7 X10 3/uL Normal Absolute Neut 5.8 LAB L100.2720 0.83-4.51 X10 3/ul Normal Absolute Lymph 0.97 Performed By: #### L100.0100 #### [facility] [address] [facility] [place], [address] URINE DRUG SCREEN Collected: 04/23/2018 Status: F Source: [place] ([employer]) 5:[address] [facility] REPOSITORY Order Comment: List of Drugs Taken or Suspected? ? TYPE CODE TESTS RESULT OUT OF RANGE REFERENCE UNITS LAB L505.0075 TO BE Normal CONFIRMED Result Comment: CONFIRMATORY TESTING FOR ALL POSITIVE URINE DRUG SCREEN RESULTS WILL ONLY BE SENT OUT UPON PHYSICIAN ORDER. [facility] Urine Drug Screen methods provide only preliminary analytical test results. A more specific alternate chemical method must be used in order to obtain a confirmed analytical result. Gas chromatography/mass spectrometery (GC/MS) is the preferred confirmatory method. Clinical consideration and professional judgement should be applied to any drug of abuse test result, particularly when preliminary positive results are used. URINE TCA TESTING MUST BE ORDERED SEPARATELY. USE TEST MNEMONIC: [facility] LAB L505.5005 VISTA UDS PH 6 Normal LAB L505.5015 <1000 ng/mL AMPHETAMINES Normal NEGATIVE LAB L505.5025 < 200 ng/mL BARBITIURATES Normal NEGATIVE LAB L505.5035 < 200 ng/mL BENZODIAZIPINE Normal NEGATIVE LAB L505.5045 < 300 ng/mL COCAINE Normal NEGATIVE LAB L505.5055 < 500 ng/mL ECSTACY Normal NEGATIVE LAB L505.5065 < 300 ng/mL METHADONE Normal NEGATIVE LAB L505.5075 < 300 ng/mL OPIATES Normal NEGATIVE LAB L505.5085 < 25 ng/mL PCP Normal NEGATIVE LAB L505.5095 < 50 ng/mL THC Normal NEGATIVE Performed By: #### L505.5000 #### [facility] [address] [place], [address] URINALYSIS, COMPLETE Collected: 04/23/2018 Status: F Source: [place] 5:[address] [facility] REPOSITORY Order Comment: How was Urine Obtained? DIESEL MECHANIC APPRENTICE TO SPECIFY TYPE CODE TESTS RESULT OUT OF RANGE REFERENCE UNITS LAB L400.3000 Yellow COLOR Normal Yellow LAB L400.3050 Clear Normal CLARITY Clear LAB L400.3200 Normal mg/dl Normal GLUCOSE, UR Normal LAB L400.3300 Negative mg/dL Normal BILIRUBIN URINE Negative LAB L400.3400 Negative mg/dl Normal KETONE UR Negative LAB L400.3465 1.002-1.030 Normal SP.GR. DIPSTX 1.010 LAB L400.3550 5.0 - 8.0 pH UR Normal 7.0 LAB L400.3600 Negative mg/dl PROT Normal DIPSTX Negative LAB L400.3700 Normal mg/dl Normal UROBILI Normal LAB L400.3750 Negative Normal NITRITE UR Negative LAB L400.3780 Negative /ul Normal OCCULT BLOOD-UR Negative LAB L400.3800 Negative /ul LEUK Normal ESTERASE Negative LAB L400.4050 0-5 /hpf WBC 0 Normal SEEN LAB L400.4100 0-5 /hpf 0 Normal RBC-UA SEEN LAB L400.4150 5-10 /hpf SQUAM 0 Normal EPI SEEN LAB L400.4300 None Seen /hpf 0 Normal BACTERIA SEEN LAB L400.4350 <or=2+ /hpf 0 Normal MUCUS, URINE SEEN Performed By: #### L400.0001 #### [facility] [address] [place], [address] Observed: 04/23/2018 Status: F Source: [place] CULTURE, URINE 5:[address] [facility] REPOSITORY Urine Culture Culture exhibits no growth. Performed By: #### M100.0650 #### [facility] [address] [place], [address] CONSULTATION Observed: 04/23/2018 Status: F Source: [place] 11:[address] [facility] REPOSITORY [facility] Medical Records Department [address] [facility] [place] [address] Consultation 04/23/18 0947 MR#: [id number] Acct: [id number] Name: ARIELLA BASURTO Rep #: [id number] : 1970 47 From: Da Ritchie MD PCP: Aiden Daugherty MD Status: ADM IN Y Location: [place] [address] Reason for Consult Date of Consultation: 04/23/18 Reason for Consultation: confusion History of Present Illness: The patient is a 47 year old F admitted with confusion, reports in june had pres induced by htn, subsequently had seizures. unclear cause of hypertension however she has had kidney failure, and alcohol withdrawal. unknown cause of kidney failure. now readmitted per Dr Bonilla has diagnosed scarring due to pres, and has spells, yesterday had a spell. apparenlty looked down, had flashing lights which she apparently usually has, as well as severe headache, causing her to come to the hospital, and reports she was laughing, giggling, hallucinating and talking to people who arent there. also incontinent of stool which is unusual for her. reports most recent mri at [facility] main about 6-8 months ago showed resolution of PRES.apparently in the emu at [facility] for 5 days. denies use of alcohol but her blood alcohol level was slightly elevated. 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 reports cant tolerate higher doses of keppra or vimpat, so far no benefit from zonegran. not on other seizure meds. Per admit note: The patient is a 47 year old F with history of PRES syndrome since June 2016, follows Dr. 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 This lasted for about few minutes then patient went into postictal state. As per the she gets seizure on looking down. But today, she closed her eyes and said she is not feeling good and sat down and after that she was confused, was laughing and talking to the person was not there inappropriately. Seems like she had hallucinations. When I saw the patient, she is not able to give any history mostly nonverbal. Looks confused and disoriented. Past Medical History Past Medical History (Chronic Problems): Chronic Problems PRES (posterior reversible encephalopathy syndrome) (Chronic) Gout (Chronic) HTN (hypertension) (Chronic) Allergies allopurinol Allergy (Verified 04/22/18 17:29) Diarrhea amoxicillin Adverse Reaction (Verified 04/22/18 17:29) Other lactose Adverse Reaction (Verified 04/22/18 17:29) Diarrhea Home Medications: Ambulatory Orders Medication Instructions Recorded Surgical History: - - c sections Smoking Status: Never smoker - *Family History Maternal History Items: Diabetes Paternal History Items: Diabetes, - - cabg Review of Systems Constitutional: Denies: Chills, Fever, Weight Change HEENT: Denies: Head Aches, Sinus Congestion, Sinus Drainage Cardiovascular: Denies: Chest Pain, Palpitations Respiratory: Denies: Cough, Shortness of breath at rest, Sputum production Gastrointestinal: Denies: Abdominal Pain, Nausea, Vomiting Genitourinary: Denies: Dysuria Musculoskeletal: Denies: Joint Pain, Joint Tenderness Skin: Denies: Rash, Wounds Neurological: Denies: Numbness, Tingling, Focal weakness Psychiatric: Denies: Anxiety, Depression, Homicidal Ideations, Suicidal Ideations Hematologic/ Lymphatic: Denies: Easy Bruising, Easy Bleeding Patient Problems: Active and Suspected Problems Altered mental status, unspecified (Acute) Sphenoid sinusitis (Acute) - Physical Exam General: Confused HEENT: PERRLA, EOMI Neurological: Cranial nerves II-XII grossly intact, Deep Tendon Reflexes 2+/4 and Symmetrical, Motor Exam 5/5 strength throughout, - - unable to follow simple commands or answer questions, speech appears fluent Vital Signs Temp Pulse Resp BP Pulse Ox 37.2 C 76 18 126/69 H 92 04/23/18 06:22 04/23/18 07:00 04/23/18 06:22 04/23/18 06:22 04/23/18 06:22 Oxygen Flow Rate (L/min) 2 Oxygen Delivery Method Nasal Cannula Weight: 75 kg Body Mass Index (BMI) 31.2 Finger Stick Blood Glucose 114 Intake and Output for Last 24 Hours Intake Total 359 / 359 Balance 359 / 359 Laboratory Tests Past 24 Hrs WBC 23.5 H RBC 4.45 Hgb 13.6 Hct 41.2 MCV 92.6 MCH 30.6 WBC 16.1 H RBC 3.99 L Current Home Med List Medication Instructions Recorded Confirmed Type Current Medications Generic Name Dose Route Start Last Admin Trade Name Freq PRN Reason Stop Dose Admin Aspirin 81 mg 04/23/18 08:00 04/23/18 09:09 Assessment/Plan All Active Problems Altered mental status, unspecified (Acute) Sphenoid sinusitis (Acute) Hypokalemia (Resolved) ARF (acute renal failure) (Acute) seizure, history of pres, history of etoh use and withdrawal mri eeg to verify etoh use, reports last two weeks ago use ua/cs 04/23/18 1156 <Electronically signed by Da Ritchie MD> Date Da Ritchie MD Cosigner Signature (if applicable): Date CC: Da Ritchie MD; Aiden Daugherty MD Signed BRAIN WITHOUT Observed: 04/23/2018 Status: F Source: [place] CONTRAST 10:[address] [facility] REPOSITORY [facility] Imaging Services [address] [place] [address] Brain without Contrast MR#: [id number] Acct: [id number] Name: ARIELLA BASURTO Rep #: [id number] : 1970 F 47 From: Felicia Moore MD PCP: Aiden Daugherty MD Status: ADM IN Study: Brain without Contrast Date of Exam: 04/23/18 Exam# [id number] Ordering Dr: Da Ritchie MD STUDY: MRI BRAIN WITHOUT CONTRAST REASON FOR EXAM: Female, 47 years old. Confusion. Patient has history of posterior reversible encephalopathy syndrome (PRES). TECHNIQUE: Standardized multiplanar fat and water weighted pulse sequences were obtained. Multiple images are limited by patient motion. COMPARISON: CT of the head dated April 22, 2018. FINDINGS: There is mild cerebral atrophy with widening of the extra- axial spaces and ventricular dilatation. Normal white matter tracts of the supratentorial brain. There is abnormal signal within bilateral medial temporal lobes and hippocampi.. This suggests the possibility of an acute herpes infection. Additionally there is abnormal signal within the posterior occipital lobes consistent with history of previous PRES. There is no evidence for recent intracranial ischemia or other cause of cytotoxic edema on diffusion weighted imaging (DWI). Normal bilateral basal ganglia. Normal thalami. There is no extra-axial fluid accumulation. Normal flow voids within the major intracranial circulation suggesting patency by spin echo criteria. Normal sella turcica, pituitary gland, infundibular stalk, optic chiasm and hypothalamus. Normal tectal plate and pineal gland. Normal midbrain, garima and medulla. Normal cerebellum. Normal basal cisterns. Normal bilateral temporal bones. Normal bilateral internal auditory canals. No demonstrated orbital abnormality, within the constraints of a routine brain study. Normal visualized paranasal sinuses. Normal calvarium and skull base. Normal visualized soft tissue structures. Normal visualized upper cervical spine. MRI/Brain without Contrast IMPRESSION: 1. Involutional changes of the brain, as described above. 2. Symmetrical abnormal signal within bilateral medial temporal lobes. Differential considerations include sequela of herpes infection. 3. Abnormal signal in the posterior occipital lobes may be the result of previous PRES. 4. No MR evidence for acute infarct. Electronically Signed: Felicia Moore MD at 0:01 EST , Service support , CC: Da Ritchie MD; Aiden Daugherty MD Community Health Nurse: Signed CBC W/DIFF, AUTOMATED Collected: 04/23/2018 Status: F Source: [place] 6:[address] [facility] REPOSITORY TYPE CODE TESTS RESULT OUT OF RANGE REFERENCE UNITS LAB L100.1000 4.4-11.0 K/mm3 High WBC 16.1 LAB L100.1200 4.2-5.4 M/mm3 Low RBC 3.99 LAB L100.1300 12.0-15.0 g/dl Low HGB 11.9 LAB L100.1400 37-47 % Low HCT 36.3 LAB L100.1500 81-99 fL Normal MCV 91.0 LAB L100.1600 27.0-32.0 pg Normal MCH 29.8 LAB L100.1700 32-36 g/gl Normal MCHC 32.8 LAB L100.1810 11.6-14.6 % Normal RDW CV 14.1 LAB L100.1820 35.1-43.9 fl High RDW SD 46.8 LAB L100.1900 150-450 K/mm3 Normal PLT 297 LAB L100.2000 6.2-12.0 fl Normal MPV 9.3 LAB L100.2100 47-70 % High NEUT% 90.4 LAB L100.2200 19-41 % Low LY% 4.3 LAB L100.2300 0-10 % Normal MONO% 4.9 LAB L100.2400 0-5 % Normal EO% 0.1 LAB L100.2500 0-1 % Normal BASO% 0.1 LAB L100.2550 0.0-0.9 % Normal IM GRAN % 0.200 Result Comment: IG% - Immature Granulocytes (promyelocytes, myelocytes and metamyelocytes) > 1% indicates that a LEFT SHIFT is Present. LAB L100.2620 2.0-7.7 X10 3/uL High Absolute Neut 14.6 LAB L100.2720 0.83-4.51 X10 3/ul Low Absolute Lymph 0.70 Performed By: #### L100.0100 #### [facility] [address] [place], [address] BASIC METABOLIC Collected: 04/23/2018 Status: F Source: [place] PROFILE (BMP) 6:[address] [facility] REPOSITORY TYPE CODE TESTS RESULT OUT OF RANGE REFERENCE UNITS LAB L501.0100 74-106 mg/dL High GLU 111 Result Comment: Fasting Glucose result from 100 to 125 mg/dL suggests IMPAIRED HOMEOSTASIS per A.D.A. criteria. Please note revised GLUCOSE reference range effective 2017. LAB L501.1000 7-18 mg/dL Normal BUN 9 LAB L501.1100 0.55-1.02 mg/dL High CREAT,SERUM 1.24 Result Comment: The validity of the calculated GFR AND GFRAA in patients over 70 years has not been determined. Clinical correlation is essential. LAB L501.1110 >60 mL/min Low EST GFR 49 Result Comment: Non- GFR Calc LAB L501.1115 >60 mL/min Low EST GFR - AA 59 Result Comment: GFR Calc LAB L501.1255 ml/min Normal Estimated CRCL 41.41 LAB L501.1300 10-20 RATIO Low BUN/CRE 7.3 LAB L501.2200 8.5-10 mg/dL Low .1 CA 8.3 LAB L501.5300 136-14 mmol/L Normal 5 NA 136 LAB L501.5600 3.5-5. mmol/L Normal 1 K 3.9 LAB L501.5900 98-107 mmol/L Normal CL 105 LAB L501.6100 21.0-3 mmol/L Low 2.0 CO2 20.0 LAB L501.6200 5-15 Normal GAP 11 Performed By: #### L500.2500 #### [facility] [address] [place], [address] HISTORY AND PHYSICAL Observed: 04/23/2018 Status: F Source: [place] EXAM 12:[address] [facility] REPOSITORY [facility] Medical Records Department [address] [place] [address] History and Physical 04/22/18 2328 MR#: [id number] Acct: [id number] Name: ARIELLA BASURTO Rep #: [id number] : 1970 47 From: Kishor Babcock MD PCP: Aiden Daugherty MD Status: ADM IN Y Location: [place] [address] Problem List (1) PRES (posterior reversible encephalopathy syndrome) Status: Chronic (2) Hypokalemia Status: Resolved (3) ARF (acute renal failure) Status: Acute (4) Gout Status: Chronic (5) HTN (hypertension) Status: Chronic (6) Altered mental status, unspecified Status: Acute (7) Sphenoid sinusitis Status: Acute History of Present Illness Date of Admission: 04/22/18 Chief Complaint: Spell of confusion and disorientation. The patient is a 47 year old F with history of PRES syndrome since June 2016, follows Dr. 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 This lasted for about few minutes then patient went into postictal state. As per the she gets seizure on looking down. But today, she closed her eyes and said she is not feeling good and sat down and after that she was confused, was laughing and talking to the person was not there inappropriately. Seems like she had hallucinations. When I saw the patient, she is not able to give any history mostly nonverbal. Looks confused and disoriented. [] Past Medical History Past Medical History (Chronic Problems): Chronic Problems PRES (posterior reversible encephalopathy syndrome) (Chronic) Gout (Chronic) HTN (hypertension) (Chronic) Allergies allopurinol Allergy (Verified 04/22/18 17:29) Diarrhea amoxicillin Adverse Reaction (Verified 04/22/18 17:29) Other lactose Adverse Reaction (Verified 04/22/18 17:29) Diarrhea Home Medications: Ambulatory Orders Medication Instructions Recorded Surgical History: - - c sections Smoking Status: Never smoker - *Family History Maternal History Items: Diabetes Paternal History Items: Diabetes, - - cabg Review of Systems Unable to obtain accurate/complete ROS d/t: Patient is confused and disoriented. Eyes open but Nonverbal. VTE Information - Inpt Only VTE Present on Admission: No VTE Mechan Device Prophylaxis: None VTE Pharm Prophylaxis ordered?: Yes - Physical Exam General: Confused, Disoriented, - - Nonverbal, noncommunicative HEENT: Atraumatic, PERRLA, EOMI, Normocephalic, - - No sinus tenderness over maxillary or frontal sinuses. Oral: Dry Mucosa Neck: Supple, No JVD, Negative Carotid Bruits, - Lungs: Clear to auscultation, Normal air movement, No rhonchi, No wheeze, No rales, - Cardiovascular: Regular rate, No murmurs Abdomen: Bowel Sounds Present, Soft, Non Tender Extremities: No edema, Capillary Refill Less than 3 Seconds Skin: No rashes, No breakdown Musculoskeletal: No Tenderness to Palpation of Joints or Extremities Neurological: Cranial nerves II-XII grossly intact, - - Patient does not follow command. DTR 2/. Noncommunicative. Psych/Mental Status: Normal Affect, Appropriate Vital Signs Temp Pulse Resp BP Pulse Ox 98.2 F 86 19 H 101/61 97 04/22/18 17:25 04/22/18 23:00 04/22/18 23:00 04/22/18 23:00 04/22/18 23:00 Oxygen Flow Rate (L/min) 2 Oxygen Delivery Method Nasal Cannula Weight: 160 lb Body Mass Index (BMI) 30.2 Finger Stick Blood Glucose 114 Laboratory Tests Past 24 Hrs WBC 23.5 H Assessment/Plan All Active Problems Altered mental status, unspecified (Acute) Sphenoid sinusitis (Acute) Hypokalemia (Resolved) ARF (acute renal failure) (Acute) The patient is a 47 year old F with history of PRES syndrome since June 2016, follows Dr. 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 This lasted for about few minutes then patient went into postictal state. As per the she gets seizure on looking down. But today, she closed her eyes and said she is not feeling good and sat down and after that she was confused, was laughing and talking to the person was not there inappropriately. Seems like she had hallucinations. When I saw the patient, she is not able to give any history mostly nonverbal. Looks confused and disoriented. The patient is being admitted in PCU. 1. Altered mental status, etiology unclear, possible atypical seizure/alcohol withdrawal: As per the , she gets a spell of confusion and disorientation but this was different. Denies seizure-like movements. Neurology consult. IV fluid normal saline. Serum alcohol and U tox ordered. Continue her antiepileptic medications including Keppra, Vimpat, zonisamide and Klonopin. 2. Leukocytosis with left shift: Infectious or noninfectious unclear: CT head shows left sphenoid sinusitis but may be elevated from atypical seizure: IV ceftriaxone for sinusitis. 3. Chronic alcohol use: Patient did not had alcohol for last 3 weeks. Before that she was drinking 1 bottle of wine. Before the diagnosis of press syndrome she was drinking a gallon of vodka every 4 days. On CIWA protocol. Ativan as needed. Patient is on thiamine, folic acid. 4 Press syndrome: Exact etiology unclear. 5. CKD stage III: Her baseline creatinine about 1.2-1.5. BUN/creatinine Other chronic comorbidities include gout, and hypertension: Home medication reconciliation done. Clinical Impression(s) from Imaging Studies Brain CT 04/22/18 18:09 IMPRESSION: 1. No acute intracranial or calvarial abnormality. There is no interval change when compared to prior study. 2. Left sphenoid sinusitis. Code Visit Inpatient E AND M: [id number] Init Hosp L3 04/23/18 0026 <Electronically signed by Kishor Babcock MD> Date Kishor Babcock MD Cosigner Signature: Date (if applicable) CC: Kishor Babcock MD; Aiden Daugherty MD Signed CHEST PA AND LATERAL Observed: 04/23/2018 Status: F Source: [place] 12:[address] [facility] REPOSITORY [facility] Imaging Services [address] [place] [address] Chest PA and Lateral MR#: [id number] Acct: [id number] Name: ARIELLA BASURTO Rep #: [id number] : 1970 F 47 From: Shawn Sheffield MD PCP: Aiden Daugherty MD Status: ADM IN Study: Chest PA and Lateral Date of Exam: 04/23/18 Exam# [id number] Ordering Dr: Kishor Babcock MD STUDY: X-RAY CHEST REASON FOR EXAM: Female, 47 years old. Seizures. Leukocytosis. Confusion. TECHNIQUE: AP and lateral views of the chest. COMPARISON: Comparison is made with prior study dated February 07, 2017. FINDINGS: EKG electrodes are seen. Mild increased markings at the left lung base suggestive of a linear atelectasis. Limited respiratory effort. There is no demonstrated pleural abnormality. Normal size heart. Normal mediastinum and elle. Normal visualized pulmonary arteries. Normal visualized aortic arch and descending thoracic aorta. Normal visualized thoracic spine. Normal visualized ribs, clavicles, and shoulders. There is no demonstrated abnormality of the visualized soft tissue structures of the upper abdomen. RAD/Chest PA and Lateral IMPRESSION: Mild increased markings at the left lung base suggestive of atelectasis. Electronically Signed: Shawn Sheffield MD at 8:26 EST Tel [phone], Service support , CC: Kishor Babcock MD; Aiden Daugherty MD Community Health Nurse: Signed EMERGENCY DEPARTMENT Observed: 04/22/2018 Status: F Source: [place] SUMMARY 11:[address] [facility] REPOSITORY [facility] Medical Records Department [address] [place] [address] Emergency Department Summary 04/22/18 2336 MR#: [id number] Acct: [id number] Name: ARIELLA BASURTO Rep #: [id number] : 1970 47 From: Raul Felipe DO PCP: Aiden Daugherty MD Status: REG ER - ER Visit Summary Date of Service: 04/22/18 Chief Complaint: Seizure History of Present Illness: The patient is a 47 F who presents with seizure that occurred today. Patient has a history of posterior reversible encephalopathy syndrome and has a seizure when she looks down. Patient states she looked down today and felt like she was going to have a seizure. Patient sat down on the floor and then laid back. Patient did not have any tonic-clonic activity. Patient became confused after this. Patient is nonverbal and is a poor historian. Patient does not follow commands. denies any fevers or chills recently. states the patient was having some visual hallucinations. Physical Examination: Vital signs are stable except for mild tachycardia of 115. Patient is in no acute distress. Patient is nonverbal. Oral mucosa is pink and moist. Neck is supple. Trachea is midline. There is no JVD noted. Pupils are equal, round, reactive to light bilaterally. Heart was regular and tachycardic. Lungs are clear and equal bilaterally. Abdomen is soft and nontender. Patient is awake and alert but nonverbal. There are no focal motor or sensory deficits noted. Patient is moving all extremities. Patient does not respond to commands. Test Results: CT scan of the brain shows no acute abnormality. There is left sphenoid sinusitis. CBC shows a leukocytosis of 23.5. Creatinine was slightly elevated 1.28. This is chronic for the patient. Emergency Department Course and Treatment: Patient was given Reglan and morphine for her headache. Patient was given a dose of Rocephin here. Case was discussed with Dr. Babcock, hospitalist. He will admit the patient to his service. Disposition: Admit to hospital Impression: 1. Altered mental status 2. Left sphenoid sinusitis This note was generated with [employer] dictation software. It may contain incorrect words, spelling, and punctuation that were not noted in review of the chart prior to signing ED Disposition - Plan for ED Patient: Disposition: Acute Care Hospital [facility] Chief Complaint: Seizure Diagnosis: Altered mental status, unspecified, Sphenoid sinusitis Referrals: Aiden Daugherty MD [Primary Care Provider] - What to do if you have Problems For any increased pain, shortness of breath, bleeding, nausea or vomiting, chest pain, or any unexpected problems, contact your Primary Care Provider. Call [facility] ([phone]) or report to the closest Emergency Room. Call 911 if necessary. 04/22/18 3847 <Electronically signed by Raul Schwiger DO> Date Raul Felipe DO Cosigner Signature (If Indicated): Date CC: Aiden Daugherty MD COMPREHENSIVE METABOLIC Collected: 04/22/2018 Status: F Source: [place] 6:[address] [facility] REPOSITORY TYPE CODE TESTS RESULT OUT OF RANGE REFERENCE UNITS LAB L501.0100 74-106 mg/dL High GLU 120 Result Comment: Fasting Glucose result from 100 to 125 mg/dL suggests IMPAIRED HOMEOSTASIS per A.D.A. criteria. Please note revised GLUCOSE reference range effective 2017. LAB L501.1000 7-18 mg/dL Normal BUN 10 LAB L501.1100 0.55-1.02 mg/dL High CREAT,SERUM 1.28 Result Comment: The validity of the calculated GFR AND GFRAA in patients over 70 years has not been determined. Clinical correlation is essential. LAB L501.1110 >60 mL/min Low EST GFR 47 Result Comment: Non- GFR Calc LAB L501.1115 >60 mL/min Low EST GFR - AA 57 Result Comment: GFR Calc LAB L501.1255 ml/min Normal Estimated CRCL 40.12 LAB L501.1300 10-20 RATIO Low BUN/CRE 7.8 LAB L501.1500 6.4-8. g/dL Normal 2 T PROT 7.8 LAB L501.1800 3.2-5. g/dL Normal 0 ALB 4.1 LAB L501.1950 2.2-4. g/dL Normal 2 GLOB 3.7 LAB L501.2000 0.9-2. RATIO Normal 4 A/G 1.1 LAB L501.2200 8.5-10 mg/dL Low .1 CA 8.4 LAB L501.4100 15-37 U/L Normal AST 23 LAB L501.4305 45-117 U/L Normal ALK P 91 LAB L501.4405 13-56 U/L Normal ALT 32 LAB L501.4600 0.20-1 mg/dL Normal .00 T BILI 0.30 LAB L501.5300 136-14 mmol/L Low 5 NA 134 LAB L501.5600 3.5-5. mmol/L Normal 1 K 3.9 LAB L501.5900 98-107 mmol/L Normal CL 103 LAB L501.6100 21.0-3 mmol/L Normal 2.0 CO2 23.0 LAB L501.6200 5-15 Normal GAP 8 Performed By: #### L500.4050 #### [facility] [address] [place], [address] CBC W/DIFF, AUTOMATED Collected: 04/22/2018 Status: C Source: [place] 6:[address] [facility] REPOSITORY TYPE CODE TESTS RESULT OUT OF RANGE REFERENCE UNITS LAB L100.1000 4.4-11.0 K/mm3 High WBC 23.5 LAB L100.1200 4.2-5.4 M/mm3 Normal RBC 4.45 LAB L100.1300 12.0-15.0 g/dl Normal HGB 13.6 LAB L100.1400 37-47 % Normal HCT 41.2 LAB L100.1500 81-99 fL Normal MCV 92.6 LAB L100.1600 27.0-32.0 pg Normal MCH 30.6 LAB L100.1700 32-36 g/gl Normal MCHC 33.0 LAB L100.1810 11.6-14.6 % Normal RDW CV 14.2 LAB L100.1820 35.1-43.9 fl High RDW SD 48.0 LAB L100.1900 150-450 K/mm3 Normal PLT 318 LAB L100.2000 6.2-12.0 fl Normal MPV 9.6 LAB L100.2100 47-70 % High NEUT% 88.5 LAB L100.2200 19-41 % Low LY% 9.2 LAB L100.2300 0-10 % Normal MONO% 0.6 LAB L100.2400 0-5 % Normal EO% 1.0 LAB L100.2500 0-1 % Normal BASO% 0.2 LAB L100.2550 0.0-0.9 % Normal IM GRAN % 0.500 Result Comment: IG% - Immature Granulocytes (promyelocytes, myelocytes and metamyelocytes) > 1% indicates that a LEFT SHIFT is Present. LAB L100.2620 2.0-7.7 X10 3/uL High Absolute Neut 20.8 LAB L100.2720 0.83-4.51 X10 3/ul Normal Absolute Lymph 2.17 LAB L100.4500 Normal SMEAR COMMENT SEE COMMENT Result Comment: NEUTROPHILIA NOTED LAB L100.5500 ADEQ PLT EST Normal ADEQUATE LAB L100.7300 ANISO RARE Normal LAB L100.7800 RARE Normal MACROCYTE LAB L100.9900 PATH REV Normal Reviewed Result Comment: Neutrophilic leukocytosis. Clinical correlation suggested. Chance Reeder D.O. 04/23/18 AMENDED REPORT 04/23/18 1427 PATH REV previously reported as: July otis Performed By: #### L100.0100 #### [facility] [address] [place], [address] GGTP Collected: 04/22/2018 Status: F Source: [place] 6:[address] [facility] REPOSITORY TYPE CODE TESTS RESULT OUT OF RANGE REFERENCE UNITS LAB L501.5100 5-55 U/L High GGTP 68 Performed By: #### L501.5100 #### [facility] [address] [place], [address] ALCOHOL, BLOOD Collected: 04/22/2018 Status: F Source: [place] (MEDICAL)-SERUM 6:[address] [facility] REPOSITORY TYPE CODE TESTS RESULT OUT OF RANGE REFERENCE UNITS LAB L501.9100 mg/dL Normal SERUM 12.0 ETOH Result Comment: The serum:whole blood ethanol ratio is approximately 1.14 and varies slightly with hematocrit. Medical Alcohol reference interval and critical value in non-tolerant individuals; 50 - 100 Impairment 100 Intoxication 100 - 250 Severe Poisoning 250 - 400 Deep/possible fatal coma Performed By: #### L501.9100 #### [facility] [address] [place], [address] BRAIN/HEAD WITHOUT Observed: 04/22/2018 Status: F Source: [place] CONTRAST 6:[address] [facility] REPOSITORY [facility] Imaging Services [address] [place] [address] Brain/Head without Contrast MR#: [id number] Acct: [id number] Name: ARIELLA BASURTO Rep #: [id number] : 1970 F 47 From: Gaurang Tom DO PCP: Aiden Daugherty MD Status: DARIO BOGGS Study: Brain/Head without Contrast Date of Exam: 04/22/18 Exam# [id number] Ordering Dr: Raul Felipe DO STUDY: CT BRAIN WITHOUT CONTRAST REASON FOR EXAM: Female, 47 years old. Altered mental status. RADIATION DOSAGE (If Supplied By Facility): CTDIvol = ( 44.99 ) mGy, DLP = ( 745.49 ) mGycm TECHNIQUE: Transaxial CT imaging of the brain was performed without administration of intravenous contrast material. Individualized dose optimization techniques were used for this CT. COMPARISON: April 08, 2018. FINDINGS: Normal soft tissue structures. Normal calvarium. Normal size ventricles and extra-axial spaces for the patient's age. Normal white matter tracts of the cerebral hemispheres. Normal basal ganglia and thalami. Normal brainstem. Normal cerebellum. There is no intracranial hemorrhage. There are no findings of an acute ischemic infarction. There is air-fluid level in the left sphenoid sinus. CT/Brain/Head without Contrast IMPRESSION: 1. No acute intracranial or calvarial abnormality. There is no interval change when compared to prior study. 2. Left sphenoid sinusitis. Electronically Signed: Gaurang Tom DO at 18:59 EST Tel [phone], Service support , CC: Raul Felipe DO; Aiden Daugherty MD Community Health Nurse: Signed OBSOLETE Observed: 04/22/2018 Status: COMPLETED Source: [place] 12:00 AM [facility] REPOSITORY Refill (FAMPWS) REJI ALBERTOARIELLA ([id number]) 1970 F Date Time Provider Department 04/22/18 AIDEN DAUGHERTY During your visit today, we recorded the following information about you: Isabel Castro LPN 04/22/2018 10:57 AM Signed KAREN: 02/24/18 NOV: 08/26/18 w/PCP Last Refill: 06/05/17 #90 1 refill. Isabel Daugherty MD 04/22/2018 3:32 PM Signed oarrs done. Ok to fill Salina Arnold LPN 04/22/2018 4:23 PM Signed Could you please print this out. Mail away pharmacy will only accept control script via fax. Aiden Daugherty MD 04/22/2018 5:01 PM Signed done Salina Arnold LPN 04/22/2018 5:33 PM Signed Printed scrip faxed to [facility] Allergies As of Date: 04/22/2018 Noted Allergy Reaction ALLOPURINOL (BULK) 04/04/2016 2 - Rash Date Reviewed: 02/24/2018 Reviewed by: Mery Rios Emt I/99 - Fully Assessed Reason for Visit: Refill Request [94] Visit Diagnosis:Breakthrough seizure (HCC) [G40.919] Order(s):clonazePAM (KLONOPIN) 0.5 mg tabletTake 0.5 tablets by mouth twice daily as needed for up to 180 days.Disp: 90 tabletRfl: 1 Prescriptions as of 04/22/2018 Sig: CLONAZEPAM 0.5 MG TABLET Take 0.5 tablets by mouth twi* CITALOPRAM 20 MG TABLET Take 1 tablet by mouth once d* CITALOPRAM 40 MG TABLET Take 1 tablet by mouth once d* LACOSAMIDE 100 MG TABLET Take 1 tablet by mouth twice * FOLIC ACID 1 MG TABLET Take 1 tablet by mouth once d* FEBUXOSTAT 40 MG TABLET Take 1 tablet by mouth once d* PANTOPRAZOLE 20 MG TABLET,DEL* Take 1 tablet by mouth once d* ZONISAMIDE 100 MG CAPSULE Take 3 capsules by mouth beronica* THIAMINE HCL (VITAMIN B1) 100* Take 1 tablet by mouth once d* LEVETIRACETAM ER 500 MG TABLE* Take 1 tablet by mouth twice * METOPROLOL SUCCINATE ER 25 MG* Take 1 tablet by mouth once d* BENZONATATE 100 MG CAPSULE Take 1 capsule by mouth three* POTASSIUM ACETATE-FOR TPN IBUPROFEN 200 MG TABLET Take 400-600 mg by mouth ever* FISH OIL ORAL Take by mouth. 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] INVALID FOR* Anxiety and depression [F41.9, F32.9] INVALID FOR* PRES (posterior reversible encephalopathy syndr*INVALID FOR* Breakthrough seizure (HCC) [G40.919] INVALID FOR* Chronic UTI [N39.0] INVALID FOR* Ischemic brain injury [I67.82] INVALID FOR* Myopia, bilateral [H52.13] INVALID FOR* Regular astigmatism, bilateral [H52.223] INVALID FOR* Presbyopia [H52.4] INVALID FOR* Symptomatic partial epilepsy with intractable c*INVALID FOR* Chronic renal insufficiency, stage 3 (moderate)*INVALID FOR* Prescriptions ordered this encounter Disp Refills Start End CLONAZEPAM 0.5 MG TABLET 90 t* 1 04/22/2018 04/22/2018 Class: Call Rx Route: ORAL Sig: Take 0.5 tablets by mouth twice daily as needed for up to 180 days. CLONAZEPAM 0.5 MG TABLET 90 t* 1 04/22/2018 10/19/2018 Class: Print RX Route: ORAL Sig: Take 0.5 tablets by mouth twice daily as needed for up to 180 days. Medications Discontinued During This Encounter clonazePAM (KLONOPIN) 0.5 mg tablet 90 t* 1 06/05/2017 04/22/2018 Class: Print RX Route: ORAL Sig: Take 0.5 tablets by mouth twice daily as needed for up to 180 days. Disc: Reason for discontinue is not on file. clonazePAM (KLONOPIN) 0.5 mg tablet 90 t* 1 04/22/2018 04/22/2018 Class: Call Rx Route: ORAL Sig: Take 0.5 tablets by mouth twice daily as needed for up to 180 days. Disc: Reason for discontinue is not on file. Encounter Status:Closed by SALINA ARNOLD LPN on 04/22/18 LACOSAMIDE Collected: 04/10/2018 Status: F Source: [place] 10:40 AM [facility] REPOSITORY TYPE CODE TESTS RESULT OUT OF REFERENCE UNITS RANGE LAB LACOST 2.2-19.8 ug/mL Lacosamide Test 6.9 Result Comment: Expected concentration of patients receiving 200-400 mg/day is 2.2-19.8 ug/mL for Lacosamide. This test was developed and its performance characteristics determined by [facility] [place] ([facility]). It has not been cleared or approved by the FDA. -[facility] is regulated under CLIA as qualified to perform high-complexity testing. This test is used for clinical purposes. It should not be regarded as investigational or for research. LAB DESLAC <2.6 ug/mL Desmethyllacosamide 0.7 Result Comment: Expected concentration of patients receiving 200-400 mg/day is up to 2.5 ug/mL for Desmethyllacosamide. This test was developed and its performance characteristics determined by [facility] [place] ([facility]). It has not been cleared or approved by the FDA. -[facility] is regulated under CLIA as qualified to perform high-complexity testing. This test is used for clinical purposes. It should not be regarded as investigational or for research. Performed By: #### PAULA CORREIA ZONIS #### [facility] [address] [place] [id number] LEVETIRACETAM Collected: 04/10/2018 Status: F Source: [place] 10:40 AM [facility] REPOSITORY TYPE CODE TESTS RESULT OUT OF REFERENCE UNITS RANGE LAB LEVETI 12.0-46.0 ug/mL Levetiracetam 16.2 Result Comment: This test is not suitable for patients receiving treatment with the drug brivaracetam (Briviact). The drug causes an interference that may lead to falsely elevated levetiracetam results. Reference ranges and high/low indicator flags are provided as general guidelines only. The treating physician must determine appropriate target levels/dosing based on the specific clinical situation. This test was developed and its performance characteristics determined by [facility] [place] ([facility]). It has not been cleared or approved by the FDA. -[facility] is regulated under CLIA as qualified to perform high-complexity testing. This test is used for clinical purposes. It should not be regarded as investigational or for research. Performed By: #### PAULA CORREIA ZONIS #### [facility] [address] [place] [id number] ZONISAMIDE Collected: 04/10/2018 Status: F Source: [place] 10:40 [place] REPOSITORY TYPE CODE TESTS RESULT OUT OF REFERENCE UNITS RANGE LAB ZON 10.0-40.0 ug/mL Zonisamide 13.1 Result Comment: This test was developed and its performance characteristics determined by [facility] [place] ([facility]). It has not been cleared or approved by the FDA. [facility] is regulated under CLIA as qualified to perform high-complexity testing. This test is used for clinical purposes. It should not be regarded as investigational or for research. Performed By: #### PAULA CORREIA ZONIS #### [facility] [address] [place] [id number] EMERGENCY DEPARTMENT Observed: 04/09/2018 Status: F Source: [place] SUMMARY 1:[address] [facility] REPOSITORY [facility] Medical Records Department [address] [place] [address] Emergency Department Summary 04/09/18 0022 MR#: [id number] Acct: [id number] Name: ARIELLA BASURTO Rep #: [id number] : 1970 47 From: Raul Felipe DO PCP: Aiden Daugherty MD Status: DEP ER - ER Visit Summary Date of Service: 04/09/18 Chief Complaint: Headache and visual field deficit History of Present Illness: The patient is a 47 F who presents with headache and decreased vision in the left visual field that began today. Patient has a history of posterior reversible encephalopathy syndrome and family states this is similar to prior episodes of that. Family states that the patient also gets confused with these episodes. Patient states she has headache over the top of her head. Patient describes it as throbbing. Patient admits to some nausea but denies any vomiting. Family states the patient does have some residual effects from prior episodes of posterior reversible encephalopathy syndrome. Patient states she did look down prior to the episode beginning today which is typical of prior episodes. EMS administered 4 mg of morphine and 4 mg of Zofran prior to arrival. Family also states the patient has a history of alcohol abuse and had been drinking up until 3 days ago. Physical Examination: Vital signs are stable except for mildly elevated blood pressure 161/91. Patient is afebrile. Patient does have a pulse oximeter reading of 78% on room air. Patient is 96% on oxygen here in the emergency department. Cranial nerves II through XII are grossly intact with the exception of decreased vision over the left lateral visual field. Family also states the patient has had problems with this part of her vision in the past. Patient was having difficulty following commands but was able to move all of her extremities and had good strength. Patient did not have any sensory deficits. Heart was regular and tachycardic. Lungs are clear and equal bilaterally. Abdomen is soft. Bowel sounds are normal. There is no tenderness. The remaining physical exam is within normal limits. Test Results: CBC shows a mild leukocytosis of 16.4. CT scan of the brain was obtained and does not show any acute intracranial abnormality. Basic metabolic profile showed a chronically elevated creatinine of 1.43. Urine tox was positive for opiates. Patient was given morphine by EMS prior to arrival as well as a dose of morphine here in the emergency. Serum alcohol level was 4. Emergency Department Course and Treatment: Patient was given morphine, Reglan, Benadryl here in the emergency department. Patient states her headache improved. Patient became more somnolent after this. Patient was observed in the emergency department became more awake and alert on reevaluation. Patient and family felt comfortable going home. Patient was instructed to avoid any further alcohol use. Patient was instructed to follow- up with her primary care physician and neurologist in 5-7 days. Patient and family understood and were agreeable with the plan. All questions were answered. Disposition: Discharge home Impression: 1. Headache 2. History of posterior reversible encephalopathy syndrome This note was generated with [employer] software. It may contain incorrect words, spelling, and punctuation that were not noted in review of the chart prior to signing ED Disposition - Plan for ED Patient: Disposition: Home or Assisted Living Chief Complaint: Neuro S/Sx Diagnosis: Headache, PRES (posterior reversible encephalopathy syndrome) Instructions: ED Headache Migraine Referrals: Aiden Daugherty MD [Primary Care Provider] - What to do if you have Problems For any increased pain, shortness of breath, bleeding, nausea or vomiting, chest pain, or any unexpected problems, contact your Primary Care Provider. Call [facility] ([phone]) or report to the closest Emergency Room. Call 911 if necessary. 04/09/18 0101 <Electronically signed by Raul Felipe DO> Date Raul Felipe DO Cosigner Signature (If Indicated): Date CC: Aiden Daugherty MD URINE DRUG SCREEN Collected: 04/08/2018 Status: F Source: [place] (VISTA) 11:[address] [facility] REPOSITORY TYPE CODE TESTS RESULT OUT OF RANGE REFERENCE UNITS LAB L505.0075 TO BE Normal CONFIRMED Result Comment: CONFIRMATORY TESTING FOR ALL POSITIVE URINE DRUG SCREEN RESULTS WILL ONLY BE SENT OUT UPON PHYSICIAN ORDER. VISTA Urine Drug Screen methods provide only preliminary analytical test results. A more specific alternate chemical method must be used in order to obtain a confirmed analytical result. Gas chromatography/mass spectrometery (GC/MS) is the preferred confirmatory method. Clinical consideration and professional judgement should be applied to any drug of abuse test result, particularly when preliminary positive results are used. URINE TCA TESTING MUST BE ORDERED SEPARATELY. USE TEST MNEMONIC: [facility] LAB L505.5005 VISTA UDS PH 7 Normal LAB L505.5015 <1000 ng/mL AMPHETAMINES Normal NEGATIVE LAB L505.5025 < 200 ng/mL BARBITIURATES Normal NEGATIVE LAB L505.5035 < 200 ng/mL BENZODIAZIPINE Normal NEGATIVE LAB L505.5045 < 300 ng/mL COCAINE Normal NEGATIVE LAB L505.5055 < 500 ng/mL ECSTACY Normal NEGATIVE LAB L505.5065 < 300 ng/mL METHADONE Normal NEGATIVE LAB L505.5075 < 300 High ng/mL OPIATES POSITIVE LAB L505.5085 < 25 ng/mL PCP Normal NEGATIVE LAB L505.5095 < 50 ng/mL THC Normal NEGATIVE Performed By: #### L505.5000 #### [facility] [address] [place], [address] BRAIN/HEAD WITHOUT Observed: 04/08/2018 Status: F Source: [place] CONTRAST 8:[address] [facility] REPOSITORY [facility] Imaging Services [address] [place] [address] Brain/Head without Contrast MR#: [id number] Acct: [id number] Name: ARIELLA BASURTO Rep #: [id number] : 1970 F 47 From: Dustin Henning MD PCP: Aiden Daugherty MD Status: REG ER Study: Brain/Head without Contrast Date of Exam: 04/08/18 Exam# [id number] Ordering Dr: aRul Felipe DO STUDY: CT BRAIN WITHOUT CONTRAST REASON FOR EXAM: Female, 47 years old. Headache, seizures RADIATION DOSAGE (If Supplied By Facility): CTDIvol = ( 44.99 ) mGy, DLP = ( 745.49 ) mGycm TECHNIQUE: Transaxial CT imaging of the brain was performed without administration of intravenous contrast material. Individualized dose optimization techniques were used for this CT. COMPARISON: 02/07/2017 FINDINGS: Normal soft tissue structures. Normal calvarium. Normal size ventricles and extra-axial spaces for the patient's age. Normal white matter tracts of the cerebral hemispheres. Normal basal ganglia and thalami. Normal brainstem. Normal cerebellum. There is no intracranial hemorrhage. There are no findings of an acute ischemic infarction. Normal visualized paranasal sinuses. CT/Brain/Head without Contrast IMPRESSION: Normal unenhanced CT scan of the brain. Electronically Signed: Cory Henning MD at 21:26 EST , Service support , CC: Raul Felipe DO; Aiden Daugherty MD Community Health Nurse: Signed BASIC METABOLIC Collected: 04/08/2018 Status: F Source: [place] PROFILE (BMP) 8:[address] [facility] REPOSITORY TYPE CODE TESTS RESULT OUT OF RANGE REFERENCE UNITS LAB L501.0100 74-106 mg/dL High GLU 114 Result Comment: Fasting Glucose result from 100 to 125 mg/dL suggests IMPAIRED HOMEOSTASIS per A.D.A. criteria. Please note revised GLUCOSE reference range effective 2017. LAB L501.1000 7-18 mg/dL Normal BUN 14 LAB L501.1100 0.55-1.02 mg/dL High CREAT,SERUM 1.43 Result Comment: The validity of the calculated GFR AND GFRAA in patients over 70 years has not been determined. Clinical correlation is essential. LAB L501.1110 >60 mL/min Low EST GFR 41 Result Comment: Non- GFR Calc LAB L501.1115 >60 mL/min Low EST GFR - AA 50 Result Comment: GFR Calc LAB L501.1255 ml/min Normal Estimated CRCL 35.91 LAB L501.1300 10-20 RATIO Low BUN/CRE 9.8 LAB L501.2200 8.5-10 mg/dL Low .1 CA 8.2 LAB L501.5300 136-14 mmol/L Normal 5 NA 137 LAB L501.5600 3.5-5. mmol/L Normal 1 K 4.3 LAB L501.5900 98-107 mmol/L High CL 109 LAB L501.6100 21.0-3 mmol/L Normal 2.0 CO2 21.0 LAB L501.6200 5-15 Normal GAP 7 Performed By: #### L500.2500 #### [facility] [address] [place], [address] CBC W/DIFF, AUTOMATED Collected: 04/08/2018 Status: F Source: [place] 8:[address] [facility] REPOSITORY TYPE CODE TESTS RESULT OUT OF RANGE REFERENCE UNITS LAB L100.1000 4.4-11.0 K/mm3 High WBC 16.4 LAB L100.1200 4.2-5.4 M/mm3 Low RBC 4.14 LAB L100.1300 12.0-15.0 g/dl Normal HGB 12.4 LAB L100.1400 37-47 % Normal HCT 39.4 LAB L100.1500 81-99 fL Normal MCV 95.2 LAB L100.1600 27.0-32.0 pg Normal MCH 30.0 LAB L100.1700 32-36 g/gl Low MCHC 31.5 LAB L100.1810 11.6-14.6 % Normal RDW CV 14.6 LAB L100.1820 35.1-43.9 fl High RDW SD 49.8 LAB L100.1900 150-450 K/mm3 Normal PLT 250 LAB L100.2000 6.2-12.0 fl Normal MPV 9.9 LAB L100.2100 47-70 % High NEUT% 88.0 LAB L100.2200 19-41 % Low LY% 10.7 LAB L100.2300 0-10 % Normal MONO% 0.1 LAB L100.2400 0-5 % Normal EO% 0.6 LAB L100.2500 0-1 % Normal BASO% 0.2 LAB L100.2550 0.0-0.9 % Normal IM GRAN % 0.400 Result Comment: IG% - Immature Granulocytes (promyelocytes, myelocytes and metamyelocytes) > 1% indicates that a LEFT SHIFT is Present. LAB L100.2620 2.0-7.7 X10 3/uL High Absolute Neut 14.4 LAB L100.2720 0.83-4.51 X10 3/ul Normal Absolute Lymph 1.75 Performed By: #### L100.0100 #### [facility] [address] [place], [address] ALCOHOL, BLOOD Collected: 04/08/2018 Status: F Source: [place] (MEDICAL)-SERUM 8:[address] [facility] REPOSITORY TYPE CODE TESTS RESULT OUT OF RANGE REFERENCE UNITS LAB L501.9100 mg/dL Normal SERUM 4.0 ETOH Result Comment: The serum:whole blood ethanol ratio is approximately 1.14 and varies slightly with hematocrit. Medical Alcohol reference interval and critical value in non-tolerant individuals; 50 - 100 Impairment 100 Intoxication 100 - 250 Severe Poisoning 250 - 400 Deep/possible fatal coma Performed By: #### L501.9100 #### [facility] [address] [place], [address] LIVER PROFILE Collected: 04/08/2018 Status: F Source: [place] 8:[address] [facility] REPOSITORY TYPE CODE TESTS RESULT OUT OF RANGE REFERENCE UNITS LAB L501.1500 6.4-8.2 g/dL Normal T PROT 7.4 LAB L501.1800 3.2-5.0 g/dL Normal ALB 3.9 LAB L501.1950 2.2-4.2 g/dL Normal GLOB 3.5 LAB L501.4100 15-37 U/L Normal AST 16 LAB L501.4305 45-117 U/L Normal ALK P 89 LAB L501.4405 13-56 U/L Normal ALT 22 LAB L501.4600 0.20-1.00 mg/dL Normal T BILI 0.30 LAB L501.4700 0.00-0.30 mg/dL Normal D BILI 0.11 Performed By: #### L500.3400 #### [facility] [address] [place], [address] CNCO Observed: 03/19/2018 Status: COMPLETED Source: [place] 1:08 PM [facility] REPOSITORY HNO ID: [id number] Author: Mammography Coordinator Service: (none) Author Type: Physician Type: Letter Filed: 03/20/2018 11:32 PM Note Text: March 19, 2018 PID: [id number] Ariella Mendoza [address] [place] [address] Dear Ms. Reji Alberto, Your recent breast imaging examination performed on 03/19/2018 showed an area that we believe is probably benign (not cancer). A six month follow-up is recommended to ensure your breast health. Please call [phone] to schedule an appointment for these tests if you have not already done so. Your mammogram demonstrates that you have dense breast tissue, which could hide abnormalities. Dense breast tissue, in and of itself, is a relatively common condition. Therefore, this information is not provided to cause undue concern; rather, it is to raise your awareness and promote discussion with your health care provider regarding the presence of dense breast tissue in addition to other risk factors. Early detection of cancer is very important. We also understand recommendations regarding breast cancer screening are controversial. Please discuss with your primary care provider which strategy is best for you and whether a mammogram is right for you. Your breast images and report will be kept on file here as part of your permanent medical record and are available for your continuing care. Thank you for allowing us to help in meeting your health care needs. Sincerely, Dr. Parker Interpreting Radiologist [facility] (# mo Follow-up) CNCO Observed: 03/19/2018 Status: COMPLETED Source: [place] 1:08 PM [facility] [place] REPOSITORY HNO ID: [id number] Author: Mammography Coordinator Service: (none) Author Type: Physician Type: Letter Filed: 03/20/2018 11:32 PM Note Text: March 19, 2018 PID: [id number] Ariella Colin Reji Alberto [address] [place] [address] Dear Mendoza Remy, Your recent breast imaging examination performed on 03/19/2018 showed an area that we believe is probably benign (not cancer). A six month follow-up is recommended to ensure your breast health. Please call [phone] to schedule an appointment for these tests if you have not already done so. Your mammogram demonstrates that you have dense breast tissue, which could hide abnormalities. Dense breast tissue, in and of itself, is a relatively common condition. Therefore, this information is not provided to cause undue concern; rather, it is to raise your awareness and promote discussion with your health care provider regarding the presence of dense breast tissue in addition to other risk factors. Early detection of cancer is very important. We also understand recommendations regarding breast cancer screening are controversial. Please discuss with your primary care provider which strategy is best for you and whether a mammogram is right for you. Your breast images and report will be kept on file here as part of your permanent medical record and are available for your continuing care. Thank you for allowing us to help in meeting your health care needs. Sincerely, Dr. Parker Interpreting Radiologist [facility] (# mo Follow-up) PROGRESS Observed: 03/19/2018 Status: COMPLETED Source: [place] 12:06 PM [facility] REPOSITORY HNO ID: [id number] Author: Kristy Vazquez) Richie Service: (none) Author Type: Medical Device Sales Type: Progress Notes Filed: 03/19/2018 12:06 PM Note Text: Radiology Service Progress Note PATIENT NAME: Ariella Alberto DATE OF SERVICE: March 19, 2018 TIME: 12:06 PM PATIENT IDENTITY VERIFICATION COMPLETED USING TWO (2) METHODS: Patient confirmed name verbally and Date of . PATIENT GENDER DATA: Female. status: : No status: N/A PATIENT RELEVANT IMPLANT DATA REVIEWED: Not Applicable RADIOLOGY DEPARTMENT: Ultrasound PERIPHERAL IV DATA: Not applicable SIGNED BY: KRISTY BEYER RDMS RVT March 19, 2018 12:06 PM [facility]OM BREAST [facility]TD Observed: 03/19/2018 Status: F Source: [place] RT 11:55 AM [facility] REPOSITORY * * *Final Report* * * DATE OF EXAM: Mar 19 2018 11:55AM U [id number] - [facility] GOOM BREAST LTD RT / PROCEDURE REASON: Abnormal mammogram * * * * Physician Interpretation * * * * #[id number] - [facility] DIAGNOSTIC RT #[id number] - [facility] US BREAST LTD RT UNILATERAL RIGHT DIGITAL DIAGNOSTIC MAMMOGRAM WITH CAD WITH AUGMENTATION: 03/19/2018 HISTORY: Callback right / Abnormal Mammogram Abnormal Mammogram. RESULT: TECHNIQUE: The study was acquired using full field digital technology and interpreted from soft copy. Current study was also evaluated with a Computer Aided Detection (CAD). Comparison is made to exam dated: 02/07/2018 mammogram - [facility] [facility]. The tissue of right breast is heterogeneously dense. This may lower the sensitivity of mammography. There is a 2 cm oval lymph node in the right axillary tail. No other significant masses or calcifications are seen in the breast. IMPRESSION: PROBABLY BENIGN - SHORT TERM INTERVAL FOLLOW-UP RECOMMENDED The 2 cm oval lymph node is probably benign. A follow-up in 6 months is recommended. ULTRASOUND OF RIGHT AXILLA: 03/19/2018 RESULT: Comparison is made to exam dated: 02/07/2018 mammogram - [facility]. Color flow and real-time ultrasound of the right axilla were performed. Colon scale images of the real-time examination were reviewed. There is 3.3 cm x 2 cm x 0.8 cm lymph node in the right axillary tail. This lymph node displays fatty hilum. This correlates with mammography findings. IMPRESSION: PROBABLY BENIGN - SHORT TERM INTERVAL FOLLOW-UP RECOMMENDED The 3.3 cm x 2 cm x 0.8 cm lymph node in the right axillary tail is consistent with a lymph node and is probably benign. This likely corresponds to the mammographic finding. There is a second adjacent lymph node that has a slightly thickened cortex measuring up to 4 mm, however this node measures no greater than 1 cm in size and would not be sales representative sales manager of the mammographic finding. Follow-up mammogram and ultrasound in 6 months is recommended. A follow-up mammogram and an ultrasound in 6 months is recommended to demonstrate stability. Guamro Parker M.D. tab/:03/19/2018 13:08:06 Multiple national specialty organizations have released breast cancer screening guidelines for women at average risk for developing breast cancer - guidelines that are based on both evidence and opinion, yet differ on when to start and how often to screen for breast cancer. With representation from Breast Imaging, Internal Medicine, Women's Health, Family Medicine, and Medical/Surgical Oncology, the [facility] has carefully reviewed the data and reached the following consensus: 1) All women should engage in shared decision-making with their providers to decide when to start and how often to screen; 2) All women should have the opportunity to start screening mammography at age 40; 3) For women ages 45-55, we recommend annual screening mammograms; 4) For women ages 55 and over, we support both the transition from an annual to a biennial interval if this aligns more with patient's values and preferences, or continuation with annual screening; 5) All women should discuss with their providers when to stop screening mammograms. Cadd Drafter(s): Yaima Nelson, RT(R)(M), [facility]; Kristy Beyer, [facility] letter sent: # Mo FU OVERALL STUDY BIRADS: 3 Probably benign finding - short term interval follow-up recommended Community Health Nurse: Yon Transcribe Date/Time: Mar 19 2018 11:01A Dictated by : GUMARO PARKER MD This examination was interpreted and the report reviewed and electronically signed by: GUMARO PARKER MD on Mar 19 2018 1:08PM EST [id number] [facility] DIAGNOSTIC RT Observed: 03/19/2018 Status: F Source: [place] 11:01 AM [facility] REPOSITORY * * *Final Report* * * DATE OF EXAM: Mar 19 2018 11:01AM WRW [id number] - [facility] DIAGNOSTIC RT / PROCEDURE REASON: Abnormal mammogram * * * * Physician Interpretation * * * * RESULT: #[id number] - [facility] DIAG[facility]IC RT #[id number] - [facility] US BREAST LTD RT UNILATERAL RIGHT DIGITAL DIAGNOSTIC MAMMOGRAM WITH CAD WITH AUGMENTATION: 03/19/2018 HISTORY: Callback right / Abnormal Mammogram Abnormal Mammogram. RESULT: TECHNIQUE: The study was acquired using full field digital technology and interpreted from soft copy. Current study was also evaluated with a Computer Aided Detection (CAD). Comparison is made to exam dated: 02/07/2018 mammogram - [facility]. The tissue of right breast is heterogeneously dense. This may lower the sensitivity of mammography. There is a 2 cm oval lymph node in the right axillary tail. No other significant masses or calcifications are seen in the breast. IMPRESSION: PROBABLY BENIGN - SHORT TERM INTERVAL FOLLOW-UP RECOMMENDED The 2 cm oval lymph node is probably benign. A follow-up in 6 months is recommended. ULTRASOUND OF RIGHT AXILLA: 03/19/2018 RESULT: Comparison is made to exam dated: 02/07/2018 mammogram - [facility]. Color flow and real-time ultrasound of the right axilla were performed. Colon scale images of the real-time examination were reviewed. There is 3.3 cm x 2 cm x 0.8 cm lymph node in the right axillary tail. This lymph node displays fatty hilum. This correlates with mammography findings. IMPRESSION: PROBABLY BENIGN - SHORT TERM INTERVAL FOLLOW-UP RECOMMENDED The 3.3 cm x 2 cm x 0.8 cm lymph node in the right axillary tail is consistent with a lymph node and is probably benign. This likely corresponds to the mammographic finding. There is a second adjacent lymph node that has a slightly thickened cortex measuring up to 4 mm, however this node measures no greater than 1 cm in size and would not be sales representative sales manager of the mammographic finding. Follow-up mammogram and ultrasound in 6 months is recommended. A follow-up mammogram and an ultrasound in 6 months is recommended to demonstrate stability. Gumaro Parker M.D. tab/:03/19/2018 13:08:06 Multiple national specialty organizations have released breast cancer screening guidelines for women at average risk for developing breast cancer - guidelines that are based on both evidence and opinion, yet differ on when to start and how often to screen for breast cancer. With representation from Breast Imaging, Internal Medicine, Women's Health, Family Medicine, and Medical/Surgical Oncology, the [facility] has carefully reviewed the data and reached the following consensus: 1) All women should engage in shared decision-making with their providers to decide when to start and how often to screen; 2) All women should have the opportunity to start screening mammography at age 40; 3) For women ages 45-55, we recommend annual screening mammograms; 4) For women ages 55 and over, we support both the transition from an annual to a biennial interval if this aligns more with patient's values and preferences, or continuation with annual screening; 5) All women should discuss with their providers when to stop screening mammograms. Cadd Drafter(s): Yaima Nelson, RT(R)(M), [facility]; Kristy Beyer, [facility] letter sent: # Mo FU OVERALL STUDY BIRADS: 3 Probably benign finding - short term interval follow-up recommended Community Health Nurse: Yon Transcribe Date/Time: Mar 19 2018 11:01A Dictated by: GUMARO PARKER MD This examination was interpreted and the report reviewed and electronically signed by: GUMARO PARKER MD on Mar 19 2018 1:08PM EST [id number] PROGRESS Observed: 03/19/2018 Status: COMPLETED Source: [place] 10:59 AM [facility] REPOSITORY HNO ID: [id number] Author: Charmaine Barbour Service: (none) Author Type: (none) Type: Progress Notes Filed: 03/19/2018 10:59 AM Note Text: Radiology Service Progress Note PATIENT NAME: Ariella Alberto DATE OF SERVICE: March 19, 2018 TIME: 10:59 AM PATIENT IDENTITY VERIFICATION COMPLETED USING TWO (2) METHODS: Patient confirmed name verbally and Date of . PATIENT GENDER DATA: Female. status: : No status: NO. PATIENT RELEVANT IMPLANT DATA REVIEWED: Not Applicable RADIOLOGY DEPARTMENT: [facility] DATA: Not applicable SIGNED BY: Charmaine Barbour March 19, 2018 10:59 AM D/C SUMMARY- SP Observed: 03/10/2018 Status: F Source: [place] 1:[address] [facility] REPOSITORY [facility] Speech Pathology [facility] [address] [place] [address] Fax REHABILITATION SERVICES DISCHARGE SUMMARY MR#: [id number] Acct: [id number] Name: ARIELLA BASURTO Rep #: [id number] : 1970 47 From: Claude Rea M.A., CCC-ADMINISTRATIVE SUPPORT SPECIALIST Referring : Status: REG RCR Insurance: MED [facility] SELF PAY INSURANCE ST Discharge Summary - Discharged: Discharge: Ariella Alberto is discharged from [facility] speech therapy due to lack of progress. Her initial evaluation was on October 04, 2016 with therapy attended weekly except for summer 2017. Ariella has had a lengthy medical history regarding cognitive status due to PRES diagnosis. Her most recent goals focused on functional home tasks including money handling, medication management, recall strategies and phone use. Previously Ariella had difficulty in sending a text, taking a picture or texting a picture. Currently she is able to do all of those things independently. Her other goals did not see progress as she still is unable to count kay, recently has had errors on medications and does not put her own medications in a pill box and she does not use any strategies even after maximal cues and teaching. Ariella made a lot of progress overall from when she started as when she first came she was unable to answer questions such as her birthdate. She can participate in conversation well but needs moderate to maximal cues for executive function tasks. Scores on her Cognitive Linguistic quick test did not improve either since last testing. Ariella can continue to complete home tasks with her as he has been provided with a high level of home carry over tasks over the course of her therapy. A copy of this discharge summary will be sent to her referring physician. <Electronically signed by Claude Rea M.A., CCC-ADMINISTRATIVE SUPPORT SPECIALIST> 03/10/18 1358 CC: ENRIQUETA ALBRECHT; Aiden Daugherty MD DIEGO Signed RE-EVALUTION OT Observed: 02/27/2018 Status: F Source: [place] 3:[address] [facility] REPOSITORY [facility] Occupational Therapy [facility] [address] [place], [place] [address] Fax REEVALUATION / MEDICARE RECERTIFICATION OCCUPATIONAL THERAPY MR#: [id number] Acct: [id number] Name: ARIELLA BASURTO Rep #: [id number] : 1970 47 From: Clari Farias Referring DrSlim: Status: REG RCR Insurance: MED [employer] Eval Date: SELF PAY INSURANCE ENRIQUETA ALBRECHT, It has been my pleasure to treat ARIELLA ALBERTO over the last 62 visits for Reverse encephalophy. Please see the progress note below for an update on the occupational therapy plan of care! Subjective: Arrived with who left at start of session. Noted things going well and has been working in workbooks at home. Objective/Function: Reassessment completed on this date of 02/25/18. She has progressed since last reassessment and significantly since initial evaluation. She is consistently completed L scanning techniques to decrease symptoms of L neglect and low vision. She can complete correct spelling of full name mod I, in line divider, for 3/3 trials with use of intrinsic and extrinsic factors, but no cues needed for completion of name. Completes writing full alphabet with 1x error of missing w and 1x cue for correction for 2/2 trials. Ariella is able to now go through and discriminate where errors occurred with 1-2x cues. Ariella has started to complete writing with increased spatial awareness with completing working on making out checks with max A for 3/3 trials out of line divider for increased spatial training. Ariella is able to make cup of tea in microwave with mod I and no cues needed. She is completing writing phone number correctly 3/3 trails in space divider, and address for trials in space divider but with ability to determine where mistakes were located when asked to review. Recently she is starting to work on completing two sentence meaningful tasks to complete letter to son with max A but ability to self-correct and write on/off designated line, no divider, with moderate assistance through cues as needed. Currently she is able to verbal form what she wants to say but needs to complete copying of words to promote writing. She would benefit from 1x weekly OT appointments for next 6 weeks to promote continuing to promote increased ability to complete writing tasks with use extrinsic and intrinsic techniques. She is able to verbally output all things she would like to write but processing from brain to paper for writing has progressed but continues to need addressed. Plan Frequency: 1x/Week Duration: 6 Weeks Visits in this POC: 66 Plan: continue 1x weekly for 6 weeks. Goals - Goals Goal:: Pt. to be (I) to print and sign first and last names with 1x cue 4/5 trials 80% of the time to promote increased ability to complete IADLS by d/c. Print- MEANT Goal:: Ariella to be mod I to type AND write three consecutive sentences from visual and verbal prompts as needed 4/5 trials to improve Pt. ability to communicate through emails and complete IADls by d/c. Goal:: Ariella will be mod I to complete laundry tasks with layout and memory aids as needed 4/5 trials 80% of the time with good safety awareness and decreased need for assistance to improve QOL by d/c. - MEANT Goal:: Ariella and caregiver to implement low vision compensations into daily routine to promote safety awareness and decreased risk of further injury 4/5 trials 80% of the time to promote QOL and improve (i) by d/c. Goal:: Ariella to correctly typing and writing alphabet with 1x cue to promote increase sequencing, VMI, and perceptual cues to promote increased (I) and ability to locate letters on keyboard to promote (i) with meaningful tasks by d/c. Writing- MEANT. Typing- Progressing Goal:: Ariella to be mod I to read digital clock to promote increased ability to complete home time management ability to promote (I) with ADL/IADls 4/5 trials 80% of the time by d/c. Goal:: Ariella to be SBA to complete 5-6 step simple meals with 2-3x verbal cues and good safety awareness 4/5 trials 80% of the time to promote (I) and QOL by time of d/c. Goal:: Ariella to be SBA to complete IADLs with good safety awareness 4/5 trials 80% of the time to promote QOL and decrease need for spv by time of d/c. Goal:: Ariella to be mod I to write address with low vision compensations as needed 2/3 trials 75% of the time to promote safety, VMI, and ability to increase QOL by d/c. Goal:: Ariella to be mod I to complete anchoring and scanning techniques to promote decreasing L sided neglect like disturbances 4/5 trials 80% of the time to promote QOL by d/c. - MEANT Goal:: Ariella to be mod I to complete completing microwave meals to promote VMI and problem solving 4/5 trials 80% of the time by d/c. - MEANT Anticipated Interventions Anticipated Interventions: A/AAROM/PROM, Strengthening, Dynamic Sitting Balance, Visual/Perceptual Skills, Cognitive Skills, ADL Training, Caregiver Training, Home Program, Other Other Interventions: LOw Vision compensations Please do not hesitate to contact me at [phone] by phone or if you have questions or concerns regarding this new plan of care! Sincerely, Clari Farias <Electronically signed by Clari Farias > 02/27/18 1524 CC: ENRIQUETA ALBRECHT; Aiden Daugherty MD [facility] Signed For Medicare only, by signing this I certify the plan of care. Physicians Signature Date CBC AND DIFFERENTIAL Collected: 02/24/2018 Status: F Source: [place] 1:58 PM [facility] REPOSITORY TYPE CODE TESTS RESULT OUT OF REFERENCE UNITS RANGE LAB WBC 3.70-11.00 k/uL WBC 7.73 LAB RBC 3.90-5.20 m/uL RBC 3.95 LAB HGB 11.5-15.5 g/dL Hemoglobin 11.9 LAB HCT 36.0-46.0 % Hematocrit 37.5 LAB MCV 80.0-100.0 fL MCV 94.9 LAB MCH 26.0-34.0 pG MCH 30.1 LAB MCHC 30.5-36.0 g/dL MCHC 31.7 LAB RDWCV 11.5-15.0 % RDW-CV 14.5 LAB PLTCT 150-400 k/uL Platelet Count 291 LAB MPV 9.0-12.7 fL MPV 10.4 LAB ANEUT % Neut% 64.3 LAB AANEUT 1.45-7.50 k/uL Abs Neut 4.97 LAB ALYMP % Lymph% 18.9 LAB AALYMP 1.00-4.00 k/uL Abs Lymph 1.46 LAB AMONO % [place]% 9.3 LAB AAMONO <0.87 k/uL Abs [place] 0.72 LAB AEOS % Eosin% 6.7 LAB AAEOS <0.46 k/uL Abs High Eosin 0.52 LAB ABASO % Baso% 0.8 LAB AABASO <0.11 k/uL Abs Baso 0.06 LAB AUNRBC 0 /100 WBC NRBCs 0.0 LAB ABNRBC <0.01 k/uL Absolute nRBC <0.01 LAB DTYP DTYPE Auto Diff Performed By: #### CBCDIF, CMP, LIPB #### [facility] [address] [place], [place] [address] COMP METABOLIC PANEL Collected: 02/24/2018 Status: F Source: [place] 1:58 PM [facility] REPOSITORY TYPE CODE TESTS RESULT OUT OF REFERENCE UNITS RANGE LAB TP 6.3-8.0 g/dL Protein, Total 7.3 LAB ALB 3.9-4.9 g/dL Albumin 4.5 LAB CA 8.5-10.2 mg/dL Calcium, Total 9.4 LAB TBIL 0.2-1.3 mg/dL Bilirubin, Total 0.2 LAB ALKP 34-123 U/L Alkaline Phosphatase 89 LAB AST 13-35 U/L AST 18 LAB GLU 74-99 mg/dL Glucose 91 Result Comment: The [place] Diabetes Association (ADA) provides guidance for cutoff values for fasting glucose and random glucose. The ADA defines fasting as no caloric intake for at least 8 hours. Fas ting plasma glucose results between 100 to 125 mg/dL indicate increased risk for diabetes (prediabetes). Fasting plasma glucose results greater than or equal to 126 mg/dL meet the criteria for diagnosis of diabetes. In the absence of unequivocal hyperglycemia, results should be confirmed by repeat testing. In a patient with classic symptoms of hyperglycemia or hyperglycemic crisis, random plasma glucose results greater than or equal to 200 mg/dL meet the criteria for diagnosis of diabetes. Reference: Standards of Medical Care in Diabetes 2016, [place] Diabetes Association. Diabetes Care. 2016.39(Suppl 1). LAB BUN 7-21 mg/dL BUN 20 LAB CRET 0.58-0.96 mg/dL Creatinine High 1.61 LAB NA 136-144 mmol/L Sodium 140 LAB K 3.7-5.1 mmol/L Potassium 4.0 LAB CL 97-105 mmol/L Chloride High 106 LAB CO2 22-30 mmol/L Low CO2 20 LAB AGAP 9-18 mmol/L Anion Gap 14 LAB ALT 7-38 U/L ALT 14 LAB GFRAA eGFR- Amer. 41 LAB GFRNAA . eGFR-All Other Races 34 Result Comment: eGFR (Estimated GFR) Units of measure: mL/min/1.73 meters squared eGFR is derived from the reexpressed MDRD Study equation using the following parameters: serum creatinine, age, gender and race. The creatinine assay has been calibrated to be traceable to IDMS. An eGFR <60 mL/min/1.73m2 for >3 months is consistent with chronic kidney disease. Refer to KDOQI guidelines for clinical interpretation. In patients with unstable renal function, e.g. those with acute kidney injury, the eGFR may not accurately reflect actual GFR. Performed By: #### CBCDIF, CMP, LIPB #### [facility] [address] [place], [place] [address] LIPID PANEL, BASIC Collected: 02/24/2018 Status: F Source: [place] 1:58 PM [facility] REPOSITORY TYPE CODE TESTS RESULT OUT OF REFERENCE UNITS RANGE LAB CHOL <200 mg/dL Cholesterol High 278 Result Comment: <200 mg/dL, Desirable 200-239 mg/dL, Borderline high >239 mg/dL, High LAB TRIGLY <150 mg/dL Triglyceride High 179 Result Comment: <150 mg/dL, Normal 150-199 mg/dL, Borderline high 200-499 mg/dL, High >499 mg/dL, Very high LAB HDL >39 mg/dL HDL-Cholesterol 67 Result Comment: 40-59 mg/dL, Acceptable >59 mg/dL, High: Negative risk factor for coronary heart disease <40 mg/dL, Low: Positive risk factor for coronary heart disease LAB LDL <100 mg/dL LDL-Cholesterol High 175 Result Comment: <100 mg/dL, Optimal 100-129 mg/dL, Near optimal/above optimal 130-159 mg/dL, Borderline high 160-189 mg/dL, High >189 mg/dL, Very high Secondary prevention optimal LDL Cholesterol levels are recommended to be < 70 mg/dL LAB NONHDL <130 mg/dL Non HDL High Cholesterol 211 Result Comment: <130 mg/dL, Optimal 130-159 mg/dL, Near optimal/above optimal 160-189 mg/dL, Borderline high 190-219 mg/dL, High >219 mg/dL, Very high Secondary prevention optimal non HDL Cholesterol levels are recommended to be < 100 mg/dL LAB FT hrs Fasting Time 12 LAB VLDL <30 mg/dL High VLDL Cholesterol 36 LAB TCHDL <5.10 TC:HDL Ratio 4.15 LAB LDLHDL <2.54 High LDL:HDL Ratio 2.61 Result Comment: Reference: 1. National Cholesterol Education Program ATP III Guideline At-A-Glance Quick Desk Reference: National Heart, Lung, and Blood [place]. National Institutes of Health. 2001: NIH Publication No. 01-3305. 2. An International Atherosclerosis Society position paper: global recommendations for the management of dyslipidemia: executive summary, Atherosclerosis. 2014: 232(2):410-413. Performed By: #### CBCDIF, CMP, LIPB #### [facility] [address] [place], [place] [address] PROGRESS Observed: 02/24/2018 Status: COMPLETED Source: [place] 1:21 PM [facility] REPOSITORY HNO ID: [id number] Author: Fantasma Borjas (Dayanara) Gil Service: (none) Author Type: Physician Paper Goods Machine Set Up Operator Type: Progress Notes Filed: 02/24/2018 9:23 PM Note Text: 47 year old female with c/o 1. Disability papers: continues to have difficulty with reading with loss of left visual field, episodic confusion r/t inability to recognize surroundings. Unable to read, drive but has golf cart that she drives in small area. 2. PRES: Seizures identified as not hypoxic. Gets flashes of multicolored light in left visual sanches blue, red, green, makes feel disoriented, poor spatial awareness. Expects to heal/ Dr. Pina, [facility] new neurologist. Lowered Vimpat. Considering lowering again. Able to make a grocery list. Still missing left visual sanches. Walks into men's room instead of women's bathroom as misses letters. Some letters remain in strange places with gaps in words. PT completed. In OT and ST making small persistent gains. 3. Anxiety, depression. Doing better with change in Vimpat. Wants to reduce medications. Celexa increased to 60mg by . 4. Breast abnormality with right axillary node. Needs additional views. 5. Alcohol abuse: drinking beer occasionally, says more like daily. HISTORIES FAMILY HISTORY Problem Relation Age of Onset - Heart Mother Open heart surgery - Diabetes Mother - Hypertension Mother - Lipids Mother - Coronary Artery Disease Mother 9 Stints - Macular Degen Mother - Hypertension Father - Coronary Artery Disease Father - Hypertension Sister - Heart Paternal Grandfather [place], at age 45 - Thyroid Sister PAST MEDICAL HISTORY Diagnosis Date - Abnormal glandular Papanicolaou smear of cervix Abn. 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 [employer] Social History Main Topics Smoking status: Never Smoker Smokeless tobacco: Never Used Alcohol use: Yes Comment: rare/ social Drug use: No Sexual activity: Yes Partners with: Male control/protection: Vasectomy ACTIVE PROBLEM LIST Hypertension Gerd (Gastroesophageal Reflux Disease) Fatigue Hot Flashes Weight Gain History of Bilateral Breast Implants Gout Etoh Abuse Encephalopathy Cortical Blindness Anxiety and Depression Pres (Posterior Reversible Encephalopathy Syndrome) Breakthrough Seizure (Hcc) Chronic Uti Ischemic Brain Injury Myopia, Bilateral Regular Astigmatism, Bilateral 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 Disp: 60 tablet Rfl: 5 lacosamide (VIMPAT) 100 mg tab Take 1 tablet by mouth twice daily for 180 days. Disp: 180 tablet Rfl: 1 folic acid 1 mg tablet Take 1 tablet by mouth once daily. Disp: 90 tablet Rfl: 1 febuxostat (ULORIC) 40 mg tab Take 1 tablet by mouth once daily. Disp: 90 tablet Rfl: [address] (PROTONIX) 20 mg tablet Take 1 tablet by mouth once daily. Disp: 90 tablet Rfl: 1 zonisamide (ZONEGRAN) 100 mg capsule Take 3 capsules by mouth daily at bedtime. Disp: 270 capsule Rfl: 1 thiamine (VITAMIN B1) 100 mg tablet Take 1 tablet by mouth once daily. Disp: 90 tablet Rfl: 1 levETIRAcetam XR (KEPPRA XR) 500 mg 24 hr tablet Take 1 tablet by mouth twice daily. Disp: 180 tablet Rfl: 1 metoprolol succinate ER (TOPROL XL) 25 mg 24 hr tablet Take 1 tablet by mouth once daily. Disp: 180 tablet Rfl: 1 clonazePAM (KLONOPIN) 0.5 mg tablet Take 0.5 tablets by mouth twice daily as needed for up to 180 days. Disp: 90 tablet Rfl: 1 benzonatate (TESSALON PERLE) 100 mg capsule Take 1 capsule by mouth three times daily as needed for Cough. Disp: 30 capsule Rfl: 0 potassium acetate Disp: Rfl: ibuprofen (MOTRIN) 200 mg tablet Take 400-600 mg by mouth every 8 hours as needed for Pain (Gout). Disp: Rfl: DOCOSAHEXANOIC ACID/EPA (FISH OIL ORAL) Take by mouth. Disp: Rfl: aspirin, enteric coated (ASPIRIN, ENTERIC COATED) 81 mg EC tablet Take 81 mg by mouth once daily. Disp: Rfl: No current facility-administered medications for this visit. BP CONTROLLED (<130/80) due on 1986 DTAP,TDAP,TD(1 - Tdap) due on 07/29/1987 ONE PNEUMOVAX PRIOR TO AGE 65 due on 07/29/1987 HPV EVERY 5 YEARS due on 09/24/2017 PAP EVERY 5 YEARS due on 09/25/2017 INFLUENZA(1) due on 11/30/2017 EXAM: BP 138/76 (BP Site: Left Arm, BP Position: Sitting, BP Cuff Size: Regular Adult) Pulse 68 Resp 14 Wt 74.8 kg (165 lb) BMI 32.22 kg/m? Pleasant woman in no acute distress. Alert and oriented all spheres. Normal affect and cognition. Speech normal. Mood is euthymic. Seems a bit more able to comprehend today. Skin warm, dry, pink to lips and nailbeds. Normal turgor. Respirations regular and unlabored. Extrem: no clubbing, cyanosis, edema. Extremities are warm and pink with prompt capillary refill. ASSESSMENT/PLAN: 1. Abnormal mammogram - ICD9: 793.80, ICD10: R92.8 (primary diagnosis) - [facility] DIAGNOSTIC RT - US BREAST LTD RT 2. Essential hypertension - ICD9: 401.9, ICD10: I10 - good control - Continue current medication(s) - Recommended regular aerobic exercise. - Recommend home blood pressure monitoring, to bring results in on next visit - Goal of BP <130/80 - COMP METABOLIC PANEL 3. PRES (posterior reversible encephalopathy syndrome) - ICD9: 348.39, ICD10: I67.83 Stable with improvement. Visual/ spatial deficits may be permanent. 4. Anxiety and depression - ICD9: 300.00, 311, ICD10: F41.9, F32.9 - CITALOPRAM 40 MG TABLET 5. Medication management - ICD9: V58.69, ICD10: Z79.899 - CBC + DIFF - CITALOPRAM 40 MG TABLET 6. High serum high density lipoprotein (HDL) - ICD9: 790.99, ICD10: R79.89 - LIPID PANEL BASIC 7. ETOH abuse - ICD9: 305.00, ICD10: F10.10 Discussed risks of any alcohol. Strongly urge abstinence F/u 6 months or as needed. DAYANARA Garvey Observed: 02/24/2018 Status: COMPLETED Source: [place] 12:00 PM [facility] [place] REPOSITORY Office Visit (FAMPWS) MENDOZAARIELLA PATEL ([id number]) 1970 F Date Time Provider Department 02/24/18 12:00 PM Fantasma CORDERO) CELINA During your visit today, we recorded the following information about you: Pulse Respiration Blood pressure Weight 68/minute 14/minute 138/76 74.8 kg M Indio Cordero PA-C 02/24/2018 9:23 PM Signed 47 year old female with c/o 1. Disability papers: continues to have difficulty with reading with loss of left visual field, episodic confusion r/t inability to recognize surroundings. Unable to read, drive but has golf cart that she drives in small area. 2. PRES: Seizures identified as not hypoxic. Gets flashes of multicolored light in left visual sanches blue, red, green, makes feel disoriented, poor spatial awareness. Expects to heal/ Dr. Pina, F new neurologist. Lowered Vimpat. Considering lowering again. Able to make a grocery list. Still missing left visual sanches. Walks into men's room instead of women's bathroom as misses letters. Some letters remain in strange places with gaps in words. PT completed. In OT and ST making small persistent gains. 3. Anxiety, depression. Doing better with change in Vimpat. Wants to reduce medications. Celexa increased to 60mg by . 4. Breast abnormality with right axillary node. Needs additional views. 5. Alcohol abuse: drinking beer occasionally, says more like daily. HISTORIES FAMILY HISTORY Problem Relation Age of Onset - Heart Mother Open heart surgery - Diabetes Mother - Hypertension Mother - Lipids Mother - Coronary Artery Disease Mother 9 Stints - Macular Degen Mother - Hypertension Father - Coronary Artery Disease Father - Hypertension Sister - Heart Paternal Grandfather [place], at age 45 - Thyroid Sister PAST MEDICAL HISTORY Diagnosis Date - Abnormal glandular Papanicolaou smear of cervix Abn. 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 [employer] 2 Social History Main Topics Smoking status: Never Smoker Smokeless tobacco: Never Used Alcohol use: Yes Comment: rare/ social Drug use: No Sexual activity: Yes Partners with: Male control/protection: Vasectomy ACTIVE PROBLEM LIST Hypertension Gerd (Gastroesophageal Reflux Disease) Fatigue Hot Flashes Weight Gain History of Bilateral Breast Implants Gout Etoh Abuse Encephalopathy Cortical Blindness Anxiety and Depression Pres (Posterior Reversible Encephalopathy Syndrome) Breakthrough Seizure (Hcc) Chronic Uti Ischemic Brain Injury Myopia, Bilateral Regular Astigmatism, Bilateral 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 Disp: 60 tablet Rfl: 5 lacosamide (VIMPAT) 100 mg tab Take 1 tablet by mouth twice daily for 180 days. Disp: 180 tablet Rfl: 1 folic acid 1 mg tablet Take 1 tablet by mouth once daily. Disp: 90 tablet Rfl: 1 febuxostat (ULORIC) 40 mg tab Take 1 tablet by mouth once daily. Disp: 90 tablet Rfl: [address] (PROTONIX) 20 mg tablet Take 1 tablet by mouth once daily. Disp: 90 tablet Rfl: 1 zonisamide (ZONEGRAN) 100 mg capsule Take 3 capsules by mouth daily at bedtime. Disp: 270 capsule Rfl: 1 thiamine (VITAMIN B1) 100 mg tablet Take 1 tablet by mouth once daily. Disp: 90 tablet Rfl: 1 levETIRAcetam XR (KEPPRA XR) 500 mg 24 hr tablet Take 1 tablet by mouth twice daily. Disp: 180 tablet Rfl: 1 metoprolol succinate ER (TOPROL XL) 25 mg 24 hr tablet Take 1 tablet by mouth once daily. Disp: 180 tablet Rfl: 1 clonazePAM (KLONOPIN) 0.5 mg tablet Take 0.5 tablets by mouth twice daily as needed for up to 180 days. Disp: 90 tablet Rfl: 1 benzonatate (TESSALON PERLE) 100 mg capsule Take 1 capsule by mouth three times daily as needed for Cough. Disp: 30 capsule Rfl: 0 potassium acetate Disp: Rfl: ibuprofen (MOTRIN) 200 mg tablet Take 400-600 mg by mouth every 8 hours as needed for Pain (Gout). Disp: Rfl: DOCOSAHEXANOIC ACID/EPA (FISH OIL ORAL) Take by mouth. Disp: Rfl: aspirin, enteric coated (ASPIRIN, ENTERIC COATED) 81 mg EC tablet Take 81 mg by mouth once daily. Disp: Rfl: No current facility-administered medications for this visit. BP CONTROLLED (<130/80) due on 1986 DTAP,TDAP,TD(1 - Tdap) due on 07/29/1987 ONE PNEUMOVAX PRIOR TO AGE 65 due on 07/29/1987 HPV EVERY 5 YEARS due on 09/24/2017 PAP EVERY 5 YEARS due on 09/25/2017 INFLUENZA(1) due on 11/30/2017 EXAM: BP 138/76 (BP Site: Left Arm, BP Position: Sitting, BP Cuff Size: Regular Adult) Pulse 68 Resp 14 Wt 74.8 kg (165 lb) BMI 32.22 kg/m? Pleasant woman in no acute distress. Alert and oriented all spheres. Normal affect and cognition. Speech normal. Mood is euthymic. Seems a bit more able to comprehend today. Skin warm, dry, pink to lips and nailbeds. Normal turgor. Respirations regular and unlabored. Extrem: no clubbing, cyanosis, edema. Extremities are warm and pink with prompt capillary refill. ASSESSMENT/PLAN: 1. Abnormal mammogram - ICD9: 793.80, ICD10: R92.8 (primary diagnosis) - [facility] DIAGNOSTIC RT - BREAST LTD RT 2. Essential hypertension - ICD9: 401.9, ICD10: I10 - good control - Continue current medication(s) - Recommended regular aerobic exercise. - Recommend home blood pressure monitoring, to bring results in on next visit - Goal of BP <130/80 - COMP METABOLIC PANEL 3. PRES (posterior reversible encephalopathy syndrome) - ICD9: 348.39, ICD10: I67.83 Stable with improvement. Visual/ spatial deficits may be permanent. 4. Anxiety and depression - ICD9: 300.00, 311, ICD10: F41.9, F32.9 - CITALOPRAM 40 MG TABLET 5. Medication management - ICD9: V58.69, ICD10: Z79.899 - CBC + DIFF - CITALOPRAM 40 MG TABLET 6. High serum high density lipoprotein (HDL) - ICD9: 790.99, ICD10: R79.89 - LIPID PANEL BASIC 7. ETOH abuse - ICD9: 305.00, ICD10: F10.10 Discussed risks of any alcohol. Strongly urge abstinence F/u 6 months or as needed. M Indio Cordero PA-C Referring Provider: SELF [200] Allergies As of Date: 02/24/2018 Noted Allergy Reaction ALLOPURINOL (BULK) 04/04/2016 2 - Rash Date Reviewed: 02/24/2018 Reviewed by: Mery Rios Emt I/99 - Fully Assessed Reason for Visit: Recheck [92] Primary Visit Diagnosis:Abnormal mammogram [R92.8] Other Visit Diagnoses:Essential hypertension [I10] PRES (posterior reversible encephalopathy syndrome) [I67.83] Anxiety and depression [F41.9, F32.9] Medication management [Z79.899] High serum high density lipoprotein (HDL) [R79.89] ETOH abuse [F10.10] Order(s):[facility] DIAGNOSTIC RT [3937579] Order #: [id number] FUTURE BREAST LTD RT [[id number]] Order #: [id number] FUTURE citalopram (CELEXA) 20 mg tabletTake 1 tablet by mouth once daily. With 40mg to make 60mg per Dr. Pina (neuro)Disp: 60 tabletRfl: 5 COMP METABOLIC PANEL [SQCMP] Order #: [id number] FUTURE CBC + DIFF [SQCBCDIF] Order #: [id number] FUTURE citalopram (CELEXA) 40 mg tabletTake 1 tablet by mouth once daily. With 20mg to make 60mg per Dr. PinaDisp: Rfl: LIPID PANEL BASIC [SQLIPB] Order #: [id number] FUTURE Prescriptions as of 02/24/2018 Sig: CITALOPRAM 20 MG TABLET Take 1 tablet by mouth once d* LACOSAMIDE 100 MG TABLET Take 1 tablet by mouth twice * FOLIC ACID 1 MG TABLET Take 1 tablet by mouth once d* FEBUXOSTAT 40 MG TABLET Take 1 tablet by mouth once d* PANTOPRAZOLE 20 MG TABLET,DEL* Take 1 tablet by mouth once d* ZONISAMIDE 100 MG CAPSULE Take 3 capsules by mouth beronica* THIAMINE HCL (VITAMIN B1) 100* Take 1 tablet by mouth once d* LEVETIRACETAM ER 500 MG TABLE* Take 1 tablet by mouth twice * METOPROLOL SUCCINATE ER 25 MG* Take 1 tablet by mouth once d* CLONAZEPAM 0.5 MG TABLET Take 0.5 tablets by mouth twi* BENZONATATE 100 MG CAPSULE Take 1 capsule by mouth three* POTASSIUM ACETATE IBUPROFEN 200 MG TABLET Take 400-600 mg by mouth ever* FISH OIL ORAL Take by mouth. ASPIRIN 81 MG TABLET,DELAYED * Take 81 mg by mouth once beronica* CITALOPRAM 40 MG TABLET Take 1 tablet by mouth once d* Medication notes this encounter QUETIAPINE 25 MG TABLET >> Mery Rios [facility] 02/24/2018 12:40 PM >> MERY RIOS CMA [facility] Feb 24, 2018 12:40 PM Not taking CITALOPRAM 20 MG TABLET >> Mery Rios [facility] 02/24/2018 12:39 PM >> MERY RIOS CMA [facility] Feb 24, 2018 12:39 PM 60 mg once daily Problem List As Of Date 02/24/2018 Noted Resolved Unspecified Hypothyroidism [E03.9] INVALID FOR*09/24/2012 Hypertension [I10] INVALID FOR* GERD (gastroesophageal reflux disease) [K21.9] INVALID FOR* Fatigue [R53.83] INVALID FOR* Hot flashes [R23.2] INVALID FOR* Weight gain [R63.5] INVALID FOR* History of bilateral breast implants [Z98.82] INVALID FOR* Gout [M10.9] INVALID FOR* ETOH abuse [F10.10] INVALID FOR* Encephalopathy [G93.40] INVALID FOR* 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] INVALID FOR* Anxiety and depression [F41.9, F32.9] INVALID FOR* PRES (posterior reversible encephalopathy syndr*INVALID FOR* Breakthrough seizure (HCC) [G40.919] INVALID FOR* Chronic UTI [N39.0] INVALID FOR* Ischemic brain injury [I67.82] INVALID FOR* Myopia, bilateral [H52.13] INVALID FOR* Regular astigmatism, bilateral [H52.223] INVALID FOR* Presbyopia [H52.4] INVALID FOR* Symptomatic partial epilepsy with intractable c*INVALID FOR* Prescriptions ordered this encounter Disp Refills Start End CITALOPRAM 20 MG TABLET 60 t* 5 02/24/2018 08/23/2018 Class: Med Update Route: ORAL Sig: Take 1 tablet by mouth once daily. With 40mg to make 60mg per Dr. Pina (neuro) CITALOPRAM 40 MG TABLET 02/24/2018 Class: Med Update Route: ORAL Sig: Take 1 tablet by mouth once daily. With 20mg to make 60mg per Dr. Pina Medications Discontinued During This Encounter QUEtiapine (SEROQUEL) 25 mg tablet 180 * 0 02/10/2018 02/24/2018 Sig: TAKE 1 TABLET TWICE A DAY Disc: Reason for discontinue is not on file. citalopram (CELEXA) 20 mg tablet 60 t* 5 01/30/2018 02/24/2018 Route: ORAL Sig: Take 2 tablets by mouth once daily. Disc: Adjust Sig - Block E-Cancel Disposition: Return in about 6 months (around 08/24/2018). Follow-up and Disposition History Recorded Encounter Status:Closed by Fantasma CORDERO PA-C on 02/24/18 CNCO Observed: 02/07/2018 Status: COMPLETED Source: [place] 2:23 PM [facility] [place] REPOSITORY [facility] ID: [id number] Author: Mammography Coordinator Service: (none) Author Type: Physician Type: Letter Filed: 02/10/2018 11:52 PM Note Text: February 07, 2018 PID: [id number] Ariella Alberto [address] [place] [address] Dear Ms. Reji Alberto, Your recent breast imaging exam on 02/07/2018 showed a possible finding that requires additional imaging studies for a complete evaluation. Most such findings are probably benign (not cancer). Please call [phone] or [phone] to schedule an appointment for your additional imaging if you have not already done so. Your mammogram demonstrates that you have dense breast tissue, which could hide abnormalities. Dense breast tissue, in and of itself, is a relatively common condition. Therefore, this information is not provided to cause undue concern; rather, it is to raise your awareness and promote discussion with your health care provider regarding the presence of dense breast tissue in addition to other risk factors. Your breast images and report will be kept on file here as part of your permanent medical record and are available for your continuing care. Thank you for allowing us to help in meeting your health care needs. Sincerely, Dr. Torres Interpreting Radiologist [facility] (Additional imaging) [facility] SCREENING Observed: 02/07/2018 Status: F Source: [place] 2:01 PM [facility] RE[facility]ORY * * *Final Report* * * DATE OF EXAM: Feb 07 2018 2:01PM WOW [id number] - [facility] SCREENING / PROCEDURE REASON: bilateral screening * * * * Physician Interpretation * * * * RESULT: #[id number] - [facility] SCREENING BILATERAL DIGITAL SCREENING MAMMOGRAM WITH CAD: 02/07/2018 HISTORY: Screening Mammogram - patient reports NO breast symptoms /priors available for comparison. RESULT: TECHNIQUE: The study was acquired using full field digital technology and interpreted from soft copy. Current study was also evaluated with a Computer Aided Detection (CAD). Comparison is made to exam dated: 03/22/2011 mammogram - [facility]. The tissue of both breasts is heterogeneously dense. This may lower the sensitivity of mammography. Bilateral subglandular saline implants are present. Implants may obscure breast parenchyma, making mammographic interpretation difficult. There is an axillary node in the right breast posterior depth upper region seen on the mediolateral oblique view only. No other significant masses, calcifications, or other findings are seen in either breast. IMPRESSION: INCOMPLETE: NEEDS ADDITIONAL IMAGING EVALUATION The axillary node in the right breast is indeterminate. Additional views are recommended. Susan Torres M.D. pt/penrad:02/07/2018 14:23:50 Cadd Drafter: Yaima BARBOUR([place])(Fantasma), [facility] letter sent: Additional Imaging Needed Mammogram BI-RADS: 0 Incomplete: needs additional imaging evaluation If this report indicates you need additional imaging, and it has NOT yet been performed, please call , to schedule. We sincerely thank you for choosing the [facility] for your breast imaging needs. Multiple national specialty organizations have released breast cancer screening guidelines for women at average risk for developing breast cancer - guidelines that are based on both evidence and opinion, yet differ on when to start and how often to screen for breast cancer. With representation from Breast Imaging, Internal Medicine, Women's Health, Family Medicine, and Medical/Surgical Oncology, the [facility] has carefully reviewed the data and reached the following consensus: 1) All women should engage in shared decision-making with their providers to decide when to start and how often to screen; 2) All women should have the opportunity to start screening mammography at age 40; 3) For women ages 45-55, we recommend annual screening mammograms; 4) For women ages 55 and over, we support both the transition from an annual to a biennial interval if this aligns more with patient's values and preferences, or continuation with annual screening; 5) All women should discuss with their providers when to stop screening mammograms. Community Health Nurse: Yon Transcribe Date/Time: Feb 07 2018 1:32P Dictated by: SUSAN TORRES MD This examination was interpreted and the report reviewed and electronically signed by: SUSAN TORRES MD on Feb 07 2018 2:23PM EST [id number] Observed: 02/07/2018 Status: COMPLETED Source: [place] 1:11 PM [facility] REPOSITORY HNO ID: [id number] Author: Charmaine Barbour Service: (none) Author Type: (none) Type: Progress Notes Filed: 02/07/2018 1:12 PM Note Text: Radiology Service Progress Note PATIENT NAME: Ariella Alberto DATE OF SERVICE: February 07, 2018 TIME: 1:11 PM PATIENT IDENTITY VERIFICATION COMPLETED USING TWO (2) METHODS: Patient confirmed name verbally and Date of . PATIENT GENDER DATA: Female. status: : No status: NO. PATIENT RELEVANT IMPLANT DATA REVIEWED: Not Applicable RADIOLOGY DEPARTMENT: [facility] PERIPHERAL IV DATA: Not applicable SIGNED BY: Charmaine Barbour February 07, 2018 1:11 PM PROGRESS Observed: 01/29/2018 Status: COMPLETED Source: [place] 4:23 PM [facility] REPOSITORY HNO ID: [id number] Author: Johnny Pina Service: (none) Author Type: Physician Type: Progress Notes Filed: 01/30/2018 10:04 AM Note Text: [facility] Neurological [facility] CLINIC NOTE -FOLLOW UP CHIEF COMPLAINT: No chief complaint on file. HISTORY SINCE LAST VISIT: The patient has returned for follow-up regarding management of seizures. This is a 47 year old right handed female who was last seen by Ms. Eren PA-C on 09/25/17 and has been diagnosed with having seizures s/p PRES. Reports that everytime she is in grocery store, she is having her spells. She has stopped going out because of it. It happens everytime when she is looking at the bottom of aisle at the [employer] - she sees flashes of rainbow. She feels mentally slow, tries to sit down ( helps her down), no loss of consciousness, but decreased focus. Able t respond to well and it only lasts ~30 seconds. Last clinic note (scanned) from Dr. Chance, her neuro-retail specialist, reports of visual illusions that she has had in the past like in airports, which the confirms. No other spells of concern for definitve seizures. Patient denies drinking beer on a regular basis. Reports being too sleepy after taking morning medications. Also reports feeling more low in spirits lately. Saw a psychologist recently but needs to make another appointment with him. She has been on Seroquel since previous hospitalizations at time of acute PRES. Not sure of the benefits and currently being prescribed by PCP. From 09/25/17 visit: HISTORY SINCE LAST VISIT: The patient has returned for follow-up regarding management of post-PRES epilepsy. ? Ariella Alberto is a 47 year old right handed female with history of post-PRES epilepsy. She underwent an in-patient EMU evaluation prompted by a questionable prolonged seizure at home in January 2017. She is an established patient of Dr. Johnny Pina and was last in clinic on May 28, 2017. She is here with her . ? She remains on Zonegran 300 mg qhs, Vimpat 200 mg BID, and Keppra XR 500 mg BID. She rarely uses Klonopin during the day, but uses 0.5mg at bedtime. There is fatigue with medications, but otherwise she has adjusted well to her current doses. Her last possible seizure was July 2017, after taking her morning medications late, having intense OT and speech, and grocery shopping. While in the first aisle of the grocery store she noticed changes in her left vision, similar to previous events, and lasted seconds. Prior to that she had two in May. There have been no larger episodes with SIOBHAN. ? She no longer has PT, but continues to follow with OT and speech therapy. She is making small gains. Mood: Therapy with Mohsen Jordan, PHD, she feels this helped, and he recommended not trying to function as she used to, but start small and make new goals as she makes gains. ? The patient's ability to work since last visit: Continues not to work. Driving Status: Not driving. From 05/28/17 visit: HISTORY SINCE LAST VISIT: The patient has returned for follow-up regarding management of post-PRES epilepsy. ? This is a 46 year old right handed female who was last seen by me on 01/09/17 in clinic and then in 01/2017 after in-patient EMU evaluation prompted by ?prolonged seizure at home. and has been diagnosed with having post-PRES epilepsy. Here with her . She reports that every time she goes out of her home, she has a seizure. Describes them as Right sided strobe lights. Red, green, blue colors - flashing. She calls out Oh! My god, this is happening. This lasts 3-4 minutes. She may lose awareness sometimes. However, reports that she has had only 2 epsiodes in MAY 2017 - she was out in car with friend and started seeing above strobe lights. She also stiffened up behaviorally but kept talking thorough it. Second time, they were driving on a cloudy day. She again saw the same lights. Again stiffened up for a minute but kept talking normally. Later on, she didn't remember walking into the home 10 minutes later. ? Still going for PT/OT. Also improved in her typing on computer. Recently evaluated by Neurologist. Found to have 20/20 vision with her glasses. Had difficulty with reading paragraph. Reports being frustrated easily with her mood. Not seen a psychaitrist. ? Patient currently complaining for cough and yellowish sputum for last 4 days. No fever. Getting better. ? ? She is has been taking Klonopin (0.5mg) - .25mg at HS and now also taking .25mg in am. She has been on Klonopin since she was discharged from [facility] ? The patient's ability to work since last visit: Continues not to work. ? Driving Status: Not driving. ? Overall Sense of Well Being Since Last Visit: unchanged ? ? 01/2017 EMU admission: Hospital Course: Ariella Alberto?is a 46 year old right-handed?female who was admitted emergently due to possible prolonged seizure at home. The patient was monitored with continous video-EEG from 02/07/2017 to 02/11/2017. Patient was admitted on home AEDs: Zonegran 300 mg qhs, Vimpat 200 mg BID, and Keppra XR 500 mg BID which were continued. No?typical seizures?were recorded. 1 atypical E was captured on 02/10/17 described as visual fixation on the clock.?Please see separate video-EEG report for details. She was instructed to continue same home AEDs. Mrs. Mendoza was instructed to follow-up with Dr. Pina in 3 months with outpatient 3 T MRI brain. ? On admission, patient c/o malodorous urine. She was reportedly treated for UTI in December with Bactrim, however, smell continued. U/A showed evidence of UTI and culture growth showed E coli. Due to inefficacy of Bactrim, she was started on Macrobid 100 mg q6 hours x7 days. We discussed seeing a local Urologist given frequent UTIs. ? Due to concerns for anxiety/depression, patient's Celexa was increased from 20 mg daily to 40 mg daily. It was recommended she follow- up with local counselor and Psychiatrist which Social work provided local referrals. ? From 01/09/17 note: HISTORY SINCE LAST VISIT: ? The patient has returned for follow-up regarding management of epilepsy secondary to PRES. ? 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 ?Here with her . Since last visit, ZNS was added. ? After addition of ZNS 200 mg, she?had 2 seizures. One on DEC 22 and another a week before that. The seizure starts with her saying Do you se the rainbow. Per patient, its on the?LEFT side.?Then her eyes are fixed per . Patient feels like she is in another world. Says No, no, no, as if trying to get out of it. She is aware of surroundings. Only lasts?5-10 seconds. She is physically drained after it. ? ?Both episodes were when she was outside. Both time, there was some photic stimulation?- out in Sun and then in the Elevator lights. Another seizure while being in the car and light thorough the wind shield. ? Vision has improved significantly.?Sees double, which worsens by evening. Also some cognitive slowing towards end of the day. But overall much improved compared to prior visit. Has start to type now since last week. ? Currently, LEV XR 500 mg BID, LCM 200 mg BID and ZNS 200 qHS. ? The patient's ability to work since last visit: Continues not to work. On senior living disability. 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 ? Driving Status: Not driving. ? Overall Sense of Well Being Since Last Visit: better ? From 09/24/16 (initial visit) note: PRESENT ILLNESS:?? This is a 46 year old right?handed ?female with HTN, gout, GERD, history of alcohol abuse, PRES, and seizures?who is here to?establish care with Epilepsy clinic. Patient had a fairly complicated hospital course in June for non-convulsive status epilepticus. She was initially admitted to an?OSH in [place], [place] for AMS and visual disturbances. She had bi-occipital changes that were concerning for PRES on MRI. In weeks preceding her OSH admission, patient had stopped taking Atenolol. reports that she had complained of a headache a few days before onset of her AMS. During this time, her systolic BP was elevated on 2 occasions on her home BP monitor. ?? At the OSH, patient was found to be in sub-clinical status. She was subsequently transferred to [facility]'s EMU, where she remained in non-convulsive status. She was then transferred to [place] ICU and put in burst suppression.?Her seizures were finally controlled, and she was maintained on Keppra 1000 mg bid and Vimpat 200 mg bid. Repeat MRI showed laminar necrosis changes in the bilateral occipital lobes?that were consistent with her recent status. 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 ?She was then discharged to acute rehab. ?? She returned to [facility] on 08/23 for evaluation of encephalopathy. Patient was found to have elevated ammonia and treated with Lactulose with minimal improvement in her mental status. ?The most profound change was observed after Keppra was reduced to 500 mg bid.?She was kept on this dose of Keppra and Vimpat 200 mg bid, and BEM during her admission at [facility] was negative for epileptiform discharges. Her AMS and agitation were treated symptomatically with prn Seroquel. Patient was discharged to acute rehab and finally transitioned home. ?? She has regained some vision and doing well overall until last 09/20. ?Patient was shopping in [facility] when she had an acute change in mental status. She was perseverating and froze while pushing the grocery cart and became unresponsive.?This lasted less than 1 minute, but she was confused afterward. She did not fully come to until she had been brought to the ED. She was reloaded with Keppra 1 g IV and started on an increased maintenance dose of 1 g bid. Vimpat was unchanged. ?Since then, patient has been having visual hallucinations and more irritability than before. She reports she thought cars on the road were all from [employer]. For her irritability and agitation, she has been taking scheduled Seroquel bid. ?? Denies headache, drowsiness, or nausea/vomiting. Patient's is concerned that she has become toxic from Keppra. No other episodes concerning for seizures since she returned home. Last EEG was from 09/19, and it showed intermittent slow. Levetiracetam level from 09/07 was 31. This is before her dose change. Started on Bactrim today for ?UTI; no UA in the system. Patient c/o foul smelling and cloudy urine in the last day or so. ?? PREVIOUS EVALUATIONS:?2 days of EMU admission as well as multiple EEGs that captured non-convulsive status. Also had PLEDs. Most recent EEG from 09/19 shows slowing. ?? RISK FACTORS FOR SEIZURES: ? 1. Head Trauma (No); 2. OXIDATION ENGINEER Infections (No); 3. Family History of Seizures (No); 4. Developmental Delay (No); 5. Febrile Seizures (No); 6. OXIDATION ENGINEER Tumors (No); 7. OXIDATION ENGINEER Vascular Disease (No); 8. Significant Medical History (Yes, alcohol abuse). MEDICATIONS: Current Outpatient Prescriptions: folic acid 1 mg tablet Take 1 tablet by mouth once daily. febuxostat (ULORIC) 40 mg tab Take 1 tablet by mouth once daily. pantoprazole DR (PROTONIX) 20 mg tablet Take 1 tablet by mouth once daily. zonisamide (ZONEGRAN) 100 mg capsule Take 3 capsules by mouth daily at bedtime. citalopram (CELEXA) 40 mg tablet Take 1 tablet by mouth once daily. lacosamide (VIMPAT) 200 mg tab Take 1 tablet by mouth twice daily for 180 days. QUEtiapine (SEROQUEL) 25 mg tablet Take 1 tablet by mouth twice daily. thiamine (VITAMIN B1) 100 mg tablet Take 1 tablet by mouth once daily. levETIRAcetam XR (KEPPRA XR) 500 mg 24 hr tablet Take 1 tablet by mouth twice daily. metoprolol succinate ER (TOPROL XL) 25 mg 24 hr tablet Take 1 tablet by mouth once daily. (Patient not taking: Reported on 09/25/2017 ) clonazePAM (KLONOPIN) 0.5 mg tablet Take 0.5 tablets by mouth twice daily as needed for up to 180 days. benzonatate (TESSALON PERLE) 100 mg capsule Take 1 capsule by mouth three times daily as needed for Cough. potassium acetate ibuprofen (MOTRIN) 200 mg tablet Take 400-600 mg by mouth every 8 hours as needed for Pain (Gout). DOCOSAHEXANOIC ACID/EPA (FISH OIL ORAL) Take by mouth. aspirin, enteric coated (ASPIRIN, ENTERIC COATED) 81 mg EC tablet Take 81 mg by mouth once daily. No current facility-administered medications for this visit. PAST MEDICAL HISTORY: PAST MEDICAL HISTORY Diagnosis Date - Abnormal glandular Papanicolaou smear of cervix Abn. 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/2016 Severe PRES - Seizure (HCC) PAST SURGICAL HISTORY: PAST SURGICAL HISTORY Procedure Laterality Date - CERVIX UTERI CONIZA LP ELCTRO EXCI LEEP-Cervix - DELIVERY ONLY , low transverse x 2 FAMILY MEDICAL HISTORY: FAMILY HISTORY Problem Relation Age of Onset - Heart Mother Open heart surgery - Diabetes Mother - Hypertension Mother - Lipids Mother - Coronary Artery Disease Mother 9 Stints - Macular Degen Mother - Hypertension Father - Coronary Artery Disease Father - Hypertension Sister - Heart Paternal Grandfather [place], at age 45 - Thyroid Sister SOCIAL HISTORY: Social History Marital status: Spouse name: Dusty Years of education: Number of children: 2 Occupational History 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 [employer] Social History Main Topics Smoking status: Never Smoker Smokeless tobacco: Never Used Alcohol use: Yes Comment: rare/ social Drug use: No Sexual activity: Yes Partners with: Male control/protection: Vasectomy REVIEW OF SYSTEMS: GENERAL: No weight loss, malaise or fevers HEENT: Negative for frequent or significant headaches, No changes in hearing or vision, no nose bleeds or other nasal problems NECK: Negative for lumps, goiter, pain and significant neck swelling RESPIRATORY: Negative for cough, hemoptysis, wheezing or shortness of breath CARDIOVASCULAR: Negative for chest pain, leg swelling or palpitations GI: No nausea, vomiting, or diarrhea PSYCH: as above GENERAL EXAMINATION: There were no vitals taken for this visit. General Appearance: This is a obese built female. NEUROLOGICAL EXAMINATION: MENTAL STATUS: Alert and oriented to person place and time, follows 1 and 2 step commands, speech fluent and without anomia or paraphasic errors. Able to name objects and read sentences slowly. Able to recall 3/3 objects at 5 minutes. Remote memory intact. No neglect. Affect full. CRANIAL NERVES: Pupils 4 mm, equal and reactive to light bilaterally. Visual sanches full. EOMI. +corneals. Face symmetric. Palate elevates equally bilaterally, tongue midline. MOTOR: Strength: 5/5 b/l. Tone is normal, bulk is symmetric. SENSORY: Intact to light touch. REFLEXES: 2+ symmetric, toes are down going bilaterally. CEREBELLUM: Finger to Nose testing is normal. Rapid alternating movements are normal and symmetric, Heel to niño testing is normal. Gait examination is normal RELEVANT LABS AND TEST: None IMPRESSION: Ariella Alberto is a 47 year old female who developed PRES secondary to elevated BP after discontinuation of Atenolol and initially presented with AMS and found to be in focal status epilepticus. Has had a complicated course since then with hallucinations and AMS, which in the past responded to lowering of LEV to 500 mg BID. It?was again increased after a episode, questionable for seizure. After being on LEV 1000 mg BID, she had increased irritability and visual hallucination. Therefore, Keppra was reduced to 500 mg BID and LCM was increased to 300 mg BID. ZNS was later added, which made significant reduction in seizure burden. Since being on ZNG 200 mg qHS, she only had 2 brief spells concerning for seizures arising from right parieto-occipital region. She was emergently admitted to EMU but no seizures were recorded on home AEDs. She was discharged on ZNG 300 mg qhs, Vimpat 200 mg BID, and Keppra XR 500 mg BID. She continues to have improvement in her vision and cognitive skills with OT and Speech Therapy. She has had one episode of visual changes in the left (her typical seizure vs stress reaction) in July 2017 after mental strain and late AEDs. Per Dr. Johnny Pina at the last visit, these events are less likely to be epileptic but could be possible residual effect of PRES (Obstet Gynecol Surv. 2013;69(5):287-300; Obstet Gynecol. 2012; 119: 959?966). Recent MRI shows improving hyperintensities in b/l occipital region along with b/l atrophy in same region. She has been doing well on her current AEDs, but having major fatigue in the AM. Her spells of concern - while looking down in the aisle at the bright pinto tags are very likely visual illusions from occipital cortical damage and subsequently having an emotional reaction to them. Given such specific stimuli, do not seem to be epileptic (do not suspect visual reflex seizures). Her mood has also been low lately. ? PLAN: - Reduce LCM to 100 mg BID. Call in 2 months and if no clear seizure, then would d/c it over 2 weeks. - Continue current AEDs: Zonegran 300 mg qhs, and Keppra XR 500 mg BID - Increase Celexa to 60 mg daily - F/u with the psychologist. - The following issues were discussed with the patient: no bathing, no swimming unsupervised, no driving, no use of heavy machinery, no use of sharp moving objects and avoid heights - The patient was scheduled for a return visit in 6 months. - Risks, benefits, side effects, and alternatives to use of Levetiracetam, Zonisimide and Lacosamide were discussed with the patient. The patient agreed with the plan as outlined above. - The patient was scheduled for a return visit in 6 months. A total of 25 minutes was spent during the visit with greater than 50% of the time spent counseling and coordinating care of the above plan as well as answering the patient's numerous questions. Johnny Pina MD, MS Staff Physician, [facility], Dept. of Neurology Section of Adult Epilepsy, [id number] [address] cc: Aiden Daugherty MD [address] [place] [address] [place] Observed: 01/29/2018 Status: COMPLETED Source: [place] 4:20 PM [facility] REPOSITORY Office Visit ([id number]) ARIELLA BASURTO ([id number]) 1970 F Date Time Provider Department 01/29/18 4:20 PM JOHNNY PINA NE50MN During your visit today, we recorded the following information about you: Pulse Blood pressure 95/minute 147/79 Johnny Pina MD 01/30/2018 10:04 AM Signed [facility] Neurological [facility] CLINIC NOTE -FOLLOW UP CHIEF COMPLAINT: No chief complaint on file. HISTORY SINCE LAST VISIT: The patient has returned for follow-up regarding management of seizures. This is a 47 year old right handed female who was last seen by Ms. Eren PA-C on 09/25/17 and has been diagnosed with having seizures s/p PRES. Reports that everytime she is in grocery store, she is having her spells. She has stopped going out because of it. It happens everytime when she is looking at the bottom of aisle at the pinto tags - she sees flashes of rainbow. She feels mentally slow, tries to sit down ( helps her down), no loss of consciousness, but decreased focus. Able t respond to well and it only lasts ~30 seconds. Last clinic note (scanned) from Dr. Chance, her neuro-retail specialist, reports of visual illusions that she has had in the past like in airports, which the confirms. No other spells of concern for definitve seizures. Patient denies drinking beer on a regular basis. Reports being too sleepy after taking morning medications. Also reports feeling more low in spirits lately. Saw a psychologist recently but needs to make another appointment with him. She has been on Seroquel since previous hospitalizations at time of acute PRES. Not sure of the benefits and currently being prescribed by PCP. From 09/25/17 visit: HISTORY SINCE LAST VISIT: The patient has returned for follow-up regarding management of post-PRES epilepsy. ? Ariella Alberto is a 47 year old right handed female with history of post-PRES epilepsy. She underwent an in-patient EMU evaluation prompted by a questionable prolonged seizure at home in January 2017. She is an established patient of Dr. Johnny Pina and was last in clinic on May 28, 2017. She is here with her . ? She remains on Zonegran 300 mg qhs, Vimpat 200 mg BID, and Keppra XR 500 mg BID. She rarely uses Klonopin during the day, but uses 0.5mg at bedtime. There is fatigue with medications, but otherwise she has adjusted well to her current doses. Her last possible seizure was July 2017, after taking her morning medications late, having intense OT and speech, and grocery shopping. While in the first aisle of the grocery store she noticed changes in her left vision, similar to previous events, and lasted seconds. Prior to that she had two in May. There have been no larger episodes with SIOBHAN. ? She no longer has PT, but continues to follow with OT and speech therapy. She is making small gains. Mood: Therapy with Mohsen Jordan, PHD, she feels this helped, and he recommended not trying to function as she used to, but start small and make new goals as she makes gains. ? The patient's ability to work since last visit: Continues not to work. Driving Status: Not driving. From 05/28/17 visit: HISTORY SINCE LAST VISIT: The patient has returned for follow-up regarding management of post-PRES epilepsy. ? This is a 46 year old right handed female who was last seen by me on 01/09/17 in clinic and then in 01/2017 after in-patient EMU evaluation prompted by ?prolonged seizure at home. and has been diagnosed with having post-PRES epilepsy. Here with her . She reports that every time she goes out of her home, she has a seizure. Describes them as Right sided strobe lights. Red, green, blue colors - flashing. She calls out Oh! My god, this is happening. This lasts 3-4 minutes. She may lose awareness sometimes. However, reports that she has had only 2 epsiodes in MAY 2017 - she was out in car with friend and started seeing above strobe lights. She also stiffened up behaviorally but kept talking thorough it. Second time, they were driving on a cloudy day. She again saw the same lights. Again stiffened up for a minute but kept talking normally. Later on, she didn't remember walking into the home 10 minutes later. ? Still going for PT/OT. Also improved in her typing on computer. Recently evaluated by Neurologist. Found to have 20/20 vision with her glasses. Had difficulty with reading paragraph. Reports being frustrated easily with her mood. Not seen a psychaitrist. ? Patient currently complaining for cough and yellowish sputum for last 4 days. No fever. Getting better. ? ? She is has been taking Klonopin (0.5mg) - .25mg at HS and now also taking .25mg in am. She has been on Klonopin since she was discharged from [facility] ? The patient's ability to work since last visit: Continues not to work. ? Driving Status: Not driving. ? Overall Sense of Well Being Since Last Visit: unchanged ? ? 01/2017 EMU admission: Hospital Course: Ariella Alberto?is a 46 year old right-handed?female who was admitted emergently due to possible prolonged seizure at home. The patient was monitored with continous video-EEG from 02/07/2017 to 02/11/2017. Patient was admitted on home AEDs: Zonegran 300 mg qhs, Vimpat 200 mg BID, and Keppra XR 500 mg BID which were continued. No?typical seizures?were recorded. 1 atypical E was captured on 02/10/17 described as visual fixation on the clock.?Please see separate video-EEG report for details. She was instructed to continue same home AEDs. Mrs. Mendoza was instructed to follow-up with Dr. Pina in 3 months with outpatient 3 T MRI brain. ? On admission, patient c/o malodorous urine. She was reportedly treated for UTI in December with Bactrim, however, smell continued. U/A showed evidence of UTI and culture growth showed E coli. Due to inefficacy of Bactrim, she was started on Macrobid 100 mg q6 hours x7 days. We discussed seeing a local Urologist given frequent UTIs. ? Due to concerns for anxiety/depression, patient's Celexa was increased from 20 mg daily to 40 mg daily. It was recommended she follow-up with local counselor and Psychiatrist which Social work provided local referrals. ? From 01/09/17 note: HISTORY SINCE LAST VISIT: ? The patient has returned for follow-up regarding management of epilepsy secondary to PRES. ? 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 ?Here with her . Since last visit, ZNS was added. ? After addition of ZNS 200 mg, she?had 2 seizures. One on DEC 22 and another a week before that. The seizure starts with her saying Do you se the rainbow. Per patient, its on the?LEFT side.?Then her eyes are fixed per . Patient feels like she is in another world. Says No, no, no, as if trying to get out of it. She is aware of surroundings. Only lasts?5-10 seconds. She is physically drained after it. ? ?Both episodes were when she was outside. Both time, there was some photic stimulation?- out in Sun and then in the Elevator lights. Another seizure while being in the car and light thorough the wind shield. ? Vision has improved significantly.?Sees double, which worsens by evening. Also some cognitive slowing towards end of the day. But overall much improved compared to prior visit. Has start to type now since last week. ? Currently, LEV XR 500 mg BID, LCM 200 mg BID and ZNS 200 qHS. ? The patient's ability to work since last visit: Continues not to work. 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 ? Driving Status: Not driving. ? Overall Sense of Well Being Since Last Visit: better ? From 09/24/16 (initial visit) note: PRESENT ILLNESS:?? This is a 46 year old right?handed ?female with HTN, gout, GERD, history of alcohol abuse, PRES, and seizures?who is here to?establish care with Epilepsy clinic. Patient had a fairly complicated hospital course in June for non-convulsive status epilepticus. She was initially admitted to an?OSH in [place], [place] for AMS and visual disturbances. She had bi-occipital changes that were concerning for PRES on MRI. In weeks preceding her OSH admission, patient had stopped taking Atenolol. reports that she had complained of a headache a few days before onset of her AMS. During this time, her systolic BP was elevated on 2 occasions on her home BP monitor. ?? At the OSH, patient was found to be in sub-clinical status. She was subsequently transferred to [facility]'s EMU, where she remained in non-convulsive status. She was then transferred to [place] ICU and put in burst suppression.?Her seizures were finally controlled, and she was maintained on Keppra 1000 mg bid and Vimpat 200 mg bid. Repeat MRI showed laminar necrosis changes in the bilateral occipital lobes?that were consistent with her recent status. 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 ?She was then discharged to acute rehab. ?? She returned to [facility] on 08/23 for evaluation of encephalopathy. Patient was found to have elevated ammonia and treated with Lactulose with minimal improvement in her mental status. ?The most profound change was observed after Keppra was reduced to 500 mg bid.?She was kept on this dose of Keppra and Vimpat 200 mg bid, and BEM during her admission at [facility] was negative for epileptiform discharges. Her AMS and agitation were treated symptomatically with prn Seroquel. Patient was discharged to acute rehab and finally transitioned home. ?? She has regained some vision and doing well overall until last 09/20. ?Patient was shopping in [employer] when she had an acute change in mental status. She was perseverating and froze while pushing the grocery cart and became unresponsive.?This lasted less than 1 minute, but she was confused afterward. She did not fully come to until she had been brought to the ED. She was reloaded with Keppra 1 g IV and started on an increased maintenance dose of 1 g bid. Vimpat was unchanged. ?Since then, patient has been having visual hallucinations and more irritability than before. She reports she thought cars on the road were all from demolition derby. For her irritability and agitation, she has been taking scheduled Seroquel bid. ?? Denies headache, drowsiness, or nausea/vomiting. Patient's is concerned that she has become toxic from Keppra. No other episodes concerning for seizures since she returned home. Last EEG was from 09/19, and it showed intermittent slow. Levetiracetam level from 09/07 was 31. This is before her dose change. Started on Bactrim today for ?UTI; no UA in the system. Patient c/o foul smelling and cloudy urine in the last day or so. ?? PREVIOUS EVALUATIONS:?2 days of EMU admission as well as multiple EEGs that captured non-convulsive status. Also had PLEDs. Most recent EEG from 09/19 shows slowing. ?? RISK FACTORS FOR SEIZURES: ? 1. Head Trauma (No); 2. OXIDATION ENGINEER Infections (No); 3. Family History of Seizures (No); 4. Developmental Delay (No); 5. Febrile Seizures (No); 6. OXIDATION ENGINEER Tumors (No); 7. OXIDATION ENGINEER Vascular Disease (No); 8. Significant Medical History (Yes, alcohol abuse). MEDICATIONS: Current Outpatient Prescriptions: folic acid 1 mg tablet Take 1 tablet by mouth once daily. febuxostat (ULORIC) 40 mg tab Take 1 tablet by mouth once daily. pantoprazole DR (PROTONIX) 20 mg tablet Take 1 tablet by mouth once daily. zonisamide (ZONEGRAN) 100 mg capsule Take 3 capsules by mouth daily at bedtime. citalopram (CELEXA) 40 mg tablet Take 1 tablet by mouth once daily. lacosamide (VIMPAT) 200 mg tab Take 1 tablet by mouth twice daily for 180 days. QUEtiapine (SEROQUEL) 25 mg tablet Take 1 tablet by mouth twice daily. thiamine (VITAMIN B1) 100 mg tablet Take 1 tablet by mouth once daily. levETIRAcetam XR (KEPPRA XR) 500 mg 24 hr tablet Take 1 tablet by mouth twice daily. metoprolol succinate ER (TOPROL XL) 25 mg 24 hr tablet Take 1 tablet by mouth once daily. (Patient not taking: Reported on 09/25/2017 ) clonazePAM (KLONOPIN) 0.5 mg tablet Take 0.5 tablets by mouth twice daily as needed for up to 180 days. benzonatate (TESSALON PERLE) 100 mg capsule Take 1 capsule by mouth three times daily as needed for Cough. potassium acetate ibuprofen (MOTRIN) 200 mg tablet Take 400-600 mg by mouth every 8 hours as needed for Pain (Gout). DOCOSAHEXANOIC ACID/EPA (FISH OIL ORAL) Take by mouth. aspirin, enteric coated (ASPIRIN, ENTERIC COATED) 81 mg EC tablet Take 81 mg by mouth once daily. No current facility-administered medications for this visit. PAST MEDICAL HISTORY: PAST MEDICAL HISTORY Diagnosis Date - Abnormal glandular Papanicolaou smear of cervix Abn. 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/2016 Severe PRES - Seizure (HCC) PAST SURGICAL HISTORY: PAST SURGICAL HISTORY Procedure Laterality Date - CERVIX UTERI CONIZA LP ELCTRO EXCI LEEP-Cervix - DELIVERY ONLY , low transverse x 2 FAMILY MEDICAL HISTORY: FAMILY HISTORY Problem Relation Age of Onset - Heart Mother Open heart surgery - Diabetes Mother - Hypertension Mother - Lipids Mother - Coronary Artery Disease Mother 9 Stints - Macular Degen Mother - Hypertension Father - Coronary Artery Disease Father - Hypertension Sister - Heart Paternal Grandfather [place], at age 45 - Thyroid Sister SOCIAL HISTORY: Social History Marital status: Spouse name: Dusty Years of education: Number of children: 2 Occupational History 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 [employer] Social History Main Topics Smoking status: Never Smoker Smokeless tobacco: Never Used Alcohol use: Yes Comment: rare/ social Drug use: No Sexual activity: Yes Partners with: Male control/protection: Vasectomy REVIEW OF SYSTEMS: GENERAL: No weight loss, malaise or fevers HEENT: Negative for frequent or significant headaches, No changes in hearing or vision, no nose bleeds or other nasal problems NECK: Negative for lumps, goiter, pain and significant neck swelling RESPIRATORY: Negative for cough, hemoptysis, wheezing or shortness of breath CARDIOVASCULAR: Negative for chest pain, leg swelling or palpitations GI: No nausea, vomiting, or diarrhea PSYCH: as above GENERAL EXAMINATION: There were no vitals taken for this visit. General Appearance: This is a obese built female. NEUROLOGICAL EXAMINATION: MENTAL STATUS: Alert and oriented to person place and time, follows 1 and 2 step commands, speech fluent and without anomia or paraphasic errors. Able to name objects and read sentences slowly. Able to recall 3/3 objects at 5 minutes. Remote memory intact. No neglect. Affect full. CRANIAL NERVES: Pupils 4 mm, equal and reactive to light bilaterally. Visual sanches full. EOMI. +corneals. Face symmetric. Palate elevates equally bilaterally, tongue midline. MOTOR: Strength: 5/5 b/l. Tone is normal, bulk is symmetric. SENSORY: Intact to light touch. REFLEXES: 2+ symmetric, toes are down going bilaterally. CEREBELLUM: Finger to Nose testing is normal. Rapid alternating movements are normal and symmetric, Heel to niño testing is normal. Gait examination is normal RELEVANT LABS AND TEST: None IMPRESSION: Ariella Alberto is a 47 year old female who developed PRES secondary to elevated BP after discontinuation of Atenolol and initially presented with AMS and found to be in focal status epilepticus. Has had a complicated course since then with hallucinations and AMS, which in the past responded to lowering of LEV to 500 mg BID. It?was again increased after a episode, questionable for seizure. After being on LEV 1000 mg BID, she had increased irritability and visual hallucination. Therefore, Keppra was reduced to 500 mg BID and LCM was increased to 300 mg BID. ZNS was later added, which made significant reduction in seizure burden. Since being on ZNG 200 mg qHS, she only had 2 brief spells concerning for seizures arising from right parieto-occipital region. She was emergently admitted to EMU but no seizures were recorded on home AEDs. She was discharged on ZNG 300 mg qhs, Vimpat 200 mg BID, and Keppra XR 500 mg BID. She continues to have improvement in her vision and cognitive skills with OT and Speech Therapy. She has had one episode of visual changes in the left (her typical seizure vs stress reaction) in July 2017 after mental strain and late AEDs. Per Dr. Johnny Pina at the last visit, these events are less likely to be epileptic but could be possible residual effect of PRES (Obstet Gynecol Surv. 2014 July;69(5):287-300; Obstet Gynecol. 2012; 119: 959?966). Recent MRI shows improving hyperintensities in b/l occipital region along with b/l atrophy in same region. She has been doing well on her current AEDs, but having major fatigue in the AM. Her spells of concern - while looking down in the aisle at the bright pinto tags are very likely visual illusions from occipital cortical damage and subsequently having an emotional reaction to them. Given such specific stimuli, do not seem to be epileptic (do not suspect visual reflex seizures). Her mood has also been low lately. ? PLAN: - Reduce LCM to 100 mg BID. Call in 2 months and if no clear seizure, then would d/c it over 2 weeks. - Continue current AEDs: Zonegran 300 mg qhs, and Keppra XR 500 mg BID - Increase Celexa to 60 mg daily - F/u with the psychologist. - The following issues were discussed with the patient: no bathing, no swimming unsupervised, no driving, no use of heavy machinery, no use of sharp moving objects and avoid heights - The patient was scheduled for a return visit in 6 months. - Risks, benefits, side effects, and alternatives to use of Levetiracetam, Zonisimide and Lacosamide were discussed with the patient. The patient agreed with the plan as outlined above. - The patient was scheduled for a return visit in 6 months. A total of 25 minutes was spent during the visit with greater than 50% of the time spent counseling and coordinating care of the above plan as well as answering the patient's numerous questions. Johnny Pina MD, MS Staff Physician, [facility], Dept. of Neurology Section of Adult Epilepsy, [place] [address] cc: Aiden Daugherty MD [address] [place], [place] [id number] Referring Provider: JOHNNY PINA [[id number]] Allergies As of Date: 01/29/2018 Noted Allergy Reaction ALLOPURINOL (BULK) 04/04/2016 2 - Rash Date Reviewed: 01/29/2018 Reviewed by: Mery Teresa Ma - Fully Assessed Reason for Visit: Follow Up [171] Visit Diagnosis:Recurrent seizures (HCC) [G40.909] Order(s):lacosamide (VIMPAT) 100 mg tabTake 1 tablet by mouth twice daily for 180 days.Disp: 180 tabletRfl: 1 Prescriptions as of 01/29/2018 Sig: CLONAZEPAM 0.5 MG TABLET Take 0.5 tablets by mouth twi* LACOSAMIDE 100 MG TABLET Take 1 tablet by mouth twice * X CITALOPRAM 20 MG TABLET Take 3 tablets by mouth once * FOLIC ACID 1 MG TABLET Take 1 tablet by mouth once d* FEBUXOSTAT 40 MG TABLET Take 1 tablet by mouth once d* PANTOPRAZOLE 20 MG TABLET,DEL* Take 1 tablet by mouth once d* ZONISAMIDE 100 MG CAPSULE Take 3 capsules by mouth beronica* QUETIAPINE 25 MG TABLET Take 1 tablet by mouth twice * THIAMINE HCL (VITAMIN B1) 100* Take 1 tablet by mouth once d* LEVETIRACETAM ER 500 MG TABLE* Take 1 tablet by mouth twice * METOPROLOL SUCCINATE ER 25 MG* Take 1 tablet by mouth once d* Patient not taking: Reported on 09/25/2017 BENZONATATE 100 MG CAPSULE Take 1 capsule by mouth three* Patient not taking: Reported on 01/29/2018 POTASSIUM ACETATE IBUPROFEN 200 MG TABLET Take 400-600 mg by mouth ever* FISH OIL ORAL Take by mouth. 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] INVALID FOR* Anxiety and depression [F41.9, F32.9] INVALID FOR* PRES (posterior reversible encephalopathy syndr*INVALID FOR* Breakthrough seizure (HCC) [G40.919] INVALID FOR* Chronic UTI [N39.0] INVALID FOR* Ischemic brain injury [I67.82] INVALID FOR* Myopia, bilateral [H52.13] INVALID FOR* Regular astigmatism, bilateral [H52.223] INVALID FOR* Presbyopia [H52.4] INVALID FOR* Symptomatic partial epilepsy with intractable c*INVALID FOR* Prescriptions ordered this encounter Disp Refills Start End CITALOPRAM 20 MG TABLET 90 t* 5 01/29/2018 01/30/2018 Route: ORAL Sig: Take 3 tablets by mouth once daily. LACOSAMIDE 100 MG TABLET 180 * 1 01/29/2018 2018 Class: Print RX Route: ORAL Sig: Take 1 tablet by mouth twice daily for 180 days. Medications Discontinued During This Encounter citalopram (CELEXA) 40 mg tablet 90 t* 1 10/08/2017 01/29/2018 Route: ORAL Sig: Take 1 tablet by mouth once daily. Disc: Reason for discontinue is not on file. lacosamide (VIMPAT) 200 mg tab 180 * 1 10/08/2017 01/29/2018 Class: Call Rx Route: ORAL Sig: Take 1 tablet by mouth twice daily for 180 days. Disc: Reason for discontinue is not on file. Disposition: Return in about 6 months (around 07/29/2018). Follow-up and Disposition History Recorded Encounter Status:Closed by JOHNNY PINA MD on 01/30/18 OFFICE VISIT Observed: 01/13/2018 Status: UNK Source: [place] 9:03 AM [facility] REPOSIT[facility] Chief Complaint Possible leak right side implant History of Present Illness Patient is a 47-year-old female who presents today for initial consultation regarding potential leak of her right sided implant. Patient has a significant history of posterior reversible encephalopathy syndrome. She states that this doesn't initially occurred in June 2016 and she was hospitalized for several months. She still has occasional ongoing seizures last in November and is managed by a Dr. Vivien gordillo, neurology at [facility]. She states that while she was in the hospital for several months she laid supine and feels that her right breast implant is malpositioned or collapsed at this time. She states that this is uncomfortable and she needs to do something about it. She notes that her implants were placed she believes in the submuscular position 9-[address] Godfrey. She reports that she never really developed fully on the right side and that her implants are not the same size. She states that she does not have a card with any information about her implants. The patient denies any personal history of breast cancer and states that this is the only breast surgery she's had. She notes that her mammogram was last performed 4 years ago. She is pleased with the c urrent volume of her breasts but states they are drooping. Review of Systems A 14 point review of systems was asked and the patient had positive responses for fatigue. All other systems reviewed were negative. For full details please see the patient's scanned intake sheet. Past Medical History History of seizure (V12.49) (Z87.898) History of Posterior reversible encephalopathy syndrome (348.39) (I67.83) Surgical History Denied: History Of Prior Surgery Social History Never a smoker Allergies No Known Drug Allergies Recorded By: Juana Lindquist; 01/10/2018 3:55:34 PM Current Meds Aspirin EC 81 MG Oral Tablet Delayed Release; Therapy: 10Jan2018 to Recorded Dispense: 0 Days ; #: Sufficient Tablet Delayed Release; Refill: 0; DAMI = N; Record; Last Updated By: Juana Lidnquist; 01/10/2018 3:55:33 PM CeleXA 40 MG Oral Tablet (Citalopram Hydrobromide); Therapy: 10Jan2018 to Recorded Dispense: 0 Days ; #: Sufficient Tablet; Refill: 0; DAMI = N; Record; Last Updated By: Juana Lindquist; 01/10/2018 3:55:33 PM Fish Oil 1000 MG Oral Capsule; Therapy: 10Jan2018 to Recorded Dispense: 0 Days ; #: Sufficient Capsule; Refill: 0; DAMI = N; Record; Last Updated By: Juana Lindquist; 01/10/2018 3:55:33 PM Folic Acid 1 MG Oral Tablet; Therapy: 10Jan2018 to Recorded Dispense: 0 Days ; #: Sufficient Tablet; Refill: 0; DAMI = N; Record; Last Updated By: Juana Lindquist; 01/10/2018 3:55:33 PM Keppra 500 MG Oral Tablet (LevETIRAcetam); Therapy: 10Jan2018 to Recorded Dispense: 0 Days ; #: Sufficient Tablet; Refill: 0; DAMI = N; Record; Last Updated By: Juana Lindquist; 01/10/2018 3:55:33 PM Protonix 20 MG Oral Tablet Delayed Release (Pantoprazole Sodium); Therapy: 10Jan2018 to Recorded Dispense: 0 Days ; #: Sufficient Tablet Delayed Release; Refill: 0; DAMI = N; Record; Last Updated By: Juana Lindquist; 01/10/2018 3:55:33 PM QUEtiapine Fumarate 25 MG Oral Tablet; Therapy: 10Jan2018 to Recorded Dispense: 0 Days ; #: Sufficient Tablet; Refill: 0; DAMI = N; Record; Last Updated By: Juana Lindquist; 01/10/2018 3:55:33 PM Uloric 40 MG Oral Tablet; Therapy: 10Jan2018 to Recorded Dispense: 0 Days ; #: Sufficient Tablet; Refill: 0; DAMI = N; Record; Last Updated By: Juana Lindquist; 01/10/2018 3:55:33 PM Vimpat 200 MG Oral Tablet; Therapy: 10Jan2018 to Recorded Dispense: 0 Days ; #: Sufficient Tablet; Refill: 0; DAMI = N; Record; Last Updated By: Juana Lindquist; 01/10/2018 3:55:33 PM Vitamin B-1 100 MG Oral Tablet; Therapy: 10Jan2018 to Recorded Dispense: 0 Days ; #: Sufficient Tablet; Refill: 0; DAMI = N; Record; Last Updated By: Juana Lindquist; 01/10/2018 3:55:33 PM Physical Exam no acute distress, alert and oriented x 3 Some processing delay with discussion pleasant and cooperative NCAT Pupils equally round and reactive to light normal heart rate no signs of respiratory distress Moves all extremities No focal edema Bilateral breasts were examined in upright and supine positions. Bilateral breasts reveal grade 3 ptosis. There are no observable skin changes, lymphadenopathy, or palpable masses by my exam. SN-N BW N-IMF R 29.5 cm 15 cm 10 cm L 30 cm 15 cm 8 cm Diagnoses/Problems Encounter for preventive health examination (V70.0) (Z00.00) History of bilateral breast implants (V43.82) (Z98.82) Orders Health Maintenance Mamm - Screening Mammogram; Status:Hold For - Scheduling; Requested for:10Jan2018; Perform:[facility]; Due:10Apr2018;Ordered; For:Health Maintenance; Ordered By:Aiden Kelsey; Indications for MAMM : Yearly Radiologist to Determine Optimal Study : Y What are the patient's signs and symptoms? : health maintenance. history of breast augmentation Patient Discussion/Summary The patient is a 47-year-old female who presents today to discuss potential leak of her right breast implant. She has a history of an encephalopathy which leaves her somewhat slow to process. She is her e with her today. She has complaints regarding right side implant and drooping. By my exam the patient has no evidence of rupture of her implants. It is difficult to assess submuscular versus williamson bglandular for her based on her compliance with physical exam findings. I've ordered a mammogram for the patient today. I would like to follow up with her after mammogram results in order to discuss fur ther potential mastopexy. She is pleased with the current volume of her breasts but I believe she would benefit significantly from a mastopexy. We will continue our discussions for potential cosmetic mastopexy at that time. This medical record has been entered with speech recognition technology and occasional unintended typographical errors occur. If there are any questions regarding the accuracy of the content of this note please contact my office directly for clarification.. End of Encounter Meds Aspirin EC 81 MG Oral Tablet Delayed Release; Therapy: 10Jan2018 to Recorded CeleXA 40 MG Oral Tablet (Citalopram Hydrobromide); Therapy: 10Jan2018 to Recorded Fish Oil 1000 MG Oral Capsule; Therapy: 10Jan2018 to Recorded Folic Acid 1 MG Oral Tablet; Therapy: 10Jan2018 to Recorded Keppra 500 MG Oral Tablet (LevETIRAcetam); Therapy: 10Jan2018 to Recorded Protonix 20 MG Oral Tablet Delayed Release (Pantoprazole Sodium); Therapy: 10Jan2018 to Recorded QUEtiapine Fumarate 25 MG Oral Tablet; Therapy: 10Jan2018 to Recorded Uloric 40 MG Oral Tablet; Therapy: 10Jan2018 to Recorded Vimpat 200 MG Oral Tablet; Therapy: 10Jan2018 to Recorded Vitamin B-1 100 MG Oral Tablet; Therapy: 10Jan2018 to Recorded Signatures Electronically signed by : Aiden Kelsey MD; Jan 13 2018 9:03AM EST (Author) RE-EVALUTION OT Observed: 12/05/2017 Status: F Source: [place] 2:[address] [facility] REPOSITORY [facility] Occupational Therapy [facility] [place] [address] Fax REEVALUATION / MEDICARE RECERTIFICATION OCCUPATIONAL THERAPY MR#: [id number] Acct: [id number] Name: ARIELLA BASURTO Rep #: [id number] : 1970 47 From: Clari Farias Referring : Status: REG RCR Insurance: [employer] Eval Date: SELF PAY INSURANCE ENRIQUETA ALBRECHT, It has been my pleasure to treat ARIELLA ALBERTO over the last 51 visits for Reverse encephalophy. Please see the progress note below for an update on the occupational therapy plan of care! Subjective: Arrived with who left after start of session. Tx in smallers OT area room to help decrease noise and distraction. Pt. brought computer and ipad. provided passwords to complete session. Objective/Function: Ariella arrived for OT session. Completed signing name with no lines. Can complete correctly about half of the time but other half she perseverates and completed dplejv-cdbb-ivot. She is able to copy Ariella is my fried. Missing n only. Increased L sided neglect. She consistently reports only being able to see men when using restrooms but unable to see the wo in women . Continues to be max A- TD to complete anchoring and scanning tasks. She is showing increased realization of needing to complete scanning. She is unable to write address at this time. She is able to verbally recite address 4/5 trials during session. Typically, can verbally recite address for ST. Line divider helps with visual spatial of writing but spacing still requires consistent cues as words become bunched together. Able to write alphabet with missing only T and W. With decreased spacing able to write numbers 1-10. She is able to type name correctly 1/5 trials. She needs max A for cues to scan during typing tasks. She is able to type A-E with 4x cues to correct errors. She then proceeded to complete H-P with 1x cue and correctly completing tasks. She often perseverates through tasks and occasionally becomes emotional when corrected. 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 This was not advised by OT but has been pursued by . Mod I for laundry per report. Needs Max A for microwave as well as oven use. Safety concerns at this time. Has progressed with some tasks and regressed in other. POC to continue as previously established prior to 3-month break. Plan Frequency: 1x/Week Duration: 12 Plan: continue POC as established at time of last re-evaluation 5/31/18 prior to 3 month break. Will continue POC of 1x weekly sessions for next 12 weeks. Goals - Goals Goal:: Pt. to be (I) to print and sign first and last names with 1x cue 4/5 trials 80% of the time to promote increased ability to complete IADLS by d/c. Goal:: Ariella to be mod I to type three consecutive sentences from visual and verbal prompts as needed 4/5 trials to improve Pt. ability to communicate through emails and complete IADls by d/c. Goal:: Ariella will be mod I to complete laundry tasks with layout and memory aids as needed 4/5 trials 80% of the time with good safety awareness and decreased need for assistance to improve QOL by d/c. Goal:: Ariella and caregiver to implement low vision compensations into daily routine to promote safety awareness and decreased risk of further injury 4/5 trials 80% of the time to promote QOL and improve (i) by d/c. Goal:: Ariella to correctly type alphabet with 1x cue to promote increase sequencing, VMI, and perceptual cues to promote increased (I) and ability to locate letters on keyboard to promote (i0 with meaningful tasks by d/c. Goal:: Ariella to be mod I to read digital clock to promote increased ability to complete home time management ability to promote (I) with ADL/IADls 4/5 trials 80% of the time by d/c. Goal:: Ariella to be SBA to complete 5-6 step simple meals with 2-3x verbal cues and good safety awareness 4/5 trials 80% of the time to promote (I) and QOL by time of d/c. Goal:: Ariella to be SBA to complete IADLs with good safety awareness 4/5 trials 80% of the time to promote QOL and decrease need for spv by time of d/c. Goal:: Ariella to be mod I to write address with low vision compensations as needed 2/3 trials 75% of the time to promote safety, VMI, and ability to increase QOL by d/c. Goal:: Ariella to be mod I to complete anchoring and scanning techniques to promote decreasing L sided neglect like disturbances 4/5 trials 80% of the time to promote QOL by d/c. Goal:: Ariella to be mod I to complete completing microwave meals to promote VMI and problem solving 4/5 trials 80% of the time by d/c. Anticipated Interventions Anticipated Interventions: A/AAROM/PROM, Strengthening, Dynamic Sitting Balance, Visual/Perceptual Skills, Cognitive Skills, ADL Training, Caregiver Training, Home Program, Other Other Interventions: LOw Vision compensations Please do not hesitate to contact me at [phone] by phone or if you have questions or concerns regarding this new plan of care! Sincerely, Clari Farias <Electronically signed by Clari Farias > 12/05/17 1439 CC: ENRIQUETA ALBRECHT; Aiden Daugherty MD YASH Signed For Medicare only, by signing this I certify the plan of care. Physicians Signature Date LEVETIRACETAM Collected: 09/25/2017 Status: F Source: [place] 2:49 PM [facility] REPOSITORY TYPE CODE TESTS RESULT OUT OF REFERENCE UNITS RANGE LAB LEVETI 12.0-46.0 ug/mL Levetiracetam 33.2 Result Comment: This test was developed and its performance characteristics determined by [facility] Pathology and Laboratory Medicine [place] ([facility]). It has not been cleared or approved by the FDA. [facility] is regulated under CLIA as qualified to perform high-complexity testing. This test is used for clinical purposes. It should not be regarded as investigational or for research. Performed By: #### SURAJ MITCHELL LACOS #### [facility] [address] [place] [id number] ZONISAMIDE Collected: 09/25/2017 Status: F Source: [place] 2:49 PM [facility] REPOSITORY TYPE CODE TESTS RESULT OUT OF REFERENCE UNITS RANGE LAB ZON 10.0-40.0 ug/mL Zonisamide 18.2 Result Comment: This test was developed and its performance characteristics determined by [facility] and Laboratory [facility] [place] ([facility]). It has not been cleared or approved by the FDA. -[facility] is regulated under CLIA as qualified to perform high-complexity testing. This test is used for clinical purposes. It should not be regarded as investigational or for research. Performed By: #### SURAJ MITCHELL LACOS #### [facility] [address] [place], [place] [address] LACOSAMIDE Collected: 09/25/2017 Status: F Source: [place] 2:49 PM [facility] REPOSITORY TYPE CODE TESTS RESULT OUT OF REFERENCE UNITS RANGE LAB LACOST 2.2-19.8 ug/mL High Lacosamide Test 20.2 Result Comment: Expected concentration of patients receiving 200-400 mg/day is 2.2-19.8 ug/mL for Lacosamide. This test was developed and its performance characteristics determined by [facility] ([facility]). It has not been cleared or approved by the FDA. -[facility] is regulated under CLIA as qualified to perform high-complexity testing. This test is used for clinical purposes. It should not be regarded as investigational or for research. LAB DESLAC <2.6 ug/mL Desmethyllacosamide 1.0 Result Comment: Expected concentration of patients receiving 200-400 mg/day is up to 2.5 ug/mL for Desmethyllacosamide. This test was developed and its performance characteristics determined by [facility] ([facility]). It has not been cleared or approved by the FDA. [facility] is regulated under CLIA as qualified to perform high-complexity testing. This test is used for clinical purposes. It should not be regarded as investigational or for research. Performed By: #### SURAJ MITCHELL LACOS #### [facility] [address] [place], [place] [address] PROGRESS Observed: 09/25/2017 Status: COMPLETED Source: [place] 1:56 PM [facility] REPOSITORY HNO ID: [id number] Author: Kang Jason Service: (none) Author Type: Physician Paper Goods Machine Set Up Operator Type: Progress Notes Filed: 09/25/2017 4:02 PM Note Text: [facility] CLINIC NOTE -FOLLOW UP CHIEF COMPLAINT: Patient presents with: Follow Up HISTORY SINCE LAST VISIT: The patient has returned for follow-up regarding management of post-PRES epilepsy. Ariella Alberto is a 47 year old right handed female with history of post-PRES epilepsy. She underwent an in-patient EMU evaluation prompted by a questionable prolonged seizure at home in January 2017. She is an established patient of Dr. Johnny Pina and was last in clinic on May 28, 2017. She is here with her . She remains on Zonegran 300 mg qhs, Vimpat 200 mg BID, and Keppra XR 500 mg BID. She rarely uses Klonopin during the day, but uses 0.5mg at bedtime. There is fatigue with medications, but otherwise she has adjusted well to her current doses. Her last possible seizure was July 2017, after taking her morning medications late, having intense OT and speech, and grocery shopping. While in the first aisle of the grocery store she noticed changes in her left vision, similar to previous events, and lasted seconds. Prior to that she had two in May. There have been no larger episodes with SIOBHAN. She no longer has PT, but continues to follow with OT and speech therapy. She is making small gains. Mood: Therapy with Mohsen Jordan, PHD, she feels this helped, and he recommended not trying to function as she used to, but start small and make new goals as she makes gains. The patient's ability to work since last visit: Continues not to work. Driving Status: Not driving. PREVIOUS EVALUATIONS: 01/2017 EMU admission: Hospital Course: Ariella Alberto is a 46 year old right-handed female who was admitted emergently due to possible prolonged seizure at home. The patient was monitored with continous video-EEG from 02/07/2017 to 02/11/2017. Patient was admitted on home AEDs: Zonegran 300 mg qhs, Vimpat 200 mg BID, and Keppra XR 500 mg BID which were continued. No typical seizures were recorded. 1 atypical E was captured on 02/10/17 described as visual fixation on the clock. Please see separate video-EEG report for details. She was instructed to continue same home AEDs. Mrs. Mendoza was instructed to follow-up with Dr. Pina in 3 months with outpatient 3 T MRI brain. On admission, patient c/o malodorous urine. She was reportedly treated for UTI in December with Bactrim, however, smell continued. U/A showed evidence of UTI and culture growth showed E coli. Due to inefficacy of Bactrim, she was started on Macrobid 100 mg q6 hours x7 days. We discussed seeing a local Urologist given frequent UTIs. Due to concerns for anxiety/depression, patient's Celexa was increased from 20 mg daily to 40 mg daily. It was recommended she follow- up with local counselor and Psychiatrist which Social work provided local referrals. 2 days of EMU admission as well as multiple EEGs that captured non-convulsive status. Also had PLEDs. Most recent EEG from 09/19 shows slowing. MRI brain: ([facility], 02/28/2017): Significant improvement in the areas of T2/FLAIR hyperintensity in the bilateral parietal and occipital lobes as described with minimal residual, which may be due to improvement in the posterior reversible encephalopathy syndrome. No acute intracranial process. ?No acute infarct. No evidence for neuronal migrational abnormalities or mesial temporal sclerosis. Paranasal sinus disease with air-fluid level in the left sphenoid sinus which may indicate acute sinusitis in the right clinical setting. ?? RISK FACTORS FOR SEIZURES: ? 1. Head Trauma (No); 2. OXIDATION ENGINEER Infections (No); 3. Family History of Seizures (No); 4. Developmental Delay (No); 5. Febrile Seizures (No); 6. OXIDATION ENGINEER Tumors (No); 7. OXIDATION ENGINEER Vascular Disease (No); 8. Significant Medical History (Yes, alcohol abuse). OUTPATIENT MEDICATIONS: Current Outpatient Prescriptions: QUEtiapine (SEROQUEL) 25 mg tablet Take 1 tablet by mouth twice daily. folic acid 1 mg tablet Take 1 tablet by mouth once daily. pantoprazole DR (PROTONIX) 20 mg tablet Take 1 tablet by mouth once daily. febuxostat (ULORIC) 40 mg tab Take 1 tablet by mouth once daily. thiamine (VITAMIN B1) 100 mg tablet Take 1 tablet by mouth once daily. levETIRAcetam XR (KEPPRA XR) 500 mg 24 hr tablet Take 1 tablet by mouth twice daily. metoprolol succinate ER (TOPROL XL) 25 mg 24 hr tablet Take 1 tablet by mouth once daily. (Patient not taking: Reported on 09/25/2017 ) citalopram (CELEXA) 40 mg tablet Take 1 tablet by mouth once daily. lacosamide (VIMPAT) 200 mg tab Take 1 tablet by mouth twice daily for 180 days. zonisamide (ZONEGRAN) 100 mg capsule Take 3 capsules by mouth daily at bedtime. clonazePAM (KLONOPIN) 0.5 mg tablet Take 0.5 tablets by mouth twice daily as needed for up to 180 days. benzonatate (TESSALON PERLE) 100 mg capsule Take 1 capsule by mouth three times daily as needed for Cough. potassium acetate ibuprofen (MOTRIN) 200 mg tablet Take 400-600 mg by mouth every 8 hours as needed for Pain (Gout). DOCOSAHEXANOIC ACID/EPA (FISH OIL ORAL) Take by mouth. aspirin, enteric coated (ASPIRIN, ENTERIC COATED) 81 mg EC tablet Take 81 mg by mouth once daily. No current facility-administered medications for this visit. PAST MEDICAL HISTORY: PAST MEDICAL HISTORY Diagnosis Date - Abnormal glandular Papanicolaou smear of cervix Abn. 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/2016 Severe PRES - Seizure (HCC) PAST SURGICAL HISTORY: PAST SURGICAL HISTORY Procedure Laterality Date - CERVIX UTERI CONIZA LP ELCTRO EXCI LEEP-Cervix - DELIVERY ONLY , low transverse x 2 FAMILY MEDICAL HISTORY: FAMILY HISTORY Problem Relation Age of Onset - Heart Mother Open heart surgery - Diabetes Mother - Hypertension Mother - Lipids Mother - Coronary Artery Disease Mother 9 Stints - Macular Degen Mother - Hypertension Father - Coronary Artery Disease Father - Hypertension Sister - Heart Paternal Grandfather [place], at age 45 - Thyroid Sister SOCIAL HISTORY: Social History Marital status: Spouse name: Dusty Years of education: Number of children: 2 Occupational History 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 [employer] Social History Main Topics Smoking status: Never Smoker Smokeless tobacco: Never Used Alcohol use: Yes Comment: rare/ social Drug use: No Sexual activity: Yes Partners with: Male control/protection: Vasectomy REVIEW OF SYSTEMS: GENERAL: No weight loss, malaise or fevers HEENT: Negative for frequent or significant headaches, No changes in hearing or vision, no nose bleeds or other nasal problems NECK: Negative for lumps, goiter, pain and significant neck swelling RESPIRATORY: Negative for cough, hemoptysis, wheezing or shortness of breath CARDIOVASCULAR: Negative for chest pain, leg swelling or palpitations GI: No nausea, vomiting, or diarrhea PSYCH: More irritable GENERAL EXAMINATION: BP 168/94 (BP Site: Left Arm, BP Position: Sitting, BP Cuff Size: Large Adult) Pulse 70 Ht 152.4 cm (5') General Appearance: This is an average built female, in NAD. NEUROLOGICAL EXAMINATION: MENTAL STATUS: Alert and oriented to person, place and some difficulty with time (knows month with prompting, states it is 2017 and corrects herself to 2018), follows 1 step commands. Difficulty with complex or 2 step commands. Some word-finding difficulty. Able to name 3/6 objects and read sentences. Remote memory intact. Appears to neglect her left vision at times. CRANIAL NERVES: Pupils 4 mm, equal and reactive to light bilaterally. Visual sanches full. EOMI. +corneals. Face symmetric. Palate elevates equally bilaterally, tongue midline. MOTOR: Strength: 5/5 b/l. Tone is normal, bulk is symmetric. SENSORY: Intact to light touch. CEREBELLUM: Finger to Nose testing is normal. Rapid alternating movements are normal and symmetric. Gait examination is normal. IMPRESSION: Ariella Alberto is a 47 year old female who developed PRES secondary to elevated BP after discontinuation of Atenolol and initially presented with AMS and found to be in focal status epilepticus. Has had a complicated course since then with hallucinations and AMS, which in the past responded to lowering of LEV to 500 mg BID. It was again increased after a episode, questionable for seizure. After being on LEV 1000 mg BID, she had increased irritability and visual hallucination. Therefore, Keppra was reduced to 500 mg BID and LCM was increased to 300 mg BID. ZNS was later added, which made significant reduction in seizure burden. Since being on ZNG 200 mg qHS, she only had 2 brief spells concerning for seizures arising from right parieto-occipital region. She was emergently admitted to EMU but no seizures were recorded on home AEDs. She was discharged on ZNG 300 mg qhs, Vimpat 200 mg BID, and Keppra XR 500 mg BID. She continues to have improvement in her vision and cognitive skills with OT and Speech Therapy. She has had one episode of visual changes in the left (her typical seizure vs stress reaction) in July 2017 after mental strain and late AEDs. Per Dr. Johnny Pina at the last visit, these events are less likely to be epileptic but could be possible residual effect of PRES (Obstet Gynecol Surv. 2013;69(5):287-300; Obstet Gynecol. 2012; 119: 959?966). Recent MRI shows improving hyperintensities in b/l occipital region along with b/l atrophy in same region. She has been doing well on her current AEDs, with minor fatigue. Her mood has been better with improving in therapy and getting a puppy. PLAN: - LABS: ZNG, LCM, LEV - Continue current AEDs: Zonegran 300 mg qhs, Vimpat 200 mg BID, and Keppra XR 500 mg BID - Continue OT and Speech Therapy - The following issues were discussed with the patient: no bathing, no swimming unsupervised, no driving, no use of heavy machinery, no use of sharp moving objects and avoid heights - The patient was scheduled for a return visit in 4 months. - Risks, benefits, side effects, and alternatives to use of Levetiracetam, Zonisimide and Lacosamide were discussed with the patient. The patient agreed with the plan as outlined above. A total of 40 minutes was spent during the visit with greater than 50% of the time spent counseling and coordinating care of the above plan as well as answering the patient's numerous questions. Kang Jason PA-C September 25, 2017 cc: Aiden Daugherty MD [id number] [place] [address] PROSPEROV Observed: 09/25/2017 Status: COMPLETED Source: [place] 1:10 PM [facility] REPOSITORY Office Visit ([id number]) ARIELLA BASURTO ([id number]) 1970 F Date Time Provider Department 09/25/17 1:10 PM KANG JASON (DAYANARA) NE50MN During your visit today, we recorded the following information about you: Pulse Blood pressure Height 70/minute 134/82 1.524 m Kang Jason PA-C 09/25/2017 4:02 PM Signed [facility] CLINIC NOTE -FOLLOW UP CHIEF COMPLAINT: Patient presents with: Follow Up HISTORY SINCE LAST VISIT: The patient has returned for follow-up regarding management of post-PRES epilepsy. Ariella Alberto is a 47 year old right handed female with history of post-PRES epilepsy. She underwent an in-patient EMU evaluation prompted by a questionable prolonged seizure at home in January 2017. She is an established patient of Dr. Johnny Pina and was last in clinic on May 28, 2017. She is here with her . She remains on Zonegran 300 mg qhs, Vimpat 200 mg BID, and Keppra XR 500 mg BID. She rarely uses Klonopin during the day, but uses 0.5mg at bedtime. There is fatigue with medications, but otherwise she has adjusted well to her current doses. Her last possible seizure was July 2017, after taking her morning medications late, having intense OT and speech, and grocery shopping. While in the first aisle of the grocery store she noticed changes in her left vision, similar to previous events, and lasted seconds. Prior to that she had two in May. There have been no larger episodes with SIOBHAN. She no longer has PT, but continues to follow with OT and speech therapy. She is making small gains. Mood: Therapy with Mohsen Jordan, PHD, she feels this helped, and he recommended not trying to function as she used to, but start small and make new goals as she makes gains. The patient's ability to work since last visit: Continues not to work. Driving Status: Not driving. PREVIOUS EVALUATIONS: 01/2017 EMU admission: Hospital Course: Ariella Alberto is a 46 year old right-handed female who was admitted emergently due to possible prolonged seizure at home. The patient was monitored with continous video-EEG from 02/07/2017 to 02/11/2017. Patient was admitted on home AEDs: Zonegran 300 mg qhs, Vimpat 200 mg BID, and Keppra XR 500 mg BID which were continued. No typical seizures were recorded. 1 atypical E was captured on 02/10/17 described as visual fixation on the clock. Please see separate video-EEG report for details. She was instructed to continue same home AEDs. Mrs. Mendoza was instructed to follow-up with Dr. Pina in 3 months with outpatient 3 T MRI brain. On admission, patient c/o malodorous urine. She was reportedly treated for UTI in December with Bactrim, however, smell continued. U/A showed evidence of UTI and culture growth showed E coli. Due to inefficacy of Bactrim, she was started on Macrobid 100 mg q6 hours x7 days. We discussed seeing a local Urologist given frequent UTIs. Due to concerns for anxiety/depression, patient's Celexa was increased from 20 mg daily to 40 mg daily. It was recommended she follow-up with local counselor and Psychiatrist which Social work provided local referrals. 2 days of EMU admission as well as multiple EEGs that captured non-convulsive status. Also had PLEDs. Most recent EEG from 09/19 shows slowing. MRI brain: ([facility], 02/28/2017): Significant improvement in the areas of T2/FLAIR hyperintensity in the bilateral parietal and occipital lobes as described with minimal residual, which may be due to improvement in the posterior reversible encephalopathy syndrome. No acute intracranial process. ?No acute infarct. No evidence for neuronal migrational abnormalities or mesial temporal sclerosis. Paranasal sinus disease with air-fluid level in the left sphenoid sinus which may indicate acute sinusitis in the right clinical setting. ?? RISK FACTORS FOR SEIZURES: ? 1. Head Trauma (No); 2. OXIDATION ENGINEER Infections (No); 3. Family History of Seizures (No); 4. Developmental Delay (No); 5. Febrile Seizures (No); 6. OXIDATION ENGINEER Tumors (No); 7. OXIDATION ENGINEER Vascular Disease (No); 8. Significant Medical History (Yes, alcohol abuse). OUTPATIENT MEDICATIONS: Current Outpatient Prescriptions: QUEtiapine (SEROQUEL) 25 mg tablet Take 1 tablet by mouth twice daily. folic acid 1 mg tablet Take 1 tablet by mouth once daily. pantoprazole DR (PROTONIX) 20 mg tablet Take 1 tablet by mouth once daily. febuxostat (ULORIC) 40 mg tab Take 1 tablet by mouth once daily. thiamine (VITAMIN B1) 100 mg tablet Take 1 tablet by mouth once daily. levETIRAcetam XR (KEPPRA XR) 500 mg 24 hr tablet Take 1 tablet by mouth twice daily. metoprolol succinate ER (TOPROL XL) 25 mg 24 hr tablet Take 1 tablet by mouth once daily. (Patient not taking: Reported on 09/25/2017 ) citalopram (CELEXA) 40 mg tablet Take 1 tablet by mouth once daily. lacosamide (VIMPAT) 200 mg tab Take 1 tablet by mouth twice daily for 180 days. zonisamide (ZONEGRAN) 100 mg capsule Take 3 capsules by mouth daily at bedtime. clonazePAM (KLONOPIN) 0.5 mg tablet Take 0.5 tablets by mouth twice daily as needed for up to 180 days. benzonatate (TESSALON PERLE) 100 mg capsule Take 1 capsule by mouth three times daily as needed for Cough. potassium acetate ibuprofen (MOTRIN) 200 mg tablet Take 400-600 mg by mouth every 8 hours as needed for Pain (Gout). DOCOSAHEXANOIC ACID/EPA (FISH OIL ORAL) Take by mouth. aspirin, enteric coated (ASPIRIN, ENTERIC COATED) 81 mg EC tablet Take 81 mg by mouth once daily. No current facility-administered medications for this visit. PAST MEDICAL HISTORY: PAST MEDICAL HISTORY Diagnosis Date - Abnormal glandular Papanicolaou smear of cervix Abn. 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/2016 Severe PRES - Seizure (HCC) PAST SURGICAL HISTORY: PAST SURGICAL HISTORY Procedure Laterality Date - CERVIX UTERI CONIZA LP ELCTRO EXCI LEEP-Cervix - DELIVERY ONLY , low transverse x 2 FAMILY MEDICAL HISTORY: FAMILY HISTORY Problem Relation Age of Onset - Heart Mother Open heart surgery - Diabetes Mother - Hypertension Mother - Lipids Mother - Coronary Artery Disease Mother 9 Stints - Macular Degen Mother - Hypertension Father - Coronary Artery Disease Father - Hypertension Sister - Heart Paternal Grandfather [place], at age 45 - Thyroid Sister SOCIAL HISTORY: Social History Marital status: Spouse name: Dusty Years of education: Number of children: 2 Occupational History 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 [employer] Social History Main Topics Smoking status: Never Smoker Smokeless tobacco: Never Used Alcohol use: Yes Comment: rare/ social Drug use: No Sexual activity: Yes Partners with: Male control/protection: Vasectomy REVIEW OF SYSTEMS: GENERAL: No weight loss, malaise or fevers HEENT: Negative for frequent or significant headaches, No changes in hearing or vision, no nose bleeds or other nasal problems NECK: Negative for lumps, goiter, pain and significant neck swelling RESPIRATORY: Negative for cough, hemoptysis, wheezing or shortness of breath CARDIOVASCULAR: Negative for chest pain, leg swelling or palpitations GI: No nausea, vomiting, or diarrhea PSYCH: More irritable GENERAL EXAMINATION: BP 168/94 (BP Site: Left Arm, BP Position: Sitting, BP Cuff Size: Large Adult) Pulse 70 Ht 152.4 cm (5') General Appearance: This is an average built female, in NAD. NEUROLOGICAL EXAMINATION: MENTAL STATUS: Alert and oriented to person, place and some difficulty with time (knows month with prompting, states it is 2017 and corrects herself to 2018), follows 1 step commands. Difficulty with complex or 2 step commands. Some word-finding difficulty. Able to name 3/6 objects and read sentences. Remote memory intact. Appears to neglect her left vision at times. CRANIAL NERVES: Pupils 4 mm, equal and reactive to light bilaterally. Visual sanches full. EOMI. +corneals. Face symmetric. Palate elevates equally bilaterally, tongue midline. MOTOR: Strength: 5/5 b/l. Tone is normal, bulk is symmetric. SENSORY: Intact to light touch. CEREBELLUM: Finger to Nose testing is normal. Rapid alternating movements are normal and symmetric. Gait examination is normal. IMPRESSION: Ariella Alberto is a 47 year old female who developed PRES secondary to elevated BP after discontinuation of Atenolol and initially presented with AMS and found to be in focal status epilepticus. Has had a complicated course since then with hallucinations and AMS, which in the past responded to lowering of LEV to 500 mg BID. It was again increased after a episode, questionable for seizure. After being on LEV 1000 mg BID, she had increased irritability and visual hallucination. Therefore, Keppra was reduced to 500 mg BID and LCM was increased to 300 mg BID. ZNS was later added, which made significant reduction in seizure burden. Since being on ZNG 200 mg qHS, she only had 2 brief spells concerning for seizures arising from right parieto-occipital region. She was emergently admitted to EMU but no seizures were recorded on home AEDs. She was discharged on ZNG 300 mg qhs, Vimpat 200 mg BID, and Keppra XR 500 mg BID. She continues to have improvement in her vision and cognitive skills with OT and Speech Therapy. She has had one episode of visual changes in the left (her typical seizure vs stress reaction) in July 2017 after mental strain and late AEDs. Per Dr. Johnny Pina at the last visit, these events are less likely to be epileptic but could be possible residual effect of PRES (Obstet Gynecol Surv. 2013;69(5):287-300; Obstet Gynecol. 2012; 119: 959?966). Recent MRI shows improving hyperintensities in b/l occipital region along with b/l atrophy in same region. She has been doing well on her current AEDs, with minor fatigue. Her mood has been better with improving in therapy and getting a puppy. PLAN: - LABS: ZNG, LCM, LEV - Continue current AEDs: Zonegran 300 mg qhs, Vimpat 200 mg BID, and Keppra XR 500 mg BID - Continue OT and Speech Therapy - The following issues were discussed with the patient: no bathing, no swimming unsupervised, no driving, no use of heavy machinery, no use of sharp moving objects and avoid heights - The patient was scheduled for a return visit in 4 months. - Risks, benefits, side effects, and alternatives to use of Levetiracetam, Zonisimide and Lacosamide were discussed with the patient. The patient agreed with the plan as outlined above. A total of 40 minutes was spent during the visit with greater than 50% of the time spent counseling and coordinating care of the above plan as well as answering the patient's numerous questions. 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) [G40.219] Other Visit Diagnosis:PRES (posterior reversible encephalopathy syndrome) [I67.83] Order(s):LEVETIRACETAM [SQLEVET] Order #: [id number] FUTURE LACOSAMIDE [SQLACOS] Order #: [id number] FUTURE ZONISAMIDE [SQZONIS] Order #: [id number] FUTURE Prescriptions as of 09/25/2017 Sig: QUETIAPINE 25 MG TABLET Take 1 tablet by mouth twice * FOLIC ACID 1 MG TABLET Take 1 tablet by mouth once d* PANTOPRAZOLE 20 MG TABLET,DEL* Take 1 tablet by mouth once d* FEBUXOSTAT 40 MG TABLET Take 1 tablet by mouth once d* THIAMINE HCL (VITAMIN B1) 100* Take 1 tablet by mouth once d* LEVETIRACETAM ER 500 MG TABLE* Take 1 tablet by mouth twice * METOPROLOL SUCCINATE ER 25 MG* Take 1 tablet by mouth once d* Patient not taking: Reported on 09/25/2017 CITALOPRAM 40 MG TABLET Take 1 tablet by mouth once d* LACOSAMIDE 200 MG TABLET Take 1 tablet by mouth twice * ZONISAMIDE 100 MG CAPSULE Take 3 capsules by mouth beronica* CLONAZEPAM 0.5 MG TABLET Take 0.5 tablets by mouth twi* BENZONATATE 100 MG CAPSULE Take 1 capsule by mouth three* POTASSIUM ACETATE IBUPROFEN 200 MG TABLET Take 400-600 mg by mouth ever* FISH OIL ORAL Take by mouth. 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 Follow-up and Disposition History Recorded Encounter Status:Closed by KANG JASON PA-C on 09/25/17 XR TIB/FIB RIGHT 2 Observed: 09/22/2017 Status: F Source: [facility] 5:[address] [facility] REPOSITORY Exam Date/Time: 09/22/2017 17:20 EDT Reason for Exam: right anterior tibia pain;Pain, Traumatic Report STUDY: XR Tib/Fib Right 2 View; 09/22/2017 5:20 pm INDICATION: Pain, Traumatic. COMPARISON: No available comparisons. ACCESSION NUMBER(S): [id number] ORDERING CLINICIAN: Jordi Mae TECHNIQUE: Two views FINDINGS: No acute fracture or dislocation. Alignment is normal. Soft tissues are unremarkable. No radiopaque foreign body. IMPRESSION: No acute osseous abnormality. FINAL REPORT Dictated: 09/22/2017 5:23 pm Nj Fitch MD Signed (Electronic Signature): 09/22/2017 5:23 pm Signed by: Nj Fitch MD Technologist: CEC XR HAND 3+ VIEWS Observed: 09/22/2017 Status: F Source: [facility] 5:[address] [facility] REPOSITORY Exam Date/Time: 09/22/2017 17:20 EDT Reason for Exam: middle finger PIP pain;Pain, Traumatic Report STUDY: XR Hand 3+ Views Right; 09/22/2017 5:20 pm INDICATION: Pain, Traumatic. COMPARISON: No available comparisons. ACCESSION NUMBER(S): [id number] ORDERING CLINICIAN: Jordi Mae TECHNIQUE: Three views FINDINGS: No acute fracture or dislocation. Joint spaces are maintained. Alignment is normal. IMPRESSION: No acute osseous abnormality. FINAL REPORT Dictated: 09/22/2017 5:24 pm Nj Fitch MD Signed (Electronic Signature): 09/22/2017 5:24 pm Signed by: Nj Fitch MD Technologist: CEC XR FEMUR MIN 2 Observed: 09/22/2017 Status: F Source: [facility] VIEWS RIGHT 5:[address] [facility] REPOSITORY Exam Date/Time: 09/22/2017 17:20 EDT Reason for Exam: right distal thigh pain and ecchymosis;Fall Report STUDY: XR Femur Min 2 Views Right; 09/22/2017 5:20 pm INDICATION: Fall. COMPARISON: No available comparisons. ACCESSION NUMBER(S): [id number] ORDERING CLINICIAN: Jordi Mae TECHNIQUE: Four views FINDINGS: No acute fracture or dislocation. Hip joint is maintained. Alignment is normal. IMPRESSION: No acute osseous abnormality. FINAL REPORT Dictated: 09/22/2017 5:25 pm Nj Fitch MD Signed (Electronic Signature): 09/22/2017 5:25 pm Signed by: Nj Fitch MD Technologist: CEC RE-EVALUTION OT Observed: 08/29/2017 Status: F Source: [place] 8:[address] [facility] REPOSITORY [facility] Occupational Therapy [facility] [address] [place] [address]. [address] [place] [address] Fax REEVALUATION / MEDICARE RECERTIFICATION OCCUPATIONAL THERAPY MR#: [id number] Acct: [id number] Name: ARIELLA BASURTO Rep #: [id number] : 1970 47 From: Clari Farias Referring Dr.: Aiden Daugherty MD Status: REG RCR Insurance: [employer] TPA Eval Date: SELF PAY INSURANCE Aiden Daugherty, It has been my pleasure to treat ARIELLA ALBERTO over the last 49 visits for . Please see the progress note below for an update on the occupational therapy plan of care! Subjective: Arrived a little late. Noted able to complete making pasta salad and did some baking with help this weekend. Objective/Function: Ariella has progressed from initial evaluation. Functional performance is improving but remains significantly limited and vision and visual processing appears to be improving but deficits remain. She is now (I) to write Ariella Mendoza in cursive on unlined basic printer paper. Her remains to need mod A for Remy . She becomes emotional when learning process is changed or challenged. She has been working on providing directed feedback and completing chunking methods to further promote learning. She has been starting to complete low vision space and line divider for new printing tasks for increased low vision compensations and proprioceptive input. Starting to progress with address. Performance is variable. Previous session able to re cite address (I) when asked, today she needed 1x cue and had a few perseverations. She remains able to complete reciting address with (i) CGA. She has started with use of low vision compensations writing first three numbers of address with low vision compensations. She can write numbers 1-9 with min A. At times reversals are noted and she works on correcting. With increased number complications of two numbers she has increased difficulty, processing, and increased perseveration. Slowly progressing with writing tasks. She is working to increased ability to complete writing tasks with vision compensations, blocking, and learning techniques to promote increased ability to relearn writing tasks. The focus of most sessions has been on typing as Ariella was very eager to get back to typing. She is able to type name with ability to self-correct errors on regular keyboard and use of size 72 font with screen at 100% zoom. With 1x verbal cues she is able to type alphabet from c-r without error 1/1 time. Errors noted for a, b, and x. Needs cues for hands placement but recognizing when fingers are off. She is progressing with typing tasks at this time. When trying to restart task increased number of errors are made which appears to be due to increase thinking of task and worrying about order etc. However, when previously tested on typing tasks she was unable to complete typing alphabet. Ariella is able to complete making pot of coffee, pure glass (i). Attempted completion of MVPT to further determine how vision is progressing. She remains unable to complete at this time. She is progressing with baking and simple meal prep. Ariella noted that she is working on dishes and laundry. She is completing sorting and laundry tasks but having increased difficulty with remembering if clothes in basket are clean or dirty. She is progressing towards self-care goals at this time. Further clinic and home - based intervention needed to increase (I). She is cooking simple meals with SUP. She remains unsafe with stove top cooking tasks and safety continues to be concern for therapy when Pt. is hoem alone. She will continue OT for 1x weekly treatment for the next 12 weeks. Plan Frequency: 1x/Week Duration: 12 weeks Plan: continue POC for 1x weekly sessions for 12 weeks. Will complete at least 1x home session if needed to promote increased (I) with ADls/IADLs. She has progress and completing simple IADls but still having difficulty with activity such as laundry in telling what is clean vs. dirty. Ot has consistently educated and Ariella on low vision tools. Due to injury vision deficits, cognitive deficits, and safety remain most crucial issues that need to continue to be addressed and increase Kellies (I) for IADls. Some low vision compensations have been put in place at home. She has recently started counseling due to injury to help with coping. She remains motivated to complete all therapy tasks but due to injury is seeking additional services to promote coping and adjustment to new abilities and life roles. Goals - Goals Goal:: Pt. to be (I) to print and sign first and last name with 1xcue 4/5 trials 80% of the time to promote increased ability to complete IALDs by d/c. Goal:: Ariella will be mod I to type three consecutive sentences from visual and verbal prompts as needed 4/5 trials to improve Pt. ability to communicate through emails and complete IADLs by d/c. Goal:: Ariella will be mod I to complete laundry with layout and memory aids as needed 4/5 trials 80% of the time with good safety awareness and decreased need for assistance to improve QOL by d/c. Goal:: Ariella and caregiver to implement low vision compensations into daily routine to promote safety awarness and decreased risk of further injury 4/5 [id number]% of the time to prote QOL and improve (I) by d/c. Goal:: Ariella to correctly type alaphabet with 1x cue to promote increase seqeuncing, VMI, and perceptual cues to promote increased (I) and ability to localte letters on keybaord to promote (i) with meaningful tasks by d/c . Goal:: Ariella to be mod I to read digital clock to promote increased ability to complete home time management ability to promote (i) with ADL/IADls 4/5 trials 80% of the time by d/c. Goal:: Ariella to be SBA to complete 5-6 step simple meals with good safety awareness 4/5 trials 80% of the time to promote (I) and QOL by time of d/c. Goal:: Ariella to be SBA to complete all IADLS with good safety awareness 4/5 trials 80% of the time to promote QOL and decrease need to for spv by time of d/c. Goal:: Ariella to be SBA to write 1-2x word sentences with no cues and good legibility to promote ability to create memory aid 4/5 trials 80% of the time to promote increased (i) and QOL by d/c. Goal:: Ariella to be mod I to write address with low vision compensations as needed 2/3 trials 75% of the time to promote safety, VMI, and ability to increase QOL by d/c. Anticipated Interventions Anticipated Interventions: Strengthening, Sensory Retraining, Neuro Reeducation, Visual/Perceptual Skills, Cognitive Skills, ADL Training, Caregiver Training, Home Program Other Interventions: Working on Low Vision compensations and increasing sequencing and STM needed to complete ADL/IADls to promote increased (i) within home to help increase QOL and return to PLOF. Please do not hesitate to contact me at [phone] by phone or if you have questions or concerns regarding this new plan of care! Sincerely, Clari Farias <Electronically signed by Clari Farias > 08/29/17 0851 CC: Aiden Daugherty MD YASH Signed For Medicare only, by signing this I certify the plan of care. Physicians Signature Date ADULT RE-EVALUATION - SP Observed: 08/28/2017 Status: F Source: [place] 8:[address] [facility] REPOSITORY [facility] Speech Pathology [facility] [address] [place] [address] Fax REEVALUATION / MEDICARE RECERTIFICATION SPEECH THERAPY MR#: [id number] Acct: [id number] Name: ARIELLA BASURTO Rep #: [id number] : 1970 47 From: Claude Rea M.A., [facility]-ADMINISTRATIVE SUPPORT SPECIALIST Referring Dr.: Aiden Daugherty MD Insurance: [employer] TPA SELF PAY INSURANCE Previous/Current Goals - Goals 1-5 Previous Goal #1: Ariella will correctly identify kay/change and accurately handle kay on 4/5 trials on 4 consecutive sessions. Goal 1 Status: Previously, She was able to count ones and fives up to 20 dollars. She was able to correctly identify between the two 100% of the time. Currently, Ariella can identify between 1,5,10 and 20 dollar bills. She can count bills with 50% accuracy. She was able to count coins 3 times slowly. OT is addressing visual deficits. Goal continues. Previous Goal #2: Ariella will answer problem solving questions with 80% accuracy for safety awareness, reasoning and judgement. Goal 2 Status: Previously, she problem solved cliff gifts within pinto ranges for a variety of options of per month club orders. She was not able to recall amounts and determine which is the best option for her amount of money to spend. Currently, she is able to problem solve simple and moderate problems verbally but lacks carry over into daily life. When presented with a problem she often is unable to tell how to progress to solve it. She can answer problems such as if you see a car accident, what do you do? with 80% accuracy. Complex problems remain difficult for Ariella as she relies on others to provide her with solutions. Previous Goal #3: Ariella will follow steps to access phone to make a phone call, text, and take pictures/videos on 3/5 trials. Goal 3 Status: Previously, Ariella was able to take a picture with no cues. She also showed a video that she had taken at home. She needed maximal cues to open the text box, choose the picture and send the text. She can use Radha to text through speech to text. She has only brought her phone 1-2 times, therefore, goal has not been addressed often. Previous Goal #4: Ariella will use recall strategies on 3/5 trials with moderate cues. Goal 4 Status: Ariella reports using association and reptition as she can not read or write effectively. She reports that her has a calendar at home but he does all the scheduling. Ariella does not effectively use her strategies. She is unable to write/type information due to visual deficits and unable to read well also due to these deficits. Ariella has requested to continue this goal. History - History Date of Eval: 10/04/16 Medical Diagnosis (from RX): PRES Previous speech therapy: Yes Other Relevant Medical History/Diagnoses/Surgery: Seizures Smoking Status: Never smoker Hx Smoking: Yes - no meds currently Hx Tobacco Use: No - Pain Is pain an issue with your current prescribed condition?: No - Personal Education History: Masters degree Occupation: Disability, previous was [employer] of [employer] Right Hearing Abillity: Normal Left Hearing Abillity: Normal Visual Assistive Devices: Glasses Patients Living Arrangements: With Significant Other Patient Allergies - Allergies Allergies allopurinol Allergy (Verified 10/07/16 10:33) Diarrhea lactose Adverse Reaction (Verified 10/07/16 10:33) Diarrhea Objective Cog/Ling/Com - Test Administered Rpdbtsxdd-Fbcemophfj-Qipckizjedmfd Assessment Administered: Yes Mpskpbtdq-Vztoignuhf-Pjcvuznwlihgn Assessment: Cognitive Linguistic skills were evaluated using patient/family interview, skilled observation and informal evaluation through tasks completed by the patient. - Answer Yes/No Questions Simple: WFL Complex: Mild - Medication Completing medications independently: Severe Cognitive Linguistic Comments - Comments Medication Ariella's has been completing her medication. They have requested that she be able to independently be able to complete medication tasks. CLQT - CLQT CLQT Administered: Yes CLQT: Cognitive Linguistic Quick Test (CLQT) is a criterion - referenced assessment designed for adults between the ages of 18 and 89 with known or suspected neurological dysfuntions. The CLQT is to assess strength and weaknesses in five cognitive domains. Severity ratings are within normal limits, mild, moderate, severe deficits. The subtests are as follows: Date: 08/28/17 - Attention Attention: Severe - Memory Memory: Moderate - Executive Functions Executive Functions: Severe - Language Language: Moderate - Visuospatial Skills Visuospatial Skills: Severe - Composite Severity Rating Composite Severity Rating: Moderate - CLQT Comments Analysis Ariella has increased her raw score on memory from 112 to 124 but still places in the moderate range. Overall she is able to complete personal facts 100% when previously it was 7/8. Symbol cancellation had more correctly identified symbols but she also marked ones that were visually similar therefore she had the same poor score. Confrontational naming was 100% this time when previously it was 80%. For story retelling she was able to get the overall information but lacked some details. She was unable to do symbol trails due to visual deficits in telling size of shapes. Generative naming had 6 animals listed but she then repeated those animals 7 times. She was only able to tell one word that started with m. She got one more item for raw score on design memory ( the most visually complex was missed) which is an increase from 2 perviously. Mazes were not able to be completed but she was able to generate one design at the end. Overall her scores are similiar to previous testing composite score was 1.6 and currently it is 1.4. Vision Ariella's visual deficits overall effect her ability to complete some subtests. Plan - Plan Plan: Speech therapy is recommended to continue for 12 more weeks to focus on functional tasks for Ariella to be as independent as possible. - Recommendations MBS: No Treatment Warranted: Yes - Frequency Visits in this POC: 24 - Prognosis Prognosis: Fair - Goals that are Established: Determination:: Goals will be added/modified as deemed necessary and appropriate. Therapy will be discontinued when results of re-evaluation indicate therapy is no longer needed or lack of progress has been documented. - Goal #1-5 Goal #1: Ariella will correctly identify kay/change and accurately handle kay on 4/5 trials on 4 consecutive sessions. Goal #2: Ariella will complete medication tasks including but not limited to showing appropriate day to take medications, medication set up and recall of information about her medications with 90% with minimal cues. Goal #3: Ariella will follow steps to access phone to make a phone call, text, and take pictures/videos on 3/5 trials. Goal #4: Ariella will use recall strategies on 3/5 trials with moderate cues. <Electronically signed by Claude Rea M.A., [facility]MINISTRATIVE SUPPORT SPECIALIST> 08/28/17 0808 CC: Aiden Daugherty MD JLB Signed For Medicare only, by signing this I certify the plan of care. Physicians Signature Date PROGRESS Observed: 08/13/2017 Status: COMPLETED Source: [place] 5:23 PM [facility] REPOSITORY HNO ID: [id number] Author: Mohsen Jordan Service: (none) Author Type: Psychologist Type: Progress Notes Filed: 08/13/2017 5:53 PM Note Text: [facility] Progress Note Ariella L Reji Alberto 08/13/2017 [id number] Provider: Mohsen Jordan, PHD CPT Code: 05432 Psychiatric diagnostic evaluation Time: Approximately 50 minutes was spent in therapy. Parties Present: Patient, Spouse Patient Presentation/Concerns: INITIAL VISIT [place] in [place]... middle of 4 sisters... 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 4 children .. 2 from each w current who works for fire dept. EVENT: PRES ... 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 in a wheel chair drooling ... June 2016 and through a year... now walks sees in lots of therapy and some progress but clearly cognitive slowing/cloudiness from event and meds PLAN: focus on quality of life and start from where she is by RECALIBRATING... wonder about Yoga, Tommie Chi, relaxation techniques etc... PLAN: started w 2 breaths each hour Unclear what meds can eventually change etc to have optimal help and optimal alertness and quality of life Seizures: pt still has them with overexertion or hypertensive events etc and they appear from pt report to be inconsequential but scarry Sleep: reports sleeping thru night and waking refreshed Exercise: some short dist walking Drinking: pt reports after her mother drinking ... reduced then currently struggling to stop PLAN: educative Mental Status: Mood: variable, depressed, anxious, fearful Affect: mood-congruent Thoughts/Associations:goal directed Suicidal/Homicidal Ideation: None expressed or evidenced Other Observations: None Therapy Focus Self-care, Stress management, Mood/affect regulation, Self- esteem and Coping with chronic illness MEDICATIONS: Per medical record: Current Outpatient Prescriptions: QUEtiapine (SEROQUEL) 25 mg tablet Take 1 tablet by mouth twice daily. folic acid 1 mg tablet Take 1 tablet by mouth once daily. pantoprazole DR (PROTONIX) 20 mg tablet Take 1 tablet by mouth once daily. febuxostat (ULORIC) 40 mg tab Take 1 tablet by mouth once daily. thiamine (VITAMIN B1) 100 mg tablet Take 1 tablet by mouth once daily. levETIRAcetam XR (KEPPRA XR) 500 mg 24 hr tablet Take 1 tablet by mouth twice daily. metoprolol succinate ER (TOPROL XL) 25 mg 24 hr tablet Take 1 tablet by mouth once daily. citalopram (CELEXA) 40 mg tablet Take 1 tablet by mouth once daily. lacosamide (VIMPAT) 200 mg tab Take 1 tablet by mouth twice daily for 180 days. zonisamide (ZONEGRAN) 100 mg capsule Take 3 capsules by mouth daily at bedtime. clonazePAM (KLONOPIN) 0.5 mg tablet Take 0.5 tablets by mouth twice daily as needed for up to 180 days. benzonatate (TESSALON PERLE) 100 mg capsule Take 1 capsule by mouth three times daily as needed for Cough. potassium acetate ibuprofen (MOTRIN) 200 mg tablet Take 400-600 mg by mouth every 8 hours as needed for Pain (Gout). DOCOSAHEXANOIC ACID/EPA (FISH OIL ORAL) Take by mouth. aspirin, enteric coated (ASPIRIN, ENTERIC COATED) 81 mg EC tablet Take 81 mg by mouth once daily. No current facility-administered medications for this visit. 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 Progressing satisfactorily. TREATMENT PLAN/GOALS: Continue in therapy focusing on self- care, stress management, affect management, anxiety management and coping with chronic condition. Next appointment: as scheduled Mohsen Jordan, PHD RE-EVALUTION OT Observed: 06/25/2017 Status: F Source: [place] 9:[address] [facility] REPOSITORY [facility] Occupational [facility] [address] [place], [place] [address] Fax REEVALUATION / MEDICARE RECERTIFICATION OCCUPATIONAL THERAPY MR#: [id number] Acct: [id number] Name: ARIELLA BASURTO Rep #: [id number] : 1970 46 From: Clari Farias Referring Dr.: Aiden Daugherty MD Status: REG RCR Insurance: [employer] TPA Eval Date: SELF PAY INSURANCE Aiden Daugherty, It has been my pleasure to treat ARIELLA ALBERTO over the last 41 visits for . Please see the progress note below for an update on the occupational therapy plan of care! Subjective: Pt. arrived to session. Notes that everything is going well and that she went to auction with this weekend. Notes she is struggling with STM. She notes it has been biggest struggle since accident and as writing and typing are coming along she would like to start making more memory and cue cards (ST to address for social aspects and OT for ADLs/IADls) for people names and OT for ADl/IADls cues. Notes increased difficulty with remebering to transfer laundry over to dryer etc. Notes the sorting and completion of laundry tasks is going well. Further explained year anniversary of getting 'sick' is on July 14 and she would like to work on trying to type letter to to thank him. Verbalized understanding that re-eval needed to take place today. Objective/Function: Reassessment completed on this date. Ariella has progressed and meant some goals. Ariella is progressing with therapy at this time. Mo[facility] cognitive screen attempted on this date but due to low vision she was unable to see things accurated for completion. She was able to correctly idenify camel and worked on writing word camel from LTM. Correctly sequenced and formed 3/5 letters with SBA. Worked on visuospatial awareness through drawing of clock. Molly was previously unable to number clock. She has progressed to correctly forming and labeling 12, 6, 3, and needs 2x cues to correctly label 9 as she verbalized 9 but wrote 3. Able to self-correct with 2x cues. Less that .5 cm gap at end point of oneida. However, oneida still indicative of increased visospatial deficits. Vision therapy has been discontinued at this time. She is progressing with typing and low vision tasks with us of increased font. Ariella has icnreased ability to read on [employer] document whiel working on typing on computer with size 72 and zoom at 150%. The paragrap sybols are used at times to also help recognize spacing between words and to decreased perseveration between words when typing. LTM is helpping Ariella promote typing of short words and name. She needs cues and physical prompts for R hand placement. She is anle to correctly and accuratly type Ariella Alberto with verbal direction, no cues, and no errors. Progress from previous ability. She has increased difficulty with coreectly typing full alaphabet in order and needs assisatnce with remembering sequence of letters. She was SUP for 15/26 letters but when getting to P needed 4x cues before compelting rest of akphabet and was TD to recall order of alaphabet. She is able to recognize letters when visual prompts are presents with SBA. Working on increasing accuracy with alaphabet to promote increased knowledge of keybaord and sequencing skills for typing tasks. Increased perseveration of words and tasks are typically present with increased frustration of tasks or increased fatigue. Typically 1x 2 min break help Pt. self-correct and self correct with cues as needed. Pt. is increased ability to complete IADls t/o home. She notes continues decreasd ability for STM to complete laundry tasks. She notes increased STM for time management and transferring from washer to dryer. WIll progressing with auditory and visual prompts as Pt. is able to read large fonts. Plan Frequency: 1x/Week Duration: 8 weeks Plan: Ariella to continue OT for 1x weekly for 8 weeks to continue to address maximizing ADLs and help reintegrate and participate in IADls. WIll continue to work on STM and low vision compensations to promote (I). Working on increased performance and ability to type as this is a visual perceptual and very meaningful task for Ariella to relearn and complete at this time. Start address STM to help faciliate further safety and (I) while at home. Goals - Goals Goal:: Pt. to be (I) to print and sign first and last name with 1xcue 4/5 trials 80% of the time to promote increased ability to complete IALDs by d/c. Goal:: Ariella will be mod I to type three consecutive sentences from visual and verbal prompts as needed 4/5 trials to improve Pt. ability to communicate through emails and complete IADLs by d/c. Goal:: Ariella will be mod I to complete laundry with layout and memory aids as needed 4/5 trials 80% of the time with good safety awareness and decreased need for assistance to improve QOL by d/c. Goal:: Ariella and caregiver to implement low vision compensations into daily routine to promote safety awarness and decreased risk of further injury 4/5 xmgotm58% of the time to prote QOL and improve (I) by d/c. Goal:: Ariella to correctly type alaphabet with 1x cue to promote increase seqeuncing, VMI, and perceptual cues to promote increased (I) and ability to localte letters on keybaord to promote (i) with meaningful tasks by d/c . Goal:: Ariella to be mod I to read digital clock to promote increased ability to complete home time management ability to promote (i) with ADL/IADls 4/5 trials 80% of the time by d/c. Goal:: Ariella to be SBA to complete 5-6 step simple meals with good safety awareness 4/5 trials 80% of the time to promote (I) and QOL by time of d/c. Goal:: Ariella to be SBA to complete all IADLS with good safety awareness 4/5 trials 80% of the time to promote QOL and decrease need to for spv by time of d/c. Goal:: Ariella to be SBA to write 1-2x word sentences with no cues and good legibility to promote ability to create memory aid 4/5 trials 80% o the time to promote increased (i) and QOL by d/c. Anticipated Interventions Anticipated Interventions: Strengthening, Sensory Retraining, Neuro Reeducation, Visual/Perceptual Skills, Cognitive Skills, ADL Training, Caregiver Training, Home Program Other Interventions: Working on Low Vision compensations and increasing sequencing and STM needed to complete ADL/IADls to promote increased (i) within home to help increase QOL and return to PLOF. Please do not hesitate to contact me at [phone] by phone or if you have questions or concerns regarding this new plan of care! Sincerely, Clari Farias <Electronically signed by Clari Farias > 06/25/17 0909 CC: Aiden Daugherty MD [facility] Signed For Medicare only, by signing this I certify the plan of care. Physicians Signature Date PROGRESS Observed: 05/29/2017 Status: COMPLETED Source: [place] 1:27 PM [facility] [place] REPOSITORY HNO ID: [id number] Author: Aiden Daugherty Service: (none) Author Type: Physician Type: Progress Notes Filed: 05/29/2017 1:41 PM Note Text: Patient presents with: URI HPI: Patient presents today for office visit for an acute visit. Nursing Notes: Nela Bowen Ma 05/29/2017 12:53 PM Signed DURATION OF SYMPTOMS: Began 5 days ago ONSET OF SYMPTOMS: Sudden FEVER: No BODYACHES: Mild TIREDNESS: Mild HEADACHE: Severe, last 2 days EAR SYMPTOMS: None STUFFY NOSE: Yes POST NASAL DRIP: Yes SNEEZING: Yes SORE THROAT: Yes - mild COUGH: Yes, with sputum production CHEST DISCOMFORT: Yes - described as tight SHORTNESS OF BREATH: Yes - at rest WHEEZING: Yes, on day two squad came out to give albuterol treatment SPUTUM PRODUCTION: Yellow OVER THE COUNTER MEDICATION PATIENT IS TAKING: Patient is using ibuprofen Albuterol helped. No fever. Did have myalgias. Discussed possibility of influenza. Flu is now widespread in this area. We can only test for it with regular nasal swabs and testing will not change our clinical course at this point. The patient is beyond 48 hours so would not be a typical candidate for antiviral therapy. No nausea or vomiting or diarrhea. Has had a headache. Taking ibuprofen round the clock. Not the worst headache she has had. Coughing makes it works. No neck stiffness. No new seizures. No numbness or weakness. Was just in to neurology. They recommended psychology She is on higher doses of klonopin. MEDICATIONS: Current Outpatient Prescriptions: clonazePAM (KLONOPIN) 0.5 mg tablet Take 0.5 tablets by mouth twice daily as needed for up to 180 days. QUEtiapine (SEROQUEL) 25 mg tablet Take 1 tablet by mouth twice daily. zonisamide (ZONEGRAN) 100 mg capsule Take 3 capsules by mouth daily at bedtime. lacosamide (VIMPAT) 200 mg tab Take 1 tablet by mouth twice daily for 180 days. citalopram (CELEXA) 40 mg tablet Take 1 tablet by mouth once daily. levETIRAcetam XR (KEPPRA XR) 500 mg 24 hr tablet Take 1 tablet by mouth twice daily. metoprolol succinate ER (TOPROL XL) 25 mg 24 hr tablet Take 1 tablet by mouth once daily. thiamine (VITAMIN B1) 100 mg tablet Take 1 tablet by mouth once daily. potassium acetate ibuprofen (MOTRIN) 200 mg tablet Take 400-600 mg by mouth every 8 hours as needed for Pain (Gout). folic acid 1 mg tablet Take 1 tablet by mouth once daily. febuxostat (ULORIC) 40 mg tab Take 1 tablet by mouth once daily. pantoprazole DR (PROTONIX) 20 mg tablet Take 1 tablet by mouth once daily. DOCOSAHEXANOIC ACID/EPA (FISH OIL ORAL) Take by mouth. aspirin, enteric coated (ASPIRIN, ENTERIC COATED) 81 mg EC tablet Take 81 mg by mouth once daily. No current facility-administered medications for this visit. ALLERGIES: ALLERGIES Allergen Reactions - Allopurinol (Bulk) Rash PAST MEDICAL HISTORY Diagnosis Date - Abnormal glandular Papanicolaou smear of cervix Abn. 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/2016 Severe PRES - Seizure (HCC) PAST SURGICAL HISTORY Procedure Laterality Date - CERVIX UTERI CONIZA LP ELCTRO EXCI LEEP-Cervix - DELIVERY ONLY , low transverse x 2 FAMILY HISTORY Problem Relation Age of Onset - Heart Mother Open heart surgery - Diabetes Mother - Hypertension Mother - Lipids Mother - Coronary Artery Disease Mother 9 Stints - Macular Degen Mother - Hypertension Father - Coronary Artery Disease Father - Hypertension Sister - Heart Paternal Grandfather [place], at age 45 - Thyroid Sister Social History Marital status: Spouse name: Dusty Years of education: Number of children: 2 Occupational History 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 REVIEW OF SYSTEMS All other reviewed and negative other than HPI. VITALS: BP 134/82 Pulse 87 Temp 37.3 ?C (99.2 ?F) (Tympanic) SpO2 97% Last 4 Encounter Wt Readings: Date: Wt: 05/28/2017 69.5 kg (153 lb 3.2 oz) 01/09/2017 66.7 kg (147 lb) 10/30/2016 64 kg (141 lb) 09/24/2016 61.7 kg (136 lb) PHYSICAL EXAMINATION: General appearance: Well appearing, alert, in no acute distress, well-hydrated, well nourished. Skin: Skin color, texture, turgor normal, no suspicious rashes or lesions Head: Normocephalic, no masses, lesions, tenderness or abnormalities Eyes: Anicteric sclera. Pupils are equally round and reactive to light. Extraocular movements are intact. Ears: External ears normal, canals clear Nose/Sinuses: Nares normal, septum midline, mucosa normal, no drainage or sinus tenderness Oropharynx: Lips, mucosa, and tongue normal, teeth and gums normal, oropharynx normal Neck: Supple, no adenopathy; thyroid symmetric, normal size, no bruits Lungs: Lungs clear to auscultation. No wheezing, rhonchi, rales Heart: RRR without murmur, gallop, or rubs. No ectopy Abdomen: Normal abdominal exam, Abdomen soft, non-tender. Bowel sounds normal. No masses, organomegaly Extremities: No deformities, edema, skin discoloration, clubbing or cyanosis. Good capillary refill. ASSESSMENT/PLAN: 1. Sinobronchitis - ICD9: 473.9, 490, ICD10: J32.9, J40 (primary diagnosis) - Supportive care with plenty of fluids, rest, and analgesia prn. - Follow up in one week if symptoms persist or worsen. - Red flags for re-assessment reviewed with patient in detail. - Call if symptoms worsen at all or if not better in one to two weeks - AMOXICILLIN 875 MG-POTASSIUM CLAVULANATE 125 MG TABLET - BENZONATATE 100 MG CAPSULE 2. Ischemic brain injury - ICD9: 437.1, ICD10: I67.82 - stable. To Er if headache worsens. Does not require imaging at this time. Appears more sinus. 3. PRES (posterior reversible encephalopathy syndrome) - ICD9: 348.39, ICD10: I67.83 4. Anxiety and depression - ICD9: 300.00, 311, ICD10: F41.8 - CONSULT TO PSYCHOLOGY Aiden Daugherty MD CNOV Observed: 05/29/2017 Status: COMPLETED Source: [place] 1:00 PM [facility] REPOSITORY Office Visit (FAMPWS) ARIELLA BASURTO ([id number]) 1970 F Date Time Provider Department 05/29/17 1:00 PM [facility] During your visit today, we recorded the following information about you: Temperature Pulse Blood pressure 99.2 degrees 87/minute 134/82 Nela Bowen Ma 05/29/2017 12:53 PM Signed DURATION OF SYMPTOMS: Began 5 days ago ONSET OF SYMPTOMS: Sudden FEVER: No BODYACHES: Mild TIREDNESS: Mild HEADACHE: Severe, last 2 days EAR SYMPTOMS: None STUFFY NOSE: Yes POST NASAL DRIP: Yes SNEEZING: Yes SORE THROAT: Yes - mild COUGH: Yes, with sputum production CHEST DISCOMFORT: Yes - described as tight SHORTNESS OF BREATH: Yes - at rest WHEEZING: Yes, on day two squad came out to give albuterol treatment SPUTUM PRODUCTION: Yellow OVER THE COUNTER MEDICATION PATIENT IS TAKING: Patient is using ibuprofen Aiden Daugherty MD 05/29/2017 1:41 PM Signed Patient presents with: URI HPI: Patient presents today for office visit for an acute visit. Nursing Notes: Nela Bowen Ma 05/29/2017 12:53 PM Signed DURATION OF SYMPTOMS: Began 5 days ago ONSET OF SYMPTOMS: Sudden FEVER: No BODYACHES: Mild TIREDNESS: Mild HEADACHE: Severe, last 2 days EAR SYMPTOMS: None STUFFY NOSE: Yes POST NASAL DRIP: Yes SNEEZING: Yes SORE THROAT: Yes - mild COUGH: Yes, with sputum production CHEST DISCOMFORT: Yes - described as tight SHORTNESS OF BREATH: Yes - at rest WHEEZING: Yes, on day two squad came out to give albuterol treatment SPUTUM PRODUCTION: Yellow OVER THE COUNTER MEDICATION PATIENT IS TAKING: Patient is using ibuprofen Albuterol helped. No fever. Did have myalgias. Discussed possibility of influenza. Flu is now widespread in this area. We can only test for it with regular nasal swabs and testing will not change our clinical course at this point. The patient is beyond 48 hours so would not be a typical candidate for antiviral therapy. No nausea or vomiting or diarrhea. Has had a headache. Taking ibuprofen round the clock. Not the worst headache she has had. Coughing makes it works. No neck stiffness. No new seizures. No numbness or weakness. Was just in to neurology. They recommended psychology She is on higher doses of klonopin. MEDICATIONS: Current Outpatient Prescriptions: clonazePAM (KLONOPIN) 0.5 mg tablet Take 0.5 tablets by mouth twice daily as needed for up to 180 days. QUEtiapine (SEROQUEL) 25 mg tablet Take 1 tablet by mouth twice daily. zonisamide (ZONEGRAN) 100 mg capsule Take 3 capsules by mouth daily at bedtime. lacosamide (VIMPAT) 200 mg tab Take 1 tablet by mouth twice daily for 180 days. citalopram (CELEXA) 40 mg tablet Take 1 tablet by mouth once daily. levETIRAcetam XR (KEPPRA XR) 500 mg 24 hr tablet Take 1 tablet by mouth twice daily. metoprolol succinate ER (TOPROL XL) 25 mg 24 hr tablet Take 1 tablet by mouth once daily. thiamine (VITAMIN B1) 100 mg tablet Take 1 tablet by mouth once daily. potassium acetate ibuprofen (MOTRIN) 200 mg tablet Take 400-600 mg by mouth every 8 hours as needed for Pain (Gout). folic acid 1 mg tablet Take 1 tablet by mouth once daily. febuxostat (ULORIC) 40 mg tab Take 1 tablet by mouth once daily. pantoprazole DR (PROTONIX) 20 mg tablet Take 1 tablet by mouth once daily. DOCOSAHEXANOIC ACID/EPA (FISH OIL ORAL) Take by mouth. aspirin, enteric coated (ASPIRIN, ENTERIC COATED) 81 mg EC tablet Take 81 mg by mouth once daily. No current facility-administered medications for this visit. ALLERGIES: ALLERGIES Allergen Reactions - Allopurinol (Bulk) Rash PAST MEDICAL HISTORY Diagnosis Date - Abnormal glandular Papanicolaou smear of cervix Abn. 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/2016 Severe PRES - Seizure (HCC) PAST SURGICAL HISTORY Procedure Laterality Date - CERVIX UTERI CONIZA LP ELCTRO EXCI LEEP-Cervix - DELIVERY ONLY , low transverse x 2 FAMILY HISTORY Problem Relation Age of Onset - Heart Mother Open heart surgery - Diabetes Mother - Hypertension Mother - Lipids Mother - Coronary Artery Disease Mother 9 Stints - Macular Degen Mother - Hypertension Father - Coronary Artery Disease Father - Hypertension Sister - Heart Paternal Grandfather [place], at age 45 - Thyroid Sister Social History Marital status: Spouse name: Dusty Years of education: Number of children: 2 Occupational History 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 REVIEW OF SYSTEMS All other reviewed and negative other than HPI. VITALS: BP 134/82 Pulse 87 Temp 37.3 ?C (99.2 ?F) (Tympanic) SpO2 97% Last 4 Encounter Wt Readings: Date: Wt: 05/28/2017 69.5 kg (153 lb 3.2 oz) 01/09/2017 66.7 kg (147 lb) 10/30/2016 64 kg (141 lb) 09/24/2016 61.7 kg (136 lb) PHYSICAL EXAMINATION: General appearance: Well appearing, alert, in no acute distress, well-hydrated, well nourished. Skin: Skin color, texture, turgor normal, no suspicious rashes or lesions Head: Normocephalic, no masses, lesions, tenderness or abnormalities Eyes: Anicteric sclera. Pupils are equally round and reactive to light. Extraocular movements are intact. Ears: External ears normal, canals clear Nose/Sinuses: Nares normal, septum midline, mucosa normal, no drainage or sinus tenderness Oropharynx: Lips, mucosa, and tongue normal, teeth and gums normal, oropharynx normal Neck: Supple, no adenopathy; thyroid symmetric, normal size, no bruits Lungs: Lungs clear to auscultation. No wheezing, rhonchi, rales Heart: RRR without murmur, gallop, or rubs. No ectopy Abdomen: Normal abdominal exam, Abdomen soft, non-tender. Bowel sounds normal. No masses, organomegaly Extremities: No deformities, edema, skin discoloration, clubbing or cyanosis. Good capillary refill. ASSESSMENT/PLAN: 1. Sinobronchitis - ICD9: 473.9, 490, ICD10: J32.9, J40 (primary diagnosis) - Supportive care with plenty of fluids, rest, and analgesia prn. - Follow up in one week if symptoms persist or worsen. - Red flags for re-assessment reviewed with patient in detail. - Call if symptoms worsen at all or if not better in one to two weeks - AMOXICILLIN 875 MG-POTASSIUM CLAVULANATE 125 MG TABLET - BENZONATATE 100 MG CAPSULE 2. Ischemic brain injury - ICD9: 437.1, ICD10: I67.82 - stable. To Er if headache worsens. Does not require imaging at this time. Appears more sinus. 3. PRES (posterior reversible encephalopathy syndrome) - ICD9: 348.39, ICD10: I67.83 4. Anxiety and depression - ICD9: 300.00, 311, ICD10: F41.8 - CONSULT TO PSYCHOLOGY Aiden Daugherty MD Referring Provider: SELF [[id number]] Allergies As of Date: 05/29/2017 Noted Allergy Reaction ALLOPURINOL (BULK) 04/04/2016 2 - Rash Date Reviewed: 05/29/2017 Reviewed by: Nela Bowen Ma - Fully Assessed Reason for Visit: URI [115] Primary Visit Diagnosis:Sinobronchitis [J32.9, J40] Other Visit Diagnoses:Ischemic brain injury [I67.82] PRES (posterior reversible encephalopathy syndrome) [I67.83] Anxiety and depression [F41.8] Order(s):CONSULT TO PSYCHOLOGY [[id number]] Order #: [id number]: 1 amoxicillin-clavulanic acid (AUGMENTIN) 875-125 mg per tabletTake 1 tablet by mouth twice daily for 10 days.Disp: 20 tabletRfl: 0 benzonatate (TESSALON PERLE) 100 mg capsuleTake 1 capsule by mouth three times daily as needed for Cough.Disp: 30 capsuleRfl: 0 Prescriptions as of 05/29/2017 Sig: CLONAZEPAM 0.5 MG TABLET Take 0.5 tablets by mouth twi* QUETIAPINE 25 MG TABLET Take 1 tablet by mouth twice * ZONISAMIDE 100 MG CAPSULE Take 3 capsules by mouth beronica* LACOSAMIDE 200 MG TABLET Take 1 tablet by mouth twice * CITALOPRAM 40 MG TABLET Take 1 tablet by mouth once d* LEVETIRACETAM ER 500 MG TABLE* Take 1 tablet by mouth twice * METOPROLOL SUCCINATE ER 25 MG* Take 1 tablet by mouth once d* THIAMINE HCL (VITAMIN B1) 100* Take 1 tablet by mouth once d* POTASSIUM ACETATE IBUPROFEN 200 MG TABLET Take 400-600 mg by mouth ever* FOLIC ACID 1 MG TABLET Take 1 tablet by mouth once d* FEBUXOSTAT 40 MG TABLET Take 1 tablet by mouth once d* PANTOPRAZOLE 20 MG TABLET,DEL* Take 1 tablet by mouth once d* FISH OIL ORAL Take by mouth. ASPIRIN 81 MG TABLET,DELAYED * Take 81 mg by mouth once beronica* AMOXICILLIN 875 MG-POTASSIUM * Take 1 tablet by mouth twice * BENZONATATE 100 MG CAPSULE Take 1 capsule by mouth three* Problem List As Of Date 05/29/2017 Noted Resolved Unspecified Hypothyroidism [E03.9] INVALID FOR*09/24/2012 Hypertension [I10] INVALID FOR* GERD (gastroesophageal reflux disease) [K21.9] INVALID FOR* Fatigue [R53.83] INVALID FOR* Hot flashes [R23.2] INVALID FOR* Weight gain [R63.5] INVALID FOR* History of bilateral breast implants [Z98.82] INVALID FOR* Gout [M10.9] INVALID FOR* ETOH abuse [F10.10] INVALID FOR* Encephalopathy [G93.40] INVALID FOR* 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] INVALID FOR* Anxiety and depression [F41.8] INVALID FOR* PRES (posterior reversible encephalopathy syndr*INVALID FOR* Breakthrough seizure (HCC) [G40.919] INVALID FOR* Chronic UTI [N39.0] INVALID FOR* Ischemic brain injury [I67.82] INVALID FOR* Myopia, bilateral [H52.13] INVALID FOR* Regular astigmatism, bilateral [H52.223] INVALID FOR* Presbyopia [H52.4] INVALID FOR* Visit Notes: >> Nela Bowen Ma SatMay 29, 2017 12:45 PM Status: Signed DURATION OF SYMPTOMS: Began 5 days ago ONSET OF SYMPTOMS: Sudden FEVER: No BODYACHES: Mild TIREDNESS: Mild HEADACHE: Severe, last 2 days EAR SYMPTOMS: None STUFFY NOSE: Yes POST NASAL DRIP: Yes SNEEZING: Yes SORE THROAT: Yes - mild COUGH: Yes, with sputum production CHEST DISCOMFORT: Yes - described as tight SHORTNESS OF BREATH: Yes - at rest WHEEZING: Yes, on day two squad came out to give albuterol treatment SPUTUM PRODUCTION: Yellow OVER THE COUNTER MEDICATION PATIENT IS TAKING: Patient is using ibuprofen Prescriptions ordered this encounter Disp Refills Start End AMOXICILLIN 875 MG-POTASSIUM CLAVULA* 20 t* 0 05/29/2017 06/08/2017 Route: ORAL Sig: Take 1 tablet by mouth twice daily for 10 days. BENZONATATE 100 MG CAPSULE 30 c* 0 05/29/2017 Route: ORAL Sig: Take 1 capsule by mouth three times daily as needed for Cough. Encounter Status:Closed by AIDEN DAUGHERTY MD on 05/29/17 PROGRESS Observed: 05/28/2017 Status: COMPLETED Source: [place] 2:21 PM [facility] [place] REPOSITORY HNO ID: [id number] Author: Johnny Pina Service: (none) Author Type: Physician Type: Progress Notes Filed: 06/04/2017 12:15 AM Note Text: [facility] CLINIC NOTE -FOLLOW UP CHIEF COMPLAINT: Patient presents with: Established Patient HISTORY SINCE LAST VISIT: The patient has returned for follow-up regarding management of post-PRES epilepsy. This is a 46 year old right handed female who was last seen by me on 01/09/17 in clinic and then in 01/2017 after in-patient EMU evaluation prompted by ?prolonged seizure at home. and has been diagnosed with having post-PRES epilepsy. Here with her . She reports that every time she goes out of her home, she has a seizure. Describes them as Right sided strobe lights. Red, green, blue colors - flashing. She calls out Oh! My god, this is happening. This lasts 3-4 minutes. She may lose awareness sometimes. However, reports that she has had only 2 epsiodes in MAY 2017 - she was out in car with friend and started seeing above strobe lights. She also stiffened up behaviorally but kept talking thorough it. Second time, they were driving on a cloudy day. She again saw the same lights. Again stiffened up for a minute but kept talking normally. Later on, she didn't remember walking into the home 10 minutes later. Still going for PT/OT. Also improved in her typing on computer. Recently evaluated by Neurologist. Found to have 20/20 vision with her glasses. Had difficulty with reading paragraph. Reports being frustrated easily with her mood. Not seen a psychaitrist. Patient currently complaining for cough and yellowish sputum for last 4 days. No fever. Getting better. She is has been taking Klonopin (0.5mg) - .25mg at HS and now also taking .25mg in am. She has been on Klonopin since she was discharged from [facility] The patient's ability to work since last visit: Continues not to work. Driving Status: Not driving. Overall Sense of Well Being Since Last Visit: unchanged 01/2017 EMU admission: Hospital Course: Ariella Alberto is a 46 year old right-handed female who was admitted emergently due to possible prolonged seizure at home. The patient was monitored with continous video-EEG from 02/07/2017 to 02/11/2017. Patient was admitted on home AEDs: Zonegran 300 mg qhs, Vimpat 200 mg BID, and Keppra XR 500 mg BID which were continued. No typical seizures were recorded. 1 atypical E was captured on 02/10/17 described as visual fixation on the clock. Please see separate video-EEG report for details. She was instructed to continue same home AEDs. Mrs. Mendoza was instructed to follow-up with Dr. Pina in 3 months with outpatient 3 T MRI brain. ? On admission, patient c/o malodorous urine. She was reportedly treated for UTI in December with Bactrim, however, smell continued. U/A showed evidence of UTI and culture growth showed E coli. Due to inefficacy of Bactrim, she was started on Macrobid 100 mg q6 hours x7 days. We discussed seeing a local Urologist given frequent UTIs. ? Due to concerns for anxiety/depression, patient's Celexa was increased from 20 mg daily to 40 mg daily. It was recommended she follow- up with local counselor and Psychiatrist which Social work provided local referrals. From 01/09/17 note: HISTORY SINCE LAST VISIT: The patient has returned for follow-up regarding management of epilepsy secondary to PRES. ? 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 Here with her . Since last visit, ZNS was added. ? After addition of ZNS 200 mg, she had 2 seizures. One on DEC 22 and another a week before that. The seizure starts with her saying Do you se the rainbow. Per patient, its on the LEFT side. Then her eyes are fixed per . Patient feels like she is in another world. Says No, no, no, as if trying to get out of it. She is aware of surroundings. Only lasts 5-10 seconds. She is physically drained after it. ? Both episodes were when she was outside. Both time, there was some photic stimulation - out in Sun and then in the Elevator lights. Another seizure while being in the car and light thorough the wind shield. ? Vision has improved significantly. Sees double, which worsens by evening. Also some cognitive slowing towards end of the day. But overall much improved compared to prior visit. Has start to type now since last week. ? Currently, LEV XR 500 mg BID, LCM 200 mg BID and ZNS 200 qHS. ? The patient's ability to work since last visit: Continues not to work. 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 ? Driving Status: Not driving. ? Overall Sense of Well Being Since Last Visit: better ? From 09/24/16 (initial visit) note: PRESENT ILLNESS:?? This is a 46 year old right?handed ?female with HTN, gout, GERD, history of alcohol abuse, PRES, and seizures?who is here to?establish care with Epilepsy clinic. Patient had a fairly complicated hospital course in June for non-convulsive status epilepticus. She was initially admitted to an?OSH in [place], [place] for AMS and visual disturbances. She had bi-occipital changes that were concerning for PRES on MRI. In weeks preceding her OSH admission, patient had stopped taking Atenolol. reports that she had complained of a headache a few days before onset of her AMS. During this time, her systolic BP was elevated on 2 occasions on her home BP monitor. ?? At the OSH, patient was found to be in sub-clinical status. She was subsequently transferred to [facility]'s EMU, where she remained in non-convulsive status. She was then transferred to [place] ICU and put in burst suppression.?Her seizures were finally controlled, and she was maintained on Keppra 1000 mg bid and Vimpat 200 mg bid. Repeat MRI showed laminar necrosis changes in the bilateral occipital lobes?that were consistent with her recent status. 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 ?She was then discharged to acute rehab. ?? She returned to [facility] on 08/23 for evaluation of encephalopathy. Patient was found to have elevated ammonia and treated with Lactulose with minimal improvement in her mental status. ?The most profound change was observed after Keppra was reduced to 500 mg bid.?She was kept on this dose of Keppra and Vimpat 200 mg bid, and BEM during her admission at [facility] was negative for epileptiform discharges. Her AMS and agitation were treated symptomatically with prn Seroquel. Patient was discharged to acute rehab and finally transitioned home. ?? She has regained some vision and doing well overall until last 09/20. ?Patient was shopping in [facility] when she had an acute change in mental status. She was perseverating and froze while pushing the grocery cart and became unresponsive.?This lasted less than 1 minute, but she was confused afterward. She did not fully come to until she had been brought to the ED. She was reloaded with Keppra 1 g IV and started on an increased maintenance dose of 1 g bid. Vimpat was unchanged. ?Since then, patient has been having visual hallucinations and more irritability than before. She reports she thought cars on the road were all from [place]. For her irritability and agitation, she has been taking scheduled Seroquel bid. ?? Denies headache, drowsiness, or nausea/vomiting. Patient's is concerned that she has become toxic from Keppra. No other episodes concerning for seizures since she returned home. Last EEG was from 09/19, and it showed intermittent slow. Levetiracetam level from 09/07 was 31. This is before her dose change. Started on Bactrim today for ?UTI; no UA in the system. Patient c/o foul smelling and cloudy urine in the last day or so. ?? PREVIOUS EVALUATIONS:?2 days of EMU admission as well as multiple EEGs that captured non-convulsive status. Also had PLEDs. Most recent EEG from 09/19 shows slowing. ?? RISK FACTORS FOR SEIZURES: ? 1. Head Trauma (No); 2. OXIDATION ENGINEER Infections (No); 3. Family History of Seizures (No); 4. Developmental Delay (No); 5. Febrile Seizures (No); 6. OXIDATION ENGINEER Tumors (No); 7. OXIDATION ENGINEER Vascular Disease (No); 8. Significant Medical History (Yes, alcohol abuse). MEDICATIONS: Current Outpatient Prescriptions: clonazePAM (KLONOPIN) 0.5 mg tablet Take 0.5 tablets by mouth twice daily as needed for up to 180 days. QUEtiapine (SEROQUEL) 25 mg tablet Take 1 tablet by mouth twice daily. zonisamide (ZONEGRAN) 100 mg capsule Take 3 capsules by mouth daily at bedtime. lacosamide (VIMPAT) 200 mg tab Take 1 tablet by mouth twice daily for 180 days. citalopram (CELEXA) 40 mg tablet Take 1 tablet by mouth once daily. levETIRAcetam XR (KEPPRA XR) 500 mg 24 hr tablet Take 1 tablet by mouth twice daily. metoprolol succinate ER (TOPROL XL) 25 mg 24 hr tablet Take 1 tablet by mouth once daily. thiamine (VITAMIN B1) 100 mg tablet Take 1 tablet by mouth once daily. potassium acetate ibuprofen (MOTRIN) 200 mg tablet Take 400-600 mg by mouth every 8 hours as needed for Pain (Gout). folic acid 1 mg tablet Take 1 tablet by mouth once daily. febuxostat (ULORIC) 40 mg tab Take 1 tablet by mouth once daily. pantoprazole DR (PROTONIX) 20 mg tablet Take 1 tablet by mouth once daily. DOCOSAHEXANOIC ACID/EPA (FISH OIL ORAL) Take by mouth. aspirin, enteric coated (ASPIRIN, ENTERIC COATED) 81 mg EC tablet Take 81 mg by mouth once daily. No current facility-administered medications for this visit. PAST MEDICAL HISTORY: PAST MEDICAL HISTORY Diagnosis Date - Abnormal glandular Papanicolaou smear of cervix Abn. 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/2016 Severe PRES - Seizure (HCC) PAST SURGICAL HISTORY: PAST SURGICAL HISTORY Procedure Laterality Date - CERVIX UTERI CONIZA LP ELCTRO EXCI LEEP-Cervix - DELIVERY ONLY , low transverse x 2 FAMILY MEDICAL HISTORY: FAMILY HISTORY Problem Relation Age of Onset - Heart Mother Open heart surgery - Diabetes Mother - Hypertension Mother - Lipids Mother - Coronary Artery Disease Mother 9 Stints - Macular Degen Mother - Hypertension Father - Coronary Artery Disease Father - Hypertension Sister - Heart Paternal Grandfather [place], at age 45 - Thyroid Sister SOCIAL HISTORY: Social History Marital status: Spouse name: Dusty Years of education: Number of children: 2 Occupational History 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 [employer] Social History Main Topics Smoking status: Never Smoker Smokeless status: Never Used Alcohol use: Yes Comment: rare/ social Drug use: No Sexual activity: Yes Partners with: Male control/protection: Vasectomy REVIEW OF SYSTEMS: GENERAL: No weight loss, malaise or fevers HEENT: Negative for frequent or significant headaches, No changes in hearing or vision, no nose bleeds or other nasal problems NECK: Negative for lumps, goiter, pain and significant neck swelling RESPIRATORY: Negative for cough, hemoptysis, wheezing or shortness of breath CARDIOVASCULAR: Negative for chest pain, leg swelling or palpitations GI: No nausea, vomiting, or diarrhea PSYCH: More irritable GENERAL EXAMINATION: Resp 20 Ht 152.4 cm (5') Wt 69.5 kg (153 lb 3.2 oz) BMI 29.92 kg/m2 General Appearance: This is a well built female. NEUROLOGICAL EXAMINATION: MENTAL STATUS: Alert and oriented to person place and time, follows 1 and 2 step commands, speech fluent and without anomia or paraphasic errors. Able to name objects and read sentences. Able to recall 3/3 objects at 5 minutes. Remote memory intact. No neglect. Affect full. CRANIAL NERVES: Pupils 4 mm, equal and reactive to light bilaterally. Visual sanches full. EOMI. +corneals. Face symmetric. Palate elevates equally bilaterally, tongue midline. MOTOR: Strength: 5/5 b/l. Tone is normal, bulk is symmetric. SENSORY: Intact to light touch. REFLEXES: 2+ symmetric, toes are down going bilaterally. CEREBELLUM: Finger to Nose testing is normal. Rapid alternating movements are normal and symmetric, Heel to niño testing is normal. Gait examination is normal RELEVANT LABS AND TEST: None IMPRESSION: Patient is 46 y/o woman who developed PRES secondary to elevated BP after discontinuation of Atenolol and initially presented with AMS and found to be in focal status epilepticus. Has had a complicated course since then with hallucinations and AMS, which in the past responded to lowering of LEV to 500 mg BID. It was again increased after a episode, questionable for seizure. Since being on LEV 1000 mg BID, increased irritability and visual hallucination. Therefore, it was reduced to 500 mg BID and LCM was increased to 300 mg BID. ZNS added later, which made significant reduction in seizure burden and since being on 200 mg qHS, she only had 2 brief spells concerning for seizures arising from right parieto-occipital region. Significant improvement in her vision and cognitive skills since last visit. Routine EEG done recently does not show any epileptiform discharges. However, was emergently admitted to EMU but no seizures were recorded on home AEDs. Was d/jeffery on Zonegran 300 mg qhs, Vimpat 200 mg BID, and Keppra XR 500 mg BID. Today reports of altered visual perceptions in the RIGHT field everytime she goes out. Prior reports were of paroxsymal visual spell in Left field. The reported phenomenons by patient today, noted everytime outside is less likely to be epileptic but could be possible residual effect of PRES (Obstet Gynecol Surv. 2013;69(5):287-300; Obstet Gynecol. 2012; 119: 959?966). Recent MRI shows improving hyperintensities in b/l occipital region along with b/l atrophy in same region. Therefore, would not increase AEDs for now. Patient is more irritable today than usual. PLAN: - Recommended to find a new local psychiatrist - Continue current AEDs: Zonegran 300 mg qhs, Vimpat 200 mg BID, and Keppra XR 500 mg BID - Neuro-ophtalmology - The following issues were discussed with the patient: no bathing, no swimming unsupervised, no driving, no use of heavy machinery, no use of sharp moving objects and avoid heights - The patient was scheduled for a return visit in 4 months. - Risks, benefits, side effects, and alternatives to use of Levetiracetam, Zonisimide and Lacosamide were discussed with the patient. The patient agreed with the plan as outlined above. A total of 20 minutes was spent during the visit with greater than 50% of the time spent counseling and coordinating care of the above plan as well as answering the patient's numerous questions. Johnny Pina MD, MS Staff Physician, [facility], Dept. of Neurology Section of Adult Epilepsy, [address] [place] [address] cc: Aiden Daugherty MD [address] [place] [id number] CNOV Observed: 05/28/2017 Status: COMPLETED Source: [place] 2:10 PM [facility] REPOSITORY Office Visit (NEEPFV) ARIELLA BASURTO ([id number]) 1970 F Date Time Provider Department 05/28/17 2:10 PM JOHNNY PINA During your visit today, we recorded the following information about you: Temperature Pulse Respiration Blood pressure 98.3 degrees 78/minute 20/minute 131/86 Weight Height 69.5 kg 1.524 m Johnny Pina MD 06/04/2017 12:15 AM Signed [facility] Neurological [facility] CLINIC NOTE -FOLLOW UP CHIEF COMPLAINT: Patient presents with: Established Patient HISTORY SINCE LAST VISIT: The patient has returned for follow-up regarding management of post-PRES epilepsy. This is a 46 year old right handed female who was last seen by me on 01/09/17 in clinic and then in 01/2017 after in-patient EMU evaluation prompted by ?prolonged seizure at home. and has been diagnosed with having post-PRES epilepsy. Here with her . She reports that every time she goes out of her home, she has a seizure. Describes them as Right sided ANDquot;strobe lightsANDquot;. Red, green, blue colors - flashing. She calls out ANDquot;Oh! My god, this is happeningANDquot;. This lasts 3-4 minutes. She may lose awareness sometimes. However, reports that she has had only 2 epsiodes in MAY 2017 - she was out in car with friend and started seeing above strobe lights. She also stiffened up behaviorally but kept talking thorough it. Second time, they were driving on a cloudy day. She again saw the same lights. Again stiffened up for a minute but kept talking normally. Later on, she didn't remember walking into the home 10 minutes later. Still going for PT/OT. Also improved in her typing on computer. Recently evaluated by Neurologist. Found to have 20/20 vision with her glasses. Had difficulty with reading paragraph. Reports being frustrated easily with her mood. Not seen a psychaitrist. Patient currently complaining for cough and yellowish sputum for last 4 days. No fever. Getting better. She is has been taking Klonopin (0.5mg) - .25mg at HS and now also taking .25mg in am. She has been on Klonopin since she was discharged from [facility] The patient's ability to work since last visit: Continues not to work. Driving Status: Not driving. Overall Sense of Well Being Since Last Visit: unchanged 01/2017 EMU admission: Hospital Course: Arilela Albreto is a 46 year old right-handed female who was admitted emergently due to possible prolonged seizure at home. The patient was monitored with continous video-EEG from 02/07/2017 to 02/11/2017. Patient was admitted on home AEDs: Zonegran 300 mg qhs, Vimpat 200 mg BID, and Keppra XR 500 mg BID which were continued. No typical seizures were recorded. 1 atypical E was captured on 02/10/17 described as visual fixation on the clock. Please see separate video-EEG report for details. She was instructed to continue same home AEDs. Mrs. Mendoza was instructed to follow-up with Dr. Pina in 3 months with outpatient 3 T MRI brain. ? On admission, patient c/o malodorous urine. She was reportedly treated for UTI in December with Bactrim, however, smell continued. U/A showed evidence of UTI and culture growth showed E coli. Due to inefficacy of Bactrim, she was started on Macrobid 100 mg q6 hours x7 days. We discussed seeing a local Urologist given frequent UTIs. ? Due to concerns for anxiety/depression, patient's Celexa was increased from 20 mg daily to 40 mg daily. It was recommended she follow-up with local counselor and Psychiatrist which Social work provided local referrals. From 01/09/17 note: HISTORY SINCE LAST VISIT: The patient has returned for follow-up regarding management of epilepsy secondary to PRES. ? 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 Here with her . Since last visit, ZNS was added. ? After addition of ZNS 200 mg, she had 2 seizures. One on DEC 22 and another a week before that. The seizure starts with her saying ANDquot;Do you se the rainbowANDquot;. Per patient, its on the LEFT side. Then her eyes are fixed per . Patient feels like she ANDquot;is in another worldANDquot;. Says ANDquot;No, no, noANDquot;, as if trying to get out of it. She is aware of surroundings. Only lasts 5-10 seconds. She is physically drained after it. ? Both episodes were when she was outside. Both time, there was some photic stimulation - out in Sun and then in the Elevator lights. Another seizure while being in the car and light thorough the wind shield. ? Vision has improved significantly. Sees double, which worsens by evening. Also some cognitive slowing towards end of the day. But overall much improved compared to prior visit. Has start to type now since last week. ? Currently, LEV XR 500 mg BID, LCM 200 mg BID and ZNS 200 qHS. ? The patient's ability to work since last visit: Continues not to work. 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 ? Driving Status: Not driving. ? Overall Sense of Well Being Since Last Visit: better ? From 09/24/16 (initial visit) note: PRESENT ILLNESS:?? This is a 46 year old right?handed ?female with HTN, gout, GERD, history of alcohol abuse, PRES, and seizures?who is here to?establish care with Epilepsy clinic. Patient had a fairly complicated hospital course in June for non-convulsive status epilepticus. She was initially admitted to an?OSH in [place], [place] for AMS and visual disturbances. She had bi-occipital changes that were concerning for PRES on MRI. In weeks preceding her OSH admission, patient had stopped taking Atenolol. reports that she had complained of a headache a few days before onset of her AMS. During this time, her systolic BP was elevated on 2 occasions on her home BP monitor. ?? At the OSH, patient was found to be in sub-clinical status. She was subsequently transferred to [facility]'s EMU, where she remained in non-convulsive status. She was then transferred to [place] ICU and put in burst suppression.?Her seizures were finally controlled, and she was maintained on Keppra 1000 mg bid and Vimpat 200 mg bid. Repeat MRI showed laminar necrosis changes in the bilateral occipital lobes?that were consistent with her recent status. 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 ?She was then discharged to acute rehab. ?? She returned to [facility] on 08/23 for evaluation of encephalopathy. Patient was found to have elevated ammonia and treated with Lactulose with minimal improvement in her mental status. ?The most profound change was observed after Keppra was reduced to 500 mg bid.?She was kept on this dose of Keppra and Vimpat 200 mg bid, and BEM during her admission at [facility] was negative for epileptiform discharges. Her AMS and agitation were treated symptomatically with prn Seroquel. Patient was discharged to acute rehab and finally transitioned home. ?? She has regained some vision and doing well overall until last 09/20. ?Patient was shopping in [employer] when she had an acute change in mental status. She was perseverating and ANDquot;frozeANDquot; while pushing the grocery cart and became unresponsive.?This lasted less than 1 minute, but she was confused afterward. She did not fully come to until she had been brought to the ED. She was reloaded with Keppra 1 g IV and started on an increased maintenance dose of 1 g bid. Vimpat was unchanged. ?Since then, patient has been having visual hallucinations and more irritability than before. She reports she thought cars on the road were all from [place]. For her irritability and agitation, she has been taking scheduled Seroquel bid. ?? Denies headache, drowsiness, or nausea/vomiting. Patient's is concerned that she has become toxic from Keppra. No other episodes concerning for seizures since she returned home. Last EEG was from 09/19, and it showed intermittent slow. Levetiracetam level from 09/07 was 31. This is before her dose change. Started on Bactrim today for ?UTI; no UA in the system. Patient c/o foul smelling and cloudy urine in the last day or so. ?? PREVIOUS EVALUATIONS:?2 days of EMU admission as well as multiple EEGs that captured non-convulsive status. Also had PLEDs. Most recent EEG from 09/19 shows slowing. ?? RISK FACTORS FOR SEIZURES: ? 1. Head Trauma (No); 2. OXIDATION ENGINEER Infections (No); 3. Family History of Seizures (No); 4. Developmental Delay (No); 5. Febrile Seizures (No); 6. OXIDATION ENGINEER Tumors (No); 7. OXIDATION ENGINEER Vascular Disease (No); 8. Significant Medical History (Yes, alcohol abuse). MEDICATIONS: Current Outpatient Prescriptions: clonazePAM (KLONOPIN) 0.5 mg tablet Take 0.5 tablets by mouth twice daily as needed for up to 180 days. QUEtiapine (SEROQUEL) 25 mg tablet Take 1 tablet by mouth twice daily. zonisamide (ZONEGRAN) 100 mg capsule Take 3 capsules by mouth daily at bedtime. lacosamide (VIMPAT) 200 mg tab Take 1 tablet by mouth twice daily for 180 days. citalopram (CELEXA) 40 mg tablet Take 1 tablet by mouth once daily. levETIRAcetam XR (KEPPRA XR) 500 mg 24 hr tablet Take 1 tablet by mouth twice daily. metoprolol succinate ER (TOPROL XL) 25 mg 24 hr tablet Take 1 tablet by mouth once daily. thiamine (VITAMIN B1) 100 mg tablet Take 1 tablet by mouth once daily. potassium acetate ibuprofen (MOTRIN) 200 mg tablet Take 400-600 mg by mouth every 8 hours as needed for Pain (Gout). folic acid 1 mg tablet Take 1 tablet by mouth once daily. febuxostat (ULORIC) 40 mg tab Take 1 tablet by mouth once daily. pantoprazole DR (PROTONIX) 20 mg tablet Take 1 tablet by mouth once daily. DOCOSAHEXANOIC ACID/EPA (FISH OIL ORAL) Take by mouth. aspirin, enteric coated (ASPIRIN, ENTERIC COATED) 81 mg EC tablet Take 81 mg by mouth once daily. No current facility-administered medications for this visit. PAST MEDICAL HISTORY: PAST MEDICAL HISTORY Diagnosis Date - Abnormal glandular Papanicolaou smear of cervix Abn. 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/2016 Severe PRES - Seizure (HCC) PAST SURGICAL HISTORY: PAST SURGICAL HISTORY Procedure Laterality Date - CERVIX UTERI CONIZA LP ELCTRO EXCI LEEP-Cervix - DELIVERY ONLY , low transverse x 2 FAMILY MEDICAL HISTORY: FAMILY HISTORY Problem Relation Age of Onset - Heart Mother Open heart surgery - Diabetes Mother - Hypertension Mother - Lipids Mother - Coronary Artery Disease Mother 9 Stints - Macular Degen Mother - Hypertension Father - Coronary Artery Disease Father - Hypertension Sister - Heart Paternal Grandfather [place], at age 45 - Thyroid Sister SOCIAL HISTORY: Social History Marital status: Spouse name: Dusty Years of education: Number of children: 2 Occupational History 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 [employer] Social History Main Topics Smoking status: Never Smoker Smokeless status: Never Used Alcohol use: Yes Comment: rare/ social Drug use: No Sexual activity: Yes Partners with: Male control/protection: Vasectomy REVIEW OF SYSTEMS: GENERAL: No weight loss, malaise or fevers HEENT: Negative for frequent or significant headaches, No changes in hearing or vision, no nose bleeds or other nasal problems NECK: Negative for lumps, goiter, pain and significant neck swelling RESPIRATORY: Negative for cough, hemoptysis, wheezing or shortness of breath CARDIOVASCULAR: Negative for chest pain, leg swelling or palpitations GI: No nausea, vomiting, or diarrhea PSYCH: More irritable GENERAL EXAMINATION: Resp 20 Ht 152.4 cm (5') Wt 69.5 kg (153 lb 3.2 oz) BMI 29.92 kg/m2 General Appearance: This is a well built female. NEUROLOGICAL EXAMINATION: MENTAL STATUS: Alert and oriented to person place and time, follows 1 and 2 step commands, speech fluent and without anomia or paraphasic errors. Able to name objects and read sentences. Able to recall 3/3 objects at 5 minutes. Remote memory intact. No neglect. Affect full. CRANIAL NERVES: Pupils 4 mm, equal and reactive to light bilaterally. Visual sanches full. EOMI. +corneals. Face symmetric. Palate elevates equally bilaterally, tongue midline. MOTOR: Strength: 5/5 b/l. Tone is normal, bulk is symmetric. SENSORY: Intact to light touch. REFLEXES: 2+ symmetric, toes are down going bilaterally. CEREBELLUM: Finger to Nose testing is normal. Rapid alternating movements are normal and symmetric, Heel to niño testing is normal. Gait examination is normal RELEVANT LABS AND TEST: None IMPRESSION: Patient is 46 y/o woman who developed PRES secondary to elevated BP after discontinuation of Atenolol and initially presented with AMS and found to be in focal status epilepticus. Has had a complicated course since then with hallucinations and AMS, which in the past responded to lowering of LEV to 500 mg BID. It was again increased after a episode, questionable for seizure. Since being on LEV 1000 mg BID, increased irritability and visual hallucination. Therefore, it was reduced to 500 mg BID and LCM was increased to 300 mg BID. ZNS added later, which made significant reduction in seizure burden and since being on 200 mg qHS, she only had 2 brief spells concerning for seizures arising from right parieto-occipital region. Significant improvement in her vision and cognitive skills since last visit. Routine EEG done recently does not show any epileptiform discharges. However, was emergently admitted to EMU but no seizures were recorded on home AEDs. Was d/jeffery on Zonegran 300 mg qhs, Vimpat 200 mg BID, and Keppra XR 500 mg BID. Today reports of altered visual perceptions in the RIGHT field everytime she goes out. Prior reports were of paroxsymal visual spell in Left field. The reported phenomenons by patient today, noted everytime outside is less likely to be epileptic but could be possible residual effect of PRES (Obstet Gynecol Surv. 2014 July;69(5):287-300; Obstet Gynecol. 2012; 119: 959?966). Recent MRI shows improving hyperintensities in b/l occipital region along with b/l atrophy in same region. Therefore, would not increase AEDs for now. Patient is more irritable today than usual. PLAN: - Recommended to find a new local psychiatrist - Continue current AEDs: Zonegran 300 mg qhs, Vimpat 200 mg BID, and Keppra XR 500 mg BID - Neuro-ophtalmology - The following issues were discussed with the patient: no bathing, no swimming unsupervised, no driving, no use of heavy machinery, no use of sharp moving objects and avoid heights - The patient was scheduled for a return visit in 4 months. - Risks, benefits, side effects, and alternatives to use of Levetiracetam, Zonisimide and Lacosamide were discussed with the patient. The patient agreed with the plan as outlined above. A total of 20 minutes was spent during the visit with greater than 50% of the time spent counseling and coordinating care of the above plan as well as answering the patient's numerous questions. Johnny Pina MD, MS Staff Physician, [facility], Dept. 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 (HCC) [G40.219] Prescriptions as of 05/28/2017 Sig: CLONAZEPAM 0.5 MG TABLET Take 0.5 tablets by mouth twi* QUETIAPINE 25 MG TABLET Take 1 tablet by mouth twice * ZONISAMIDE 100 MG CAPSULE Take 3 capsules by mouth beronica* LACOSAMIDE 200 MG TABLET Take 1 tablet by mouth twice * CITALOPRAM 40 MG TABLET Take 1 tablet by mouth once d* LEVETIRACETAM ER 500 MG TABLE* Take 1 tablet by mouth twice * METOPROLOL SUCCINATE ER 25 MG* Take 1 tablet by mouth once d* THIAMINE HCL (VITAMIN B1) 100* Take 1 tablet by mouth once d* POTASSIUM ACETATE IBUPROFEN 200 MG TABLET Take 400-600 mg by mouth ever* FOLIC ACID 1 MG TABLET Take 1 tablet by mouth once d* FEBUXOSTAT 40 MG TABLET Take 1 tablet by mouth once d* PANTOPRAZOLE 20 MG TABLET,DEL* Take 1 tablet by mouth once d* FISH OIL ORAL Take by mouth. ASPIRIN 81 MG TABLET,DELAYED * Take 81 mg by mouth once beronica* Problem List As Of Date 05/28/2017 Noted Resolved Unspecified Hypothyroidism [E03.9] INVALID FOR*09/24/2012 Hypertension [I10] INVALID FOR* GERD (gastroesophageal reflux disease) [K21.9] INVALID FOR* Fatigue [R53.83] INVALID FOR* Hot flashes [R23.2] INVALID FOR* Weight gain [R63.5] INVALID FOR* History of bilateral breast implants [Z98.82] INVALID FOR* Gout [M10.9] INVALID FOR* ETOH abuse [F10.10] INVALID FOR* Encephalopathy [G93.40] INVALID FOR* 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] INVALID FOR* Anxiety and depression [F41.8] INVALID FOR* PRES (posterior reversible encephalopathy syndr*INVALID FOR* Breakthrough seizure (HCC) [G40.919] INVALID FOR* Chronic UTI [N39.0] INVALID FOR* Ischemic brain injury [I67.82] INVALID FOR* Myopia, bilateral [H52.13] INVALID FOR* Regular astigmatism, bilateral [H52.223] INVALID FOR* Presbyopia [H52.4] INVALID FOR* Disposition: Return in about 4 months (around 09/25/2017). Follow-up and Disposition History Recorded Encounter Status:Closed by JOHNNY PINA MD on 06/04/17 PROGRESS Observed: 05/08/2017 Status: COMPLETED Source: [place] 5:38 PM [facility] [place] REPOSITORY O ID: [id number] Author: Sunday Hogue II Service: (none) Author Type: CARPENTER HELPER MAINTENANCE Type: Progress Notes Filed: 05/08/2017 6:07 PM Note Text: ASSESSMENT/PLAN: 1. Disability examination - ICD9: V68.01, ICD10: Z02.71 (primary diagnosis) Patient understands that today's examination is for purposes of disability determination only. Patient will continue all ongoing care with previously established care givers. 2. Ischemic brain injury - ICD9: 437.1, ICD10: I67.82 Patient reports previous diagnosis of Posterior reversible encephalopathy syndrome. Patient able to read 20/20 vision in each eye at distance but exhibits ocular/vision (and related speech) difficulties consistent with brain injury. Patient unable to complete sanches testing today (30-2 attempted and SSA refused). Future sanches testing and imaging may be able to further quantify injury. 3. Myopia, bilateral - ICD9: 367.1, ICD10: H52.13 4. Regular astigmatism, bilateral - ICD9: 367.21, ICD10: H52.223 5. Presbyopia - ICD9: 367.4, ICD10: H52.4 Present glasses power could be improved for distance viewing. I have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
== END 2018-05-01 15:45 | disposition home or self-care (01) | DRG 98 ==
LOC: ED 23:41 → PCU 23:52
PROVIDERS: Internal Medicine; Internal Medicine Nephrology; Psychiatry & Neurology Neurology; Student in an Organized Health Care Education/Training Program; Admitting Provider Internal Medicine; Emergency Provider Emergency Medicine; Family Provider Family Medicine; PCP Family Medicine; Visit Provider Internal Medicine
DX: G03.0 Nonpyogenic meningitis (principal); N17.9 Acute kidney failure, unspecified; E87.2 Acidosis; E87.6 Hypokalemia; E83.42 Hypomagnesemia; M10.9 Gout, unspecified; I12.9 Hypertensive chronic kidney disease with stage 1 through stage 4 chronic kidney disease, or unspecified chronic kidney disease; N18.3 Chronic kidney disease, stage 3 (moderate); Z86.79 Personal history of other diseases of the circulatory system; J32.3 Chronic sphenoidal sinusitis; F10.20 Alcohol dependence, uncomplicated; G40.909 Epilepsy, unspecified, not intractable, without status epilepticus; R44.1 Visual hallucinations
CPT/HCPCS: 36415; 62270; 70450; 70551; 71046; 76770; 77003; 80048; 80053; 80069; 80307; 80320; 81001; 82607; 82945; 82977; 83735; 84100; 84157; 84425; 85025; 85610; 85652; 85730; 86140; 87070; 87086; 87205; 87529; 87798; 88108; 88313; 89050; 89051; 97161; 97165; 97803; 99284; J7030; J7040; A4216; G0480; J2405

== ENCOUNTER 2018-05-14 12:27 | Emergency (ER) | payer OTHER, SELFPAY ==
[2018-04-23 00:15] VITALS: BMI 31.2
[2018-05-14 12:28] VITALS: BP 153/95; PULSE 76; RESP 18; TEMP 36.6; O2SAT 99; BMI 29.8
--- NOTE | 2018-05-14 12:43 | ED.RN ---
PT NOW RECOGNIZES , ANSWERS QUESTIONS AND FOLLOWS COMMANDS
[2018-05-14 14:07] VITALS: BP 164/92; PULSE 73; RESP 18; O2SAT 98
--- NOTE | 2018-05-14 14:18 | ED.VISSUMM ---
- ER Visit Summary Date of Service: 05/14/18 Chief Complaint: Change of mental status History of Present Illness: The patient is a 47 F presenting for evaluation secondary to change of mental status. Patient has a very complicated neurologic history. 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 Patient recently however as of April has been having episodes where she has changes in vision repeatedly. Patient was actually admitted to the hospital for this, had an extensive workup including lumbar puncture MRI and EEG. There was some conflicting opinions about to the cause of these symptoms, and the competing opinions were either of the patient having a aseptic viral meningitis versus seizures versus Korsakoff encephalopathy. Regardless, the patient today had an episode seem to be somewhat worse. She was getting her hair cut, and she started to have these visual changes but this was also followed by the patient repeating herself multiple times, and then going into a state where she would not follow any sort of commands. No other associated symptoms through the patient's . Physical Examination: Vital signs are within normal limits, patient is afebrile. General: Patient is well-nourished well-developed and in no acute distress. Head: Normocephalic, atraumatic Eyes: Pupils equal round and reactive bilaterally, extra occular motion intact bialterally ENT: Moist mucous membranes Neck: Supple, no lymphadenopathy, no JVD, no meningismus CVS: Heart regular rate and rhythm, no murmurs, rubs or gallops, radial pulses 2+ bilaterally Resp: Respirations nondistressed, lung sounds clear bilaterally Abdomen: Soft, nontender, nondistended, no palpable masses, normal bowel sounds Back: Nontender Extremities: Nontender, atraumatic, active full range of motion, no peripheral edema Skin: warm, no rashes, no petechia Neuro: Alert and oriented x 1, slow to follow commands, CN 2-12 intact, no lateralizing neurological defecits Psyc: Normal affect Test Results: None performed Emergency Department Course and Treatment: I reviewed the patient's records, she has had an extensive workup for these episodes although this seems somewhat worse. I did discuss the patient's case with neurology who is familiar with the patient, and believes that this likely is a atypical seizure. Patient was observed in the emergency department, she had full return of her mental status back to baseline so I do believe that this likely was an atypical seizure with a postictal state. Patient will follow up with neurology. was comfortable with this disposition. Disposition: Discharge Impression: 1. Seizure This note was generated with [employer] dictation software. It may contain incorrect words, spelling, and punctuation that were not noted in review of the chart prior to signing ED Disposition - Plan for ED Patient: Disposition: Home or Assisted Living Diagnosis: Seizure Instructions: ED Seizure Recurrent Referrals: Da Ritchie MD [STAFF PHYSICIAN] -
== END 2018-05-14 14:56 | disposition home or self-care (01) ==
PROVIDERS: Emergency Provider Emergency Medicine; Family Provider Family Medicine; PCP Family Medicine
DX: G40.909 Epilepsy, unspecified, not intractable, without status epilepticus (principal); I67.83 Posterior reversible encephalopathy syndrome; Z79.82 Long term (current) use of aspirin; Z79.899 Other long term (current) drug therapy
CPT/HCPCS: 99282

== ENCOUNTER 2018-05-22 16:29 | Emergency (ER) | payer OTHER, SELFPAY ==
[2018-05-22 16:30] VITALS: BP 162/87; PULSE 94; RESP 18; TEMP 36.2; O2SAT 99; BMI 29.8
--- NOTE | 2018-05-22 17:12 | CT_ITS ---
STUDY: CT BRAIN WITHOUT CONTRAST REASON FOR EXAM: Female, 47 years old. Headache with blurry vision RADIATION DOSAGE (If Supplied By Facility): CTDIvol = ( 44.99 ) mGy, DLP = ( 745.49 ) mGycm TECHNIQUE: Transaxial CT imaging of the brain was performed without administration of intravenous contrast material. Individualized dose optimization techniques were used for this CT. COMPARISON: 04/22/2018 FINDINGS: Normal soft tissue structures. Normal calvarium. Normal size ventricles and extra-axial spaces for the patient's age. Normal white matter tracts of the cerebral hemispheres. Normal basal ganglia and thalami. Normal brainstem. Normal cerebellum. There is no intracranial hemorrhage. There are no findings of an acute ischemic infarction. Normal visualized paranasal sinuses. CT/Brain/Head without Contrast IMPRESSION: Normal unenhanced CT scan of the brain. Electronically Signed: Jeremy Florence DO at 18:13 EST Tel , Service support ,
[2018-05-22] MEDS: 0.9% Normal Saline 1,000 ML 999 ML IV (17:25)
[2018-05-22] MEDS: DiphenhydrAMINE 50 MG/ML Syringe 25 MG IV (17:25)
[2018-05-22] MEDS: Metoclopramide 10 MG/2 ML Vial IV (17:25)
[2018-05-22 17:47] LABS: Absolute Lymphocyte Count 1.51 X10^3/ul (0.83-4.51); Absolute Neutrophil Count 4.7 X10^3/uL (2.0-7.7); Basophil# 0.02 X10^3/uL; Basophil% 0.3 % (0-1); Eosinophils% 6.9 % (0-5); Hematocrit 36.1 % (37-47); Hemoglobin 11.7 g/dl (12.0-15.0); Lymphocyte # 1.51 X10^3/ul (4.0); Lymphocyte % 20.8 % (19-41); Mean Corp Hgb Conc 32.4 g/gl (32-36); Mean Corpuscular Hgb 29.8 pg (27.0-32.0); Mean Corpuscular Volume 91.9 fL (81-99); Mean Platelet Vol. 9.4 fl (6.2-12.0); Monocyte# 0.49 X10^3/uL; Monocyte% 6.8 % (0-10); Neutrophil # 4.72 X10^3/uL (2.7-7.7); Neutrophil % 65.1 % (47-70); Platelet Count 276 K/mm3 (150-450); RBC Distribution Width CV 14.7 % (11.6-14.6); RBC Distribution Width SD 50.1 fl (35.1-43.9); Red Blood Count 3.93 M/mm3 (4.2-5.4); White Blood Count 7.3 K/mm3 (4.4-11.0)
[2018-05-22 17:48] LABS: POSITIVE COUNT NO; POSITIVE DIFFERENTIAL NO; POSITIVE MORPHOLOGY NO
[2018-05-22 18:00] LABS: Anion Gap 9 (5-15); BUN 14 mg/dL (7-18); BUN/Creat Ratio 10.9 RATIO (10-20); Calcium,Total 8.6 mg/dL (8.5-10.1); Chloride 107 mmol/L (98-107); Creatinine, Serum 1.29 mg/dL (0.55-1.02); EST Glomerular Filtration Rate 47 mL/min (>60); Est Glom Filt Rate - Afr Amer 56 mL/min (>60); Estimated Creatinine Clearance 39.81 ml/min; Glucose 99 mg/dL (74-106); Potassium 3.6 mmol/L (3.5-5.1); Sodium Level 139 mmol/L (136-145)
[2018-05-22 18:38] LABS: Bacteria 0 SEEN /hpf (None Seen); Mucous, Urine 0 SEEN /hpf (<or=2+); Red Blood Cells-Urine 0 SEEN /hpf (0-5); White Blood Cells 0 SEEN /hpf (0-5)
[2018-05-22 18:39] LABS: Color, Urine Yellow (Yellow); Glucose, Dipstick Normal (Normal); Ketone-Dipstick Negative (Negative); Leukocyte Esterase-Dipstick Negative /ul (Negative); Nitrite-Dipstick Negative (Negative); Occult Blood-Urine Negative /ul (Negative); Protein-Dipstick Negative (Negative); Specific Gravity, Urine 1.005 (1.002-1.030); Urine Bilirubin Dipstick Negative (Negative); Urine Clarity Clear (Clear); Urine Urobilinogen Normal (Normal)
--- NOTE | 2018-05-22 18:40 | ED.DCSUM_ITS ---
- ER Visit Summary Date of Service: 05/22/18 Chief Complaint: Headache History of Present Illness: The patient is a 47 F who presents with a headache that began today. Patient describes the pain as a pressure over the top of her head. Patient admits to some photophobia and blurred vision. She denies any fevers or chills. Patient denies any nausea or vomiting. Patient denies any recent trauma or injury. Patient has been having more frequent seizures recently. Patient did have a seizure today prior to the headache. Patient recently had her seizure medication switched to Dilantin and Topamax. Physical Examination: Vital signs are stable. Patient is afebrile. Patient is in no acute distress. Cranial nerves II through XII are intact. Strength is 5/5 bilaterally upper and lower extremities. There are no sensory deficits noted. Heart was regular rate and rhythm. Lungs are clear and equal bilaterally. Abdomen is soft. Bowel sounds are normal. There is no tenderness. The remaining physical exam is within normal limits. Test Results: CT scan of the brain was obtained. There is no acute intracranial abnormality. Dilantin level was therapeutic at 10.1. The remaining labs were essentially within normal limits. Emergency Department Course and Treatment: Patient was given Reglan and Benadryl here. Patient states her headache is improved. Patient was instructed to go home and rest. Patient was instructed to follow-up with her primary care physician in 7-10 days. Patient understood and was agreeable with the plan. All questions were answered. Disposition: Discharge home Impression: Headache This note was generated with [employer] dictation software. It may contain incorrect words, spelling, and punctuation that were not noted in review of the chart prior to signing ED Disposition - Plan for ED Patient: Disposition: Home or Assisted Living Diagnosis: Headache Instructions: ED Cephalgia Unspecified Referrals: Aiden Car MD [Primary Care Provider] -
[2018-05-22 19:00] LABS: Squamous Epithelial Cells - UA 5-10 SEEN /hpf (5-10)
[2018-05-22 19:26] LABS: Phenytoin (Dilantin) Level 10.1 mL (10.0-20.0)
[2018-05-22 19:51] VITALS: RESP 14
[2018-05-22 20:46] VITALS: BP 141/89; PULSE 76; RESP 14; RESP 18; O2SAT 98
== END 2018-05-22 20:49 | disposition home or self-care (01) ==
PROVIDERS: Emergency Provider Emergency Medicine; Family Provider Family Medicine; PCP Family Medicine
DX: R51 Headache (principal); G40.909 Epilepsy, unspecified, not intractable, without status epilepticus
CPT/HCPCS: 70450; 80048; 80185; 81001; 85025; 96361; 96374; 96375; 99283; J7030; A4216

== ENCOUNTER 2018-05-23 14:00 | Emergency (ER) | payer OTHER, SELFPAY ==
[2018-05-22 16:30] VITALS: BMI 29.8
[2018-05-23] VITALS (9 sets, daily range): BP systolic 117–151; BP diastolic 74–94; PULSE 78–101; RESP 16–24; TEMP 37.3; O2SAT 90–100; BMI 29.5
[2018-05-23] MEDS: LORazepam 2 MG/ML Syringe IV ×3 (14:10→14:32)
--- NOTE | 2018-05-23 14:20 | ED.VISSUMM ---
- ER Visit Summary Date of Service: 05/23/18 Chief Complaint: Seizure History of Present Illness: The patient is a 47 F with known history of seizure disorder who was seen yesterday and had a CAT scan. states she had a seizure this morning at approximately 145. Return to baseline. This episode started at 1315. Eyes are deviated to the right with horizontal nystagmus and fast component to left. Twitching of the corners of her mouth bilaterally and unresponsiveness to verbal, tactile or painful stimuli. states she was converted from Keppra to phenytoin. She is presently on 300 mg of phenytoin a day. Will obtain level. Past history of GERD, hypertension, seizure disorder, sphenoid sinusitis, PRES (posterior reversible encephalopathy syndrome). Will review images from last evening. Physical Examination: Vital signs noted. Pulse ox 90% on room air. She is not cyanotic. Patient is actively seizing. TMs normal. Nares patent. Neck supple. Heart regular without murmur, gallop or rub. Lungs are clear to auscultation. Abdomen soft with bowel sounds. Bilateral Babinski sign. Withdraws to noxious stimuli. Test Results: CBC is unremarkable. Basic metabolic panels marked for creatinine 1.32. Phenytoin level is pending. Hepatic profile is normal. Contacted the lab at 1545. I was informed the specimen is now running and would take 15-30 minutes for results to be available. If she is subtherapeutic will administer IV phenytoin. Emergency Department Course and Treatment: CBC, BMP, phenytoin level was obtained. Since there is no history of trauma and she had a CAT scan yesterday CAT scan was not repeated. She received 2 mg of Ativan. Her eyes now are deviated to the left she has no startle response. She is nonverbal. She appears to be staring. There is no twitching or rhythmic movement of the facial muscles. There is no movement of upper or lower extremity. Per documentation by Dr. Santana patient presented for headache. There is no history of trauma. She was treated for headache with IV medications with improvement. CT of the head was reviewed by me and report by radiologist reviewed. No acute abnormality noted. Patient was reassessed at 1430. Eyes are still deviated to left now she has rhythmic blinking of her eyelids. She is not aware of her environment. An additional 2 mg of Ativan was ordered. Seizure activity stopped at 1437. Patient was reassessed at 1540. She is somnolent most likely from the medicines we gave her. There is no seizure activity. Awaiting call from transfer center for bed assignment to arrange transport to [facility] facility Treatment Plan: Her neurologist at [facility] was paged for emergent transfer Disposition: Neuro ICU [facility] or [facility]. Spoke with neurologist on-call for patient's neurologist Dr. Weston from who accepted patient. Impression: Status epilepticus History of posterior reversible encephalopathy syndrome History of seizure disorder History of aseptic meningitis History of sphenoid sinusitis This note was generated with [employer] dictation software. It may contain incorrect words, spelling, and punctuation that were not noted in review of the chart prior to signing ED Disposition - Plan for ED Patient: Referrals: Aiden Car MD [Primary Care Provider] -
--- NOTE | 2018-05-23 14:25 | ED.DCSUM_ITS ---
- ER Visit Summary Date of Service: 05/23/18 Chief Complaint: Seizure History of Present Illness: The patient is a 47 F with known history of seizure disorder who was seen yesterday and had a CAT scan. states she had a seizure this morning at approximately 145. Return to baseline. This episode st arted at 1315. Eyes are deviated to the right with horizontal nystagmus and fast component to left. Twitching of the corners of her mouth bilaterally and unresponsiveness to verbal, tactile or painful stimuli. states she was converted from Keppra to phenytoin. She is presently on 300 mg of phenytoin a day. Will obtain level. Past history of GERD, hypertension, seizure disorder, sphenoid sinusitis, PRES (posterior reversible encephalopathy syndrome). Will review images from last evening. Physical Examination: Vital signs noted. Pulse ox 90% on room air. She is not cyanotic. Patient is actively seizing. TMs normal. Nares patent. Neck supple. Heart regular without murmur, gallop or rub. Lungs are clear to auscultation. Abdomen soft with bowel sounds. Bilateral Babinski sign. Withdraws to noxious stimuli. Test Results: CBC is unremarkable. Basic metabolic panels marked for creatinine 1.32. Phenytoin level is pending. Hepatic profile is normal. Contacted the lab at 1545. I was informed the specimen is now running and would take 15-30 minutes for results to be available. If she is subtherapeutic will administer IV phenytoin. Emergency Department Course and Treatment: CBC, BMP, phenytoin level was obtained. Since there is no history of trauma and she had a CAT scan yesterday CAT scan was not repeated. She received 2 mg of Ativan. Her eyes now are deviated to the left she has no startle response. She is nonverbal. She appears to be staring. There is no twitching or rhythmic movement of the facial muscles. There is no movement of upper or lower extremity. Per documentation by Dr. Santana patient presented for headache. There is no history of trauma. She was treated for headache with IV medications with improvement. CT of the head was reviewed by me and report by radiologist reviewed. No acute abnormality noted. Patient was reassessed at 1430. Eyes are still deviated to left now she has rhythmic blinking of her eyelids. She is not aware of her environment. An additional 2 mg of Ativan was ordered. Seizure activity stopped at 1437. Patient was reassessed at 1540. She is somnolent most likely from the medicines we gave her. There is no seizure activity. Awaiting call from transfer center for bed assignment to arrange transport to [facility] facility Treatment Plan: Her neurologist at [facility] was paged for emergent transfer Disposition: Neuro ICU [facility] or [facility]. Spoke with neurologist on-call for patient's neurologist Dr. Weston from who accepted patient. Impression: Status epilepticus History of posterior reversible encephalopathy syndrome History of seizure disorder History of aseptic meningitis History of sphenoid sinusitis This note was generated with [employer] dictation software. It may contain incorrect words, spelling, and punctuation that were not noted in review of the chart prior to signing ED Disposition - Plan for ED Patient: Referrals: Aiden Car MD [Primary Care Provider] -
[2018-05-23 14:26] LABS: Absolute Lymphocyte Count 1.43 X10^3/ul (0.83-4.51); Absolute Neutrophil Count 5.8 X10^3/uL (2.0-7.7); Basophil# 0.03 X10^3/uL; Basophil% 0.4 % (0-1); Eosinophil# 0.38 X10^3/uL; Eosinophils% 4.6 % (0-5); Hemoglobin 12.4 g/dl (12.0-15.0); Lymphocyte # 1.43 X10^3/ul (4.0); Lymphocyte % 17.4 % (19-41); Mean Corp Hgb Conc 31.8 g/gl (32-36); Mean Corpuscular Volume 94.4 fL (81-99); Mean Platelet Vol. 9.6 fl (6.2-12.0); Monocyte# 0.55 X10^3/uL; Monocyte% 6.7 % (0-10); Neutrophil # 5.84 X10^3/uL (2.7-7.7); Neutrophil % 70.8 % (47-70); Platelet Count 288 K/mm3 (150-450); RBC Distribution Width CV 14.9 % (11.6-14.6); RBC Distribution Width SD 51.5 fl (35.1-43.9); Red Blood Count 4.13 M/mm3 (4.2-5.4); White Blood Count 8.2 K/mm3 (4.4-11.0)
[2018-05-23 14:27] LABS: POSITIVE COUNT NO; POSITIVE DIFFERENTIAL NO; POSITIVE MORPHOLOGY NO
--- NOTE | 2018-05-23 14:30 | NURSING ---
CALLED [facility] FOR TRANSFER. TALKED TO BLANCA. CENSUS IS HIGH.
--- NOTE | 2018-05-23 14:37 | NURSING ---
DR CANO FOR DR DOMÍNGUEZ
[2018-05-23 14:39] LABS: AST(SGOT) 23 U/L (15-37); Alanine Aminotransfer ALT/SGPT 20 U/L (13-56); Albumin, Serum 3.7 g/dL (3.2-5.0); Alkaline Phosphatase 96 U/L (45-117); Anion Gap 9 (5-15); BUN 11 mg/dL (7-18); BUN/Creat Ratio 8.7 RATIO (10-20); Calcium,Total 8.4 mg/dL (8.5-10.1); Chloride 112 mmol/L (98-107); Creatinine, Serum 1.26 mg/dL (0.55-1.02); EST Glomerular Filtration Rate 48 mL/min (>60); Est Glom Filt Rate - Afr Amer 58 mL/min (>60); Estimated Creatinine Clearance 40.76 ml/min; Globulin 3.6 g/dL (2.2-4.2); Glucose 103 mg/dL (74-106); Potassium 3.8 mmol/L (3.5-5.1); Protein, Total 7.3 g/dL (6.4-8.2); Sodium Level 140 mmol/L (136-145)
--- NOTE | 2018-05-23 16:25 | NURSING ---
[facility] M60 BED 14 REPORT [phone]
--- NOTE | 2018-05-23 16:48 | NURSING ---
CALLED [facility] FOR TRANSPORT. ETA IS 2 HRS
--- NOTE | 2018-05-23 19:32 | ED.RN ---
CALLED [facility] AND THEY STATED THE ETA WAS SET FOR 8PM.
--- NOTE | 2018-05-23 19:59 | ED.RN ---
SPOKE WITH RODOLFO FROM [facility]. NOTIFIED HER THAT WILL BE COMING UP SATURDAY MORNING TO SEE PATIENT AND SIGN ANY NECESSARY PAPERWORK. RODOLFO ALSO NOTIFIED THAT PT IS ABLE TO AMBULATE WITH X1 ASSIST AND KNOWS HER NAME AND HUSBANDS NAME
== END 2018-05-23 20:15 | disposition short-term general hospital (02) ==
PROVIDERS: Emergency Provider Emergency Medicine; Family Provider Family Medicine; PCP Family Medicine
DX: G40.901 Epilepsy, unspecified, not intractable, with status epilepticus (principal); I67.83 Posterior reversible encephalopathy syndrome; Z86.61 Personal history of infections of the central nervous system; Z85.22 Personal history of malignant neoplasm of nasal cavities, middle ear, and accessory sinuses; I10 Essential (primary) hypertension; K21.9 Gastro-esophageal reflux disease without esophagitis; E66.9 Obesity, unspecified; Z79.899 Other long term (current) drug therapy
CPT/HCPCS: 80053; 80185; 85025; 96365; 96375; 99285; J7030; A4216

== ENCOUNTER 2018-06-24 13:00 | Outpatient (RCR) | payer OTHER, SELFPAY ==
--- NOTE | 2017-12-03 13:59 | HP.OTREVAL ---
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 Please see the progress note below for an update on the occupational therapy plan of care! Subjective: Arrived with who left after start of session. Tx in smallers OT area room to help decrease noise and distraction. Pt. brought computer and ipad. provided passwords to complete session. Objective/Function: Ariella arrived for OT session. Completed signing name with no lines. Can complete correctly about half of the time but other half she perseverates and completed [id number]. She is able to copy Ariella is my fried. Missing n only. Increased L sided neglect. She consistently reports only being able to see men when using restrooms but unable to see the wo in women. Continues to be max A- TD to complete anchoring and scanning tasks. She is showing increased realization of needing to complete scanning. She is unable to write address at this time. She is able to verbally recite address 4/5 trials during session. Typically, can verbally recite address for ST. Line divider helps with visual spatial of writing but spacing still requires consistent cues as words become bunched together. Able to write alphabet with missing only T and W. With decreased spacing able to write numbers 1-10. She is able to type name correctly 1/5 trials. She needs max A for cues to scan during typing tasks. She is able to type A-E with 4x cues to correct errors. She then proceeded to complete H-P with 1x cue and correctly completing tasks. She often perseverates through tasks and occasionally becomes emotional when corrected. 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 Not advised by OT but has been pursued by . Mod I for laundry. Needs max a for microwave as well as oven use. Has progressed with some tasks and regressed in other. POC to continue as previously established prior to 3-month break. Plan Frequency: 1x/Week Visits in this POC: 12 Plan: continue POC as previously established in last re-evaluation. Will continue POC of 1x weekly sessions for next 12 weeks. She took about 2-3 month break at completion of last re-eval and has returned to therapy which indicates need for reassessment. Anticipated Interventions Please do not hesitate to contact me at [phone] by phone or if you have questions or concerns regarding this new plan of care! Sincerely, Clari Farias
--- NOTE | 2017-12-05 14:32 | OTREVAL_ITS ---
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 Please see the progress note below for an update on the occupational therapy plan of care! Subjective: Arrived with who left after start of session. Tx in smallers OT area room to help decrease noise and distraction. Pt. brought computer and ipad. provided passwords to complete session. Objective/Function: Ariella arrived for OT session. Completed signing name with no lines. Can complete correctly about half of the time but other half she perseverates and completed [id number]. She is able to copy Ariella is my fried. Missing ?n? only. Increased L sided neglect. She consistently reports only being able to see ?men? when using restrooms but unable to see the ?wo? in ?women?. Continues to be max A- TD to complete anchoring and scanning tasks. She is showing increased realization of needing to complete scanning. She is unable to write address at this time. She is able to verbally recite address 4/ 5 trials during session. Typically, can verbally recite address for ST. Line divider helps with visual spatial of writing but spacing still requires consistent cues as words become bunched together. Able to write alphabet with missing only T and W. With decreased spacing able to write numbers 1-10. She is able to type name correctly 1/5 trials. She needs max A for cues to scan during typing tasks. She is able to type A-E with 4x cues to correct errors. She then proceeded to complete H-P with 1x cue and correctly completing tasks. She often perseverates through tasks and occasionally becomes emotional when corrected. 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 This was not advised by OT but has been pursued by . Mod I for laundry per report. Needs Max A for microwave as well as oven use. Safety concerns at this time. Has progressed with some tasks and regressed in other. POC to continue as previously established prior to 3- month break. Plan Frequency: 1x/Week Duration: 12 Plan: continue POC as established at time of last re-evaluation 08/29/17 prior to 3 month break. Will continue POC of 1x weekly sessions for next 12 weeks. Goals - Goals Goal:: Pt. to be (I) to print and sign first and last names with 1x cue 4/5 trials 80% of the time to promote increased ability to complete IADLS by d/c. Goal:: Ariella to be mod I to type three consecutive sentences from visual and verbal prompts as needed 4/5 trials to improve Pt. ability to communicate through emails and complete IADls by d/c. Goal:: Ariella will be mod I to complete laundry tasks with layout and memory aids as needed 4/5 trials 80% of the time with good safety awareness and decreased need for assistance to improve QOL by d/c. Goal:: Ariella and caregiver to implement low vision compensations into daily routine to promote safety awareness and decreased risk of further injury 4/5 trials 80% of the time to promote QOL and improve (i) by d/c. Goal:: Ariella to correctly type alphabet with 1x cue to promote increase sequencing, VMI, and perceptual cues to promote increased (I) and ability to locate letters on keyboard to promote (i0 with meaningful tasks by d/c. Goal:: Ariella to be mod I to read digital clock to promote increased ability to complete home time management ability to promote (I) with ADL/IADls 4/5 trials 80% of the time by d/c. Goal:: Ariella to be SBA to complete 5-6 step simple meals with 2-3x verbal cues and good safety awareness 4/5 trials 80% of the time to promote (I) and QOL by time of d/c. Goal:: Ariella to be SBA to complete IADLs with good safety awareness 4/5 trials 80% of the time to promote QOL and decrease need for spv by time of d/c. Goal:: Ariella to be mod I to write address with low vision compensations as needed 2/3 trials 75% of the time to promote safety, VMI, and ability to increase QOL by d/c. Goal:: Ariella to be mod I to complete anchoring and scanning techniques to promote decreasing L sided neglect like disturbances 4/5 trials 80% of the time to promote QOL by d/c. Goal:: Ariella to be mod I to complete completing microwave meals to promote VMI and problem solving 4/5 trials 80% of the time by d/c. Anticipated Interventions Anticipated Interventions: A/AAROM/PROM, Strengthening, Dynamic Sitting Balance , Visual/Perceptual Skills, Cognitive Skills, ADL Training, Caregiver Training, Home Program, Other Other Interventions: LOw Vision compensations Please do not hesitate to contact me at [phone] by phone or Fax: if you have questions or concerns regarding this new plan of care! Sincerely, Clari Farias
--- NOTE | 2018-02-25 14:22 | HP.OTREVAL ---
ENRIQUETA ALBRECHT, It has been my pleasure to treat ARIELLA ABDULLAHI over the last 62 visits for Reverse encephalophy. Please see the progress note below for an update on the occupational therapy plan of care! Subjective: Arrived with who left at start of session. Noted things going well and has been working in workbooks at home. Objective/Function: Reassessment completed on this date of 02/25/18. She has progressed since last reassessment and significantly since initial evaluation. She is consistently completed L scanning techniques to decrease symptoms of L neglect and low vision. She can complete correct spelling of full name mod I, in line divider, for 3/3 trials with use of intrinsic and extrinsic factors, but no cues needed for completion of name. Completes writing full alphabet with 1x error of missing ?w?and 1x cue for correction for 2/2 trials. Ariella is able to now go through and discriminate where errors occurred with 1-2x cues. Ariella has started to complete writing with increased spatial awareness with completing working on making out checks with max A for 3/3 trials out of line divider for increased spatial training. Ariella is able to make cup of tea in microwave with mod I and no cues needed. She is completing writing phone number correctly 3/3 trails in space divider, and address for ? trials in space divider but with ability to determine where mistakes were located when asked to review. Recently she is starting to work on completing two sentence meaningful tasks to complete letter to son with max A but ability to self-correct and write on/off designated line, no divider, with moderate assistance through cues as needed. Currently she is able to verbal form what she wants to say but needs to complete copying of words to promote writing. She would benefit from 1x weekly OT appointments for next 6 weeks to promote continuing to promote increased ability to complete writing tasks with use extrinsic and intrinsic techniques. She is able to verbally output all things she would like to write but processing from brain to paper for writing has progressed but continues to need addressed. Plan Frequency: 1x/Week Duration: 6 Weeks Visits in this POC: 68 Plan: continue 1x weekly for 6 weeks. Goals - Goals Goal:: Pt. to be (I) to print and sign first and last names with 1x cue 4/5 trials 80% of the time to promote increased ability to complete IADLS by d/c. Print- MEANT Goal:: Ariella to be mod I to type AND write three consecutive sentences from visual and verbal prompts as needed 4/5 trials to improve Pt. ability to communicate through emails and complete IADls by d/c. Goal:: Ariella will be mod I to complete laundry tasks with layout and memory aids as needed 4/5 trials 80% of the time with good safety awareness and decreased need for assistance to improve QOL by d/c. - MEANT Goal:: Ariella and caregiver to implement low vision compensations into daily routine to promote safety awareness and decreased risk of further injury 4/5 trials 80% of the time to promote QOL and improve (i) by d/c. Goal:: Ariella to correctly typing and writing alphabet with 1x cue to promote increase sequencing, VMI, and perceptual cues to promote increased (I) and ability to locate letters on keyboard to promote (i) with meaningful tasks by d/c. Writing- MEANT. Typing- Progressing Goal:: Ariella to be mod I to read digital clock to promote increased ability to complete home time management ability to promote (I) with ADL/IADls 4/5 trials 80% of the time by d/c. Goal:: Ariella to be SBA to complete 5-6 step simple meals with 2-3x verbal cues and good safety awareness 4/5 trials 80% of the time to promote (I) and QOL by time of d/c. Goal:: Ariella to be SBA to complete IADLs with good safety awareness 4/5 trials 80% of the time to promote QOL and decrease need for spv by time of d/c. Goal:: Ariella to be mod I to write address with low vision compensations as needed 2/3 trials 75% of the time to promote safety, VMI, and ability to increase QOL by d/c. Goal:: Ariella to be mod I to complete anchoring and scanning techniques to promote decreasing L sided neglect like disturbances 4/5 trials 80% of the time to promote QOL by d/c. - MEANT Goal:: Ariella to be mod I to complete completing microwave meals to promote VMI and problem solving 4/5 trials 80% of the time by d/c. - MEANT Anticipated Interventions Anticipated Interventions: A/AAROM/PROM, Strengthening, Dynamic Sitting Balance, Visual/Perceptual Skills, Cognitive Skills, ADL Training, Caregiver Training, Home Program, Other Other Interventions: LOw Vision compensations Please do not hesitate to contact me at [phone] by phone or if you have questions or concerns regarding this new plan of care! Sincerely, Clari Farias
--- NOTE | 2018-03-10 13:58 | HP.SP.DC_ITS ---
ST Discharge Summary - Discharged: Discharge: Natali Alberto is discharged from [facility] speech therapy due to lack of progress. Her initial evaluation was on October 04, 2016 with therapy attended weekly except for summer 2017. Natali has had a lengthy medical history regarding cognitive status due to PRES diagnosis. Her most recent goals focused on functional home tasks including money handling, medication management, recall strategies and phone use. Previously Natali had difficulty in sending a text, taking a picture or texting a picture. Currently she is able to do all of those things independently. Her other goals did not see progress as she still is unable to count kay, recently has had errors on medications and does not put her own medications in a pill box and she does not use any strategies even after maximal cues and teaching. Natali made a lot of progress overall from when she started as when she first came she was unable to answer questions such as her birthdate. She can participate in conversation well but needs moderate to maximal cues for executive function tasks. Scores on her Cognitive Linguistic quick test did not improve either since last testing. Natali can continue to complete home tasks with her as he has been provided with a high level of home carry over tasks over the course of her therapy. A copy of this discharge summary will be sent to her referring physician.
--- NOTE | 2018-04-08 14:34 | HP.OTCOM_ITS ---
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 Although this condition is to be reversible and she progressed with some treatment, significant limitations remain affecting self-care and general wellbeing to be completely safe at home, in the community, or in a work-related environment. Due to safety concerns she also experiences some seizure related activity post brain related injury that occurred in June 2016. Seizures have been reported by and by Natali and together they are working with their neurologist to prevent and address seizures as they occur (please refer to neurologist for additional details). Natali continues to have significant vision, visual perception, cognitive, and processing related concerns. These concerns do not make her safe or able to complete work-related tasks. She would benefit from further therapy to make her as independent and safe as possible and promote her quality of life. She continues to need assistance for completing some types of community outings, with all finances, and with all transportation needs. She is regularly helped by family and with these activities. Due to the listed concerns, Natali is not appropriate to be discontinued from disability. She will be continuing therapy as she has continued to make progress despite seizure related set backs. If further questions arise, please contact as needed. Sincerely, Clari Farias, OTR/L Contact Information
--- NOTE | 2018-04-09 08:47 | HP.SP.LETT ---
HP - SP Letter - Letter To Whom It May Concern Communication: To Whom It May Concern: Natali Alberto recently was in my care. She was discharged March 10, 2018. Her initial evaluation was in September. Her most recent goals focused on functional home tasks including money handling, medication management, recall strategies and phone use. Previously Natali had difficulty in sending a text, taking a picture or texting a picture. Currently, she is able to do all of those things independently. Other focuses during therapy were counting money, medicating completion and memory strategies. Natali made a lot of progress overall from when she started as when she first came she was unable to answer questions such as her birthdate. She can participate in conversation well but needs moderate to maximal cues for executive function tasks. She is not able to complete money handling including telling the difference between bills and doing math for making change. She is not functional to return to work as she is not able to complete high level cognitive tasks appropriately. She is unable to use executive functional skills such as problem solving and reasoning for her prior occupation. Tasks take her much longer than what is appropriate for her age. She continues to have mild perseveration during conversation. Due to visual skills, she had difficulty in completing most written work. She is unable to use recall strategies during conversation. I do not recommend she return to work. Thank you.
--- NOTE | 2018-05-12 13:25 | OTREVAL_ITS ---
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 Please see the progress note below for an update on the occupational therapy plan of care! Subjective: Arrived with who left to [employer] grocery shopping at start of session. Completed treatment in private treatment room. noted she has been in hospital last week. She has icnreased inflammation at temporal area (new area) and is currently suffering short- term memory loss. reports furtehr follow up with neurologist end of month. While in hospital she has some elvated WBC but no menigitis of other infectious disease indicated and they are unsure what caused increased seizure activities. Objective/Function: Therapist had started re-evaluation 04/22/18. She has returned to therapy on this date of 05/12/18 after 2-[address] [facility] due to increased seizure activity. She has since suffered short-term memory loss as a result. She has worked with current OT for last year and verbalized memory of therapist but none on concepts in which were completed. Results of today?s assessment are as follows: Completed writing re-evaluation with line divider in private treatment room. Results are as follows: Ariella is oriented to self, date of , but not date or year. After twenty minutes she was able to recently recall month without cues and year with 1x verbal cue. Lupe can write 23/24 letters of alphabet with decrease spacing and leaving 1x letter out, ?W?. She is able to find letter with 2x verbal cues to complete self-correction. She was unable to recall address at beginning of session. Completed 1x verbal cues of address with 2x cues while writing and 4x errors. After 5 minutes was asked to recall address without verbal prompt and she was able to verbally recall correctly 1/1 trials. Completed writing address with personal use of intrinsic and extrinsic cues but 0 errors or need for verbal cues for recall from therapist. Decrease size and spacing of letter and use of space divider for tasks. Able to recall first three digits of area code for phone number. She required TD to recall last 6 digits. She was able to complete writing phone number correct with 2x cues for errors and extrinsic techniques of repeating numbers are writing to promote feedback and correct motor output for correctly writing number. She completed correctly writing number 2/5 trials. Completed writing two sentences with 3x errors at her own pace and use of line divider to complete appropriate spacing. Writing has decreased spacing and size of letters but is legible. After ten minutes she was able to recall phone number with 2x verbal cues for assurance. Able to correctly state first six digits and needed one cue to complete last four. Typing results as follows with standard laptop, zoom at 140% and font size at 75: She as able to complete typing name 04/01 trials with no errors and no verbal cues needed. Completed working typing alphabet 04/01 trials with 9x errors for first trial. She attempted second trails with11 + errors but for finding keys and she was able to self-correct when letters when typed incorrectly. Ariella has shown some decrease in performance since last seizure but is still working on goals. She would benefit from continued therapy as inflammation is likely still present in brain at this time and with continued therapy she would decrease this to promote progressing with therapy. Reassessment started from 04/22/18: Increased confusion and difficulty seeing spacing. Turned on spacing symbols and helped. Typing completed at font size 72, and zoom at 170%. Typing the following: - Ariella [place]: completed 4/5 trials with need for 1-2 cue to correct completion. - Completed typing address: max A for cues to complete. Need 3-4 cues to find each error. Completed direct feedback to find cues to promote learning correctly. Able to f ind letters cues to complete task correctly. 5/5. 04/01 trials completed address. Able to self-correct with 2x numbers and needed mod A for correct spelling of [place]. 04/01 trials completed typing address with 2x errors and not direct feedback during tasks. Completed backward chaining to find errors at end. Ariella has retained most of what activities having been complete for writing and typing. She would benefit from continues weekly OT appointments to continue to progress towards goals. OT looking into further memory strategies for patient at home with use of picture chart to help with short term memory deficits. Plan Frequency: 1x/Week Duration: 3 Months Visits in this POC: 68 Plan: continue POC. Ariella would benefit from skilled OT as part of helping continue to progress towards goals for 1x weekly sessions for next 3 months. She is still able to complete many tasks previously being addressed with some decrease in spacing for typing for writing. OT will be working with family for creation short term memory calendar and activity chart. Goals - Goals Goal:: Pt. to be (I) to print and sign first and last names with 1x cue 4/5 trials 80% of the time to promote increased ability to complete IADLS by d/c. Print- MEANT Goal:: Ariella to be mod I to type AND write three consecutive sentences from visual and verbal prompts as needed 4/5 trials to improve Pt. ability to co mmunicate through emails and complete IADls by d/c. Goal:: Ariella will be mod I to complete laundry tasks with layout and memory aids as needed 4/5 trials 80% of the time with good safety awareness and decreased need for assistance to improve QOL by d/c. - MEANT Goal:: Ariella and caregiver to implement low vision compensations into daily routine to promote safety awareness and decreased risk of further injury 4/5 trials 80% of the time to promote QOL and improve (i) by d/c. Goal:: Ariella to correctly typing and writing alphabet with 1x cue to promote increase sequencing, VMI, and perceptual cues to promote increased (I) and ability to locate letters on keyboard to promote (i) with meaningful tasks by d/c. Writing- MEANT. Typing- Progressing Goal:: Ariella to be mod I to read digital clock to promote increased ability to complete home time management ability to promote (I) with ADL/IADls 4/5 trials 80% of the time by d/c. Goal:: Ariella to be SBA to complete 5-6 step simple meals with 2-3x verbal cues and good safety awareness 4/5 trials 80% of the time to promote (I) and QOL by time of d/c. Goal:: Ariella to be SBA to complete IADLs with good safety awareness 4/5 trials 80% of the time to promote QOL and decrease need for spv by time of d/c. Goal:: Ariella to be mod I to write address with low vision compensations as needed 2/3 trials 75% of the time to promote safety, VMI, and ability to increase QOL by d/c. Goal:: Ariella to be mod I to complete anchoring and scanning techniques to promote decreasing L sided neglect like disturbances 4/5 trials 80% of the time to promote QOL by d/c. - MEANT Goal:: Ariella to be mod I to complete completing microwave meals to promote VMI and problem solving 4/5 trials 80% of the time by d/c. - MEANT Anticipated Interventions Anticipated Interventions: A/AAROM/PROM, Strengthening, Dynamic Sitting Balance, Visual/Perceptual Skills, Cognitive Skills, ADL Training, Caregiver Training, Home Program, Other Other Interventions: LOw Vision compensations Please do not hesitate to contact me at [phone] by phone or if you have questions or concerns regarding this new plan of care! Sincerely, Clari Farias
== END 2018-06-24 19:00 | disposition home or self-care (01) ==
LOC: OT 13:00
PROVIDERS: Family Provider Family Medicine; PCP Family Medicine
DX: I67.83 Posterior reversible encephalopathy syndrome (principal)
CPT/HCPCS: 92507; 97112; 97168; 97530

== ENCOUNTER 2018-07-06 14:01 | Emergency (ER) | payer OTHER, SELFPAY ==
[2018-05-23 14:02] VITALS: BMI 29.5
[2018-07-06 14:02] VITALS: PULSE 76; RESP 23; TEMP 36.9; O2SAT 98; BMI 28.1
--- NOTE | 2018-07-06 14:28 | EKG12_ITS ---
Test Reason : SEIZURES Blood Pressure : / mmHG Vent. Rate : 075 BPM Atrial Rate : 075 BPM P-R Int : 144 ms QRS Dur : 070 ms QT Int : 388 ms P-R-T Axes : 045 000 022 degrees QTc Int : 433 ms Normal sinus rhythm Minimal voltage criteria for LVH, may be normal variant Borderline ECG Confirmed by ALYSSA PEREZ, FIOR ([id number]), editor producer PILLO GIL ([id number]) on 07/08/2018 7:57:08 AM Referred By: Confirmed By:FIOR SHAH MD
[2018-07-06 14:40] LABS: Absolute Lymphocyte Count 0.47 X10^3/ul (0.83-4.51); Absolute Neutrophil Count 11.3 X10^3/uL (2.0-7.7); Differential Indicated SCAN CRITERIA MET; Hemoglobin 12.6 g/dl (12.0-15.0); Lymphocyte # 0.47 X10^3/ul (4.0); Lymphocyte % 3.9 % (19-41); Mean Corp Hgb Conc 33.2 g/gl (32-36); Mean Corpuscular Hgb 29.6 pg (27.0-32.0); Mean Corpuscular Volume 89.2 fL (81-99); Mean Platelet Vol. 8.6 fl (6.2-12.0); Monocyte# 0.16 X10^3/uL; Monocyte% 1.3 % (0-10); Neutrophil # 11.33 X10^3/uL (2.7-7.7); POSITIVE COUNT NO; POSITIVE DIFFERENTIAL YES; POSITIVE MORPHOLOGY NO; Platelet Count 288 K/mm3 (150-450); RBC Distribution Width CV 15.5 % (11.6-14.6); RBC Distribution Width SD 49.9 fl (35.1-43.9); Red Blood Count 4.26 M/mm3 (4.2-5.4); White Blood Count 12.1 K/mm3 (4.4-11.0)
[2018-07-06 14:45] LABS: Bacteria 0 SEEN /hpf (None Seen); Mucous, Urine 0 SEEN /hpf (<or=2+); Red Blood Cells-Urine 0 SEEN /hpf (0-5); Squamous Epithelial Cells - UA 0 SEEN /hpf (5-10); White Blood Cells 0 SEEN /hpf (0-5)
[2018-07-06] MEDS: 0.9% Normal Saline 1,000 ML 1000 ML IV (14:46)
[2018-07-06 14:49] LABS: Color, Urine Straw (Yellow); Glucose, Dipstick Normal (Normal); Ketone-Dipstick Negative (Negative); Leukocyte Esterase-Dipstick Negative /ul (Negative); Nitrite-Dipstick Negative (Negative); Occult Blood-Urine Negative /ul (Negative); Protein-Dipstick Negative (Negative); Specific Gravity, Urine 1.015 (1.002-1.030); Urine Bilirubin Dipstick Negative (Negative); Urine Clarity Clear (Clear); Urine Urobilinogen Normal (Normal)
[2018-07-06 14:49] LABS: ALB/GLOB Ratio 1.1 RATIO (0.9-2.4); AST(SGOT) 15 U/L (15-37); Alanine Aminotransfer ALT/SGPT 29 U/L (13-56); Albumin, Serum 3.8 g/dL (3.2-5.0); Alkaline Phosphatase 66 U/L (45-117); Anion Gap 8 (5-15); BUN 17 mg/dL (7-18); BUN/Creat Ratio 11.6 RATIO (10-20); Calcium,Total 8.2 mg/dL (8.5-10.1); Chloride 96 mmol/L (98-107); Creatinine, Serum 1.46 mg/dL (0.55-1.02); EST Glomerular Filtration Rate 40 mL/min (>60); Est Glom Filt Rate - Afr Amer 49 mL/min (>60); Estimated Creatinine Clearance 35.17 ml/min; Globulin 3.4 g/dL (2.2-4.2); Glucose 99 mg/dL (74-106); Potassium 3.6 mmol/L (3.5-5.1); Protein, Total 7.2 g/dL (6.4-8.2); Sodium Level 127 mmol/L (136-145)
[2018-07-06 16:36] VITALS: BP 129/80; PULSE 74; RESP 16; O2SAT 99
[2018-07-06] MEDS: 0.9% Normal Saline 1,000 ML 150 ML IV (17:34)
[2018-07-06 18:17] VITALS: BP 134/84; PULSE 79; RESP 18; O2SAT 97
[2018-07-06] MEDS: clonazePAM 0.5 MG Tablet PO (18:17)
--- NOTE | 2018-07-06 18:38 | ED.DCSUM_ITS ---
- ER Visit Summary Date of Service: 07/06/18 Chief Complaint: Seizure History of Present Illness: The patient is a 47 F who has a complex medical history involving neurology with diagnoses such as CT ES, autoimmune encephalitis and epilepsy. Patient is seen by [facility] neurology. She is currently on Zonogram Vimpat as well as some prednisone for the encephalitis. states she was last admitted at the end of May when her medications were changed. Since that time she has not had seizure. She is complained of the past week of a orbit visual light visual disturbance in the left eye. He states that often times her seizures mimic migraines. 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 He came home and she was walking around but was repetitive and was in another world. He states this is typical of her postictal symptoms. He states that usually those were resolved in 10 minutes but it has been over an hour and a half and brought to the emergency room. Physical Examination: Afebrile vital signs stable Gen: Well-nourished well-developed Head: Normocephalic atraumatic Eyes: Perrl EOMI ENT: TMs clear no rhinorrhea moist mucous membranes Neck: Supple no lymphadenopathy no JVD nontender CVS: Regular rate rhythm no murmurs normal S1-S2 Respiratory: No distress clear to auscultation bilaterally chest nontender Abdomen: Soft nontender nondistended normal bowel sounds no masses Back: Nontender Extremity: Nontender no edema Skin: Normal color no rash Neuro: alert will follow commands moves all extremities. Very slow to speak. Psych: Normal affect normal mood Test Results: CBC BMP liver urine essentially normal creatinine 1.46. White count 12.1. Emergency Department Course and Treatment: She achieved her baseline. She continued to complain of the light visual disturbance in the left eye. Contacted neurology at [facility] that physician spoke with her personal neurologist. We gave a trial of 0.5 mg of Klonopin. This did not really change the visual disturbance. Their recommendation is to increase her Vimpat. They will see her in the office in 2 days. Family is comfortable with this plan. Impression: 1. Epileptic seizure This note was generated with iDiDiDation software. It may contain incorrect words, spelling, and punctuation that were not noted in review of the chart prior to signing ED Disposition - Plan for ED Patient: Disposition: Home or Assisted Living Instructions: ED Seizure Recurrent Additional Instructions: Increase Vimpat to 200 mg in the morning 300 mg at night. Continue other home medications Follow-up with your epilepsy specialist as scheduled in 2 days.
[2018-07-06 19:16] VITALS: BP 148/83; PULSE 60; RESP 16; O2SAT 96
--- NOTE | 2018-07-06 19:17 | ED.RN ---
md made aware pt still having flickering of light,but improved,okay to discharge.
== END 2018-07-06 19:18 | disposition home or self-care (01) ==
PROVIDERS: Emergency Provider Emergency Medicine; Family Provider Family Medicine; PCP Family Medicine
DX: G40.909 Epilepsy, unspecified, not intractable, without status epilepticus (principal); G04.81 Other encephalitis and encephalomyelitis; Z79.899 Other long term (current) drug therapy
CPT/HCPCS: 80053; 81001; 85025; 93005; 96360; 96361; 99285; J7030; A4216

== ENCOUNTER 2019-11-03 14:30 | Outpatient (RCR) | payer OTHER, SELFPAY ==
--- NOTE | 2019-08-27 17:43 | HP.OTEVAL ---
Patient's Visit Information ARIELLA ABDULLAHI is a 49 year old F, referred to Occupational Therapy by Dr. Aiden Car MD, with a diagnosis of encephalitis. Date of Evaluation: 08/25/19 Occupational Therapist: Katie Lugo - Subjective Pt seen for initial occupational therapy evaluation for encephalitis. She arrived with spouse who remained for evaluation to assist with answering questions and medical hx. 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 Spouse reports she does have hx of seizures and if she starts to talk about flashing lights that usually is a sign, he states if she would show symptoms to call him Edward Sanford [phone] and he will come right back. Pt has concerns with her ability to write. Her spouse would like to see her be more independent with tasks such as medication managment, microwave meals and increasing her BUE strength. Spouse is a [employer] worker so works 24hr shift and pt is on her own during that time with her dog. She is able to care for herself and complete laundry tasks own her own only using microwave for meals when alone. Spouse states she never uses the microwave time correctly and he has to call to check in on her to make sure she's getting up and doing okay while he's at work. - Objective confusion, difficult time with memory and decreased BUE strength. She had a difficult time answering questions and would look to her spouse for the answer. - ROM ROM Comments: BUE WFL - Strength Conditioning Room Worker: R 55#, L 46# Lateral Pinch: R 8#, L 7# Tripod Pinch: R 8#, L 6# Strength Comments: Generalized MMT BUE 3+/5 - Sensation Sensation Comments: No numbness or tingling - Stroke Specific Quality of Life Total SS-QOL Score: 29 - Goals Goal:: Pt will demo increased BUE strength 4/5 to assist w/ IADL tasks independently by d/c from OT services. Pt will progress w/ sosa hand gas roller operator strength by 10# to assist w/ ADL/IADL tasks indep by d/c from OT services. Goal:: Pt will progress w/ R hand coordination skills to print and write in cursive first/last name in 3/4 trials by d/c from OT. Pt will demo ability to print out grocery list with legible words in 3/4 trials by d/c from OT Goal:: Pt will be able to complete simple meal prep with microwave indep w/ good safety awareness using tools/strategies as needed in 3/4 trials by d/c from OT Goal:: Pt will be educated on tools/strategies, adaptive techiniques to assist with executive functioning for ADL/IADL w/ good understanding and demo 75%x. - Rehabilitation General Assessment: Pt seen for initial occupational therapy evaluation for encephalitis. She arrived with spouse who remained for evaluation to assist with answering questions and medical hx. 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 Pt demo decreased memory with IADL tasks, safety risks with meal prep tasks, decreased ability to complete hand writing skills to write name and decreased BUE strength. She would benefit from direct OT services to increase indep w/ IADL tasks with increased safety awareness, increase coordination skills for hand writing and increase BUE strength and educate on HEP for BUE to increase pts safety and quality of life 1x/wk x 6 wks Rehabilitation Potential: Good - Anticipated Interventions Strengthening, Fine Motor Coord/Jose F, Neuro Reeducation, ADL Training, Education re Diagnosis, Caregiver Training, Home Program - Visit Plan Frequency: 1x/Week Duration: 6 Weeks General Plan: increase BUE strength, educate on HEP for BUE, increase indep w/ handwriting skills and indep w/ microwave simple meal prep using tools/strategies to assist as needed. TEXT: Thank you for the opportunity to evaluate your patient. For Medicare and Medicare HMO plans, please review the plan of care and approve it. It will need to be FAXED BACK to us at [phone] for Medicare purposes. Please let me know if there are questions or concerns regarding this plan of care. Physician Signature: Date:
== END 2019-11-03 19:00 | disposition home or self-care (01) ==
LOC: OT 14:30
PROVIDERS: PCP Family Medicine; Referring Provider Family Medicine; Visit Provider Family Medicine
DX: G04.90 Encephalitis and encephalomyelitis, unspecified (principal)
CPT/HCPCS: 97110; 97166; 97530

== ENCOUNTER 2019-11-29 06:57 | Emergency (ER) | payer OTHER, SELFPAY ==
[2019-11-29 06:58] VITALS: BP 105/78; PULSE 58; RESP 16; TEMP 37; O2SAT 97; BMI 28.4
--- NOTE | 2019-11-29 07:13 | ED.DCSUM_ITS ---
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 at the bedside who states that they have been intermittently treated for over the past 1 month by primary care physician. Was recently given a vaginal suppository cream for discharge. States that over the past 4 days she has been having muscle aches concerning for gout flare. Patient states is her entire body cannot verbalize a single area. Denies any fever, chills, cough, chest pain, shortness of breath, nausea, vomiting, diarrhea. States he does have a history of chronic kidney disease and is currently on Uloric for her gout. Past Medical History - Allergies and Home Meds Allergies/Adverse Reactions: Allergies allopurinol Allergy (Verified 11/29/19 07:07) Diarrhea amoxicillin Adverse Reaction (Verified 11/29/19 07:07) Other lactose Adverse Reaction (Verified 11/29/19 07:07) Diarrhea Primary Care Physician: Lena Marquez MD [STAFF PHYSICIAN] - Aiden Car MD [Primary Care Provider] - Past Medical History: - - PRESS and autoimmune encephalitis Surgical History: no surgical history, - - c sections Lives: Spouse/ Significant Other Smoking Status: Never smoker Alcohol: None Drugs: None - Family History Maternal Family History: Reports: Diabetes Paternal Family History: Reports: Diabetes, - - cabg Review of Systems General: Denies: Chills, Fever, Sweats Eyes: Denies: Visual changes - bilaterally, Diplopia ENT: Denies: Rhinorrhea, Sore throat Cardiovascular: Denies: Chest pain, Palpitations Respiratory: Denies: Dyspnea, Cough, Dyspnea on exertion Gastrointestinal: Denies: Abdominal pain, Nausea, Vomiting, Diarrhea, Melena, Hematochezia Genitourinary: Reports: Dysuria. Denies: Hematuria, Frequency Musculoskeletal: Reports: Myalgias, Arthralgias. Denies: Back pain, Extremity Pain Skin: Denies: Rash, Wounds Neurological: Denies: Headache, Weakness, Numbness Physical Exam Vital Signs/Narrative: Vital Signs Temp Pulse Resp BP Pulse Ox 11/29/19 06:58 98.6 F 58 L 16 105/78 97 Inital Vital Signs reviewed: Yes General: Well nourished, Well developed, No Acute Distress Head: Normocephalic, Atraumatic Eyes: Perrl, EOMI ENT: Moist mucous membranes, No rhinorrhea Neck: Supple, Nontender Cardiovascular: Regular rate, Regular rhythm, No murmurs Respiratory: No distress, CTA bilaterally, Chest nontender Abdomen: Soft, Nontender, Nondistended, Normal bowel sounds Back: Nontender, Normal Inspection Extremities: Nontender, No edema Skin: Normal color, No rash Neurological: Alert, Cranial nerves II-XII grossly intact, Normal Strength, Normal Sensation Psychological: Normal affect, Normal Mood Diagnostic/Tx/Re-eval Laboratory Data 11/29/19 11/29/19 11/29/19 07:45 07:45 08:30 WBC 12.7 H RBC 4.15 L Hgb 12.9 Hct 39.9 MCV 96.1 MCH 31.1 MCHC 32.3 RDW Std Deviation 48.2 H RDW Coeff of [place] 13.6 Plt Count 288 MPV 9.9 Immature Gran % (Auto) 0.400 Neut % (Auto) 84.4 H Lymph % (Auto) 5.3 L [place] % (Auto) 7.5 Eos % (Auto) 2.0 Baso % (Auto) 0.4 Absolute Neuts (auto) 10.8 H Absolute Lymphs (auto) 0.67 L Nucleated RBC % 0 Sodium 137 Potassium 4.0 Chloride 110 H Carbon Dioxide 21.0 Anion Gap 6 BUN 11 Creatinine 1.44 H Estim Creat Clear Calc 34.88 Est GFR (MDRD) Af Amer 49 L Est GFR (MDRD) Non-Af 41 L BUN/Creatinine Ratio 7.6 L Glucose 88 Calcium 9.0 Total Bilirubin 0.40 AST 15 ALT 16 Alkaline Phosphatase 93 Total Protein 7.4 Albumin 3.7 Globulin 3.7 Albumin/Globulin Ratio 1.0 Urine Color Yellow Urine Clarity Sl. Cloudy Urine pH 8.0 Ur Specific [place] 1.010 Urine Protein 30 H Urine Glucose (UA) Normal Urine Ketones Negative Urine Occult Blood 50 H Urine Nitrite Negative Urine Bilirubin Negative Urine Urobilinogen Normal Ur Leukocyte Esterase 500 H Urine RBC 0 SEEN Urine WBC >100 SEEN Ur Squamous Epith Cells 0-5 SEEN Urine Bacteria 2+ Urine Mucus 0 SEEN - Medical Decision Making Appears well nontoxic. Vital signs within normal limits. Lab work shows a chronic kidney disease which is at baseline. Mildly elevated leukocytosis of 12,000. Evidence of UTI. Patient will be placed on Keflex 4 times a day. Concern also for yeast infection and patient will be treated with Diflucan. Patient was initially given morphine as well as fluid bolus and Zofran. Patient was given colchicine 1.2 mg and then 0.6 mg 1 hour later. Patient has no evidence of focal gout however states this is how her gout flares have gone previously. Patient is feeling improved following these treatment modalities. 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 A sked to return for new or worsening symptoms. and patient agreeable and discharged home in stable condition. ED Disposition - Plan for ED Patient: Disposition: Home or Assisted Living Diagnosis: UTI (urinary tract infection), Myalgia Instructions: ED CYSTITIS Female Adult Prescriptions: Cephalexin [Keflex] 500 mg PO Q6 #28 cap Transmission Status: Received by [facility] Referrals: Aiden Car MD [Primary Care Provider] - Lena Marquez MD [STAFF PHYSICIAN] -
[2019-11-29 07:57] LABS: Absolute Lymphocyte Count 0.67 X10^3/uL (0.83-4.51); Absolute Neutrophil Count 10.8 X10^3/uL (2.0-7.7); Basophil# 0.05 X10^3/uL; Basophil% 0.4 % (0-1); Eosinophil# 0.25 X10^3/uL; Hematocrit 39.9 % (37-47); Hemoglobin 12.9 g/dL (12.0-15.0); Lymphocyte # 0.67 X10^3/ul (4.0); Lymphocyte % 5.3 % (19-41); Mean Corp Hgb Conc 32.3 g/dL (32-36); Mean Corpuscular Hgb 31.1 pg (27.0-32.0); Mean Corpuscular Volume 96.1 fL (81-99); Mean Platelet Vol. 9.9 fl (6.2-12.0); Monocyte# 0.95 X10^3/uL; Monocyte% 7.5 % (0-10); NRBC Flagged by Analyzer 0 % (0-5); Neutrophil # 10.75 X10^3/uL (2.7-7.7); Neutrophil % 84.4 % (47-70); Platelet Count 288 K/mm3 (150-450); RBC Distribution Width CV 13.6 % (11.6-14.6); RBC Distribution Width SD 48.2 fl (35.1-43.9); Red Blood Count 4.15 M/mm3 (4.2-5.4); White Blood Count 12.7 K/mm3 (4.4-11.0)
[2019-11-29] MEDS: Morphine 4 MG/ML Syringe IV (07:58)
[2019-11-29] MEDS: Ondansetron 4 MG/2 ML Vial IV (07:58)
[2019-11-29 08:12] LABS: AST(SGOT) 15 U/L (15-37); Alanine Aminotransfer ALT/SGPT 16 U/L (13-56); Albumin, Serum 3.7 g/dL (3.2-5.0); Alkaline Phosphatase 93 U/L (45-117); Anion Gap 6 (5-15); BUN 11 mg/dL (7-18); BUN/Creat Ratio 7.6 RATIO (10-20); Chloride 110 mmol/L (98-107); Creatinine, Serum 1.44 mg/dL (0.55-1.02); EST Glomerular Filtration Rate 41 mL/min (>60); Est Glom Filt Rate - Afr Amer 49 mL/min (>60); Estimated Creatinine Clearance 34.88 ml/min; Globulin 3.7 g/dL (2.2-4.2); Glucose 88 mg/dL (74-106); Protein, Total 7.4 g/dL (6.4-8.2); Sodium Level 137 mmol/L (136-145)
[2019-11-29 08:45] LABS: Mucous, Urine 0 SEEN /hpf (<or=2+); Red Blood Cells-Urine 0 SEEN /hpf (0-5)
[2019-11-29 08:53] LABS: Color, Urine Yellow (Yellow); Glucose, Dipstick Normal (Normal); Ketone-Dipstick Negative (Negative); Leukocyte Esterase-Dipstick 500 /ul (Negative); Nitrite-Dipstick Negative (Negative); Occult Blood-Urine 50 /ul (Negative); Protein-Dipstick 30 mg/dl (Negative); Urine Bilirubin Dipstick Negative (Negative); Urine Clarity Sl. Cloudy (Clear); Urine Urobilinogen Normal (Normal)
[2019-11-29 09:16] LABS: Bacteria 2+ /hpf (None Seen); Squamous Epithelial Cells - UA 0-5 SEEN /hpf (5-10); White Blood Cells >100 SEEN /hpf (0-5)
[2019-11-29 10:18] VITALS: BP 96/64; PULSE 64; O2SAT 95
[2019-11-29] MEDS: Fluconazole 100 MG Tablet 150 MG PO (10:19)
== END 2019-11-29 10:30 | disposition home or self-care (01) ==
PROVIDERS: Emergency Provider Emergency Medicine; PCP Family Medicine
DX: N39.0 Urinary tract infection, site not specified (principal); M79.10 Myalgia, unspecified site; M10.9 Gout, unspecified; Z79.899 Other long term (current) drug therapy; Z79.82 Long term (current) use of aspirin
CPT/HCPCS: 80053; 81001; 85025; 96361; 96374; 96375; 99285; J7030; A4216; J2405

== ENCOUNTER 2020-04-23 06:56 | Emergency (ER) | payer OTHER, SELFPAY ==
[2020-04-23 06:57] VITALS: BP 135/89; PULSE 78; RESP 16; TEMP 35.9; O2SAT 99; BMI 25.2
--- NOTE | 2020-04-23 07:31 | ED.DCSUM_ITS ---
- ER Visit Summary Date of Service: 04/23/20 Chief Complaint: Bilateral foot numbness History of Present Illness: The patient is a 49 F history of press syndrome, migraine headaches, renal insufficiency, prior autoimmune encephalitis, seizures and gout. Patient is an extensive and complicated past medical history. In the last 7 days she has had some mild swelling of her feet discomfort and some numbness. Saw her primary care physician who ran multiple screening labs including a uric acid which was normal. She had some mild electrolyte abnormalities. The labs were done about 3 days ago. She is been on a Medrol Dosepak for 4 to 5 days. Initially that improved her symptoms and now they have kind of return. She has had no falls. No weakness. She is cognitively impaired from her press syndrome. Patient recently had a Botox injection for headaches that improved her headaches. There is some concern that this may be from the Botox. Physical Examination: Middle-aged female no acute distress vital signs stable afebrile. H EENT exam unremarkable. Neck nontender. Lungs clear to auscultation bilaterally. Heart regular rhythm no murmur. Abdomen soft nontender normal bowel sounds no peritoneal signs. Patient is moving all 4 extremities. She has 5-5 gas brazer strength. Dorsi plantarflexion intact. Both lower extremities the calves appear normal. There is no cords or edema. There is no muscle spasms. Dorsi plantarflexion is intact in both feet. She does have sensation but states it is slightly decreased more so on the right. There is no motor weakness. She is equal and symmetrical dorsalis pedis pulses. She has normal range of motion of both hips, knees and ankles. Neurologically she is awake. She is alert. She is cognitively impaired from her prior press syndrome but she has no focal motor deficits. She is awake and alert answering questions. Test Results: I reviewed all the recent blood work the patient had done by her primary care physician's office. Most the labs with a completely normal or in the low normal range or just slightly below normal. There is no significant abnormality. Emergency Department Course and Treatment: Patient with atypical lower extremity discomfort and numbness. She has no motor deficit. She has had extensive work- up in the past including significant neuro imaging just showing residual abnormalities from her press syndrome. I talked her at length who is a local lotus notes administrator and he understands that there is no test I can do to connect this directly to the Botox that is a possibility but there would be test that would prove that. Also she is just had lab work and she is had extensive imaging in the past was at [facility] necessary to repeat today. Treatment Plan: Continue her current Medrol Dosepak and other medications. Tylenol and/or Motrin for pain. Follow-up with her primary care physician if symptoms are not improving or return emergency department if worse. Disposition: Discharge Impression: Bilateral lower extremity pain and numbness of uncertain etiology Recent Botox injection for headaches History of press syndrome and prior autoimmune encephalitis History of seizure disorder This note was generated with Make My plate dictation software. It may contain incorrect words, spelling, and punctuation that were not noted in review of the chart prior to signing ED Disposition - Plan for ED Patient: Referrals: Aiden Car MD [Primary Care Provider] -
--- NOTE | 2020-04-23 07:35 | ED.DEP ---
ED Disposition - Plan for ED Patient: Disposition: Home or Assisted Living Referrals: Aiden Car MD [Primary Care Provider] - 3-5 Days if not improving Additional Instructions: Continue your current medications. Finish the Medrol Dosepak. If this is related to the Botox injection the symptoms should progressively improve over time. If you not improving follow-up with your doctor if you are getting worse return to the emergency department.
== END 2020-04-23 07:45 | disposition home or self-care (01) ==
PROVIDERS: Emergency Provider Emergency Medicine; PCP Family Medicine
DX: R20.0 Anesthesia of skin (principal)
CPT/HCPCS: 99282

== ENCOUNTER 2020-06-05 19:36 | Observation (INO) | payer OTHER, MEDICARE, SELFPAY ==
[2020-06-05 19:38] VITALS: BP 134/81; PULSE 72; RESP 18; TEMP 36.6; O2SAT 100; BMI 25.9
--- NOTE | 2020-06-05 19:42 | ED.RN ---
RN CALLED FOR EKG, PULLED OLD EKGS FOR
--- NOTE | 2020-06-05 19:49 | EKG12_ITS ---
Test Reason : MORNING EKG Blood Pressure : / mmHG Vent. Rate : 060 BPM Atrial Rate : 120 BPM P-R Int : 156 ms QRS Dur : 078 ms QT Int : 470 ms P-R-T Axes : 047 -03 011 degrees QTc Int : 470 ms Sinus Rhythm Abnormal ECG When compared with ECG of 05-JUN-2020 22:56, MANUAL COMPARISON REQUIRED, DATA IS UNCONFIRMED Confirmed by ALYSSA PEREZ, FIOR ([id number]), editorial specialist PILLO GIL ([id number]) on 06/07/2020 12:38:39 PM Referred By: ALBA Confirmed By:FIOR SHAH MD
--- NOTE | 2020-06-05 19:53 | ED.VISSUMM ---
- ER Visit Summary Date of Service: 06/05/20 Chief Complaint: Chest pain History of Present Illness: The patient is a 49 F presenting with chest pain. Patient states she was vacuuming and started having chest pain and shortness of breath. Pain was 8 out of 10 at its worst. Pain is in her midsternal chest and goes to her left arm. She denies nausea or vomiting. She has a family history of early heart disease in her sister. She is not a smoker. Physical Examination: Vitals are stable. Patient is afebrile. Alert no acute distress. HEENT exam is unremarkable. Neck is supple. Lungs are clear and equal bilaterally. Heart is regular rate and rhythm. Abdomen is soft nontender nondistended. Extremities are unremarkable. Skin is warm and dry. No focal neurologic deficit. Remainder of exam is unremarkable. Emergency Department Course and Treatment: Patient was given aspirin prior to arrival per EMS. EKG is sinus rhythm rate of 71 with no acute ischemic changes. Patient was given morphine, Zofran IV. CBC, chemistries unremarkable other than white count 15.6, creatinine 1.45. Creatinine is at baseline and she is currently on prednisone. Troponin is negative. Chest x-ray read by myself and radiology shows no acute process. On reevaluation, she is chest pain-free. Will discuss with hospitalist for observation. Disposition: Observation Impression: Chest pain This note was generated with Strat[employer]ale dictation software. It may contain incorrect words, spelling, and punctuation that were not noted in review of the chart prior to signing ED Disposition - Plan for ED Patient: Referrals: Aiden Car MD [Primary Care Provider] -
[2020-06-05] MEDS: Ondansetron 4 MG/2 ML Vial IV (19:54)
[2020-06-05] MEDS: Morphine 4 MG/ML Syringe IV (19:54)
[2020-06-05 19:57] LABS: Absolute Lymphocyte Count 1.26 X10^3/uL (0.83-4.51); Absolute Neutrophil Count 12.4 X10^3/uL (2.0-7.7); Basophil# 0.05 X10^3/uL; Basophil% 0.3 % (0-1); Eosinophil# 0.07 X10^3/uL; Eosinophils% 0.5 % (0-5); Hematocrit 38.8 % (37-47); Hemoglobin 11.6 g/dL (12.0-15.0); Lymphocyte # 1.26 X10^3/ul (4.0); Lymphocyte % 8.1 % (19-41); Mean Corp Hgb Conc 29.9 g/dL (32-36); Mean Corpuscular Hgb 31.4 pg (27.0-32.0); Mean Corpuscular Volume 104.9 fL (81-99); Monocyte# 1.24 X10^3/uL; NRBC Flagged by Analyzer 0 % (0-5); Neutrophil # 12.35 X10^3/uL (2.7-7.7); Neutrophil % 79.4 % (47-70); Platelet Count 318 K/mm3 (150-450); RBC Distribution Width CV 13.7 % (11.6-14.6); RBC Distribution Width SD 53.1 fl (35.1-43.9); White Blood Count 15.6 K/mm3 (4.4-11.0)
--- NOTE | 2020-06-05 20:00 | RAD_ITS ---
STUDY: X-RAY CHEST REASON FOR EXAM: Female, 49 years old. chest pain TECHNIQUE: Frontal view of the chest COMPARISON: 23 April 2018 FINDINGS: The lungs are clear and expanded. There is no demonstrated pleural abnormality. Normal size heart. Normal mediastinum and elle. Normal visualized pulmonary arteries. Normal visualized aortic arch and descending thoracic aorta. Normal visualized thoracic spine. Normal visualized ribs, clavicles, and shoulders. There is no demonstrated abnormality of the visualized soft tissue structures of the upper abdomen. RAD/Chest 1 View (Portable) IMPRESSION: Normal x-ray examination of the chest. Electronically Signed: Janelle Lacey MD at 20:46 EST Tel , Service support ,
[2020-06-05 20:15] LABS: Anion Gap 5 (5-15); BUN 18 mg/dL (7-18); BUN/Creat Ratio 12.4 RATIO (10-20); Calcium,Total 8.7 mg/dL (8.5-10.1); Chloride 105 mmol/L (98-107); Creatinine, Serum 1.45 mg/dL (0.55-1.02); EST Glomerular Filtration Rate 40 mL/min (>60); Est Glom Filt Rate - Afr Amer 49 mL/min (>60); Estimated Creatinine Clearance 34.64 ml/min; Glucose 75 mg/dL (74-106); Potassium 4.3 mmol/L (3.5-5.1); Sodium Level 138 mmol/L (136-145)
[2020-06-05 21:08] VITALS: BP 127/71; PULSE 83; RESP 20; O2SAT 100
[2020-06-05 21:28] VITALS: BP 121/79; PULSE 67; RESP 13; TEMP 36.6; O2SAT 99
[2020-06-05 22:13] VITALS: BMI 24.4; BMI 25.9
--- NOTE | 2020-06-05 22:21 | PCM.HP.STD ---
Problem List (1) Chest pain Status: Acute (2) Seizure disorder Status: Chronic (3) Chronic renal failure, stage 3 (moderate) Status: Chronic (4) Sphenoid sinusitis Status: Chronic (5) PRES (posterior reversible encephalopathy syndrome) Status: Chronic (6) Gout Status: Chronic (7) HTN (hypertension) Status: Chronic History of Present Illness Date of Admission: 06/05/20 Chief Complaint: Chest pain The patient is a 49 year old F with a significant history of PRES; previous alcoholism; autoimmune encephalitis; seizure disorder; and mild cognitive deficit who presents to the emergency department with excruciating steady heavy left-sided chest pain that radiates to her left arm. Her pain started after she hit a carpet while vacuuming and was upset. She called her who is a clinical reviewer who then called the paramedics. Her shortness of breath increases with taking a deep breath. She denies any improving factors. However morphine given at emergency department helped with a chest pain. She was given 4 baby aspirin by paramedics. History was taken from a patient and also from her who is a clinical reviewer because patient has mild cognitive deficit. Past Medical History Past Medical History (Chronic Problems): Chronic Problems Seizure disorder (Chronic) Chronic renal failure, stage 3 (moderate) (Chronic) Sphenoid sinusitis (Chronic) PRES (posterior reversible encephalopathy syndrome) (Chronic) Gout (Chronic) HTN (hypertension) (Chronic) Allergies allopurinol Allergy (Verified 06/05/20 19:38) Diarrhea amoxicillin Adverse Reaction (Verified 06/05/20 19:38) Other lactose Adverse Reaction (Verified 06/05/20 19:38) Diarrhea Home Medications: Ambulatory Orders Medication Instructions Recorded Pantoprazole Sodium [Protonix] 20 mg PO DAILY 06/29/16 Febuxostat [Uloric] 40 mg PO DAILY 07/08/16 Aspirin 81 mg PO DAILY 09/20/16 Citalopram Hydrobromide [Celexa] 60 mg PO DAILY 09/20/16 Clonazepam [Klonopin] 0.25 mg PO BID 09/20/16 Folic Acid 1 mg PO DAILY@0800 09/20/16 Lacosamide [Vimpat] 100 mg PO BID 09/20/16 [place]-3 Fatty Acids/Fish Oil [Fish 1 each PO DAILY 09/20/16 Oil 1,000 mg Capsule] Thiamine HCl [B-1] 100 mg PO DAILY 09/20/16 Quetiapine Fumarate [Seroquel] 25 mg PO QHS 07/06/18 Zonisamide 300 mg PO BID 07/06/18 Metoprolol Succinate 25 mg PO BID 11/29/19 Milk Thistle 06/05/20 Prednisone 15 mg PO DAILY 06/05/20 Surgical History: - - c sections Smoking Status: Never smoker Alcohol: Sober - *Family History Maternal History Items: Diabetes, - - His sister had an PR at age of 55. Paternal History Items: Diabetes, Heart Disease - His father had CABG., - - Sister had PR at the age of 55. Review of Systems Constitutional: Denies: Chills, Fever, Weight Change HEENT: Denies: Head Aches, Sinus Congestion, Sinus Drainage Cardiovascular: Reports: Chest Pain. Denies: Palpitations Respiratory: Reports: Shortness of Breath. Denies: Cough, Sputum production Gastrointestinal: Denies: Abdominal Pain, Nausea, Vomiting Genitourinary: Denies: Dysuria Musculoskeletal: Denies: Joint Pain, Joint Tenderness Skin: Denies: Rash, Wounds Neurological: Denies: Numbness, Tingling, Focal weakness Psychiatric: Denies: Anxiety, Depression, Homicidal Ideations, Suicidal Ideations Hematologic/ Lymphatic: Denies: Easy Bruising, Easy Bleeding VTE Information - Inpt Only VTE Present on Admission: No VTE Mechan Device Prophylaxis: SCD's VTE Pharm Prophylaxis ordered?: No Patient Problems: Active and Suspected Problems Chest pain (Acute) - Physical Exam Vitals/I&O's: Vital Signs Temp Pulse Resp BP Pulse Ox 97.9 F 67 13 121/79 H 99 06/05/20 21:28 06/05/20 21:28 06/05/20 21:28 06/05/20 21:28 06/05/20 21:28 Oxygen Delivery Method Room Air Weight: 62.142 kg Body Mass Index (BMI) 25.9 Finger Stick Blood Glucose 114 General: Alert, Oriented x3, Cooperative HEENT: Atraumatic, PERRLA, EOMI, Normocephalic Neck: Supple, No JVD, Negative Carotid Bruits Lungs: Clear to auscultation, Normal air movement Cardiovascular: Regular rate, Normal S1, Normal S2, No murmurs Abdomen: Bowel Sounds Present, Soft, Non Tender Extremities: No edema, Capillary Refill Less than 3 Seconds Skin: No rashes, No breakdown Musculoskeletal: No Tenderness to Palpation of Joints or Extremities Neurological: Cranial nerves II-XII grossly intact Psych/Mental Status: Normal Affect, Appropriate Laboratory Results 06/05/20 19:50: WBC 15.6 H, RBC 3.70 L, Hgb 11.6 L, Hct 38.8, MCV 104.9 H, MCH 31.4, MCHC 29.9 L, RDW Std Deviation 53.1 H, RDW Coeff of [place] 13.7, Plt Count 318, MPV 9.0, Immature Gran % (Auto) 3.700 H, Neut % (Auto) 79.4 H, Lymph % (Auto) 8.1 L, [place] % (Auto) 8.0, Eos % (Auto) 0.5, Baso % (Auto) 0.3, Absolute Neuts (auto) 12.4 H, Absolute Lymphs (auto) 1.26, Nucleated RBC % 0 06/05/20 19:50: Sodium 138, Potassium 4.3, Chloride 105, Carbon Dioxide 28.0, Anion Gap 5, BUN 18, Creatinine 1.45 H, Estim Creat Clear Calc 34.64, Est GFR (MDRD) Af Amer 49 L, Est GFR (MDRD) Non-Af 40 L, BUN/Creatinine Ratio 12.4, Glucose 75, Calcium 8.7, Troponin I < 0.015 Assessment/Plan All Active Problems Chest pain (Acute) The patient is a 49 year old F with a significant history of PRES; previous alcoholic; autoimmune encephalitis; seizure disorder; and mild cognitive deficit who presents to the emergency department with excruciating steady heavy left-sided chest pain. Chest pain Place on a monitored bed at the PCU Radiologist impression of chest x-ray: Normal x-rays of the shoulder chest. Actual CXR image was independently visualized. No acute cardiopulmonary process was noted. Actual EKG tracing was independently visualized. EKG tracing showed sinus rhythm ASA 81 mg p.o. daily continued SL NTG 0.4 mg prn as needed for chest pain ordered Morphine as needed for pain ordered We will check lipid panel. Initial troponin was negative. Trend troponin Stat EKG as needed for chest pain Tread mill Stress test in the AM if the cardiac enzymes are negative Leukocytosis White count on presentation was 15.6. Likely demargination from steroid use Trend. Hypertension Blood pressure is not within goal Metoprolol continued. As needed hydralazine ordered. Trend blood pressure and adjust blood pressure medications. CKD stage III Review of ED labs showed creatinine of 1.45. Previous creatinine was reviewed. Stable Seizure disorder Lacosamide and zonisamide continued GERD Protonix continued Gout Febuxostat and prednisone continued DVT Prophylaxis SCD while planning for cardiac work up for chest pain OBSV E&M: [id number] Initial observation care L2
--- NOTE | 2020-06-05 22:25 | EKG12_ITS ---
Test Reason : CP ADMISSION Blood Pressure : / mmHG Vent. Rate : 067 BPM Atrial Rate : 067 BPM P-R Int : 164 ms QRS Dur : 072 ms QT Int : 436 ms P-R-T Axes : 061 007 023 degrees QTc Int : 460 ms Normal sinus rhythm Normal ECG When compared with ECG of 05-JUN-2020 19:40, MANUAL COMPARISON REQUIRED, DATA IS UNCONFIRMED Confirmed by ALYSSA PEREZ, FIOR ([id number]), image editor PILLO GIL ([id number]) on 06/07/2020 12:48:39 PM Referred By: DR THOMPSON Confirmed By:FIOR SHAH MD
[2020-06-05 22:38] VITALS: BP 110/70; PULSE 70; RESP 16; TEMP 36.5; O2SAT 99
[2020-06-05 22:41] VITALS: PULSE 68
[2020-06-05] MEDS: clonazePAM 0.5 MG Tablet 0.25 MG PO (23:11)
[2020-06-05] MEDS: ZONISAMIDE 100 MG CAPSULE 300 MG PO (23:12)
[2020-06-05] MEDS: Morphine 2 MG/ML Syringe IV (23:12)
[2020-06-05] MEDS: QUEtiapine 25 MG Tablet PO (23:12)
[2020-06-05] MEDS: Lacosamide 100 MG Tablet PO (23:12)
[2020-06-06] VITALS (8 sets, daily range): BP systolic 99–104; BP diastolic 60–68; PULSE 60–72; RESP 12–18; TEMP 36.3–36.7; O2SAT 97–100
[2020-06-06] MEDS: Acetaminophen 325 MG Tablet 650 MG PO (00:45)
[2020-06-06] MEDS: Morphine 2 MG/ML Syringe IV ×2 (05:01→11:44)
[2020-06-06] MEDS: 0.9% Saline Lock 10 ML Syringe IV ×2 (05:02→11:44)
[2020-06-06 05:46] LABS: Absolute Neutrophil Count 8.7 X10^3/uL (2.0-7.7); Basophil# 0.05 X10^3/uL; Basophil% 0.4 % (0-1); Eosinophil# 0.15 X10^3/uL; Eosinophils% 1.2 % (0-5); Hematocrit 38.1 % (37-47); Hemoglobin 11.5 g/dL (12.0-15.0); Lymphocyte % 18.5 % (19-41); Mean Corp Hgb Conc 30.2 g/dL (32-36); Mean Corpuscular Hgb 31.7 pg (27.0-32.0); Mean Platelet Vol. 8.9 fl (6.2-12.0); Monocyte# 0.82 X10^3/uL; Monocyte% 6.6 % (0-10); NRBC Flagged by Analyzer 0 % (0-5); Neutrophil # 8.73 X10^3/uL (2.7-7.7); Neutrophil % 70.1 % (47-70); Platelet Count 273 K/mm3 (150-450); RBC Distribution Width CV 13.7 % (11.6-14.6); RBC Distribution Width SD 53.2 fl (35.1-43.9); Red Blood Count 3.63 M/mm3 (4.2-5.4); White Blood Count 12.5 K/mm3 (4.4-11.0)
--- NOTE | 2020-06-06 05:55 | EKG12_ITS ---
Test Reason : CP/SOB Blood Pressure : / mmHG Vent. Rate : 071 BPM Atrial Rate : 071 BPM P-R Int : 156 ms QRS Dur : 064 ms QT Int : 404 ms P-R-T Axes : 051 013 026 degrees QTc Int : 439 ms Normal sinus rhythm Normal ECG Confirmed by STEF PEREZ, JOEL ([id number]), newspaper managing editor PILLO GIL ([id number]) on 06/08/2020 10:57:46 AM Referred By: KATHLEEN Confirmed By:JOEL FINCH MD
[2020-06-06 06:00] LABS: Anion Gap 6 (5-15); BUN 18 mg/dL (7-18); BUN/Creat Ratio 14.3 RATIO (10-20); Calcium,Total 8.2 mg/dL (8.5-10.1); Chloride 106 mmol/L (98-107); Cholesterol 338 mg/dL (200); Creatinine, Serum 1.26 mg/dL (0.55-1.02); EST Glomerular Filtration Rate 47 mL/min (>60); Est Glom Filt Rate - Afr Amer 57 mL/min (>60); Estimated Creatinine Clearance 39.86 ml/min; Glucose 85 mg/dL (74-106); High Density Lipoprotein 63 mg/dL; Potassium 3.8 mmol/L (3.5-5.1); Sodium Level 138 mmol/L (136-145); Triglycerides 309 mg/dL; Very Low Density Lipoprotein 62 mg/dL (5-40)
[2020-06-06] MEDS: Aspirin E.C. 81 MG Tablet PO (06:52)
--- NOTE | 2020-06-06 10:23 | DCINST_ITS ---
- Discharge Diagnoses Current Active Problems: Current Active and Chronic Problems Chest pain (Acute) Seizure disorder (Chronic) Chronic renal failure, stage 3 (moderate) (Chronic) Sphenoid sinusitis (Chronic) PRES (posterior reversible encephalopathy syndrome) (Chronic) Gout (Chronic) HTN (hypertension) (Chronic) Reason(s) for Visit for Discharge Instructions: Chest pain/ACS rule out You will use the following diet at home:: No restrictions Your food should be the consistency of: Regular Your liquids should be the consistency of: Regular/Thin Discharge Activity: Return to Normal Activity Instructions: ED Chest Pain, Noncardiac Pending Tests on Discharge: Stress echocardiogram Allergies/Adverse Reactions: Allergies allopurinol Allergy (Verified 06/05/20 19:38) Diarrhea amoxicillin Adverse Reaction (Verified 06/05/20 19:38) Other lactose Adverse Reaction (Verified 06/05/20 19:38) Diarrhea Medications to take at Discharge Pantoprazole Sodium [Protonix] 20 mg PO DAILY 06/29/16 Febuxostat [Uloric] 40 mg PO DAILY 07/08/16 Aspirin 81 mg PO DAILY 09/20/16 Citalopram Hydrobromide [Celexa] 60 mg PO DAILY 09/20/16 Clonazepam [Klonopin] 0.25 mg PO BID 09/20/16 Folic Acid 1 mg PO DAILY@0800 09/20/16 Lacosamide [Vimpat] 100 mg PO BID 09/20/16 [place]-3 Fatty Acids/Fish Oil [Fish Oil 1,000 mg Capsule] 1 each PO DAILY 09/20/16 Thiamine HCl [B-1] 100 mg PO DAILY 09/20/16 Quetiapine Fumarate [Seroquel] 25 mg PO QHS 07/06/18 Zonisamide 300 mg PO BID 07/06/18 Metoprolol Succinate 25 mg PO DAILY 11/29/19 Milk Thistle 06/05/20 Primary Care Physician: Aiden Car MD [Primary Care Provider] - Please follow up with your Primary Care Physician in: Within the next week. Test Results: Test results from this visit will be discussed in further detail at your follow- up appointment, if applicable. Proposed Discharge Date: 06/06/20
--- NOTE | 2020-06-06 11:23 | PHA.DC.MR ---
Pharmacy Service has performed discharge medication reconciliation for this patient. No new medications at time of dischrage medication review. Medications reviewed are from previously reported home medications. Home Medications Pantoprazole Sodium [Protonix] 20 mg PO DAILY 06/29/16 Febuxostat [Uloric] 40 mg PO DAILY 07/08/16 Aspirin 81 mg PO DAILY 09/20/16 Citalopram Hydrobromide [Celexa] 60 mg PO DAILY 09/20/16 Clonazepam [Klonopin] 0.25 mg PO BID 09/20/16 Folic Acid 1 mg PO DAILY@0800 09/20/16 Lacosamide [Vimpat] 100 mg PO BID 09/20/16 [place]-3 Fatty Acids/Fish Oil [Fish Oil 1,000 mg Capsule] 1 each PO DAILY 09/20/16 Thiamine HCl [B-1] 100 mg PO DAILY 09/20/16 Quetiapine Fumarate [Seroquel] 25 mg PO QHS 07/06/18 Zonisamide 300 mg PO BID 07/06/18 Metoprolol Succinate 25 mg PO DAILY 11/29/19 Milk Thistle 06/05/20 The patient's discharge medication list was reviewed for discrepancies and discrepancies were resolved.
--- NOTE | 2020-06-06 11:42 | STRESSREP ---
Stress Test Report Exercise myocardial perfusion stress test. 49-year-old lady with a history of chest pain. Stress protocol: Resting KG demonstrates normal sinus rhythm with a rate of 61 bpm normal intervals are noted resting blood pressure is 102/64 mmHg. The patient exercised according to regular Hansel protocol for a total duration of 6 minutes and 31 seconds. The maximum heart rate attained was 122 bpm which was 72% of max impacted heart rate the maximum workload was 7.7 metabolic equivalents. Patient completed 30 seconds into stage III of the Hansel protocol. At rest there were no ST or T wave changes noted to suggest ischemia peak exercise upsloping ST changes were noted with no meet the criteria for ischemia. The resting blood pressure is 102/64 with a peak blood pressure of 120/60 mmHg. This was a good blood pressure response to exercise. Myocardial perfusion protocol. 11.5 mCi of technetium 99m sestamibi was injected at rest. The patient exercised according to regular Hansel protocol for 6-1/2 minutes and at peak exercise 31.7 mCi of technetium 99m sestamibi was injected stress images were obtained stress and rest images were reconstructed and compared in the short axis vertical and horizontal long axis. Gated images were also obtained Perfusion SPECT analysis: Review of the stress images demonstrate normal uptake of tracer noted in all areas of the myocardium the resting images similar demonstrate normal uptake of tracer noted in all areas of the myocardium. No areas of reversibility are noted suggest ischemia no previous infarct is noted. Gated SPECT analysis: The gated ejection fraction is 82%. Conclusion: Exercise myocardial perfusion stress test at a moderate workload. Preserved ejection fraction.
[2020-06-06] MEDS: clonazePAM 0.5 MG Tablet 0.25 MG PO (11:57)
[2020-06-06] MEDS: Citalopram 20 MG Tablet 60 MG PO (11:58)
[2020-06-06] MEDS: Febuxostat 40 MG TABLET PO (11:58)
[2020-06-06] MEDS: Omega-3 Acid Ethyl Esters 1 GM Capsule PO (11:58)
[2020-06-06] MEDS: Folic Acid 1 MG Tablet PO (11:59)
[2020-06-06] MEDS: Pantoprazole Sodium 20 MG Tablet PO (11:59)
[2020-06-06] MEDS: Thiamine Hydrochloride 100 MG Tablet PO (11:59)
[2020-06-06] MEDS: ZONISAMIDE 100 MG CAPSULE 300 MG PO (12:00)
--- NOTE | 2020-06-06 14:22 | PCM.DC.SUM ---
<Hank Alvarenga - Last Filed: 06/06/20 14:22> Discharge Date and Diagnosis - Problem List Patient Problems: Active and Suspected Problems Chest pain (Acute) Date of Admission: 06/05/20 Date of Discharge: 06/06/20 - Primary Discharge Diagnosis Acute Problems: Active Problems Chest pain (Acute) - Secondary Discharge Diagnosis Chronic Problems: Chronic Problems Seizure disorder (Chronic) Chronic renal failure, stage 3 (moderate) (Chronic) Sphenoid sinusitis (Chronic) PRES (posterior reversible encephalopathy syndrome) (Chronic) Gout (Chronic) HTN (hypertension) (Chronic) Hospital Course and Treatment Imaging Results: 06/06/20 05:55 Nuclear Stress Test - Treadmil [NM] AM (NON MEDS) Clinical Impression(s) from Imaging Studies Chest X-Ray 06/05/20 20:00 IMPRESSION: Normal x-ray examination of the chest. Electronically Signed: Janelle Lacey MD at 20:46 EST Tel , Service support , Operations: None Procedures: Nuclear stress test Summary of Care Provided: Chest pain (Acute) Patient is a 49-year-old female who presented to the emergency room on 06/05/2020 for chest pain. She was admitted for unspecified chest pain/ACS rule out. is patient's medical power of state attorney due to patient's cognitive abilities. Chest x-ray was unremarkable remarkable. EKG tracing demonstrated sinus rhythm. No elevation in troponins over cycle. Cardiac stress test unremarkable. Lipid panel revealed an LDL cholesterol of 213. reports that this has been discussed with the primary care provider and that it was decided not to initiate a statin medication due to patient's normally high HDL. Patient and did not want to initiate a statin medication at this time. 1) Unspecified chest pain/ACS rule out Assessment - EKG tracing showed normal sinus rhythm - No elevation in troponins over cycle - Cardiac stress test unremarkable - LDL cholesterol of 213 - and did not wish to initiate a statin medication at this time due to previous assessment of their primary care provider Plan -Discharge today -Follow-up with primary care provider within the next week 2) Leukocytosis Assessment - 12.5 at discharge deep, down from 15.6 at admission - Likely from steroid use Plan - Discontinued maintenance dose of prednisone DVT Prophylaxis; SCD Patient seen by Hank Alvarenga PA-C, under the supervision of Dr. Amador Patient Problems: Active and Suspected Problems Chest pain (Acute) Subjective: Pleasant 49-year-old female who is alert and oriented x3, however has decreased cognitive ability. Much of discussion about patient's condition and history was done with her , who is her medical power of state attorney. Patient reports resolution of her symptoms at admission. Patient ready to be discharged. Objective: Clinical Impression(s) from Imaging Studies Chest X-Ray 06/05/20 20:00 IMPRESSION: Normal x-ray examination of the chest. Electronically Signed: Janelle Lacey MD at 20:46 EST Tel , Service support , Impressions Chest X-Ray 06/05/20 20:00 IMPRESSION: Normal x-ray examination of the chest. Electronically Signed: Janelle Lacey MD at 20:46 EST Tel , Service support , 06/05/20 20:00 Chest 1 View (Portable) [RAD] Stat 06/06/20 05:55 Nuclear Stress Test - Treadmil [NM] AM (NON MEDS) Laboratory Results 06/05/20 06/05/20 06/05/20 19:50 19:50 23:59 WBC 15.6 H RBC 3.70 L Hgb 11.6 L Hct 38.8 MCV 104.9 H MCH 31.4 MCHC 29.9 L RDW Std Deviation 53.1 H RDW Coeff of [place] 13.7 Plt Count 318 MPV 9.0 Immature Gran % (Auto) 3.700 H Neut % (Auto) 79.4 H Lymph % (Auto) 8.1 L [place] % (Auto) 8.0 Eos % (Auto) 0.5 Baso % (Auto) 0.3 Absolute Neuts (auto) 12.4 H Absolute Lymphs (auto) 1.26 Nucleated RBC % 0 Sodium 138 Potassium 4.3 Chloride 105 Carbon Dioxide 28.0 Anion Gap 5 BUN 18 Creatinine 1.45 H Estim Creat Clear Calc 34.64 Est GFR (MDRD) Af Amer 49 L Est GFR (MDRD) Non-Af 40 L BUN/Creatinine Ratio 12.4 Glucose 75 Calcium 8.7 Troponin I < 0.015 < 0.015 Triglycerides Cholesterol LDL Cholesterol VLDL Cholesterol HDL Cholesterol 06/06/20 06/06/20 06/06/20 01:35 05:22 05:22 WBC 12.5 H RBC 3.63 L Hgb 11.5 L Hct 38.1 MCV 105.0 H MCH 31.7 MCHC 30.2 L RDW Std Deviation 53.2 H RDW Coeff of [place] 13.7 Plt Count 273 MPV 8.9 Immature Gran % (Auto) 3.200 H Neut % (Auto) 70.1 H Lymph % (Auto) 18.5 L [place] % (Auto) 6.6 Eos % (Auto) 1.2 Baso % (Auto) 0.4 Absolute Neuts (auto) 8.7 H Absolute Lymphs (auto) 2.30 Nucleated RBC % 0 Sodium 138 Potassium 3.8 Chloride 106 Carbon Dioxide 26.0 Anion Gap 6 BUN 18 Creatinine 1.26 H Estim Creat Clear Calc 39.86 Est GFR (MDRD) Af Amer 57 L Est GFR (MDRD) Non-Af 47 L BUN/Creatinine Ratio 14.3 Glucose 85 Calcium 8.2 L Troponin I < 0.015 Triglycerides 309 H Cholesterol 338 H LDL Cholesterol 213 H VLDL Cholesterol 62 H HDL Cholesterol 63 - Physical Exam Vitals/I&O's: Vital Signs Temp Pulse Resp BP Pulse Ox 97.4 F L 67 18 104/68 100 06/06/20 12:05 06/06/20 12:31 06/06/20 12:05 06/06/20 12:31 06/06/20 12:05 Oxygen Delivery Method Room Air Weight: 129 lb 3.054 oz Body Mass Index (BMI) 24.4 Finger Stick Blood Glucose 114 Intake and Output for Last 24 Hours 06/04/20 06/05/20 06/06/20 23:59 23:59 23:59 Intake Total 240 / 240 Output Total 0 / 0 Balance 240 / 240 General: Alert, Oriented x3, Cooperative, - - [place] facies consistent with chronic steroid use HEENT: Atraumatic, PERRLA, EOMI, Normocephalic Neck: Supple, No JVD, Negative Carotid Bruits Lungs: Clear to auscultation, Normal air movement Cardiovascular: Regular rate, No murmurs Abdomen: Bowel Sounds Present, Soft, Non Tender Extremities: No edema, Capillary Refill Less than 3 Seconds Skin: No rashes, No breakdown Musculoskeletal: No Tenderness to Palpation of Joints or Extremities Neurological: Cranial nerves II-XII grossly intact Psych/Mental Status: Normal Affect, Appropriate Laboratory Results 06/05/20 19:50: WBC 15.6 H, RBC 3.70 L, Hgb 11.6 L, Hct 38.8, MCV 104.9 H, MCH 31.4, MCHC 29.9 L, RDW Std Deviation 53.1 H, RDW Coeff of [place] 13.7, Plt Count 318, MPV 9.0, Immature Gran % (Auto) 3.700 H, Neut % (Auto) 79.4 H, Lymph % (Auto) 8.1 L, [place] % (Auto) 8.0, Eos % (Auto) 0.5, Baso % (Auto) 0.3, Absolute Neuts (auto) 12.4 H, Absolute Lymphs (auto) 1.26, Nucleated RBC % 0 06/05/20 19:50: Sodium 138, Potassium 4.3, Chloride 105, Carbon Dioxide 28.0, Anion Gap 5, BUN 18, Creatinine 1.45 H, Estim Creat Clear Calc 34.64, Est GFR (MDRD) Af Amer 49 L, Est GFR (MDRD) Non-Af 40 L, BUN/Creatinine Ratio 12.4, Glucose 75, Calcium 8.7, Troponin I < 0.015 06/05/20 23:59: Troponin I < 0.015 06/06/20 01:35: Troponin I < 0.015 06/06/20 05:22: WBC 12.5 H, RBC 3.63 L, Hgb 11.5 L, Hct 38.1, MCV 105.0 H, MCH 31.7, MCHC 30.2 L, RDW Std Deviation 53.2 H, RDW Coeff of [place] 13.7, Plt Count 273, MPV 8.9, Immature Gran % (Auto) 3.200 H, Neut % (Auto) 70.1 H, Lymph % (Auto) 18.5 L, [place] % (Auto) 6.6, Eos % (Auto) 1.2, Baso % (Auto) 0.4, Absolute Neuts (auto) 8.7 H, Absolute Lymphs (auto) 2.30, Nucleated RBC % 0 06/06/20 05:22: Sodium 138, Potassium 3.8, Chloride 106, Carbon Dioxide 26.0, Anion Gap 6, BUN 18, Creatinine 1.26 H, Estim Creat Clear Calc 39.86, Est GFR (MDRD) Af Amer 57 L, Est GFR (MDRD) Non-Af 47 L, BUN/Creatinine Ratio 14.3, Glucose 85, Calcium 8.2 L, Triglycerides 309 H, Cholesterol 338 H, LDL Cholesterol 213 H, VLDL Cholesterol 62 H, HDL Cholesterol 63 Discharge Activity: Return to Normal Activity Home Medications: Medications to take at Discharge Pantoprazole Sodium [Protonix] 20 mg PO DAILY 06/29/16 Febuxostat [Uloric] 40 mg PO DAILY 07/08/16 Aspirin 81 mg PO DAILY 09/20/16 Citalopram Hydrobromide [Celexa] 60 mg PO DAILY 09/20/16 Clonazepam [Klonopin] 0.25 mg PO BID 09/20/16 Folic Acid 1 mg PO DAILY@0800 09/20/16 Lacosamide [Vimpat] 100 mg PO BID 09/20/16 Keene-3 Fatty Acids/Fish Oil [Fish Oil 1,000 mg Capsule] 1 each PO DAILY 09/20/16 Thiamine HCl [B-1] 100 mg PO DAILY 09/20/16 Quetiapine Fumarate [Seroquel] 25 mg PO QHS 07/06/18 Zonisamide 300 mg PO BID 07/06/18 Metoprolol Succinate 25 mg PO DAILY 11/29/19 Milk Thistle 06/05/20 Primary Care Physician: Aiden Car MD [Primary Care Provider] - Please follow up with your Primary Care Physician in: Within the next week. Patient Instructions: ED Chest Pain, Noncardiac Medical Necessity - Tobacco Use Smoking Status: Never smoker Meaningful Use Info Meaningful Use Diagnoses (Choose all that apply): None applicable <Judy Amador - Last Filed: 06/06/20 15:10> Discharge Date and Diagnosis - Primary Discharge Diagnosis Acute Problems: Active Problems Chest pain (Acute) - Secondary Discharge Diagnosis Chronic Problems: Chronic Problems Seizure disorder (Chronic) Chronic renal failure, stage 3 (moderate) (Chronic) Sphenoid sinusitis (Chronic) PRES (posterior reversible encephalopathy syndrome) (Chronic) Gout (Chronic) HTN (hypertension) (Chronic) Hospital Course and Treatment Summary of Care Provided: Patient seen by Hank Alvarenga PA-C under my supervision The patient is a 49 year old F with a past medical history as outlined who was admitted through the ED on 06/06/2019 with a complaint of chest pain. Chest pain was reproducible with palpation. He was admitted for chest pain rule out ACS. Troponins x3 were negative and EKG showed no acute ST changes. She had a stress test on 06/06/2020 which was unremarkable. Lipid panel done showed markedly elevated cholesterol of 338 with LDL cholesterol of 213. Also started on high intensity statin but patient and declined this as they said her HDL was usually high. Of note, her HDL was only 63 also in hospital. Patient remained stable and was discharged home on 06/16/2020. She is to follow-up with her primary care doctor in 1 to 2 weeks. Of note patient had also been on prednisone supposedly for prophylaxis for gout. This was discontinued. Patient seen and examined prior to discharge. She had no complaints. Review of systems otherwise negative. Labs and vitals reviewed. Home medication reviewed and reconciled. O/E: Vital Signs Temp Pulse Resp BP Pulse Ox 97.4 F L 67 18 104/68 100 06/06/20 12:05 06/06/20 12:31 06/06/20 12:05 06/06/20 12:31 06/06/20 12:05 [] General: Alert, Oriented x3, Cooperative HEENT: Atraumatic, PERRLA, EOMI, Normocephalic Neck: Supple, No JVD, Negative Carotid Bruits Lungs: Clear to auscultation, Normal air movement Cardiovascular: Regular rate, Normal S1, Normal S2, No murmurs Abdomen: Bowel Sounds Present, Soft, Non Tender Extremities: No edema, Capillary Refill Less than 3 Seconds Skin: No rashes, No breakdown Musculoskeletal: No Tenderness to Palpation of Joints or Extremities Neurological: Cranial nerves II-XII grossly intact Psych/Mental Status: Normal Affect, Appropriate Plan is for discharge home today. - Physical Exam Vitals/I&O's: Vital Signs Temp Pulse Resp BP Pulse Ox 97.4 F L 67 18 104/68 100 06/06/20 12:05 06/06/20 12:31 06/06/20 12:05 06/06/20 12:31 06/06/20 12:05 Oxygen Delivery Method Room Air Weight: 129 lb 3.054 oz Body Mass Index (BMI) 24.4 Finger Stick Blood Glucose 114 Intake and Output for Last 24 Hours 06/04/20 06/05/20 06/06/20 23:59 23:59 23:59 Intake Total 240 / 240 Output Total 0 / 0 Balance 240 / 240 Laboratory Results 06/05/20 19:50: WBC 15.6 H, RBC 3.70 L, Hgb 11.6 L, Hct 38.8, MCV 104.9 H, MCH 31.4, MCHC 29.9 L, RDW Std Deviation 53.1 H, RDW Coeff of [place] 13.7, Plt Count 318, MPV 9.0, Immature Gran % (Auto) 3.700 H, Neut % (Auto) 79.4 H, Lymph % (Auto) 8.1 L, [place] % (Auto) 8.0, Eos % (Auto) 0.5, Baso % (Auto) 0.3, Absolute Neuts (auto) 12.4 H, Absolute Lymphs (auto) 1.26, Nucleated RBC % 0 06/05/20 19:50: Sodium 138, Potassium 4.3, Chloride 105, Carbon Dioxide 28.0, Anion Gap 5, BUN 18, Creatinine 1.45 H, Estim Creat Clear Calc 34.64, Est GFR (MDRD) Af Amer 49 L, Est GFR (MDRD) Non-Af 40 L, BUN/Creatinine Ratio 12.4, Glucose 75, Calcium 8.7, Troponin I < 0.015 06/05/20 23:59: Troponin I < 0.015 06/06/20 01:35: Troponin I < 0.015 06/06/20 05:22: WBC 12.5 H, RBC 3.63 L, Hgb 11.5 L, Hct 38.1, MCV 105.0 H, MCH 31.7, MCHC 30.2 L, RDW Std Deviation 53.2 H, RDW Coeff of [place] 13.7, Plt Count 273, MPV 8.9, Immature Gran % (Auto) 3.200 H, Neut % (Auto) 70.1 H, Lymph % (Auto) 18.5 L, [place] % (Auto) 6.6, Eos % (Auto) 1.2, Baso % (Auto) 0.4, Absolute Neuts (auto) 8.7 H, Absolute Lymphs (auto) 2.30, Nucleated RBC % 0 06/06/20 05:22: Sodium 138, Potassium 3.8, Chloride 106, Carbon Dioxide 26.0, Anion Gap 6, BUN 18, Creatinine 1.26 H, Estim Creat Clear Calc 39.86, Est GFR (MDRD) Af Amer 57 L, Est GFR (MDRD) Non-Af 47 L, BUN/Creatinine Ratio 14.3, Glucose 85, Calcium 8.2 L, Triglycerides 309 H, Cholesterol 338 H, LDL Cholesterol 213 H, VLDL Cholesterol 62 H, HDL Cholesterol 63 Disposition: Home Minutes spent on discharge:: 40 Patient Condition:: Stable OBSV E&M: 51142 Observation care discharge
== END 2020-06-06 10:35 | disposition home or self-care (01) ==
LOC: ED 20:25 → PCU 21:26
PROVIDERS: Admitting Provider Hospitalist; Emergency Provider Emergency Medicine; PCP Family Medicine; Visit Provider Student in an Organized Health Care Education/Training Program
DX: R07.89 Other chest pain (principal); R06.02 Shortness of breath; M79.602 Pain in left arm; I12.9 Hypertensive chronic kidney disease with stage 1 through stage 4 chronic kidney disease, or unspecified chronic kidney disease; G40.909 Epilepsy, unspecified, not intractable, without status epilepticus; I67.83 Posterior reversible encephalopathy syndrome; M10.9 Gout, unspecified; K21.9 Gastro-esophageal reflux disease without esophagitis; N18.32 Chronic kidney disease, stage 3b; F10.21 Alcohol dependence, in remission; Z82.49 Family history of ischemic heart disease and other diseases of the circulatory system; Z79.899 Other long term (current) drug therapy; Z79.52 Long term (current) use of systemic steroids; Z79.82 Long term (current) use of aspirin
CPT/HCPCS: 36415; 71045; 78452; 80048; 80061; 84484; 85025; 93005; 93017; 96374; 96375; 96376; 99218; 99285; A9500; A4216; G0378; J2405